=== PATIENT | male | born 1950 | race American Indian/Alaskan Native ===

== ENCOUNTER 2016-08-03 14:28 | Inpatient (IN) | payer MEDICARE ==
--- NOTE | 2016-08-03 14:58 | Emergency Department Report ---
ED Shortness of Breath HPI - General Chief Complaint: Dyspnea/Respdistress Stated Complaint: VIKA Time Seen by Provider: 08/03/16 14:44 Source: patient, EMS, old records reviewed (no previous [employer] record) Mode of arrival: Stretcher Limitations: Altered Mental Status - History of Present Illness Initial Comments: 66-year-old male with a past medical history COPD, CHF, diabetes, and hypertension presents to the hospital complaints of shortness of breath and altered mental status. Patient is lethargic and tends to tactile stimulation, answers questions then falls right back to sleep. He states she's been short of breath 3 days. Denies any pain. Monitor shows A. fib. Patient did not answer whether or not he had a previous history of atrial fibrillation. He takes 2-3 L of home oxygen. Patient states he is sleepy because he did not sleep much last night. - Related Data Home Medications Medication Instructions Recorded Confirmed Last Taken Furosemide [Lasix TAB] 40 mg PO QDAY 08/03/16 08/03/16 Unknown Metoprolol [Lopressor TAB] 50 mg PO BID 08/03/16 08/03/16 Unknown metFORMIN [Glucophage] 500 mg PO BID 08/03/16 08/03/16 Unknown Allergies Allergy/AdvReac Type Severity Reaction Status Date / Time No Known Allergies Allergy Unverified 08/03/16 14:39 ED Review of Systems ROS: Stated complaint: VIKA Other details as noted in HPI Comment: All other systems reviewed and negative (Limited due to lethargy/ altered mental status) Other: Constitutional: No fevers chills Respiratory: occasional cough, shortness of breath Cardiovascular: Denies chest pain, palpitations, syncope GI: Denies abdominal pain, nausea, vomiting, diarrhea : Denies dysuria Musculoskeletal: Denies back pain Skin: Denies rash, lesions, erythema Neurologic: Denies headache ED Past Medical Hx - Past Medical History Hx Hypertension: Yes Hx Congestive Heart Failure: Yes Hx Diabetes: Yes Hx COPD: Yes (home oxygen) - Social History Smoking Status: Current Some Day Smoker - Medications Home Medications: Home Medications Medication Instructions Recorded Confirmed Last Taken Type Furosemide [Lasix TAB] 40 mg PO QDAY 08/03/16 08/03/16 Unknown History Metoprolol [Lopressor TAB] 50 mg PO BID 08/03/16 08/03/16 Unknown History metFORMIN [Glucophage] 500 mg PO BID 08/03/16 08/03/16 Unknown History ED Physical Exam - General Limitations: Altered Mental Status - Other Other exam information: General: Lethargic Head exam: Atraumatic, normocephalic Eyes exam: Normal appearance ENT: Moist mucous membrane Neck exam: Normal inspection, full range of motion, no meningismus nontender Respiratory exam: Clear to auscultation bilateral, no wheezes, rales, crackles Cardiovascular: Irregular rhythm mild tachycardia Abdomen: Soft, nondistended, and nontender, with normal bowel sounds, no rebound, or guarding Extremity: Full range of motion, lower extremity edema mild Back: Normal Inspection, full range of motion, no tenderness Neurologic: Lethargic, arousable to tactile stimulation, 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 If the blood pressure drops while on cardiac syndrome recommends D/c drip and administering digoxin 08/03/16 17:11 ED Medical Decision Making - Lab Data Result diagrams: 08/03/16 15:06 08/03/16 15:06 Lab Results 08/03/16 08/03/16 08/03/16 Range/Units 14:55 15:06 15:06 PT 18.0 H (12.2-14.9) Sec. INR 1.49 H (0.87-1.13) APTT 28.8 (24.2-36.6) Sec. POC ABG pH 7.390 (7.35-7.45) POC ABG pCO2 41.0 (35-45) POC ABG pO2 66 L (80-105) POC ABG HCO3 24.8 POC ABG Total CO2 26 POC ABG O2 Sat 93 POC ABG Base Excess 0 FiO2 32 % Sodium 138 (137-145) mmol/L Potassium 4.1 (3.6-5.0) mmol/L Chloride 97.7 L (98-107) mmol/L Carbon Dioxide 25 (22-30) mmol/L Anion Gap 19 mmol/L BUN 19 (9-20) mg/dL Creatinine 1.2 (0.8-1.5) mg/dL Estimated GFR > 60 ml/min BUN/Creatinine Ratio 15.83 % Glucose 120 H (75-100) mg/dL Calcium 9.0 (8.4-10.2) mg/dL Ammonia (25-60) umol/L Total Creatine Kinase (55-170) units/L CK-MB (CK-2) (0.0-4.0) ng/mL CK-MB (CK-2) Rel Index (0-4) Troponin T (0.00-0.029) ng/mL NT-Pro-B Natriuret Pep 4519 H (0-900) pg/mL 08/03/16 08/03/16 Range/Units 15:06 15:06 PT (12.2-14.9) Sec. INR (0.87-1.13) APTT (24.2-36.6) Sec. POC ABG pH (7.35-7.45) POC ABG pCO2 (35-45) POC ABG pO2 (80-105) POC ABG HCO3 POC ABG Total CO2 POC ABG O2 Sat POC ABG Base Excess FiO2 % Sodium (137-145) mmol/L Potassium (3.6-5.0) mmol/L Chloride (98-107) mmol/L Carbon Dioxide (22-30) mmol/L Anion Gap mmol/L BUN (9-20) mg/dL Creatinine (0.8-1.5) mg/dL Estimated GFR ml/min BUN/Creatinine Ratio % Glucose (75-100) mg/dL Calcium (8.4-10.2) mg/dL Ammonia 61.0 H (25-60) umol/L Total Creatine Kinase 160 (55-170) units/L CK-MB (CK-2) 4.9 H (0.0-4.0) ng/mL CK-MB (CK-2) Rel Index 3.0 (0-4) Troponin T 0.027 (0.00-0.029) ng/mL NT-Pro-B Natriuret Pep (0-900) pg/mL - EKG Data -: EKG Interpreted by Me (afib 127 no stemi) - EKG Data When compared to previous EKG there are: previous EKG unavailable - Radiology Data Radiology results: report reviewed Chest x-ray: Probable CHF CT head: Suspicious area of low attenuation right cerebellum. Recommend MRI - Medical Decision Making Plan to admit patient to the hospital for treatment of acute CHF exacerbation with A. fib with RVR. Unsure if A. fib is new or old. Hospitalist informed. No signs of CO2 retention at this time. - Differential Diagnosis CO2 retention, new-onset A. fib, CVA , encephalopathy, AL Critical Care Time: No Critical care attestation.: If time is entered above; I have spent that time in minutes in the direct care of this critically ill patient, excluding procedure time. ED Disposition Clinical Impression: Atrial fibrillation with RVR, Acute CHF, SOB (shortness of breath), COPD ( chronic obstructive pulmonary disease), On home oxygen therapy, Diabetes, Anemia Disposition: OP ADMITTED IP TO THIS HOSP Is pt being admited?: Yes Condition: Stable Time of Disposition: 16:39 (Dr Lerner/hosp)
[2016-08-03 14:59] LABS: ISTAT Base Excess 0; ISTAT HCO3 24.8; ISTAT PO2 66 (80-105); ISTAT SO2 93; ISTAT TCO2 26
--- NOTE | 2016-08-03 15:10 | Admit Criteria Form ---
Admission Criteria Documentation: ATRIAL FIBRILLATION Clinical Indications for Admission to Inpatient Care (Place 'X' for any and all applicable criteria): Admission indicated for ANY ONE of the following(1)(2)(3)(4)(5) : [ ]I. Myocardial ischemia [X]II. Dyspnea or hypoxemia [ ]III. Hemodynamic instability [X]IV. Heart failure (e.g., pulmonary edema) (7) [ ]V. New-onset (less than 48 hours) atrial fibrillation with high risk for causing complications secondary to comorbidities (eg, symptomatic heart failure ) [X]. Altered mental status [ ]VII. Syncope [ ]VIII. Patient has implantable cardioverter defibrillator that has fired more than once within past 24hr or needs immediate adjustment of settings that cannot be done other than in inpatient setting. (8) [ ]IX. Suspected accessory pathway (e.g., Qpaki-Whojvccpo-Vtcfs syndrome) on ECG [ ]X. Recent systemic thromboembolism (eg, stroke) [ ]XI. Medication toxicity (e.g., digitalis) causing arrhythmia(9) [ ]XII. Underlying medical condition that necessitates inpatient care (e.g., thyrotoxicosis, pneumonia) (10) [ ]XIII. Continuous ECG monitoring is required for condition causing arrhythmia (e.g., severe hyperkalemia, hypokalemia, acid-base disturbance).(11)(12)(13) [ ]XIV. Initiation of antiarrhythmic drug therapy is needed in patient at high risk of adverse effects as indicated by ANY ONE of the following: [ ]a) Significant structural heart disease (e.g., reduced ejection fraction, congenital heart disease, valvular heart disease) [ ]b) Prolonged QT interval [ ]c) Underlying sinus node or atrioventricular conduction disturbances [ ]d) Need for treatment with antiarrhythmic drugs that have significant proarrhythmic potential (e.g., dofetilide, sotalol, procainamide) [ ]e) Patient whose sinus rhythm has never been observed on ECG [ ]XV. Intolerable symptoms despite optimal outpatient treatment [ ]XVI. Elective or urgent cardioversion that cannot be performed on outpatient basis or during observation care. [A] (Use also Atrial Fibrillation: Observation Care ) as appropriate.(14) [ ]XVII.Contraindications and/or Inappropriate clinical situations for Observational Care in patients with Atrial Fibrillation, when ANY ONE of the following is required: [ ]a) Patient with High risk of cardiac embolism (e.g, patients with previous cardiac embolism, LVEF < 40%, age >75 and patients with prosthetic valve) 18 [ ]b) Patient with Moderate risk including DM patient, CAD and patient aged 65-75 18 [ ]c) Patient with any change in cardiac biomarker especially troponin should be managed as high risk in an inpatient setting 19 [ ]d) Physician judgement irrespective of ECG and other diagnostic findings 20 [ ]XVIII.General contraindications and/or Inappropriate clinical situations for Observational Care in patients with Atrial Fibrillation, when ANY ONE of the following is required: [ ]a) Prediction of prolongation of LOS based on ANY ONE of the following may be considered as a contraindication for observational care 2, 3, 4, 5, 6, 7, 8, 9, 10, 11 [ ]i) Age > 65 yrs. [ ]ii) Patient arriving by ambulance [ ]iii) Patient with high acuity [ ]iv) Patient requiring vital sign monitoring [ ]v) Patient on IV medication [ ]b) Systolic blood pressures 180mmHg 3,12 [ ]c) Patient with altered mental status including delirium and other alteration of consciousness3 [ ]d) Patient whose discharge disposition will be to a usp home or rehabilitation home should not be managed in Emergency Department Observation Unit. CMS rule requires 3 days hospital stay before such placement.3,13 [ ]e) Patient with failure to thrive due to broad array of etiologies 3,16,17 [ ]f) Inability to ambulate 3,14 Extended stay beyond goal length of stay may be needed for (1)(25)(26): [ ]a) Unstable comorbidities [ ]b) Persistently uncontrolled atrial fibrillation or other arrhythmias [ ]c) Acute thromboembolic event (e.g., stroke, limb ischemia) [ ]d) Need for inpatient attainment of full anticoagulation The original [employer] content created by [employer] has been revised. The portions of the content which have been revised are identified through the use of italic text or in bold, and [facility] [employer] has neither reviewed nor approved the modified material. All other unmodified content is copyright [employer] [employer]. Please see references footnoted in the original [facility] [facility] [employer] edition 2016 Admission Criteria Met: Yes
--- NOTE | 2016-08-03 15:22 | XRay Report ---
Single view chest: History: Shortness of breath. Findings: Marked cardiomegaly. Trachea is midline. Pulmonary venous congestion with very faint interstitial infiltrates. Normal CP angles. Impression: Probable CHF.
[2016-08-03 15:42] LABS: INR 1.49 (0.87-1.13)
[2016-08-03 15:43] LABS: Partial Thromboplastin Time 28.8 Sec. (24.2-36.6)
[2016-08-03 16:01] LABS: Creatine Kinase MB 4.9 ng/mL (0.0-4.0)
--- NOTE | 2016-08-03 16:02 | Cat Scan Report ---
CT scan of head without contrast: History: Decreased mental status. Findings: Ventricles are normal in size and midline in location. Moderate volume loss. No evidence of acute ischemia, hemorrhage or mass. No extra axial fluid collection. There is suspicious ill-defined area of low attenuation noted at the right cerebellum adjacent to the inner table/artefct or ischemia. 2 retention cysts or polyps measuring 1 cm in diameter at the left maxillary sinus. Impression: Suspicious area of low attenuation right cerebellum. MRI scan there is a cortical further evaluation.
[2016-08-03 16:26] LABS: Anion Gap 19 mmol/L; BUN/Creatinine Ratio 15.83; Blood Urea Nitrogen 19 mg/dL (9-20); Carbon Dioxide 25 mmol/L (22-30); Chloride 97.7 mmol/L (98-107); Glucose 120 mg/dL (75-100); Potassium 4.1 mmol/L (3.6-5.0); Sodium 138 mmol/L (137-145)
[2016-08-03] MEDS ORDERED: LASIX IV ONE (16:35)
[2016-08-03] MEDS ORDERED: ASPIRIN PO ONE (16:36)
[2016-08-03 16:43] LABS: Basophils % (Auto) 0.5 % (0.0-1.8); Eosinophils % (Auto) 0.8 % (0.0-4.3); Mean Corpuscular HGB Conc 29 % (32-34); Platelet Count 200 K/mm3 (140-440); Red Blood Count 4.38 M/mm3 (3.65-5.03); White Blood Count 6.8 K/mm3 (4.5-11.0)
[2016-08-03 16:44] LABS: Hematocrit 30.6 % (35.5-45.6); Hemoglobin 8.9 gm/dl (11.8-15.2); Mean Corpuscular Hemoglobin 20 pg (28-32); Mean Corpuscular Volume 70 fl (84-94); Red Cell Distribution Width 20.9 % (13.2-15.2)
[2016-08-03] MEDS: CARDIZEM/D5W 100MG/100ML 100 MG/100 ML BAG IV SCH (17:15)
--- NOTE | 2016-08-03 21:13 | Event Note ---
Date: 08/03/16 See H/p in reports Afib with RVR CHF exacerbation Copd exacerbation
[2016-08-03] MEDS ORDERED: LEVAQUIN 750MG/150ML 150 ML IV SCH (22:00)
[2016-08-03] MEDS: DUONEB 0.5 MG-3 MG/3 ML SOLN IH SCH (22:11)
[2016-08-03] MEDS: LASIX IV SCH (22:33)
[2016-08-03] MEDS: LOPRESSOR PO SCH (22:33)
[2016-08-03] MEDS: GLUCOPHAGE PO SCH (22:34)
[2016-08-03] MEDS: LEVAQUIN 750MG/150ML 750 MG/150 ML BAG IV SCH (22:49)
[2016-08-04] MEDS ORDERED: XANAX PO ONE (00:32)
[2016-08-04] MEDS: DUONEB 0.5 MG-3 MG/3 ML SOLN IH SCH ×4 (01:36→21:02)
[2016-08-04] MEDS: CARDIZEM/D5W 100MG/100ML 100 MG/100 ML BAG IV SCH (01:49)
--- NOTE | 2016-08-04 09:09 | Consultation ---
History of Present Illness Consult date: 08/04/16 Consult reason: atrial fibrillation, congestive heart failure History of present illness: This is a 66yr old male who presented to this hospital with shortness of breath. He denies chest pain. An ECG shows atrial fibrillation with RVR. Chest x -ray reports cardiomegaly with vascular congestion and possible interstitial infiltrates. Patient reports a cardiac history of atrial fibrillation and CHF during recent admission to [facility]. Patient reports having a cardiac cath but he is unclear if he had coronary intervention. Patient is unsure what anticoagulation therapy he is taking. INR of 1.4 on presentation. Patient is a poor historian and admits to noncompliance with medication and dietary restrictions. 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 Medications and Allergies Allergies Allergy/AdvReac Type Severity Reaction Status Date / Time No Known Allergies Allergy Unverified 08/03/16 14:39 Home Medications Medication Instructions Recorded Confirmed Last Taken Type Furosemide [Lasix TAB] 40 mg PO QDAY 08/03/16 08/03/16 Unknown History Metoprolol [Lopressor TAB] 50 mg PO BID 08/03/16 08/03/16 Unknown History metFORMIN [Glucophage] 500 mg PO BID 08/03/16 08/03/16 Unknown History Active Meds: Active Medications Albuterol/Ipratropium (Duoneb 0.5 Mg-3 Mg/3 Ml Soln) 1 ampul IH Q6HRT [facility] Last Admin: 08/04/16 08:29 Dose: 1 ampul Enoxaparin Sodium (Lovenox) 40 mg SUB-Q QDAY KIMMY Furosemide (Lasix) 40 mg IV QDAY [facility] Last Admin: 08/03/16 22:33 Dose: 40 mg Diltiazem HCl (Cardizem/D5w 100mg/100ml) 100 mg in 100 mls @ 5 mls/hr IV TITR KIMMY; 5 MG/HR PRN Reason: Protocol Last Admin: 08/04/16 01:49 Dose: 10 mg/hr, 10 mls/hr Levofloxacin/Dextrose (Levaquin 750mg/150ml) 750 mg in 150 mls @ 100 mls/hr IV Q24H KIMMY PRN Reason: Protocol Last Admin: 08/03/16 22:49 Dose: 100 mls/hr Metformin HCl (Glucophage) 500 mg PO BIDDIAB [facility] Last Admin: 08/03/16 22:34 Dose: Not Given Methylprednisolone Sodium Succinate (Solu-Medrol) 60 mg IV Q8HR [facility] Last Admin: 08/04/16 05:27 Dose: 60 mg Metoprolol Tartrate (Lopressor) 50 mg PO BID [facility] Last Admin: 08/03/16 22:33 Dose: 50 mg Physical Examination Vital Signs Temp Pulse BP Pulse Ox 98.2 F 106 H 105/69 94 08/03/16 14:39 08/03/16 14:39 08/03/16 14:39 08/03/16 14:39 General appearance: no acute distress Cardiac: Positive: irregularly irregular Lungs: Positive: Decreased Breath Sounds Results 08/03/16 15:06 08/03/16 15:06 Assessment and Plan CHF exacerbation Hx of COPD
[2016-08-04] MEDS ORDERED: LOVENOX SUB-Q SCH (10:00)
[2016-08-04] MEDS: LOPRESSOR PO SCH ×2 (10:08→21:37)
[2016-08-04] MEDS: LASIX IV SCH (10:09)
[2016-08-04] MEDS: GLUCOPHAGE PO SCH ×2 (10:11→18:10)
--- NOTE | 2016-08-04 10:58 | Consultation ---
History of Present Illness Consult date: 08/04/16 Consult reason: shortness of breath History of present illness: 66 year old male poor historian admitted with worsening shortness of breath. He receives his care primarily at the [facility] and [facility]. He states that recently he had a heart cath at [facility] showing no evidence of CAD. He has a history of heart failure and atrial fibrillation but he does not take anticoagulation as outpatient for unknown reasons. His CXR is consistent with CHF. Past History Past Medical History: atrial fib, anemia, COPD, diabetes, heart failure, hypertension Past Surgical History: No surgical history Social history: smoking Family history: no significant family history Medications and Allergies Allergies Allergy/AdvReac Type Severity Reaction Status Date / Time No Known Allergies Allergy Unverified 08/03/16 14:39 Home Medications Medication Instructions Recorded Confirmed Last Taken Type Furosemide [Lasix TAB] 40 mg PO QDAY 08/03/16 08/03/16 Unknown History Metoprolol [Lopressor TAB] 50 mg PO BID 08/03/16 08/03/16 Unknown History metFORMIN [Glucophage] 500 mg PO BID 08/03/16 08/03/16 Unknown History Active Meds: Active Medications Albuterol/Ipratropium (Duoneb 0.5 Mg-3 Mg/3 Ml Soln) 1 ampul IH Q6HRT [facility] Last Admin: 08/04/16 08:29 Dose: 1 ampul Enoxaparin Sodium (Lovenox) 40 mg SUB-Q QDAY [facility] Last Admin: 08/04/16 10:09 Dose: 40 mg Furosemide (Lasix) 40 mg IV QDAY [facility] Last Admin: 08/04/16 10:09 Dose: 40 mg Diltiazem HCl (Cardizem/D5w 100mg/100ml) 100 mg in 100 mls @ 5 mls/hr IV TITR KIMMY; 5 MG/HR PRN Reason: Protocol Last Admin: 08/04/16 01:49 Dose: 10 mg/hr, 10 mls/hr Levofloxacin/Dextrose (Levaquin 750mg/150ml) 750 mg in 150 mls @ 100 mls/hr IV Q24H KIMMY PRN Reason: Protocol Last Admin: 08/03/16 22:49 Dose: 100 mls/hr Metformin HCl (Glucophage) 500 mg PO BIDDIAB [facility] Last Admin: 08/04/16 10:11 Dose: 500 mg Methylprednisolone Sodium Succinate (Solu-Medrol) 60 mg IV Q8HR [facility] Last Admin: 08/04/16 05:27 Dose: 60 mg Metoprolol Tartrate (Lopressor) 50 mg PO BID [facility] Last Admin: 08/04/16 10:08 Dose: 50 mg Review of Systems All systems: negative Physical Examination Vital Signs Temp Pulse BP Pulse Ox 98.2 F 106 H 105/69 94 08/03/16 14:39 08/03/16 14:39 08/03/16 14:39 08/03/16 14:39 General appearance: no acute distress HEENT: Positive: PERRL Neck: Positive: neck supple Cardiac: Positive: irregularly irregular Lungs: Positive: Rales Abdomen: Positive: Soft Extremities: Present: +1 Edema Results 08/03/16 15:06 08/03/16 15:06 Assessment and Plan Congestive heart failure, ? etiology History of recent cardiac work-up at [facility] where he was told that he has no CAD COPD on home oxygen therapy Obstructive sleep apnea Persistent atrial fibrillation Not on anticoagulation as outpatient for unknown reasons (possibly due to non -compliance and anemia) Type II DM Systemic Hypertension Microcytic anemia. ? etiology Poor historian Recommendations: Obtain records from [facility] and [facility] Change to po diltiazem 60 mg every 6 hours Hold on anticoagulation and further cardiac testing until records are received from [facility]
[2016-08-04] MEDS: CARDIZEM PO SCH ×3 (15:38→23:59)
--- NOTE | 2016-08-04 21:09 | Progress Note ---
Assessment and Plan - Patient Problems (1) Acute CHF Current Visit: Yes Status: Acute Qualifiers: Congestive heart failure type: systolic Qualified Code(s): I50.21 - Acute systolic (congestive) heart failure Plan to address problem: Cardiology consulted: telemetry, fluid restriction, monitor uop q shift, diuretics, daily weight, B uzair, afterload reduction, (2) Metabolic syndrome Current Visit: Yes Status: Acute Plan to address problem: Pt counseled (3) Atrial fibrillation with RVR Current Visit: Yes Status: Acute Plan to address problem: Rate control, supportive care, cardiology consulted. (4) COPD (chronic obstructive pulmonary disease) Current Visit: Yes Status: Acute Qualifiers: COPD type: C Chronic bronchitis type: C Emphysema type: E Plan to address problem: supplemental oxygenb, nebs, NIPPV as clinically indicated (5) Diabetes Current Visit: Yes Status: Acute Qualifiers: Diabetes mellitus type: D Diabetes mellitus complication status: D Diabetes mellitus complication detail: D Diabetic retinopathy severity: D Proliferative retinopathy type: P Diabetes mellitus macular edema: D Diabetes mellitus halfway insulin use: D Laterality: L Chronic kidney disease stage: C Plan to address problem: ADA diet, insulin, accu check (6) DVT prophylaxis Current Visit: Yes Status: Acute History Interval history: Pt resting in bed, Pt denies any current complaints. Pt denies fever, chills, CP , Palpitations, NVD. No reported nursing events. Hospitalist Physical - Constitutional Vitals: Temp Pulse Resp BP Pulse Ox 97.3 F L 83 18 97/61 98 08/04/16 16:35 08/04/16 21:03 08/04/16 21:03 08/04/16 19:44 08/04/16 21:02 General appearance: Present: no acute distress, obese - EENT Eyes: Present: PERRL ENT: hearing intact - Neck Neck: Present: supple - Respiratory Respiratory: bilateral: diminished - Cardiovascular Rhythm: irregularly irregular - Extremities Extremities: no ischemia Extremity abnormal: edema Peripheral Pulses: within normal limits - Abdominal General gastrointestinal: soft, non-tender, non-distended - Integumentary Integumentary: Present: clear, dry - Psychiatric Psychiatric: appropriate mood/affect, cooperative - Neurologic Neurologic: CNII-XII intact Results - Labs CBC & Chem 7: 08/03/16 15:06 08/03/16 15:06 Labs: Laboratory Last Values WBC 6.8 K/mm3 (4.5-11.0) 08/03/16 15:06 RBC 4.38 M/mm3 (3.65-5.03) 08/03/16 15:06 Hgb 8.9 gm/dl (11.8-15.2) L 08/03/16 15:06 Hct 30.6 % (35.5-45.6) L 08/03/16 15:06 MCV 70 fl (84-94) L 08/03/16 15:06 MCH 20 pg (28-32) L 08/03/16 15:06 MCHC 29 % (32-34) L 08/03/16 15:06 RDW 20.9 % (13.2-15.2) H 08/03/16 15:06 Plt Count 200 K/mm3 (140-440) 08/03/16 15:06 Lymph % (Auto) 19.5 % (13.4-35.0) 08/03/16 15:06 [place] % (Auto) 11.9 % (0.0-7.3) H 08/03/16 15:06 Eos % (Auto) 0.8 % (0.0-4.3) 08/03/16 15:06 Baso % (Auto) 0.5 % (0.0-1.8) 08/03/16 15:06 Lymph # 1.3 K/mm3 (1.2-5.4) 08/03/16 15:06 [place] # 0.8 K/mm3 (0.0-0.8) 08/03/16 15:06 Eos # 0.1 K/mm3 (0.0-0.4) 08/03/16 15:06 Baso # 0.0 K/mm3 (0.0-0.1) 08/03/16 15:06 Seg Neutrophils % 67.3 % (40.0-70.0) 08/03/16 15:06 Seg Neutrophils # 4.6 K/mm3 (1.8-7.7) 08/03/16 15:06 PT 18.0 Sec. (12.2-14.9) H 08/03/16 15:06 INR 1.49 (0.87-1.13) H 08/03/16 15:06 APTT 28.8 Sec. (24.2-36.6) 08/03/16 15:06 POC ABG pH 7.390 (7.35-7.45) 08/03/16 14:55 POC ABG pCO2 41.0 (35-45) 08/03/16 14:55 POC ABG pO2 66 (80-105) L 08/03/16 14:55 POC ABG HCO3 24.8 08/03/16 14:55 POC ABG Total CO2 26 08/03/16 14:55 POC ABG O2 Sat 93 08/03/16 14:55 POC ABG Base Excess 0 08/03/16 14:55 FiO2 32 % 08/03/16 14:55 Sodium 138 mmol/L (137-145) 08/03/16 15:06 Potassium 4.1 mmol/L (3.6-5.0) 08/03/16 15:06 Chloride 97.7 mmol/L (98-107) L 08/03/16 15:06 Carbon Dioxide 25 mmol/L (22-30) 08/03/16 15:06 Anion Gap 19 mmol/L 08/03/16 15:06 BUN 19 mg/dL (9-20) 08/03/16 15:06 Creatinine 1.2 mg/dL (0.8-1.5) 08/03/16 15:06 Estimated GFR > 60 ml/min 08/03/16 15:06 BUN/Creatinine Ratio 15.83 % 08/03/16 15:06 Glucose 120 mg/dL (75-100) H 08/03/16 15:06 Calcium 9.0 mg/dL (8.4-10.2) 08/03/16 15:06 Ammonia 61.0 umol/L (25-60) H 08/03/16 15:06 Total Creatine Kinase 160 units/L (55-170) 08/03/16 15:06 CK-MB (CK-2) 4.9 ng/mL (0.0-4.0) H 08/03/16 15:06 CK-MB (CK-2) Rel Index 3.0 (0-4) 08/03/16 15:06 Troponin T 0.027 ng/mL (0.00-0.029) 08/03/16 15:06 NT-Pro-B Natriuret Pep 4519 pg/mL (0-900) H 08/03/16 15:06
[2016-08-04] MEDS: LEVAQUIN 750MG/150ML 750 MG/150 ML BAG IV SCH (21:36)
--- NOTE | 2016-08-05 01:19 | History and Physical Report ---
CHIEF COMPLAINT: Increasing shortness of breath for 3 days. HISTORY OF PRESENT ILLNESS: A 66-year-old male with history of COPD, CHF, diabetes, hypertension comes in for increasing shortness of breath for 3 days. The patient is lethargic, answers questions and then falls back to sleep. Short of breath for 3 days. Cough productive of mucoid sputum. Also, some palpitations present. On home oxygen 2-3 liters. No fever, no chills, no diaphoresis. PAST MEDICAL HISTORY: As mentioned, significant for hypertension, CHF, COPD, diabetes. SOCIAL HISTORY: Smokes about a pack a day. PAST SURGICAL HISTORY: None. FAMILY HISTORY: Significant for hypertension. CURRENT MEDICATIONS: Lasix 40 mg daily, Lopressor 50 mg twice a day, and metformin 500 mg twice a day. REVIEW OF SYSTEMS: Significant for: CONSTITUTIONAL: No weight loss, no weight gain. HEENT: No sore throat, no postnasal drip. CARDIOVASCULAR AND RESPIRATORY: Bilateral inspiratory and expiratory rhonchi and rales present. Shortness of breath present. GASTROINTESTINAL: No nausea, no vomiting, no diarrhea. GENITOURINARY: No dysuria, no flank pain. MUSCULOSKELETAL: No joint pains, no muscle pains. CENTRAL NERVOUS SYSTEM: No syncope, no seizures. SKIN: No rashes. A 14-point review of systems done, other than increasing shortness of breath review of systems negative. PHYSICAL EXAMINATION: GENERAL: Elderly male, cooperative during examination. VITAL SIGNS: Temperature 98.2, pulse 106, respirations 21, blood pressure 105/69. HEENT: Unremarkable. Pupils are equal and reactive. NECK: Supple, no lymphadenopathy, no thyromegaly. LUNGS: Clear to auscultation and percussion. Good air entry. Bilateral scattered rales present. CARDIOVASCULAR: S1, S2 heard. No gallop, no murmur, no rub. Apical impulse in left fifth intercostal space and midclavicular line. ABDOMEN: Soft and benign. No hepatosplenomegaly. No guarding, no rigidity. Hernial orifices are normal. EXTREMITIES: Good pedal pulses. CENTRAL NERVOUS SYSTEM: Alert and oriented x 4, nonfocal exam. LABORATORY DATA: White count is 6800, H and H is 8.9 and 30.6, platelet count is 200,000. Sodium is 138, potassium is 4.1, chloride is 97.7, bicarbonate is 25, BUN and creatinine is 19 and 1.2, glucose is 120. ABG significant for pH of 7.39, pCO2 of 41, pO2 of , bicarbonate of 24.8, total CO2 of 26, O2 sats are 93% on 32% oxygen. Chest x-ray showed no infiltrate. Probable CHF. EKG shows AFib with rapid ventricular response, 127 per minute and no STEMI. ASSESSMENT AND PLAN: 1. Atrial fibrillation with rapid ventricular rate. The patient on diltiazem drip. Continue diltiazem drip and switch over to p.o. Diltiazem. 2. Congestive heart failure exacerbation. The patient continued on Lasix 40 mg IV q. 24. 3. Choric obstructive pulmonary disease exacerbation. The patient started on DuoNeb, levofloxacin, and mg q.8 hours. 4. Hypertension. Continue metoprolol and Diltiazem. 5. Noninsulin dependent diabetes. Continue metformin and coverage. 6. Deep venous thrombosis prophylaxis, Lovenox 40 mg subcutaneous daily. JOB# [id number] VSM/NTS
[2016-08-05] MEDS: DUONEB 0.5 MG-3 MG/3 ML SOLN IH SCH ×4 (01:39→20:18)
[2016-08-05] MEDS: CARDIZEM PO SCH ×4 (06:20→23:06)
[2016-08-05] MEDS ORDERED: D50W (25GM) IV ONE ×2 (06:30→08:08)
[2016-08-05] MEDS ORDERED: SODIUM BICARBONATE IV ONE ×6 (08:00→16:00)
[2016-08-05] MEDS ORDERED: NACL 0.9% 1,000 ML IR ONE (08:32)
[2016-08-05] MEDS ORDERED: INTROPIN DRIP 800 MG/D5W 250 ML 800 MG/250 ML BAG IV ONE (08:49)
[2016-08-05] MEDS ORDERED: SODIUM CHLORIDE FLUSH SYRINGE 10 ML IV PRN (09:00)
[2016-08-05 09:06] LABS: ISTAT Base Excess -18; ISTAT HCO3 10.4; ISTAT PCO2 28.5 (35-45); ISTAT PH 7.169 (7.35-7.45); ISTAT PO2 101 (80-105); ISTAT SO2 96; ISTAT TCO2 11
[2016-08-05] MEDS: GLUCOPHAGE PO SCH ×2 (09:21→17:58)
--- NOTE | 2016-08-05 10:06 | Progress Note ---
Assessment and Plan Altered mental status Hypotension and junctional bradycardia Foul smelling urine in fields Congestive heart failure, Acute on chronic diastolic LVEF 45-50% with evidence of a dilated RV/RA and severe pulmonary hypertension Findings unchanged from previous echo done at [facility] COPD on home oxygen therapy Obstructive sleep apnea Persistent atrial fibrillation Patient was supposed to be on xarelto as outpatient but he is non-compliant History of bilateral pulmonary embolism by CT at [place] Type II DM Systemic Hypertension Microcytic anemia. ? etiology but according to [place] record is chronic Poor historian Recommendations: Patient may have sustained an acute stroke event given afib and non-compliance with anticoagulation Alternatively he may also be septic likely due to urine source Patient is currently hemodynamically unstable and will be started on IV dopamine. May add vasopression if needed He will certainly benefit from a repeat CT brain or brain MRI (once hemodynamically stable) as well as broad spectrum antibiotics Will continue to follow with you Subjective Date of service: 08/05/16 Principal diagnosis: CHF Interval history: Morning events noted Objective Vital Signs Temp Pulse Pulse Pulse Pulse Resp Resp 08/05/16 08:50 45 L 24 08/05/16 08:38 79 24 08/05/16 08:34 08/05/16 08:13 45 L 24 08/05/16 06:20 42 L 08/05/16 06:18 42 L 16 08/05/16 02:00 59 L 08/05/16 00:58 98.1 F 82 20 08/05/16 00:00 98.2 F 62 18 08/04/16 22:00 18 08/04/16 21:21 78 18 08/04/16 21:03 83 18 08/04/16 21:02 08/04/16 19:44 62 18 08/04/16 18:10 102 H 08/04/16 18:00 90 08/04/16 17:33 64 18 08/04/16 16:35 97.3 F L 70 20 08/04/16 10:00 86 86 20 BP BP Pulse Ox 08/05/16 08:50 08/05/16 08:38 08/05/16 08:34 96 08/05/16 08:13 08/05/16 06:20 08/05/16 06:18 82/46 100 08/05/16 02:00 08/05/16 00:58 96/59 96 08/05/16 00:00 95/58 100 08/04/16 22:00 08/04/16 21:21 08/04/16 21:03 08/04/16 21:02 98 08/04/16 19:44 97/61 100 08/04/16 18:10 120/70 08/04/16 18:00 08/04/16 17:33 08/04/16 16:35 108/66 94 08/04/16 10:00 95 - Physical Examination General: Other (Unresponsive) HEENT: Positive: PERRL Neck: Positive: neck supple Cardiac: Positive: Reg Rate and Rhythm, Bradycardia Lungs: Positive: Decreased Breath Sounds Abdomen: Positive: Soft Extremities: Present: +1 Edema
[2016-08-05] MEDS ORDERED: NACL 0.9% 500 ML 500 ML IV ONE (10:09)
[2016-08-05] MEDS: LOPRESSOR PO SCH ×2 (10:23→22:35)
[2016-08-05] MEDS: LASIX IV SCH (11:00)
[2016-08-05] MEDS: SODIUM BICARBONATE 150 MEQ in D5W 1,000 ML IV SCH (11:00)
[2016-08-05] MEDS: PITRESSin 20 UNIT in NACL 0.9% 100 ML IV SCH ×2 (11:01→22:10)
--- NOTE | 2016-08-05 11:06 | XRay Report ---
Single view chest: Compared to 08/03/16. History: Left PICC line placement. Findings: The tip of the left PICC line is noted in the mid left subclavian vein. The PICC line appears coiled up in the axilla. Cardiomegaly with pulmonary vascular congestion. No consolidation. Impression: Findings as detailed above.
[2016-08-05 12:59] LABS: ISTAT Base Excess -14; ISTAT PCO2 54.3 (35-45); ISTAT PH 7.077 (7.35-7.45); ISTAT PO2 78 (80-105); ISTAT SO2 89; ISTAT TCO2 18
[2016-08-05] MEDS ORDERED: SUBLIMAZE IV ONE (13:07)
[2016-08-05] MEDS ORDERED: VERSED IV ONE (13:09)
--- NOTE | 2016-08-05 13:25 | XRay Report ---
Single view chest: compared to 08/05/16. History: Reposition left PICC line. Findings: Tip of the left PIC line is noted at upper superior vena cava. Should be advanced approximately 4 cm. Pulmonary venous congestion bilaterally with faint interstitial infiltrates without significant interval change. Impression: Findings as detailed above.
[2016-08-05] MEDS ORDERED: VASELINE LIP THERAPY TP PRN (13:38)
[2016-08-05] MEDS ORDERED: ARTIFICIAL TEARS OPHTH OINT OU PRN (13:38)
[2016-08-05 13:44] LABS: Creatine Kinase MB 11.6 ng/mL (0.0-4.0)
[2016-08-05] MEDS: LOVENOX SUB-Q SCH ×2 (13:52→22:32)
[2016-08-05] MEDS ORDERED: NACL 0.9% 500 ML IV SCH (14:00)
--- NOTE | 2016-08-05 15:34 | XRay Report ---
FINAL REPORT EXAM: XR CHEST 1V AP HISTORY: ETT placement TECHNIQUE: Frontal portable examination of the chest PRIORS: None FINDINGS: Oblique patient position limits the examination. Cardiomegaly and body habitus obscures the left lung base. No evidence of pneumothorax. Moderate cardiomegaly with suggestion of vascular congestion. No pneumothorax or definite visualized pleural effusion. No visualized focal pulmonary consolidation. Nonspecific metallic density projected in left upper chest may be a foreign body or external debris. IMPRESSION: Cardiomegaly with suggestion of vascular congestion. The differential includes interstitial edema and/or interstitial pneumonitis An endotracheal tube is in place in the region of the trachea with distal tip projecting approximately 3.2 cm above the region of the macario. A left venous catheter is in place with distal tip near the cavoatrial junction region.
[2016-08-05] MEDS: INTROPIN DRIP 800 MG/D5W 250 ML 800 MG/250 ML BAG IV SCH ×2 (16:06→23:00)
[2016-08-05 16:11] LABS: Creatine Kinase MB 11.9 ng/mL (0.0-4.0)
[2016-08-05] MEDS ORDERED: NACL 0.9% 1000 ML 2,000 ML IV ONE ×2 (16:38→17:47)
[2016-08-05] MEDS ORDERED: D50W (25GM) IV PRN (17:48)
[2016-08-05 17:53] LABS: ISTAT Base Excess -14; ISTAT HCO3 17.1; ISTAT PCO2 66.3 (35-45); ISTAT PO2 93 (80-105); ISTAT SO2 92; ISTAT TCO2 19
[2016-08-05] MEDS: LEVAQUIN 750MG/150ML 750 MG/150 ML BAG IV SCH (22:31)
[2016-08-05] MEDS: NOVOLOG SUB-Q SCH (22:58)
[2016-08-06] MEDS: DUONEB 0.5 MG-3 MG/3 ML SOLN IH SCH ×4 (01:40→20:09)
[2016-08-06 04:23] LABS: ISTAT Base Excess -9; ISTAT HCO3 20.5; ISTAT PCO2 63.2 (35-45); ISTAT PH 7.119 (7.35-7.45); ISTAT PO2 51 (80-105); ISTAT SO2 71; ISTAT TCO2 22
[2016-08-06 06:06] LABS: ISTAT Base Excess 2; ISTAT HCO3 28.7; ISTAT PCO2 59.9 (35-45); ISTAT PH 7.289 (7.35-7.45); ISTAT PO2 224 (80-105); ISTAT SO2 100; ISTAT TCO2 30
[2016-08-06] MEDS: CARDIZEM PO SCH (06:09)
[2016-08-06] MEDS: NOVOLOG SUB-Q SCH ×4 (07:41→22:59)
[2016-08-06] MEDS: PITRESSin 20 UNIT in NACL 0.9% 100 ML IV SCH (08:12)
--- NOTE | 2016-08-06 08:36 | Progress Note ---
Assessment and Plan - Patient Problems (1) Acute respiratory failure Current Visit: Yes Status: Acute Qualifiers: Respiratory failure complication: R Plan to address problem: Pulmonary consulted: NIPPV as clinically indicated, therapeutic lovenox, d dimer , supportive care, nebs, (2) Acute CHF Current Visit: Yes Status: Acute Qualifiers: Congestive heart failure type: systolic Qualified Code(s): I50.21 - Acute systolic (congestive) heart failure Plan to address problem: Cardiology consulted: telemetry, fluid restriction, monitor uop q shift, diuretics, daily weight, B uzair, afterload reduction, (3) Metabolic syndrome Current Visit: Yes Status: Acute Plan to address problem: Pt counseled (4) Atrial fibrillation with RVR Current Visit: Yes Status: Acute Plan to address problem: Rate control, supportive care, cardiology consulted. 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 Pt lying in bed, confused, ill appearing, and short of breath. No new reported nursing events. . Hospitalist Physical - Constitutional Vitals: Temp Pulse Resp BP Pulse Ox 99 F 104 H 24 99/64 99 08/06/16 07:59 08/06/16 07:45 08/06/16 07:45 08/06/16 07:45 08/06/16 07:45 General appearance: Present: no acute distress, obese - EENT Eyes: Present: PERRL ENT: hearing intact - Neck Neck: Present: supple - Respiratory Respiratory effort: labored Respiratory: bilateral: diminished - Cardiovascular Rhythm: regular Heart Sounds: Present: S1 & S2 - Extremities Extremities: no ischemia Extremity abnormal: edema Peripheral Pulses: within normal limits - Abdominal General gastrointestinal: soft, non-tender, non-distended, no hepatomegaly, no splenomegaly - Integumentary Integumentary: Present: clear, dry - Psychiatric Psychiatric: no intact judgment & insight, no memory intact - Neurologic Neurologic: CNII-XII intact, no gait normal Results - Labs CBC & Chem 7: 08/03/16 15:06 08/03/16 15:06 Labs: Laboratory Last Values WBC 6.8 K/mm3 (4.5-11.0) 08/03/16 15:06 RBC 4.38 M/mm3 (3.65-5.03) 08/03/16 15:06 Hgb 8.9 gm/dl (11.8-15.2) L 08/03/16 15:06 Hct 30.6 % (35.5-45.6) L 08/03/16 15:06 MCV 70 fl (84-94) L 08/03/16 15:06 MCH 20 pg (28-32) L 08/03/16 15:06 MCHC 29 % (32-34) L 08/03/16 15:06 RDW 20.9 % (13.2-15.2) H 08/03/16 15:06 Plt Count 200 K/mm3 (140-440) 08/03/16 15:06 Lymph % (Auto) 19.5 % (13.4-35.0) 08/03/16 15:06 [place] % (Auto) 11.9 % (0.0-7.3) H 08/03/16 15:06 Eos % (Auto) 0.8 % (0.0-4.3) 08/03/16 15:06 Baso % (Auto) 0.5 % (0.0-1.8) 08/03/16 15:06 Lymph # 1.3 K/mm3 (1.2-5.4) 08/03/16 15:06 [place] # 0.8 K/mm3 (0.0-0.8) 08/03/16 15:06 Eos # 0.1 K/mm3 (0.0-0.4) 08/03/16 15:06 Baso # 0.0 K/mm3 (0.0-0.1) 08/03/16 15:06 Seg Neutrophils % 67.3 % (40.0-70.0) 08/03/16 15:06 Seg Neutrophils # 4.6 K/mm3 (1.8-7.7) 08/03/16 15:06 PT 18.0 Sec. (12.2-14.9) H 08/03/16 15:06 INR 1.49 (0.87-1.13) H 08/03/16 15:06 APTT 28.8 Sec. (24.2-36.6) 08/03/16 15:06 D-Dimer 2516.52 ng/mlDDU (0-234) H 08/05/16 13:01 POC ABG pH 7.289 (7.35-7.45) L 08/06/16 05:08 POC ABG pCO2 59.9 (35-45) H 08/06/16 05:08 POC ABG pO2 224 (80-105) H 08/06/16 05:08 POC ABG HCO3 28.7 08/06/16 05:08 POC ABG Total CO2 30 08/06/16 05:08 POC ABG O2 Sat 100 08/06/16 05:08 POC ABG Base Excess 2 08/06/16 05:08 FiO2 100 % 08/06/16 05:08 Sodium 138 mmol/L (137-145) 08/03/16 15:06 Potassium 4.1 mmol/L (3.6-5.0) 08/03/16 15:06 Chloride 97.7 mmol/L (98-107) L 08/03/16 15:06 Carbon Dioxide 25 mmol/L (22-30) 08/03/16 15:06 Anion Gap 19 mmol/L 08/03/16 15:06 BUN 19 mg/dL (9-20) 08/03/16 15:06 Creatinine 1.2 mg/dL (0.8-1.5) 08/03/16 15:06 Estimated GFR > 60 ml/min 08/03/16 15:06 BUN/Creatinine Ratio 15.83 % 08/03/16 15:06 Glucose 120 mg/dL (75-100) H 08/03/16 15:06 POC Glucose 326 (70-105) H 08/06/16 06:16 Lactic Acid 5.3 mmol/L (0.7-2.0) H* 08/06/16 05:55 Calcium 9.0 mg/dL (8.4-10.2) 08/03/16 15:06 Ammonia 61.0 umol/L (25-60) H 08/03/16 15:06 Total Creatine Kinase 282 units/L (55-170) H 08/05/16 15:27 CK-MB (CK-2) 11.9 ng/mL (0.0-4.0) H 08/05/16 15:27 CK-MB (CK-2) Rel Index 4.2 (0-4) H 08/05/16 15:27 Troponin T 0.152 ng/mL (0.00-0.029) H* D 08/05/16 15:27 NT-Pro-B Natriuret Pep 8307 pg/mL (0-900) H 08/05/16 13:01 Triglycerides 31 mg/dL (2-149) 08/05/16 13:01 Cholesterol 86 mg/dL (50-199) 08/05/16 13:01 LDL Cholesterol Direct 59 mg/dL (50-130) 08/05/16 13:01 HDL Cholesterol 21 mg/dL (40-59) L 08/05/16 13:01 Cholesterol/HDL Ratio 4.09 % 08/05/16 13:01
--- NOTE | 2016-08-06 09:02 | Progress Note ---
Assessment and Plan Altered mental status Vasodilatory shock and lactic acidosis Foul smelling urine in fields Congestive heart failure, Acute on chronic diastolic LVEF 45-50% with evidence of a dilated RV/RA and severe pulmonary hypertension Findings unchanged from previous echo done at [facility] COPD on home oxygen therapy Obstructive sleep apnea Persistent atrial fibrillation Patient was supposed to be on xarelto as outpatient but he is non-compliant He is currently in sinus tachycardia History of bilateral pulmonary embolism by CT at [place] Type II DM Systemic Hypertension Microcytic anemia. ? etiology but according to [place] record is chronic Poor historian Recommendations: Continue supportive care Pressors, anticoagulation, antibiotics, nutrition... No further cardiac intervention Subjective Date of service: 08/06/16 Principal diagnosis: CHF Interval history: Patient is intubated, on 2 pressors and a bicarbonate drip Objective Vital Signs Temp Pulse Pulse Resp Resp BP Pulse Ox 08/06/16 07:59 99 F 08/06/16 07:45 104 H 24 99/64 99 08/06/16 07:30 104 H 24 97/62 99 08/06/16 07:15 104 H 24 97/63 99 08/06/16 07:00 105 H 24 98/62 98 08/06/16 06:45 105 H 24 103/68 94 08/06/16 06:30 107 H 24 105/69 99 08/06/16 06:16 107 H 24 105/69 100 08/06/16 06:00 108 H 24 97/64 100 08/06/16 05:45 109 H 24 105/69 98 08/06/16 05:30 109 H 22 113/69 96 08/06/16 05:15 109 H 24 112/67 96 08/06/16 05:00 108 H 22 113/70 100 08/06/16 04:46 108 H 22 105/71 100 08/06/16 04:43 108 H 105/71 100 08/06/16 04:30 108 H 22 105/71 100 08/06/16 04:15 107 H 22 104/68 100 08/06/16 04:00 107 H 22 102/68 100 08/06/16 03:45 107 H 22 102/64 100 08/06/16 03:30 107 H 22 99/65 100 08/06/16 03:15 108 H 22 100/65 100 08/06/16 03:00 108 H 22 98/65 100 02/19/17 02:45 107 H 22 100/65 100 08/06/16 02:41 106 H 08/06/16 02:30 109 H 22 98/65 100 08/06/16 02:15 109 H 22 100/66 100 08/06/16 02:00 110 H 22 103/68 100 08/06/16 01:45 110 H 22 102/68 100 08/06/16 01:40 105 H 22 08/06/16 01:30 109 H 21 98/66 100 08/06/16 01:15 109 H 21 99/64 100 08/06/16 01:00 109 H 21 95/62 100 08/06/16 00:45 109 H 22 97/63 99 08/06/16 00:30 109 H 22 95/64 98 08/06/16 00:16 109 H 22 100/53 99 08/06/16 00:00 98.6 F 108 H 23 99/62 99 08/05/16 23:52 105 H 100/69 97 08/05/16 23:45 108 H 22 109/70 95 08/05/16 23:30 108 H 13 99/64 98 08/05/16 23:15 108 H 0 L 100/69 96 08/05/16 23:06 108 H 100/68 08/05/16 23:00 108 H 22 100/65 96 08/05/16 22:45 108 H 25 H 101/67 96 08/05/16 22:30 108 H 22 100/65 96 08/05/16 22:15 108 H 22 100/67 93 08/05/16 22:00 107 H 22 101/69 97 08/05/16 21:45 107 H 22 109/67 96 08/05/16 21:30 106 H 22 108/68 98 08/05/16 21:15 105 H 22 106/68 99 08/05/16 21:00 97.8 F 105 H 22 103/66 94 08/05/16 20:45 105 H 22 111/73 92 08/05/16 20:41 107 H 22 08/05/16 20:30 105 H 22 109/73 91 08/05/16 20:26 105 H 22 08/05/16 20:18 105 H 22 109/74 89 08/05/16 20:10 105 H 22 110/72 91 02/18/17 20:00 104 H 22 110/72 91 0218/17 19:50 104 H 22 108/75 95 0218/17 19:40 104 H 22 112/76 93 0218/17 19:30 104 H 22 108/75 93 0218/17 19:20 103 H 22 109/71 0218/17 19:10 102 H 17 106/68 67 L 18/17 19:00 103 H 22 112/70 80 L 08/05/17 18:50 102 H 22 114/72 84 0218/17 18:40 102 H 23 110/67 83 L 18/17 18:30 101 H 22 110/67 90 0218/17 18:20 101 H 21 110/72 85 18/17 18:10 99 H 22 107/66 87 18/17 18:00 100 H 22 107/66 90 0218/17 17:58 100 H 107/65 02/17 17:50 100 H 21 107/65 87 08/05/17 17:40 100 H 22 105/65 85 18/17 17:30 100 H 22 105/65 90 0218/17 17:20 99 H 21 105/66 84 0218/17 17:10 99 H 22 110/66 82 L 08/05/17 17:06 103/68 92 0218/17 17:00 98 H 22 110/66 91 18/17 16:50 98 H 17 101/59 0218/17 16:40 97 H 19 104/63 0218/17 16:30 98 H 19 104/63 89 0218/17 16:24 103/68 90 18/17 16:20 96 H 18 101/59 76 L 0218/17 16:10 96 H 18 105/65 80 L 0218/17 16:02 96.5 F L 18/17 16:00 96 H 18 105/65 90 0218/17 15:50 94 H 18 101/62 0218/17 15:40 90 18 103/65 88 02/18/17 15:30 89 18 103/65 02/18/17 15:20 88 15 103/63 86 0218/17 15:10 87 14 103/61 88 02/18/17 15:00 90 14 103/62 89 08/05/16 14:50 90 15 103/61 89 08/05/16 14:45 89 08/05/16 14:40 89 20 103/61 90 08/05/16 14:30 89 14 105/60 88 08/05/16 14:20 89 14 103/61 87 08/05/16 14:10 88 14 101/60 90 08/05/16 14:00 88 74 14 18 104/63 94 08/05/16 13:50 88 14 101/60 89 08/05/16 13:40 88 8 L 104/64 98 08/05/16 13:38 14 103/68 99 08/05/16 13:30 87 14 98/49 68 L 08/05/16 13:20 86 21 102/75 73 L 08/05/16 13:10 88 19 112/64 08/05/16 13:00 88 19 111/58 08/05/16 12:50 88 19 109/61 91 08/05/16 12:40 87 17 90/61 08/05/16 12:30 87 23 112/61 85 08/05/16 12:20 86 18 106/56 90 08/05/16 12:18 86 71/51 08/05/16 12:10 82 18 99/59 71 L 08/05/16 12:02 94 F L 08/05/16 12:00 86 20 101/60 84 08/05/16 11:50 86 19 99/59 91 08/05/16 11:40 85 17 103/52 92 08/05/16 11:30 84 21 99/52 08/05/16 11:20 85 21 87/49 08/05/16 11:10 84 21 101/38 08/05/16 11:00 84 21 91/49 08/05/16 10:50 84 17 92/44 08/05/16 10:40 84 24 76/51 81 L 08/05/16 10:30 88 20 88/49 86 17 10:23 85 83/41 08/05/16 10:20 84 22 88/31 90 08/05/16 10:10 85 25 H 85/43 87 08/05/16 10:00 86 16 62/19 88 08/05/16 09:50 49 L 20 66/37 77 L 08/05/16 09:40 47 L 26 H 74/33 92 08/05/16 09:30 46 L 22 75/33 83 L 08/05/16 09:20 47 L 23 75/33 100 08/05/16 09:10 48 L 24 67/27 98 - Physical Examination General: Other (Unresponsive) HEENT: Positive: PERRL Neck: Positive: neck supple Cardiac: Positive: Tachycardia Lungs: Positive: Ventilated Respirations Abdomen: Positive: Soft Extremities: Present: +1 Edema - Labs and Meds Cardiac Enzymes 08/05/16 08/05/16 Range/Units 13:01 15:27 CK-MB (CK-2) 11.6 H 11.9 H (0.0-4.0) ng/mL Lipids 08/05/16 Range/Units 13:01 Triglycerides 31 (2-149) mg/dL Cholesterol 86 (50-199) mg/dL HDL Cholesterol 21 L (40-59) mg/dL Cholesterol/HDL Ratio 4.09 %
[2016-08-06] MEDS: GLUCOPHAGE PO SCH (09:09)
--- NOTE | 2016-08-06 09:22 | XRay Report ---
Single view chest: Compared to 08/05/16. History: Followup of respiratory failure. Findings: Marked cardiomegaly. T10 midline. Tip of endotracheal tube in normal position. Mild decrease in venous congestion compared to previous study. Normal CP angles Impression: Decrease in venous congestion.
[2016-08-06 09:24] LABS: Mean Corpuscular HGB Conc 29 % (32-34); Platelet Count 116 K/mm3 (140-440); White Blood Count 15.1 K/mm3 (4.5-11.0)
[2016-08-06 09:29] LABS: Hematocrit 31.1 % (35.5-45.6); Hemoglobin 9.1 gm/dl (11.8-15.2); Mean Corpuscular Hemoglobin 20 pg (28-32); Mean Corpuscular Volume 69 fl (84-94); Red Cell Distribution Width 20.6 % (13.2-15.2)
[2016-08-06 09:40] LABS: Albumin 2.7 g/dL (3.9-5); Albumin/Globulin Ratio 0.7 %; BUN/Creatinine Ratio 16.92; Bilirubin,Total 3.2 mg/dL (0.1-1.2); Chloride 87.5 mmol/L (98-107); Total Protein 6.5 g/dL (6.3-8.2)
--- NOTE | 2016-08-06 09:45 | Consultation ---
History of Present Illness Consult date: 08/06/16 Requesting physician: MELISSA SOARES Reason for consult: hypoxemia, other (acute respiratory failure, bradycardia and hypotension) History of present illness: 66 y/o male originally admitted on 08/03 with worsening dyspnea on exertion. Found to be in afib and has a diagnosis of CHF. Treated by [facility] and [facility]. Also thought to be in a COPD exacerbation and started on High dose steroids. Yesterday, became bradycardic and hypotensive and was transferred to the ICU. He subsequently became worse requiring intubation and mechanical ventilation. He was very acidotic and lactic acid was measured at 10.9. Patient had already been started on dopamine secondary to heart rate and BP. He was then inititated on a bicarb drip and given several boluses of normal saline. RT's did have difficulty with oxygenation shortly after intubation but this has resolved with increased levels of PEEP. Currently there is no family at the bedside. In review of the [facility] records there is a son Shyanne ([phone]). Currently patient is on dopamine at 5, max vasopressin and Assist control with PEEP of 12 and FiO2 down to 45%. He is also on a fentanyl drip. Past History Past Medical History: atrial fib, anemia, COPD, diabetes, heart failure (per [place] EF 40-45%), hypertension, other (BPH) Past Surgical History: No surgical history Social history: smoking Family history: no significant family history Medications and Allergies Allergies Allergy/AdvReac Type Severity Reaction Status Date / Time No Known Allergies Allergy Unverified 08/03/16 14:39 Home Medications Medication Instructions Recorded Confirmed Last Taken Type Furosemide [Lasix TAB] 40 mg PO QDAY 08/03/16 08/03/16 Unknown History Metoprolol [Lopressor TAB] 50 mg PO BID 08/03/16 08/03/16 Unknown History metFORMIN [Glucophage] 500 mg PO BID 08/03/16 08/03/16 Unknown History Active Meds: Active Medications Albuterol/Ipratropium (Duoneb 0.5 Mg-3 Mg/3 Ml Soln) 1 ampul IH Q6HRT [facility] Last Admin: 08/06/16 09:09 Dose: 1 ampul Dextrose (D50w (25gm)) 50 ml IV PRN PRN PRN Reason: Hypoglycemia Diltiazem HCl (Cardizem) 60 mg PO Q6HR [facility] Last Admin: 08/06/16 06:09 Dose: Not Given Furosemide (Lasix) 40 mg IV QDAY KIMMY Last Admin: 08/05/16 11:00 Dose: Not Given Hydrophilic Ointment (Vaseline Lip Therapy) 1 applic TP Q2HR PRN PRN Reason: Dry Lips Last Admin: 08/05/16 22:50 Dose: 1 applic Levofloxacin/Dextrose (Levaquin 750mg/150ml) 750 mg in 150 mls @ 100 mls/hr IV Q24H KIMMY PRN Reason: Protocol Last Admin: 08/05/16 22:31 Dose: 100 mls/hr Dopamine HCl/Dextrose (Intropin Drip 800 Mg/D5w 250 Ml) 800 mg in 250 mls @ 4.275 mls/hr IV TITR KIMMY; 2 MCG/KG/MIN PRN Reason: Protocol Last Titration: 08/06/16 06:45 Dose: 5 mcg/kg/min, 10.684 mls/hr Sodium Bicarbonate 150 meq/ (Dextrose) 1,150 mls @ 150 mls/hr IV DIRECT KIMMY Last Admin: 08/05/16 11:00 Dose: 150 mls/hr Vasopressin 20 unit/ Sodium (Chloride) 101 mls @ 9.09 mls/hr IV TITR KIMMY; 0.03 UNITS/MIN PRN Reason: Protocol Last Admin: 08/06/16 08:12 Dose: 0.03 units/min, 9.09 mls/hr Fentanyl Citrate (Fentanyl Drip Premix) 2,000 mcg in 100 mls @ 5.7 mls/hr IV PRN KIMMY; 1 MCG/KG/HR PRN Reason: Protocol Vancomycin HCl (Vancomycin/Ns 1 Gm/250 Ml) 250 mls @ 167 mls/hr IV ONCE ONE PRN Reason: Protocol Stop: 08/06/16 11:02 Piperacillin Sod/Tazobactam Sod (Zosyn/Ns 4.5gm/100ml) 4.5 gm in 100 mls @ 200 mls/hr IV Q8HR KIMMY PRN Reason: Protocol Insulin Aspart (Novolog) 0 units SUB-Q ACHS KIMMY PRN Reason: Protocol Last Admin: 08/06/16 07:41 Dose: 6 units Metformin HCl (Glucophage) 500 mg PO BIDDIAB KIMMY Last Admin: 08/06/16 09:09 Dose: Not Given Methylprednisolone Sodium Succinate (Solu-Medrol) 60 mg IV Q8HR [facility] Last Admin: 08/06/16 06:09 Dose: 60 mg Metoprolol Tartrate (Lopressor) 50 mg PO BID [facility] Last Admin: 08/05/16 22:35 Dose: Not Given Multi-Ingred Cream/Lotion/Oil/Oint (Artificial Tears Ophth Oint) 1 applic OU Q4HR PRN PRN Reason: Dry Eye(s) Sodium Chloride (Sodium Chloride Flush Syringe 10 Ml) 10 ml IV PRN PRN PRN Reason: LINE FLUSH Sodium Chloride (Nacl 0.9% 500 Ml) 1 ml IV DIRECT [facility] Review of Systems ROS unobtainable: due to endotracheal tube, due to mental status Physical Examination Vital signs: Vital Signs Temp Pulse BP Pulse Ox 98.2 F 106 H 105/69 94 08/03/16 14:39 08/03/16 14:39 08/03/16 14:39 08/03/16 14:39 General appearance: comatose (secondary to sedation i presume, I have asked nursing to turn off for sedation vacation) ENT: other (orally intubated, critically ill on ventilator) Neck: other (large in cirumference) Effort: normal Ascultation: Bilateral: clear, diminished breath sounds Percussion: Bilateral: not dull Cardiovascular: regular rate and rhythm (but tachy) Gastrointestinal: hypoactive bowel sounds, soft, non-tender Integumentary: other (chronic venous changes on legs) unable to assess Results - Laboratory Findings CBC and BMP: 08/06/16 09:05 08/03/16 15:06 ABG POC ABG pH 7.289 (7.35-7.45) L 08/06/16 05:08 POC ABG pCO2 59.9 (35-45) H 08/06/16 05:08 POC ABG pO2 224 (80-105) H 08/06/16 05:08 POC ABG HCO3 28.7 08/06/16 05:08 POC ABG Total CO2 30 08/06/16 05:08 POC ABG O2 Sat 100 08/06/16 05:08 PT/INR, D-dimer PT 18.0 Sec. (12.2-14.9) H 08/03/16 15:06 INR 1.49 (0.87-1.13) H 08/03/16 15:06 D-Dimer 2516.52 ng/mlDDU (0-234) H 08/05/16 13:01 Abnormal lab findings: Abnormal Labs 08/04/16 08/04/16 08/04/16 09:41 12:25 17:02 WBC Hgb Hct MCV MCH MCHC RDW Plt Count D-Dimer POC ABG pH POC ABG pCO2 POC ABG pO2 POC Glucose 158 H 236 H 217 H Lactic Acid Total Creatine Kinase CK-MB (CK-2) CK-MB (CK-2) Rel Index Troponin T NT-Pro-B Natriuret Pep HDL Cholesterol 08/05/16 08/05/16 08/05/16 06:32 08:09 08:17 WBC Hgb Hct MCV MCH MCHC RDW Plt Count D-Dimer POC ABG pH POC ABG pCO2 POC ABG pO2 POC Glucose < 40 L 53 L 185 H Lactic Acid Total Creatine Kinase CK-MB (CK-2) CK-MB (CK-2) Rel Index Troponin T NT-Pro-B Natriuret Pep HDL Cholesterol 08/05/16 08/05/16 08/05/16 08:34 12:15 12:47 WBC Hgb Hct MCV MCH MCHC RDW Plt Count D-Dimer POC ABG pH 7.169 L 7.077 L POC ABG pCO2 28.5 L 54.3 H POC ABG pO2 78 L POC Glucose 128 H Lactic Acid Total Creatine Kinase CK-MB (CK-2) CK-MB (CK-2) Rel Index Troponin T NT-Pro-B Natriuret Pep HDL Cholesterol 08/05/16 08/05/16 08/05/16 13:01 13:01 13:01 WBC Hgb Hct MCV MCH MCHC RDW Plt Count D-Dimer 2516.52 H POC ABG pH POC ABG pCO2 POC ABG pO2 POC Glucose Lactic Acid Total Creatine Kinase 304 H CK-MB (CK-2) 11.6 H CK-MB (CK-2) Rel Index Troponin T 0.121 H* D NT-Pro-B Natriuret Pep 8307 H HDL Cholesterol 21 L 08/05/16 08/05/16 08/05/16 14:44 15:27 16:05 WBC Hgb Hct MCV MCH MCHC RDW Plt Count D-Dimer POC ABG pH 7.020 L POC ABG pCO2 66.3 H POC ABG pO2 POC Glucose Lactic Acid 10.9 H* Total Creatine Kinase 282 H CK-MB (CK-2) 11.9 H CK-MB (CK-2) Rel Index 4.2 H Troponin T 0.152 H* D NT-Pro-B Natriuret Pep HDL Cholesterol 08/05/16 08/05/16 08/05/16 17:01 17:43 22:09 WBC Hgb Hct MCV MCH MCHC RDW Plt Count D-Dimer POC ABG pH 7.119 L POC ABG pCO2 63.2 H POC ABG pO2 51 L POC Glucose 203 H 241 H Lactic Acid Total Creatine Kinase CK-MB (CK-2) CK-MB (CK-2) Rel Index Troponin T NT-Pro-B Natriuret Pep HDL Cholesterol 08/05/16 08/06/16 08/06/16 23:30 05:08 05:55 WBC Hgb Hct MCV MCH MCHC RDW Plt Count D-Dimer POC ABG pH 7.289 L POC ABG pCO2 59.9 H POC ABG pO2 224 H POC Glucose Lactic Acid 6.8 H* 5.3 H* Total Creatine Kinase CK-MB (CK-2) CK-MB (CK-2) Rel Index Troponin T NT-Pro-B Natriuret Pep HDL Cholesterol 08/06/16 08/06/16 06:16 09:05 WBC 15.1 H Hgb 9.1 L Hct 31.1 L MCV 69 L MCH 20 L MCHC 29 L RDW 20.6 H Plt Count 116 L D-Dimer POC ABG pH POC ABG pCO2 POC ABG pO2 POC Glucose 326 H Lactic Acid Total Creatine Kinase CK-MB (CK-2) CK-MB (CK-2) Rel Index Troponin T NT-Pro-B Natriuret Pep HDL Cholesterol - Diagnostic Findings Chest x-ray: image reviewed (cardiomegaly, improved pulmonary edema) Assessment and Plan 66 y/o male with acute respiratory failure, secondary to bradycardia and hypotension with severe metabolic acidosis secondary to lactic acidosis possibly from sepsis from urinary source vs ischemia of gut vs inability to clear in the face or potential renal and or liver disease. 1. Continue current vent support. Increase in PEEP has helped with oxygenation thus far and BP has tolerated. KEEP PEEP at 12 today, start to wean tomorrow so that recruitment is not lost. Continue to wean FIO2 as tolerated. Sats greater [id number] are acceptable. 2. Elevated white count, hypothermia, and shock, concern for sepsis. Has an indwelling catheter that appears was placed at [facility]. Leg bag changed yesterday by nursing. No cultures done. Will send blood and urine now. CXR does not have any acute evidence of intraparenchymal disease. I have broaded the abx coverage to include vanc and zosyn. Will ask pharmacy to help with dosing and will taper based on culture results. 3. BMP just returned and Cr is 3.9 and K is 6. Will consult Nephrology and give kayexalate. may need insulin and D50. Has been hyperglycemic, most likely from infection. If K does not improve with this, then will consider insulin and D50. Cr on Admission to [facility] was 5.9. This could be from hypotension and ATN or worsening obstructive uropathy. Will order renal ultrasound as well. Continue bicarb drip as ordered on yesterday. 4. Have stopped all cardiovascular related meds including BID metoprolol, q6 dilt and lasix. Will continue to give fluid boluses in hopes to improve renal function and lactic acidosis which hopefully is from lack of clearance. Wean pressors for Maps >65. Will wean dopamine first. 5. Hold on feeds for right now given vasopressor requirements 6. Called soledad KIMBLE [phone] and left voicemail. I did not leave any patient info. The voicemail does not say that it is SHYANNE but this is the only number that I have. Hopeful that he will call back. 7. Stopping the solumedrol now and will place patient on stress dose steroids [id number] 8. Overall prognosis is guarded to POOR CCT 31 minutes.
[2016-08-06 09:47] LABS: Calcium 5.5 mg/dL (8.4-10.2)
[2016-08-06] MEDS ORDERED: ZOSYN/NS 4.5GM/100ML 4.5 GM/100 ML VIAL IV SCH (10:00)
[2016-08-06] MEDS ORDERED: NACL 0.9% 1000 ML 1,000 ML IV ONE ×2 (10:15→11:00)
[2016-08-06 10:50] LABS: Anisocytosis 1+; Basophils % (Manual) 0 % (0.0-1.8); Blastocytes % (Manual) 0 %; Eosinophils % (Manual) 0 % (0.0-4.3); Platelet Estimate Consistent w Auto
[2016-08-06 10:51] LABS: Diff Status Complete; Hypochromasia Few; Microcytosis Few
[2016-08-06] MEDS ORDERED: VANCOMYCIN/NS 1 GM/250 ML 1 GM/250 ML BAG IV ONE (11:00)
[2016-08-06] MEDS ORDERED: KIONEX PO ONE (11:00)
[2016-08-06] MEDS: SODIUM BICARBONATE 150 MEQ in D5W 1,000 ML IV SCH ×2 (12:00→22:56)
--- NOTE | 2016-08-06 12:07 | Ultrasound Report ---
Renal sonogram: History: Renal failure, post obstruction. Findings: Limited study due to patient body habitus. Right kidney jose 11.1 x 5.2 x 2.9 cm. Cortical thickness 3.3 cm. Left kidney measures 11.9 x 6.4 x 5.8 cm. Cortical thickness 2.3 cm. No definite mass or hydronephrosis. Impression: Grossly unremarkable right and left kidney.
[2016-08-06 12:25] LABS: Bacteria,Urine 2+ /HPF (Negative); Bilirubin,Urine NEG (Negative); Blood,Urine MOD (Negative); Ketones,Urine NEG (Negative); Leukocyte Esterase,Urine MOD (Negative); Mucus,Urine FEW /HPF; Nitrite,Urine NEG (Negative); Urobilinogen,Urine < 2.0 mg/dL (<2.0)
[2016-08-06] MEDS: ZOSYN/NS 2.25 GM/50ML 2.25 GM/50 ML BAG IV SCH ×3 (13:04→23:05)
[2016-08-06 13:55] LABS: Albumin 2.7 g/dL (3.9-5); Albumin/Globulin Ratio 0.7 %; Bilirubin,Direct 2.1 mg/dL (0-0.2); Bilirubin,Total 3.1 mg/dL (0.1-1.2); Total Protein 6.6 g/dL (6.3-8.2)
--- NOTE | 2016-08-06 14:50 | Consultation ---
History of Present Illness - Reason for Consult Consult date: 08/06/16 acute renal failure, hyperkalemia Past History Past Medical History: atrial fib, anemia, COPD, diabetes, heart failure (per [place] EF 40-45%), hypertension, other (BPH) Past Surgical History: No surgical history Social history: smoking Family history: no significant family history Medications and Allergies Allergies Allergy/AdvReac Type Severity Reaction Status Date / Time No Known Allergies Allergy Unverified 08/03/16 14:39 Home Medications Medication Instructions Recorded Confirmed Last Taken Type Furosemide [Lasix TAB] 40 mg PO QDAY 08/03/16 08/03/16 Unknown History Metoprolol [Lopressor TAB] 50 mg PO BID 08/03/16 08/03/16 Unknown History metFORMIN [Glucophage] 500 mg PO BID 08/03/16 08/03/16 Unknown History Active Meds: Active Medications Albuterol/Ipratropium (Duoneb 0.5 Mg-3 Mg/3 Ml Soln) 1 ampul IH Q6HRT KIMMY Last Admin: 08/06/16 13:55 Dose: 1 ampul Dextrose (D50w (25gm)) 50 ml IV PRN PRN PRN Reason: Hypoglycemia Hydrocortisone Sodium Succinate (Solu-Cortef) 100 mg IV Q8HR KIMMY Hydrophilic Ointment (Vaseline Lip Therapy) 1 applic TP Q2HR PRN PRN Reason: Dry Lips Last Admin: 08/05/16 22:50 Dose: 1 applic Dopamine HCl/Dextrose (Intropin Drip 800 Mg/D5w 250 Ml) 800 mg in 250 mls @ 4.275 mls/hr IV TITR KIMMY; 2 MCG/KG/MIN PRN Reason: Protocol Last Titration: 08/06/16 06:45 Dose: 5 mcg/kg/min, 10.684 mls/hr Sodium Bicarbonate 150 meq/ (Dextrose) 1,150 mls @ 150 mls/hr IV DIRECT KIMMY Last Admin: 08/06/16 12:00 Dose: 150 mls/hr Vasopressin 20 unit/ Sodium (Chloride) 101 mls @ 9.09 mls/hr IV TITR KIMMY; 0.03 UNITS/MIN PRN Reason: Protocol Last Admin: 08/06/16 08:12 Dose: 0.03 units/min, 9.09 mls/hr Fentanyl Citrate (Fentanyl Drip Premix) 2,000 mcg in 100 mls @ 5.7 mls/hr IV PRN KIMMY; 1 MCG/KG/HR PRN Reason: Protocol Piperacillin Sod/Tazobactam Sod (Zosyn/Ns 2.25 Gm/50ml) 2.25 gm in 50 mls @ 100 mls/hr IV Q6HR KIMMY Last Admin: 08/06/16 13:04 Dose: 100 mls/hr Levofloxacin/Dextrose (Levaquin 750mg/150ml) 750 mg in 150 mls @ 100 mls/hr IV Q48H KIMMY Insulin Aspart (Novolog) 0 units SUB-Q ACHS KIMMY PRN Reason: Protocol Last Admin: 08/06/16 12:49 Dose: 6 units Multi-Ingred Cream/Lotion/Oil/Oint (Artificial Tears Ophth Oint) 1 applic OU Q4HR PRN PRN Reason: Dry Eye(s) Sodium Chloride (Sodium Chloride Flush Syringe 10 Ml) 10 ml IV PRN PRN PRN Reason: LINE FLUSH Sodium Chloride (Nacl 0.9% 500 Ml) 1 ml IV DIRECT KIMMY Exam - Vital Signs Vital signs: Vital Signs Temp Pulse BP Pulse Ox 98.2 F 106 H 105/69 94 08/03/16 14:39 08/03/16 14:39 08/03/16 14:39 08/03/16 14:39 Results - Lab Results 08/06/16 09:05 08/06/16 09:05 Most recent lab results Calcium 5.5 mg/dL (8.4-10.2) L* D 08/06/16 09:05
[2016-08-06 15:07] LABS: BUN/Creatinine Ratio 17.63; Chloride 87.8 mmol/L (98-107); Potassium 5.8 mmol/L (3.6-5.0)
[2016-08-06 15:28] LABS: Calcium 5.1 mg/dL (8.4-10.2)
--- NOTE | 2016-08-06 16:18 | Progress Note ---
Assessment and Plan - Patient Problems (1) Sepsis Current Visit: Yes Status: Acute Qualifiers: Sepsis type: S Plan to address problem: Sepsis Protocol: IV abx, IVF, pressors, supportive care, monitor uop q shift (2) Acute respiratory failure Current Visit: Yes Status: Acute Qualifiers: Respiratory failure complication: R Plan to address problem: Pulmonary consulted: NIPPV as clinically indicated, therapeutic lovenox, d dimer , supportive care, nebs, (3) Acute CHF Current Visit: Yes Status: Acute Qualifiers: Congestive heart failure type: systolic Qualified Code(s): I50.21 - Acute systolic (congestive) heart failure Plan to address problem: Cardiology consulted: telemetry, fluid restriction, monitor uop q shift, diuretics, daily weight, B uzair, afterload reduction, (4) Metabolic syndrome Current Visit: Yes Status: Acute Plan to address problem: Pt counseled (5) Atrial fibrillation with RVR Current Visit: Yes Status: Acute Plan to address problem: Rate control, supportive care, cardiology consulted. (6) COPD (chronic obstructive pulmonary disease) Current Visit: Yes Status: Acute Qualifiers: COPD type: C Chronic bronchitis type: C Emphysema type: E Plan to address problem: supplemental oxygenb, nebs, NIPPV as clinically indicated (7) Diabetes Current Visit: Yes Status: Acute Qualifiers: Diabetes mellitus type: D Diabetes mellitus complication status: D Diabetes mellitus complication detail: D Diabetic retinopathy severity: D Proliferative retinopathy type: P Diabetes mellitus macular edema: D Diabetes mellitus group home insulin use: D Laterality: L Chronic kidney disease stage: C Plan to address problem: ADA diet, insulin, accu check (8) DVT prophylaxis Current Visit: Yes Status: Acute History Interval history: . Pt lying in bed, intubated, sedated, on vent, on pressors. No new reported nursing events. . Hospitalist Physical - Constitutional Vitals: Temp Pulse Resp BP Pulse Ox 99.2 F 103 H 24 115/73 98 08/06/16 11:30 08/06/16 15:55 08/06/16 14:09 08/06/16 15:55 08/06/16 15:55 General appearance: Present: no acute distress, obese - Neck Neck: Present: supple - Respiratory Respiratory: bilateral: diminished - Cardiovascular Rhythm: regular Heart Sounds: Present: S1 & S2 - Extremities Extremities: no ischemia Peripheral Pulses: within normal limits - Abdominal General gastrointestinal: soft, non-distended - Integumentary Integumentary: Present: clear, dry - Psychiatric Psychiatric: no intact judgment & insight, no memory intact - Neurologic Neurologic: no gait normal Results - Labs CBC & Chem 7: 08/06/16 09:05 08/06/16 13:17 Labs: Laboratory Last Values WBC 15.1 K/mm3 (4.5-11.0) H 08/06/16 09:05 RBC 4.50 M/mm3 (3.65-5.03) 08/06/16 09:05 Hgb 9.1 gm/dl (11.8-15.2) L 08/06/16 09:05 Hct 31.1 % (35.5-45.6) L 08/06/16 09:05 MCV 69 fl (84-94) L 08/06/16 09:05 MCH 20 pg (28-32) L 08/06/16 09:05 MCHC 29 % (32-34) L 08/06/16 09:05 RDW 20.6 % (13.2-15.2) H 08/06/16 09:05 Plt Count 116 K/mm3 (140-440) L 08/06/16 09:05 Lymph % (Auto) 19.5 % (13.4-35.0) 08/03/16 15:06 [place] % (Auto) 11.9 % (0.0-7.3) H 08/03/16 15:06 Eos % (Auto) 0.8 % (0.0-4.3) 08/03/16 15:06 Baso % (Auto) 0.5 % (0.0-1.8) 08/03/16 15:06 Lymph # 1.3 K/mm3 (1.2-5.4) 08/03/16 15:06 [place] # 0.8 K/mm3 (0.0-0.8) 08/03/16 15:06 Eos # 0.1 K/mm3 (0.0-0.4) 08/03/16 15:06 Baso # 0.0 K/mm3 (0.0-0.1) 08/03/16 15:06 Add Manual Diff Complete 08/06/16 09:05 Total Counted 100 08/06/16 09:05 Seg Neutrophils % Chair Inspector And Leveler 08/06/16 09:05 Seg Neuts % (Manual) 95.0 % (40.0-70.0) H 08/06/16 09:05 Band Neutrophils % 0 % 08/06/16 09:05 Lymphocytes % (Manual) 2.0 % (13.4-35.0) L 08/06/16 09:05 Reactive Lymphs % (Man) 0 % 08/06/16 09:05 Monocytes % (Manual) 3.0 % (0.0-7.3) 08/06/16 09:05 Eosinophils % (Manual) 0 % (0.0-4.3) 08/06/16 09:05 Basophils % (Manual) 0 % (0.0-1.8) 08/06/16 09:05 Metamyelocytes % 0 % 08/06/16 09:05 Myelocytes % 0 % 08/06/16 09:05 Promyelocytes % 0 % 08/06/16 09:05 Blast Cells % 0 % 08/06/16 09:05 Nucleated RBC % 5.0 % (0.0-0.9) H 08/06/16 09:05 Seg Neutrophils # 4.6 K/mm3 (1.8-7.7) 08/03/16 15:06 Seg Neutrophils # Man 14.3 K/mm3 (1.8-7.7) H 08/06/16 09:05 Band Neutrophils # 0.0 K/mm3 08/06/16 09:05 Lymphocytes # (Manual) 0.3 K/mm3 (1.2-5.4) L 08/06/16 09:05 Abs React Lymphs (Man) 0.0 K/mm3 08/06/16 09:05 Monocytes # (Manual) 0.5 K/mm3 (0.0-0.8) 08/06/16 09:05 Eosinophils # (Manual) 0.0 K/mm3 (0.0-0.4) 08/06/16 09:05 Basophils # (Manual) 0.0 K/mm3 (0.0-0.1) 08/06/16 09:05 Metamyelocytes # 0.0 K/mm3 08/06/16 09:05 Myelocytes # 0.0 K/mm3 08/06/16 09:05 Promyelocytes # 0.0 K/mm3 08/06/16 09:05 Blast Cells # 0.0 K/mm3 08/06/16 09:05 WBC Morphology Not Reportable 08/06/16 09:05 Hypersegmented Neuts Not Reportable 08/06/16 09:05 Hyposegmented Neuts Not Reportable 08/06/16 09:05 Hypogranular Neuts Not Reportable 08/06/16 09:05 Smudge Cells Not Reportable 08/06/16 09:05 Toxic Granulation Not Reportable 08/06/16 09:05 Toxic Vacuolation Not Reportable 08/06/16 09:05 Dohle Bodies Not Reportable 08/06/16 09:05 Pelger-Huet Anomaly Not Reportable 08/06/16 09:05 Scott Rods Not Reportable 08/06/16 09:05 Platelet Estimate Consistent w auto 08/06/16 09:05 Clumped Platelets Not Reportable 08/06/16 09:05 Plt Clumps, EDTA Not Reportable 08/06/16 09:05 Large Platelets Not Reportable 08/06/16 09:05 Giant Platelets Not Reportable 08/06/16 09:05 Platelet Satelliting Not Reportable 08/06/16 09:05 Plt Morphology Comment Not Reportable 08/06/16 09:05 RBC Morphology Not Reportable 08/06/16 09:05 Dimorphic RBCs Not Reportable 08/06/16 09:05 Polychromasia Not Reportable 08/06/16 09:05 Hypochromasia Few 08/06/16 09:05 Poikilocytosis Not Reportable 08/06/16 09:05 Anisocytosis 1+ 08/06/16 09:05 Microcytosis Few 08/06/16 09:05 Macrocytosis Not Reportable 08/06/16 09:05 Spherocytes Not Reportable 08/06/16 09:05 Pappenheimer Bodies Not Reportable 08/06/16 09:05 Sickle Cells Not Reportable 08/06/16 09:05 Target Cells Not Reportable 08/06/16 09:05 Tear Drop Cells Not Reportable 08/06/16 09:05 Ovalocytes Not Reportable 08/06/16 09:05 Helmet Cells Not Reportable 08/06/16 09:05 Flower-Auberry Bodies Not Reportable 08/06/16 09:05 Marion Rings Not Reportable 08/06/16 09:05 Bushnell Cells Not Reportable 08/06/16 09:05 Bite Cells Not Reportable 08/06/16 09:05 Crenated Cell Not Reportable 08/06/16 09:05 Elliptocytes Not Reportable 08/06/16 09:05 Acanthocytes (Spur) Not Reportable 08/06/16 09:05 Rouleaux Not Reportable 08/06/16 09:05 Hemoglobin C Crystals Not Reportable 08/06/16 09:05 Schistocytes Not Reportable 08/06/16 09:05 Malaria parasites Not Reportable 08/06/16 09:05 Jun Bodies Not Reportable 08/06/16 09:05 Hem Pathologist Commnt No 08/06/16 09:05 PT 18.0 Sec. (12.2-14.9) H 08/03/16 15:06 INR 1.49 (0.87-1.13) H 08/03/16 15:06 APTT 28.8 Sec. (24.2-36.6) 08/03/16 15:06 D-Dimer 2516.52 ng/mlDDU (0-234) H 08/05/16 13:01 POC ABG pH 7.289 (7.35-7.45) L 08/06/16 05:08 POC ABG pCO2 59.9 (35-45) H 08/06/16 05:08 POC ABG pO2 224 (80-105) H 08/06/16 05:08 POC ABG HCO3 28.7 08/06/16 05:08 POC ABG Total CO2 30 08/06/16 05:08 POC ABG O2 Sat 100 08/06/16 05:08 POC ABG Base Excess 2 08/06/16 05:08 FiO2 100 % 08/06/16 05:08 Sodium 131 mmol/L (137-145) L 08/06/16 13:17 Potassium 5.8 mmol/L (3.6-5.0) H 08/06/16 13:17 Chloride 87.8 mmol/L (98-107) L 08/06/16 13:17 Carbon Dioxide 15 mmol/L (22-30) L D 08/06/16 13:17 Anion Gap 34 mmol/L 08/06/16 13:17 BUN 67 mg/dL (9-20) H 08/06/16 13:17 Creatinine 3.8 mg/dL (0.8-1.5) H 08/06/16 13:17 Estimated GFR 19 ml/min 08/06/16 13:17 BUN/Creatinine Ratio 17.63 % 08/06/16 13:17 Glucose 294 mg/dL (75-100) H 08/06/16 13:17 POC Glucose 318 (70-105) H 08/06/16 11:50 Lactic Acid 4.5 mmol/L (0.7-2.0) H* 08/06/16 15:10 Calcium 5.1 mg/dL (8.4-10.2) L* 08/06/16 13:17 Phosphorus 9.0 mg/dL (2.5-4.5) H 08/06/16 13:17 Magnesium 2.0 mg/dL (1.7-2.3) 08/06/16 13:17 Total Bilirubin 3.1 mg/dL (0.1-1.2) H 08/06/16 13:17 Direct Bilirubin 2.1 mg/dL (0-0.2) H 08/06/16 13:17 Indirect Bilirubin 1.0 mg/dL 08/06/16 13:17 AST 4901 units/L (5-40) H 08/06/16 13:17 ALT 1607 units/L (7-56) H 08/06/16 13:17 Alkaline Phosphatase 111 units/L (35-129) 08/06/16 13:17 Ammonia 61.0 umol/L (25-60) H 08/03/16 15:06 Total Creatine Kinase 282 units/L (55-170) H 08/05/16 15:27 CK-MB (CK-2) 11.9 ng/mL (0.0-4.0) H 08/05/16 15:27 CK-MB (CK-2) Rel Index 4.2 (0-4) H 08/05/16 15:27 Troponin T 0.152 ng/mL (0.00-0.029) H* D 08/05/16 15:27 NT-Pro-B Natriuret Pep 8307 pg/mL (0-900) H 08/05/16 13:01 Total Protein 6.6 g/dL (6.3-8.2) 08/06/16 13:17 Albumin 2.7 g/dL (3.9-5) L 08/06/16 13:17 Albumin/Globulin Ratio 0.7 % 08/06/16 13:17 Triglycerides 31 mg/dL (2-149) 08/05/16 13:01 Cholesterol 86 mg/dL (50-199) 08/05/16 13:01 LDL Cholesterol Direct 59 mg/dL (50-130) 08/05/16 13:01 HDL Cholesterol 21 mg/dL (40-59) L 08/05/16 13:01 Cholesterol/HDL Ratio 4.09 % 08/05/16 13:01 Urine Color Marlin (Yellow) 08/06/16 11:20 Urine Turbidity Cloudy (Clear) 08/06/16 11:20 Urine pH 5.0 (5.0-7.0) 08/06/16 11:20 Ur Specific [place] 1.014 (1.003-1.030) 08/06/16 11:20 Urine Protein 30 mg/dl mg/dL (Negative) 08/06/16 11:20 Urine Glucose (UA) 50 mg/dL (Negative) 08/06/16 11:20 Urine Ketones Neg mg/dL (Negative) 08/06/16 11:20 Urine Blood Mod (Negative) 08/06/16 11:20 Urine Nitrite Neg (Negative) 08/06/16 11:20 Urine Bilirubin Neg (Negative) 08/06/16 11:20 Urine Urobilinogen < 2.0 mg/dL (<2.0) 08/06/16 11:20 Ur Leukocyte Esterase Mod (Negative) 08/06/16 11:20 Urine WBC (Auto) 28.0 /HPF (0.0-6.0) H 08/06/16 11:20 Urine RBC (Auto) 15.0 /HPF (0.0-6.0) 08/06/16 11:20 U Epithel Cells (Auto) 1.0 /HPF (0-13.0) 08/06/16 11:20 Urine Bacteria (Auto) 2+ /HPF (Negative) 08/06/16 11:20 Amorphous Crystals Few 08/06/16 11:20 Urine Mucus Few /HPF 08/06/16 11:20 Hepatitis A IgM Ab Non-reactive (NonReactive) 08/06/16 15:10 Hep Bs Antigen Non-reactive (Negative) 08/06/16 15:10 Hep B Core IgM Ab Non-reactive (NonReactive) 08/06/16 15:10 Hepatitis C Antibody Non-reactive (NonReactive) 08/06/16 15:10
[2016-08-06] MEDS: INTROPIN DRIP 800 MG/D5W 250 ML 800 MG/250 ML BAG IV SCH (20:00)
[2016-08-06] MEDS ORDERED: LOVENOX SUB-Q SCH (22:00)
[2016-08-07] MEDS: DUONEB 0.5 MG-3 MG/3 ML SOLN IH SCH ×4 (01:30→20:07)
[2016-08-07 04:45] LABS: ISTAT Base Excess 13; ISTAT HCO3 36.4; ISTAT PCO2 49.1 (35-45); ISTAT PH 7.479 (7.35-7.45); ISTAT PO2 127 (80-105); ISTAT SO2 99; ISTAT TCO2 38
[2016-08-07] MEDS: ZOSYN/NS 2.25 GM/50ML 2.25 GM/50 ML BAG IV SCH ×3 (06:14→23:33)
[2016-08-07] MEDS: SODIUM BICARBONATE 150 MEQ in D5W 1,000 ML IV SCH ×2 (06:15→16:58)
[2016-08-07] MEDS: NOVOLOG SUB-Q SCH ×3 (07:55→23:58)
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
--- NOTE | 2016-08-07 09:48 | Progress Note ---
Assessment and Plan acute respiratory failure, bradycardia hypotension with severe metabolic acidosis , lactic acidosis sepsis from urinary source Rec Decrease PEEP to 10 Monitor oximetry, if tolerated decrease to PEEP 8 Extubation precautions 31 minutes spent in [id number] evaluation and coordination of care Subjective Date of service: 08/07/16 Principal diagnosis: CHF Interval history: Discomfort with ETT.Confused? Objective Vital Signs - 12hr 08/06/16 08/06/16 08/06/16 21:46 22:00 22:15 Temperature Pulse Rate 109 H 113 H 120 H Pulse Rate [ Anterior Bilateral Throughout] Pulse Rate [ From Monitor] Respiratory 24 24 24 Rate Respiratory Rate [Anterior Bilateral Throughout] Blood Pressure 94/67 104/66 101/62 O2 Sat by Pulse 100 100 100 Oximetry 08/06/16 08/06/16 08/06/16 22:30 22:45 23:00 Temperature Pulse Rate 107 H 108 H 113 H Pulse Rate [ Anterior Bilateral Throughout] Pulse Rate [ 107 H From Monitor] Respiratory 24 24 24 Rate Respiratory Rate [Anterior Bilateral Throughout] Blood Pressure 98/66 95/60 101/65 O2 Sat by Pulse 100 100 100 Oximetry 08/06/16 08/06/16 08/06/16 23:15 23:30 23:34 Temperature 98.8 F Pulse Rate 113 H 108 H Pulse Rate [ Anterior Bilateral Throughout] Pulse Rate [ From Monitor] Respiratory 24 24 Rate Respiratory Rate [Anterior Bilateral Throughout] Blood Pressure 109/62 101/65 O2 Sat by Pulse 100 100 Oximetry 08/06/16 08/06/16 08/07/16 23:39 23:45 00:00 Temperature Pulse Rate 116 H 118 H 115 H Pulse Rate [ Anterior Bilateral Throughout] Pulse Rate [ From Monitor] Respiratory 24 24 Rate Respiratory Rate [Anterior Bilateral Throughout] Blood Pressure 101/65 109/66 109/66 O2 Sat by Pulse 100 100 100 Oximetry 08/07/16 08/07/16 08/07/16 00:15 00:30 00:45 Temperature Pulse Rate 113 H 118 H 110 H Pulse Rate [ Anterior Bilateral Throughout] Pulse Rate [ From Monitor] Respiratory 24 24 25 H Rate Respiratory Rate [Anterior Bilateral Throughout] Blood Pressure 102/68 109/73 106/64 O2 Sat by Pulse 100 100 100 Oximetry 08/07/16 08/07/16 08/07/16 01:00 01:15 01:30 Temperature Pulse Rate 105 H 106 H 109 H Pulse Rate [ 98 H Anterior Bilateral Throughout] Pulse Rate [ From Monitor] Respiratory 24 24 24 Rate Respiratory 24 Rate [Anterior Bilateral Throughout] Blood Pressure 107/62 108/62 103/64 O2 Sat by Pulse 100 100 100 Oximetry 08/07/16 08/07/16 08/07/16 01:45 02:00 02:15 Temperature Pulse Rate 111 H 112 H 115 H Pulse Rate [ 100 H Anterior Bilateral Throughout] Pulse Rate [ 111 H From Monitor] Respiratory 24 23 24 Rate Respiratory 24 Rate [Anterior Bilateral Throughout] Blood Pressure 110/65 99/59 104/65 O2 Sat by Pulse 100 100 100 Oximetry 08/07/16 08/07/16 08/07/16 02:30 02:46 03:00 Temperature Pulse Rate 115 H 109 H 107 H Pulse Rate [ Anterior Bilateral Throughout] Pulse Rate [ From Monitor] Respiratory 24 16 24 Rate Respiratory Rate [Anterior Bilateral Throughout] Blood Pressure 98/58 94/69 96/66 O2 Sat by Pulse 100 100 100 Oximetry 08/07/16 08/07/16 08/07/16 03:15 03:25 03:30 Temperature Pulse Rate 107 H 110 H 105 H Pulse Rate [ Anterior Bilateral Throughout] Pulse Rate [ From Monitor] Respiratory 24 24 Rate Respiratory Rate [Anterior Bilateral Throughout] Blood Pressure 99/61 102/66 O2 Sat by Pulse 100 100 Oximetry 08/07/16 08/07/16 08/07/16 03:46 04:00 04:15 Temperature 98.4 F Pulse Rate 105 H 111 H 110 H Pulse Rate [ Anterior Bilateral Throughout] Pulse Rate [ From Monitor] Respiratory 24 24 24 Rate Respiratory Rate [Anterior Bilateral Throughout] Blood Pressure 110/62 107/62 100/64 O2 Sat by Pulse 100 100 100 Oximetry 08/07/16 08/07/16 08/07/16 04:30 04:45 05:00 Temperature Pulse Rate 120 H 104 H 112 H Pulse Rate [ Anterior Bilateral Throughout] Pulse Rate [ From Monitor] Respiratory 23 24 24 Rate Respiratory Rate [Anterior Bilateral Throughout] Blood Pressure 107/66 115/64 115/64 O2 Sat by Pulse 100 100 100 Oximetry 08/07/16 08/07/16 08/07/16 05:15 05:30 05:45 Temperature Pulse Rate 107 H 106 H 115 H Pulse Rate [ Anterior Bilateral Throughout] Pulse Rate [ From Monitor] Respiratory 23 24 25 H Rate Respiratory Rate [Anterior Bilateral Throughout] Blood Pressure 104/71 113/72 110/67 O2 Sat by Pulse 100 100 100 Oximetry 08/07/16 08/07/16 08/07/16 06:00 06:15 06:30 Temperature Pulse Rate 107 H 115 H 111 H Pulse Rate [ Anterior Bilateral Throughout] Pulse Rate [ 107 H From Monitor] Respiratory 24 18 24 Rate Respiratory Rate [Anterior Bilateral Throughout] Blood Pressure 104/73 110/67 95/65 O2 Sat by Pulse 100 100 100 Oximetry 08/07/16 08/07/16 08/07/16 06:45 07:00 07:15 Temperature Pulse Rate 115 H 115 H 110 H Pulse Rate [ Anterior Bilateral Throughout] Pulse Rate [ From Monitor] Respiratory 24 24 21 Rate Respiratory Rate [Anterior Bilateral Throughout] Blood Pressure 105/68 96/66 96/70 O2 Sat by Pulse 100 100 100 Oximetry 08/07/16 08/07/16 08/07/16 07:30 08:00 08:19 Temperature Pulse Rate 119 H 111 H Pulse Rate [ 24 L 117 H Anterior Bilateral Throughout] Pulse Rate [ From Monitor] Respiratory 24 Rate Respiratory 24 Rate [Anterior Bilateral Throughout] Blood Pressure 110/62 115/64 O2 Sat by Pulse 100 100 Oximetry Constitutional: alert ENT: other (orally intubated, critically ill on ventilator) Neck: other (large in cirumference) Effort: normal Ascultation: Bilateral: clear, diminished breath sounds Percussion: Bilateral: not dull Cardiovascular: regular rate and rhythm Gastrointestinal: hypoactive bowel sounds, soft, non-tender Integumentary: other (chronic venous changes on legs) Neurologic: other (alert confused?,Acknowledges some questions) CBC and BMP: 08/08/16 07:50 08/08/16 07:50 ABG, PT/INR, D-dimer: ABG POC ABG pH 7.479 (7.35-7.45) H 08/07/16 04:13 POC ABG pCO2 49.1 (35-45) H 08/07/16 04:13 POC ABG pO2 127 (80-105) H 08/07/16 04:13 POC ABG HCO3 36.4 08/07/16 04:13 POC ABG Total CO2 38 08/07/16 04:13 POC ABG O2 Sat 99 08/07/16 04:13 PT/INR, D-dimer PT 18.0 Sec. (12.2-14.9) H 08/03/16 15:06 INR 1.49 (0.87-1.13) H 08/03/16 15:06 D-Dimer 2516.52 ng/mlDDU (0-234) H 08/05/16 13:01 Abnormal lab findings: Abnormal Labs 08/04/16 08/04/16 08/04/16 09:41 12:25 17:02 WBC Hgb Hct MCV MCH MCHC RDW Plt Count Seg Neuts % (Manual) Lymphocytes % (Manual) Nucleated RBC % Seg Neutrophils # Man Lymphocytes # (Manual) D-Dimer POC ABG pH POC ABG pCO2 POC ABG pO2 Sodium Potassium Chloride Carbon Dioxide BUN Creatinine Glucose POC Glucose 158 H 236 H 217 H Lactic Acid Calcium Phosphorus Total Bilirubin Direct Bilirubin AST ALT Total Creatine Kinase CK-MB (CK-2) CK-MB (CK-2) Rel Index Troponin T NT-Pro-B Natriuret Pep Albumin HDL Cholesterol Urine WBC (Auto) Urine Creatinine 08/05/16 08/05/16 08/05/16 06:32 08:09 08:17 WBC Hgb Hct MCV MCH MCHC RDW Plt Count Seg Neuts % (Manual) Lymphocytes % (Manual) Nucleated RBC % Seg Neutrophils # Man Lymphocytes # (Manual) D-Dimer POC ABG pH POC ABG pCO2 POC ABG pO2 Sodium Potassium Chloride Carbon Dioxide BUN Creatinine Glucose POC Glucose < 40 L 53 L 185 H Lactic Acid Calcium Phosphorus Total Bilirubin Direct Bilirubin AST ALT Total Creatine Kinase CK-MB (CK-2) CK-MB (CK-2) Rel Index Troponin T NT-Pro-B Natriuret Pep Albumin HDL Cholesterol Urine WBC (Auto) Urine Creatinine 08/05/16 08/05/16 08/05/16 08:34 12:15 12:47 WBC Hgb Hct MCV MCH MCHC RDW Plt Count Seg Neuts % (Manual) Lymphocytes % (Manual) Nucleated RBC % Seg Neutrophils # Man Lymphocytes # (Manual) D-Dimer POC ABG pH 7.169 L 7.077 L POC ABG pCO2 28.5 L 54.3 H POC ABG pO2 78 L Sodium Potassium Chloride Carbon Dioxide BUN Creatinine Glucose POC Glucose 128 H Lactic Acid Calcium Phosphorus Total Bilirubin Direct Bilirubin AST ALT Total Creatine Kinase CK-MB (CK-2) CK-MB (CK-2) Rel Index Troponin T NT-Pro-B Natriuret Pep Albumin HDL Cholesterol Urine WBC (Auto) Urine Creatinine 08/05/16 08/05/16 08/05/16 13:01 13:01 13:01 WBC Hgb Hct MCV MCH MCHC RDW Plt Count Seg Neuts % (Manual) Lymphocytes % (Manual) Nucleated RBC % Seg Neutrophils # Man Lymphocytes # (Manual) D-Dimer 2516.52 H POC ABG pH POC ABG pCO2 POC ABG pO2 Sodium Potassium Chloride Carbon Dioxide BUN Creatinine Glucose POC Glucose Lactic Acid Calcium Phosphorus Total Bilirubin Direct Bilirubin AST ALT Total Creatine Kinase 304 H CK-MB (CK-2) 11.6 H CK-MB (CK-2) Rel Index Troponin T 0.121 H* D NT-Pro-B Natriuret Pep 8307 H Albumin HDL Cholesterol 21 L Urine WBC (Auto) Urine Creatinine 08/05/16 08/05/16 08/05/16 14:44 15:27 16:05 WBC Hgb Hct MCV MCH MCHC RDW Plt Count Seg Neuts % (Manual) Lymphocytes % (Manual) Nucleated RBC % Seg Neutrophils # Man Lymphocytes # (Manual) D-Dimer POC ABG pH 7.020 L POC ABG pCO2 66.3 H POC ABG pO2 Sodium Potassium Chloride Carbon Dioxide BUN Creatinine Glucose POC Glucose Lactic Acid 10.9 H* Calcium Phosphorus Total Bilirubin Direct Bilirubin AST ALT Total Creatine Kinase 282 H CK-MB (CK-2) 11.9 H CK-MB (CK-2) Rel Index 4.2 H Troponin T 0.152 H* D NT-Pro-B Natriuret Pep Albumin HDL Cholesterol Urine WBC (Auto) Urine Creatinine 08/05/16 08/05/16 08/05/16 17:01 17:43 22:09 WBC Hgb Hct MCV MCH MCHC RDW Plt Count Seg Neuts % (Manual) Lymphocytes % (Manual) Nucleated RBC % Seg Neutrophils # Man Lymphocytes # (Manual) D-Dimer POC ABG pH 7.119 L POC ABG pCO2 63.2 H POC ABG pO2 51 L Sodium Potassium Chloride Carbon Dioxide BUN Creatinine Glucose POC Glucose 203 H 241 H Lactic Acid Calcium Phosphorus Total Bilirubin Direct Bilirubin AST ALT Total Creatine Kinase CK-MB (CK-2) CK-MB (CK-2) Rel Index Troponin T NT-Pro-B Natriuret Pep Albumin HDL Cholesterol Urine WBC (Auto) Urine Creatinine 08/05/16 08/06/16 08/06/16 23:30 05:08 05:55 WBC Hgb Hct MCV MCH MCHC RDW Plt Count Seg Neuts % (Manual) Lymphocytes % (Manual) Nucleated RBC % Seg Neutrophils # Man Lymphocytes # (Manual) D-Dimer POC ABG pH 7.289 L POC ABG pCO2 59.9 H POC ABG pO2 224 H Sodium Potassium Chloride Carbon Dioxide BUN Creatinine Glucose POC Glucose Lactic Acid 6.8 H* 5.3 H* Calcium Phosphorus Total Bilirubin Direct Bilirubin AST ALT Total Creatine Kinase CK-MB (CK-2) CK-MB (CK-2) Rel Index Troponin T NT-Pro-B Natriuret Pep Albumin HDL Cholesterol Urine WBC (Auto) Urine Creatinine 08/06/16 08/06/16 08/06/16 06:16 09:05 09:05 WBC 15.1 H Hgb 9.1 L Hct 31.1 L MCV 69 L MCH 20 L MCHC 29 L RDW 20.6 H Plt Count 116 L Seg Neuts % (Manual) 95.0 H Lymphocytes % (Manual) 2.0 L Nucleated RBC % 5.0 H Seg Neutrophils # Man 14.3 H Lymphocytes # (Manual) 0.3 L D-Dimer POC ABG pH POC ABG pCO2 POC ABG pO2 Sodium 136 L Potassium 6.0 H D Chloride 87.5 L Carbon Dioxide BUN 66 H Creatinine 3.9 H D Glucose 319 H POC Glucose 326 H Lactic Acid Calcium 5.5 L* D Phosphorus Total Bilirubin 3.2 H Direct Bilirubin AST 4838 H ALT 1620 H Total Creatine Kinase CK-MB (CK-2) CK-MB (CK-2) Rel Index Troponin T NT-Pro-B Natriuret Pep Albumin 2.7 L HDL Cholesterol Urine WBC (Auto) Urine Creatinine 08/06/16 08/06/16 08/06/16 11:20 11:50 13:17 WBC Hgb Hct MCV MCH MCHC RDW Plt Count Seg Neuts % (Manual) Lymphocytes % (Manual) Nucleated RBC % Seg Neutrophils # Man Lymphocytes # (Manual) D-Dimer POC ABG pH POC ABG pCO2 POC ABG pO2 Sodium Potassium Chloride Carbon Dioxide BUN Creatinine Glucose POC Glucose 318 H Lactic Acid 5.3 H* Calcium Phosphorus Total Bilirubin Direct Bilirubin AST ALT Total Creatine Kinase CK-MB (CK-2) CK-MB (CK-2) Rel Index Troponin T NT-Pro-B Natriuret Pep Albumin HDL Cholesterol Urine WBC (Auto) 28.0 H Urine Creatinine 08/06/16 08/06/16 08/06/16 13:17 13:17 15:10 WBC Hgb Hct MCV MCH MCHC RDW Plt Count Seg Neuts % (Manual) Lymphocytes % (Manual) Nucleated RBC % Seg Neutrophils # Man Lymphocytes # (Manual) D-Dimer POC ABG pH POC ABG pCO2 POC ABG pO2 Sodium 131 L Potassium 5.8 H Chloride 87.8 L Carbon Dioxide 15 L D BUN 67 H Creatinine 3.8 H Glucose 294 H POC Glucose Lactic Acid 4.5 H* Calcium 5.1 L* Phosphorus 9.0 H Total Bilirubin 3.1 H Direct Bilirubin 2.1 H AST 4901 H ALT 1607 H Total Creatine Kinase CK-MB (CK-2) CK-MB (CK-2) Rel Index Troponin T NT-Pro-B Natriuret Pep Albumin 2.7 L HDL Cholesterol Urine WBC (Auto) Urine Creatinine 08/06/16 08/06/16 08/06/16 15:44 16:47 22:06 WBC Hgb Hct MCV MCH MCHC RDW Plt Count Seg Neuts % (Manual) Lymphocytes % (Manual) Nucleated RBC % Seg Neutrophils # Man Lymphocytes # (Manual) D-Dimer POC ABG pH POC ABG pCO2 POC ABG pO2 Sodium Potassium Chloride Carbon Dioxide BUN Creatinine Glucose POC Glucose 282 H 348 H Lactic Acid Calcium Phosphorus Total Bilirubin Direct Bilirubin AST ALT Total Creatine Kinase CK-MB (CK-2) CK-MB (CK-2) Rel Index Troponin T NT-Pro-B Natriuret Pep Albumin HDL Cholesterol Urine WBC (Auto) Urine Creatinine 60.1 H 08/06/16 08/07/16 08/07/16 23:00 03:30 04:13 WBC Hgb Hct MCV MCH MCHC RDW Plt Count Seg Neuts % (Manual) Lymphocytes % (Manual) Nucleated RBC % Seg Neutrophils # Man Lymphocytes # (Manual) D-Dimer POC ABG pH 7.479 H POC ABG pCO2 49.1 H POC ABG pO2 127 H Sodium Potassium Chloride Carbon Dioxide BUN Creatinine Glucose POC Glucose Lactic Acid 3.4 H* 2.7 H* Calcium Phosphorus Total Bilirubin Direct Bilirubin AST ALT Total Creatine Kinase CK-MB (CK-2) CK-MB (CK-2) Rel Index Troponin T NT-Pro-B Natriuret Pep Albumin HDL Cholesterol Urine WBC (Auto) Urine Creatinine 08/07/16 07:46 WBC Hgb Hct MCV MCH MCHC RDW Plt Count Seg Neuts % (Manual) Lymphocytes % (Manual) Nucleated RBC % Seg Neutrophils # Man Lymphocytes # (Manual) D-Dimer POC ABG pH POC ABG pCO2 POC ABG pO2 Sodium Potassium Chloride Carbon Dioxide BUN Creatinine Glucose POC Glucose 316 H Lactic Acid Calcium Phosphorus Total Bilirubin Direct Bilirubin AST ALT Total Creatine Kinase CK-MB (CK-2) CK-MB (CK-2) Rel Index Troponin T NT-Pro-B Natriuret Pep Albumin HDL Cholesterol Urine WBC (Auto) Urine Creatinine
[2016-08-07] MEDS: fentaNYL DRIP Premix 2,000 MCG/100 ML BAG IV SCH ×3 (11:08→23:35)
--- NOTE | 2016-08-07 11:19 | Progress Note ---
Assessment and Plan Altered mental status Vasodilatory shock and lactic acidosis Respiratory failure intubated on the vent Congestive heart failure, Acute on chronic diastolic LVEF 45-50% with evidence of a dilated RV/RA and severe pulmonary hypertension COPD on home oxygen therapy Obstructive sleep apnea Atrial fibrillation Patient was supposed to be on xarelto as outpatient but he is non-compliant History of bilateral pulmonary embolism by CT at [place] Type II DM Systemic Hypertension Microcytic anemia, chronic per records Poor historian Recommendations: Supportive cardiac management. Subjective Date of service: 08/07/16 Principal diagnosis: CHF Interval history: Intubated on the vent. Objective Vital Signs Temp Pulse Pulse Pulse Pulse Pulse Resp 08/07/16 10:38 120 H 08/07/16 08:19 117 H 08/07/16 08:00 111 H 24 L 08/07/16 07:30 119 H 24 08/07/16 07:15 110 H 21 08/07/16 07:00 115 H 24 08/07/16 06:45 115 H 24 08/07/16 06:30 111 H 24 08/07/16 06:15 115 H 18 08/07/16 06:00 107 H 107 H 24 08/07/16 05:45 115 H 25 H 08/07/16 05:30 106 H 24 08/07/16 05:15 107 H 23 08/07/16 05:00 112 H 24 08/07/16 04:45 104 H 24 08/07/16 04:30 120 H 23 08/07/16 04:15 110 H 24 08/07/16 04:00 98.4 F 111 H 24 08/07/16 03:46 105 H 24 08/07/16 03:30 105 H 24 08/07/16 03:25 110 H 08/07/16 03:15 107 H 24 08/07/16 03:00 107 H 24 08/07/16 02:46 109 H 16 08/07/16 02:30 115 H 24 08/07/16 02:15 115 H 24 08/07/16 02:00 112 H 23 08/07/16 01:45 111 H 100 H 111 H 24 08/07/16 01:30 109 H 98 H 24 08/07/16 01:15 106 H 24 08/07/16 01:00 105 H 24 08/07/16 00:45 110 H 25 H 08/07/16 00:30 118 H 24 08/07/16 00:15 113 H 24 08/07/16 00:00 115 H 24 08/06/16 23:45 118 H 24 08/06/16 23:39 116 H 08/06/16 23:34 98.8 F 08/06/16 23:30 108 H 24 08/06/16 23:15 113 H 24 08/06/16 23:00 113 H 24 08/06/16 22:45 108 H 24 08/06/16 22:30 107 H 107 H 24 08/06/16 22:15 120 H 24 08/06/16 22:00 113 H 24 08/06/16 21:46 109 H 24 08/06/16 21:30 110 H 18 08/06/16 21:15 109 H 24 08/06/16 21:00 114 H 25 H 08/06/16 20:45 113 H 24 08/06/16 20:30 121 H 24 08/06/16 20:25 97 H 08/06/16 20:24 99 H 25 H 08/06/16 20:15 98 H 7 L 08/06/16 20:09 95 H 95 H 08/06/16 20:00 93 H 24 08/06/16 19:45 87 24 08/06/16 19:30 88 24 08/06/16 19:15 92 H 20 08/06/16 19:00 95 H 24 08/06/16 18:45 95 H 24 08/06/16 18:30 95 H 24 08/06/16 18:15 97 H 26 H 08/06/16 18:00 96 H 24 08/06/16 17:45 96 H 24 08/06/16 17:30 96 H 24 08/06/16 17:15 97 H 24 08/06/16 17:00 98 H 24 08/06/16 16:45 101 H 24 08/06/16 16:30 103 H 24 08/06/16 16:15 103 H 24 08/06/16 16:00 99.2 F 103 H 24 08/06/16 15:55 103 H 08/06/16 15:45 104 H 24 08/06/16 15:30 103 H 18 08/06/16 15:15 101 H 24 08/06/16 15:00 104 H 24 08/06/16 14:45 104 H 24 08/06/16 14:30 104 H 24 08/06/16 14:15 103 H 24 08/06/16 14:09 104 H 08/06/16 14:00 104 H 25 H 08/06/16 13:53 104 H 08/06/16 13:45 104 H 24 08/06/16 13:30 103 H 24 08/06/16 13:15 103 H 24 08/06/16 13:00 103 H 23 08/06/16 12:45 104 H 25 H 08/06/16 12:30 104 H 24 08/06/16 12:15 104 H 24 08/06/16 12:10 104 H 08/06/16 12:00 104 H 23 08/06/16 11:45 105 H 24 08/06/16 11:30 99.2 F 103 H 24 Resp Resp Resp BP Pulse Ox 08/07/16 10:38 127/76 08/07/16 08:19 24 08/07/16 08:00 115/64 100 08/07/16 07:30 110/62 100 08/07/16 07:15 96/70 100 08/07/16 07:00 96/66 100 08/07/16 06:45 105/68 100 08/07/16 06:30 95/65 100 08/07/16 06:15 110/67 100 08/07/16 06:00 104/73 100 08/07/16 05:45 110/67 100 08/07/16 05:30 113/72 100 08/07/16 05:15 104/71 100 08/07/16 05:00 115/64 100 08/07/16 04:45 115/64 100 08/07/16 04:30 107/66 100 08/07/16 04:15 100/64 100 08/07/16 04:00 107/62 100 08/07/16 03:46 110/62 100 08/07/16 03:30 102/66 100 08/07/16 03:25 08/07/16 03:15 99/61 100 08/07/16 03:00 96/66 100 08/07/16 02:46 94/69 100 08/07/16 02:30 98/58 100 08/07/16 02:15 104/65 100 02/20/17 02:00 99/59 100 0220/17 01:45 24 110/65 100 17 01:30 24 103/64 100 022017 01:15 108/62 100 0217 01:00 107/62 100 022017 00:45 106/64 100 2017 00:30 109/73 100 17 00:15 102/68 100 17 00:00 109/66 100 17 23:45 109/66 100 17 23:39 101/65 100 17 23:34 0217 23:30 101/65 100 17 23:15 109/62 100 17 23:00 101/65 100 17 22:45 95/60 100 17 22:30 98/66 100 17 22:15 101/62 100 08/06/16 22:00 104/66 100 17 21:46 94/67 100 17 21:30 95/68 97 17 21:15 103/59 100 17 21:00 119/64 100 17 20:45 121/74 100 17 20:30 115/73 100 0217 20:25 24 17 20:24 106/73 100 0217 20:15 98/68 100 17 20:09 24 103/61 100 0217 20:00 103/61 100 17 19:45 89/48 100 0219/17 19:30 91/51 100 0219/17 19:15 98/55 99 0219/17 19:00 100/57 100 0219/17 18:45 101/57 100 0219/17 18:30 104/60 100 0219/17 18:15 106/66 97 0219/17 18:00 108/64 100 0219/17 17:45 105/63 100 0219/17 17:30 104/60 100 021917 17:15 102/62 100 1917 17:00 100/62 100 021917 16:45 109/67 99 08/06/16 16:30 111/72 99 08/06/16 16:15 115/69 99 08/06/16 16:00 112/72 98 08/06/16 15:55 115/73 98 08/06/16 15:45 115/73 97 08/06/16 15:30 102/70 95 08/06/16 15:15 97/61 98 08/06/16 15:00 105/70 98 08/06/16 14:45 105/70 98 08/06/16 14:30 106/71 98 08/06/16 14:15 104/68 98 08/06/16 14:09 24 08/06/16 14:00 112/77 100 08/06/16 13:53 24 08/06/16 13:45 110/73 96 08/06/16 13:30 109/74 96 08/06/16 13:15 107/69 96 08/06/16 13:00 109/72 97 08/06/16 12:45 106/71 97 08/06/16 12:30 107/70 97 08/06/16 12:15 107/70 96 08/06/16 12:10 112/70 94 08/06/16 12:00 112/70 96 08/06/16 11:45 109/75 97 08/06/16 11:30 107/68 98 - Physical Examination General: Other (intubated on the vent) Cardiac: Positive: Reg Rate and Rhythm Abdomen: Positive: Soft Extremities: Present: +1 Edema - Labs and Meds Cardiac Enzymes 08/06/16 Range/Units 13:17 AST 4901 H (5-40) units/L Comprehensive Metabolic Panel 08/06/16 08/06/16 Range/Units 13:17 13:17 Sodium 131 L (137-145) mmol/L Potassium 5.8 H (3.6-5.0) mmol/L Chloride 87.8 L (98-107) mmol/L Carbon Dioxide 15 L D (22-30) mmol/L BUN 67 H (9-20) mg/dL Creatinine 3.8 H (0.8-1.5) mg/dL Glucose 294 H (75-100) mg/dL Calcium 5.1 L* (8.4-10.2) mg/dL Direct Bilirubin 2.1 H (0-0.2) mg/dL Indirect Bilirubin 1.0 mg/dL AST 4901 H (5-40) units/L ALT 1607 H (7-56) units/L Alkaline Phosphatase 111 (35-129) units/L Total Protein 6.6 (6.3-8.2) g/dL Albumin 2.7 L (3.9-5) g/dL
--- NOTE | 2016-08-07 18:04 | Progress Note ---
Assessment and Plan - Patient Problems (1) Sepsis Current Visit: Yes Status: Acute Qualifiers: Sepsis type: S Plan to address problem: Sepsis Protocol: IV abx, IVF, pressors, supportive care, monitor uop q shift (2) Acute respiratory failure Current Visit: Yes Status: Acute Qualifiers: Respiratory failure complication: R Plan to address problem: Pulmonary consulted: NIPPV as clinically indicated, therapeutic lovenox, d dimer , supportive care, nebs, (3) Acute CHF Current Visit: Yes Status: Acute Qualifiers: Congestive heart failure type: systolic Qualified Code(s): I50.21 - Acute systolic (congestive) heart failure Plan to address problem: Cardiology consulted: telemetry, fluid restriction, monitor uop q shift, diuretics, daily weight, B uzair, afterload reduction, (4) Metabolic syndrome Current Visit: Yes Status: Acute Plan to address problem: Pt counseled (5) Atrial fibrillation with RVR Current Visit: Yes Status: Acute Plan to address problem: Rate control, supportive care, cardiology consulted. (6) COPD (chronic obstructive pulmonary disease) Current Visit: Yes Status: Acute Qualifiers: COPD type: C Chronic bronchitis type: C Emphysema type: E Plan to address problem: supplemental oxygenb, nebs, NIPPV as clinically indicated (7) Diabetes Current Visit: Yes Status: Acute Qualifiers: Diabetes mellitus type: D Diabetes mellitus complication status: D Diabetes mellitus complication detail: D Diabetic retinopathy severity: D Proliferative retinopathy type: P Diabetes mellitus macular edema: D Diabetes mellitus halfway insulin use: D Laterality: L Chronic kidney disease stage: C Plan to address problem: ADA diet, insulin, accu check (8) DVT prophylaxis Current Visit: Yes Status: Acute History Interval history: . Pt lying in bed, intubated, sedated, on vent. No new reported nursing events. PT medically stable overnight. Hospitalist Physical - Constitutional Vitals: Temp Pulse Resp BP Pulse Ox 100.9 F H 96 H 23 106/69 98 08/07/16 16:00 08/07/16 17:46 08/07/16 17:30 08/07/16 17:46 08/07/16 17:46 General appearance: Present: no acute distress, obese - Neck Neck: Present: supple - Respiratory Respiratory: bilateral: diminished - Cardiovascular Rhythm: regular Heart Sounds: Present: S1 & S2 - Extremities Extremities: no ischemia Extremity abnormal: edema Peripheral Pulses: within normal limits - Abdominal General gastrointestinal: soft, non-tender, non-distended - Integumentary Integumentary: Present: clear, dry - Psychiatric Psychiatric: no intact judgment & insight, no memory intact - Neurologic Neurologic: no gait normal Results - Labs CBC & Chem 7: 08/06/16 09:05 08/06/16 13:17 Labs: Laboratory Last Values WBC 15.1 K/mm3 (4.5-11.0) H 08/06/16 09:05 RBC 4.50 M/mm3 (3.65-5.03) 08/06/16 09:05 Hgb 9.1 gm/dl (11.8-15.2) L 08/06/16 09:05 Hct 31.1 % (35.5-45.6) L 08/06/16 09:05 MCV 69 fl (84-94) L 08/06/16 09:05 MCH 20 pg (28-32) L 08/06/16 09:05 MCHC 29 % (32-34) L 08/06/16 09:05 RDW 20.6 % (13.2-15.2) H 08/06/16 09:05 Plt Count 116 K/mm3 (140-440) L 08/06/16 09:05 Lymph % (Auto) 19.5 % (13.4-35.0) 08/03/16 15:06 Perkins % (Auto) 11.9 % (0.0-7.3) H 08/03/16 15:06 Eos % (Auto) 0.8 % (0.0-4.3) 08/03/16 15:06 Baso % (Auto) 0.5 % (0.0-1.8) 08/03/16 15:06 Lymph # 1.3 K/mm3 (1.2-5.4) 08/03/16 15:06 Perkins # 0.8 K/mm3 (0.0-0.8) 08/03/16 15:06 Eos # 0.1 K/mm3 (0.0-0.4) 08/03/16 15:06 Baso # 0.0 K/mm3 (0.0-0.1) 08/03/16 15:06 Add Manual Diff Complete 08/06/16 09:05 Total Counted 100 08/06/16 09:05 Seg Neutrophils % Chinchilla Machine Operator 08/06/16 09:05 Seg Neuts % (Manual) 95.0 % (40.0-70.0) H 08/06/16 09:05 Band Neutrophils % 0 % 08/06/16 09:05 Lymphocytes % (Manual) 2.0 % (13.4-35.0) L 08/06/16 09:05 Reactive Lymphs % (Man) 0 % 08/06/16 09:05 Monocytes % (Manual) 3.0 % (0.0-7.3) 08/06/16 09:05 Eosinophils % (Manual) 0 % (0.0-4.3) 08/06/16 09:05 Basophils % (Manual) 0 % (0.0-1.8) 08/06/16 09:05 Metamyelocytes % 0 % 08/06/16 09:05 Myelocytes % 0 % 08/06/16 09:05 Promyelocytes % 0 % 08/06/16 09:05 Blast Cells % 0 % 08/06/16 09:05 Nucleated RBC % 5.0 % (0.0-0.9) H 08/06/16 09:05 Seg Neutrophils # 4.6 K/mm3 (1.8-7.7) 08/03/16 15:06 Seg Neutrophils # Man 14.3 K/mm3 (1.8-7.7) H 08/06/16 09:05 Band Neutrophils # 0.0 K/mm3 08/06/16 09:05 Lymphocytes # (Manual) 0.3 K/mm3 (1.2-5.4) L 08/06/16 09:05 Abs React Lymphs (Man) 0.0 K/mm3 08/06/16 09:05 Monocytes # (Manual) 0.5 K/mm3 (0.0-0.8) 08/06/16 09:05 Eosinophils # (Manual) 0.0 K/mm3 (0.0-0.4) 08/06/16 09:05 Basophils # (Manual) 0.0 K/mm3 (0.0-0.1) 08/06/16 09:05 Metamyelocytes # 0.0 K/mm3 08/06/16 09:05 Myelocytes # 0.0 K/mm3 08/06/16 09:05 Promyelocytes # 0.0 K/mm3 08/06/16 09:05 Blast Cells # 0.0 K/mm3 08/06/16 09:05 WBC Morphology Not Reportable 08/06/16 09:05 Hypersegmented Neuts Not Reportable 08/06/16 09:05 Hyposegmented Neuts Not Reportable 08/06/16 09:05 Hypogranular Neuts Not Reportable 08/06/16 09:05 Smudge Cells Not Reportable 08/06/16 09:05 Toxic Granulation Not Reportable 08/06/16 09:05 Toxic Vacuolation Not Reportable 08/06/16 09:05 Dohle Bodies Not Reportable 08/06/16 09:05 Pelger-Huet Anomaly Not Reportable 08/06/16 09:05 Scott Rods Not Reportable 08/06/16 09:05 Platelet Estimate Consistent w auto 08/06/16 09:05 Clumped Platelets Not Reportable 08/06/16 09:05 Plt Clumps, EDTA Not Reportable 08/06/16 09:05 Large Platelets Not Reportable 08/06/16 09:05 Giant Platelets Not Reportable 08/06/16 09:05 Platelet Satelliting Not Reportable 08/06/16 09:05 Plt Morphology Comment Not Reportable 08/06/16 09:05 RBC Morphology Not Reportable 08/06/16 09:05 Dimorphic RBCs Not Reportable 08/06/16 09:05 Polychromasia Not Reportable 08/06/16 09:05 Hypochromasia Few 08/06/16 09:05 Poikilocytosis Not Reportable 08/06/16 09:05 Anisocytosis 1+ 08/06/16 09:05 Microcytosis Few 08/06/16 09:05 Macrocytosis Not Reportable 08/06/16 09:05 Spherocytes Not Reportable 08/06/16 09:05 Pappenheimer Bodies Not Reportable 08/06/16 09:05 Sickle Cells Not Reportable 08/06/16 09:05 Target Cells Not Reportable 08/06/16 09:05 Tear Drop Cells Not Reportable 08/06/16 09:05 Ovalocytes Not Reportable 08/06/16 09:05 Helmet Cells Not Reportable 08/06/16 09:05 [place] Bodies Not Reportable 08/06/16 09:05 [place] Rings Not Reportable 08/06/16 09:05 Keyser Cells Not Reportable 08/06/16 09:05 Bite Cells Not Reportable 08/06/16 09:05 Crenated Cell Not Reportable 08/06/16 09:05 Elliptocytes Not Reportable 08/06/16 09:05 Acanthocytes (Spur) Not Reportable 08/06/16 09:05 Rouleaux Not Reportable 08/06/16 09:05 Hemoglobin C Crystals Not Reportable 08/06/16 09:05 Schistocytes Not Reportable 08/06/16 09:05 Malaria parasites Not Reportable 08/06/16 09:05 Jun Bodies Not Reportable 08/06/16 09:05 Hem Pathologist Commnt No 08/06/16 09:05 PT 18.0 Sec. (12.2-14.9) H 08/03/16 15:06 INR 1.49 (0.87-1.13) H 08/03/16 15:06 APTT 28.8 Sec. (24.2-36.6) 08/03/16 15:06 D-Dimer 2516.52 ng/mlDDU (0-234) H 08/05/16 13:01 POC ABG pH 7.479 (7.35-7.45) H 08/07/16 04:13 POC ABG pCO2 49.1 (35-45) H 08/07/16 04:13 POC ABG pO2 127 (80-105) H 08/07/16 04:13 POC ABG HCO3 36.4 08/07/16 04:13 POC ABG Total CO2 38 08/07/16 04:13 POC ABG O2 Sat 99 08/07/16 04:13 POC ABG Base Excess 13 08/07/16 04:13 FiO2 45 % 08/07/16 04:13 Sodium 131 mmol/L (137-145) L 08/06/16 13:17 Potassium 5.8 mmol/L (3.6-5.0) H 08/06/16 13:17 Chloride 87.8 mmol/L (98-107) L 08/06/16 13:17 Carbon Dioxide 15 mmol/L (22-30) L D 08/06/16 13:17 Anion Gap 34 mmol/L 08/06/16 13:17 BUN 67 mg/dL (9-20) H 08/06/16 13:17 Creatinine 3.8 mg/dL (0.8-1.5) H 08/06/16 13:17 Estimated GFR 19 ml/min 08/06/16 13:17 BUN/Creatinine Ratio 17.63 % 08/06/16 13:17 Glucose 294 mg/dL (75-100) H 08/06/16 13:17 POC Glucose 287 (70-105) H 08/07/16 16:21 Lactic Acid 2.7 mmol/L (0.7-2.0) H* 08/07/16 03:30 Calcium 5.1 mg/dL (8.4-10.2) L* 08/06/16 13:17 Phosphorus 9.0 mg/dL (2.5-4.5) H 08/06/16 13:17 Magnesium 2.0 mg/dL (1.7-2.3) 08/06/16 13:17 Total Bilirubin 3.1 mg/dL (0.1-1.2) H 08/06/16 13:17 Direct Bilirubin 2.1 mg/dL (0-0.2) H 08/06/16 13:17 Indirect Bilirubin 1.0 mg/dL 08/06/16 13:17 AST 4901 units/L (5-40) H 08/06/16 13:17 ALT 1607 units/L (7-56) H 08/06/16 13:17 Alkaline Phosphatase 111 units/L (35-129) 08/06/16 13:17 Ammonia 61.0 umol/L (25-60) H 08/03/16 15:06 Total Creatine Kinase 282 units/L (55-170) H 08/05/16 15:27 CK-MB (CK-2) 11.9 ng/mL (0.0-4.0) H 08/05/16 15:27 CK-MB (CK-2) Rel Index 4.2 (0-4) H 08/05/16 15:27 Troponin T 0.152 ng/mL (0.00-0.029) H* D 08/05/16 15:27 NT-Pro-B Natriuret Pep 8307 pg/mL (0-900) H 08/05/16 13:01 Total Protein 6.6 g/dL (6.3-8.2) 08/06/16 13:17 Albumin 2.7 g/dL (3.9-5) L 08/06/16 13:17 Albumin/Globulin Ratio 0.7 % 08/06/16 13:17 Triglycerides 31 mg/dL (2-149) 08/05/16 13:01 Cholesterol 86 mg/dL (50-199) 08/05/16 13:01 LDL Cholesterol Direct 59 mg/dL (50-130) 08/05/16 13:01 HDL Cholesterol 21 mg/dL (40-59) L 08/05/16 13:01 Cholesterol/HDL Ratio 4.09 % 08/05/16 13:01 Urine Color Marlin (Yellow) 08/06/16 11:20 Urine Turbidity Cloudy (Clear) 08/06/16 11:20 Urine pH 5.0 (5.0-7.0) 08/06/16 11:20 Ur Specific Anna 1.014 (1.003-1.030) 08/06/16 11:20 Urine Protein 30 mg/dl mg/dL (Negative) 08/06/16 11:20 Urine Glucose (UA) 50 mg/dL (Negative) 08/06/16 11:20 Urine Ketones Neg mg/dL (Negative) 08/06/16 11:20 Urine Blood Mod (Negative) 08/06/16 11:20 Urine Nitrite Neg (Negative) 08/06/16 11:20 Urine Bilirubin Neg (Negative) 08/06/16 11:20 Urine Urobilinogen < 2.0 mg/dL (<2.0) 08/06/16 11:20 Ur Leukocyte Esterase Mod (Negative) 08/06/16 11:20 Urine WBC (Auto) 28.0 /HPF (0.0-6.0) H 08/06/16 11:20 Urine RBC (Auto) 15.0 /HPF (0.0-6.0) 08/06/16 11:20 U Epithel Cells (Auto) 1.0 /HPF (0-13.0) 08/06/16 11:20 Urine Bacteria (Auto) 2+ /HPF (Negative) 08/06/16 11:20 Amorphous Crystals Few 08/06/16 11:20 Urine Mucus Few /HPF 08/06/16 11:20 Urine Creatinine 60.1 mg/dL (0.1-20.0) H 08/06/16 15:44 Urine Sodium 45 mEq/L 08/06/16 15:44 Hepatitis A IgM Ab Non-reactive (NonReactive) 08/06/16 15:10 Hep Bs Antigen Non-reactive (Negative) 08/06/16 15:10 Hep B Core IgM Ab Non-reactive (NonReactive) 08/06/16 15:10 Hepatitis C Antibody Non-reactive (NonReactive) 08/06/16 15:10
[2016-08-07] MEDS ORDERED: LEVAQUIN 750MG/150ML 750 MG/150 ML BAG IV SCH (22:00)
[2016-08-08] MEDS: SODIUM BICARBONATE 150 MEQ in D5W 1,000 ML IV SCH ×3 (02:52→21:30)
[2016-08-08] MEDS: ZOSYN/NS 2.25 GM/50ML 2.25 GM/50 ML BAG IV SCH ×4 (02:53→17:04)
[2016-08-08] MEDS: DUONEB 0.5 MG-3 MG/3 ML SOLN IH SCH ×4 (05:32→20:04)
[2016-08-08 06:28] LABS: ISTAT Base Excess 18; ISTAT HCO3 40.4; ISTAT PCO2 45.6 (35-45); ISTAT PH 7.555 (7.35-7.45); ISTAT PO2 85 (80-105); ISTAT SO2 97; ISTAT TCO2 42
[2016-08-08 08:14] LABS: Hematocrit 28.8 % (35.5-45.6); Hemoglobin 8.7 gm/dl (11.8-15.2); Mean Corpuscular HGB Conc 30 % (32-34); Red Blood Count 4.34 M/mm3 (3.65-5.03); White Blood Count 11.3 K/mm3 (4.5-11.0)
[2016-08-08 08:15] LABS: Mean Corpuscular Hemoglobin 20 pg (28-32); Mean Corpuscular Volume 66 fl (84-94); Platelet Count 89 K/mm3 (140-440); Red Cell Distribution Width 20.8 % (13.2-15.2)
[2016-08-08 08:33] LABS: Calcium 6.5 mg/dL (8.4-10.2); Chloride 93.1 mmol/L (98-107); Potassium 3.3 mmol/L (3.6-5.0)
--- NOTE | 2016-08-08 08:36 | XRay Report ---
AP CHEST: HISTORY: Follow-up respiratory failure. FINDINGS: The endotracheal tube, nasogastric tube and left arm PICC are unchanged since yesterday's exam. Cardiomegaly and pulmonary venous congestion are stable. Increasing left pleural effusion is suspected since yesterday's exam. Otherwise, the lungs are generally clear. IMPRESSION: Mild increase in the left pleural effusion since yesterday's exam. Stable cardiomegaly and pulmonary venous congestion.
[2016-08-08] MEDS: NOVOLOG SUB-Q SCH ×5 (08:46→23:29)
--- NOTE | 2016-08-08 08:47 | Progress Note ---
Assessment and Plan Altered mental status Vasodilatory shock and lactic acidosis Respiratory failure intubated on the vent Congestive heart failure, Acute on chronic diastolic LVEF 45-50% with evidence of a dilated RV/RA and severe pulmonary hypertension COPD on home oxygen therapy Obstructive sleep apnea Atrial fibrillation Patient was supposed to be on xarelto as outpatient but he is non-compliant History of bilateral pulmonary embolism by CT at [place] Type II DM Systemic Hypertension Microcytic anemia, chronic per records Poor historian Recommendations: Supportive cardiac management. Subjective Date of service: 08/08/16 Principal diagnosis: CHF Interval history: Intubated on the vent. Objective Vital Signs Temp Pulse Pulse Pulse Pulse Resp Resp 08/08/16 08:35 112 H 08/08/16 08:16 106 H 08/08/16 08:15 103 H 24 08/08/16 08:01 114 H 24 08/08/16 08:00 98 F 08/08/16 07:45 101 H 24 08/08/16 07:30 98 H 24 08/08/16 07:15 105 H 24 08/08/16 07:01 106 H 24 08/08/16 06:45 104 H 24 08/08/16 06:30 99 H 23 08/08/16 06:15 104 H 24 08/08/16 06:00 99 H 24 08/08/16 05:45 103 H 24 08/08/16 05:30 115 H 24 08/08/16 05:15 106 H 24 08/08/16 05:00 104 H 24 08/08/16 04:45 108 H 24 08/08/16 04:30 101 H 24 08/08/16 04:15 102 H 24 08/08/16 04:00 98.6 F 103 H 104 H 24 08/08/16 03:45 104 H 24 08/08/16 03:30 110 H 24 08/08/16 03:15 113 H 24 08/08/16 03:00 107 H 24 08/08/16 02:45 97 H 25 H 08/08/16 02:30 114 H 24 08/08/16 02:15 107 H 24 08/08/16 02:01 105 H 24 08/08/16 01:45 117 H 24 08/08/16 01:30 101 H 23 08/08/16 01:15 116 H 24 08/08/16 01:00 98 H 24 08/08/16 00:45 114 H 24 08/08/16 00:43 103 H 08/08/16 00:30 107 H 24 08/08/16 00:15 106 H 24 08/08/16 00:00 97.8 F 107 H 108 H 24 08/07/16 23:45 107 H 24 08/07/16 23:30 98 H 24 08/07/16 23:15 99 H 24 08/07/16 23:01 96 H 24 08/07/16 22:45 98 H 24 08/07/16 22:30 101 H 24 08/07/16 22:15 101 H 25 H 08/07/16 22:00 102 H 24 08/07/16 21:45 101 H 25 H 08/07/16 21:30 100 H 24 08/07/16 21:15 101 H 24 08/07/16 21:00 102 H 24 08/07/16 20:45 99 H 24 08/07/16 20:30 97 H 24 08/07/16 20:15 103 H 24 08/07/16 20:07 109 H 24 08/07/16 20:02 120 H 08/07/16 20:00 98.2 F 106 H 102 H 24 08/07/16 19:45 112 H 24 08/07/16 19:30 110 H 24 08/07/16 19:15 101 H 23 08/07/16 19:05 103 H 20 08/07/16 19:00 100 H 24 08/07/16 18:45 100 H 24 08/07/16 18:41 99 H 24 08/07/16 18:30 109 H 24 08/07/16 18:28 114 H 24 08/07/16 18:15 106 H 24 08/07/16 18:00 105 H 24 08/07/16 17:46 96 H 08/07/16 17:45 104 H 24 08/07/16 17:30 105 H 23 08/07/16 17:15 111 H 24 08/07/16 17:00 105 H 23 08/07/16 16:45 105 H 15 08/07/16 16:30 95 H 24 08/07/16 16:15 110 H 23 08/07/16 16:00 100.9 F H 105 H 23 08/07/16 15:45 99 H 21 08/07/16 15:30 104 H 25 H 08/07/16 15:15 105 H 25 H 08/07/16 15:00 100 H 24 08/07/16 14:45 108 H 25 H 08/07/16 14:30 108 H 16 08/07/16 14:15 108 H 4 L 08/07/16 14:00 104 H 4 L 08/07/16 13:47 107 H 24 08/07/16 13:45 106 H 21 08/07/16 13:30 109 H 18 08/07/16 13:27 108 H 24 08/07/16 13:16 110 H 24 08/07/16 13:02 106 H 08/07/16 13:00 99 H 24 08/07/16 12:45 100 H 24 08/07/16 12:30 112 H 24 08/07/16 12:15 113 H 22 08/07/16 12:00 98.6 F 110 H 23 08/07/16 11:45 109 H 24 08/07/16 11:30 118 H 17 08/07/16 11:15 113 H 24 08/07/16 11:00 122 H 24 08/07/16 10:45 115 H 14 08/07/16 10:38 120 H 08/07/16 10:30 115 H 10 L 08/07/16 10:15 08/07/16 10:00 08/07/16 09:46 113 H 08/07/16 09:30 08/07/16 09:15 123 H 08/07/16 09:00 114 H Resp BP Pulse Ox 08/08/16 08:35 19 08/08/16 08:16 122/68 96 08/08/16 08:15 122/75 97 08/08/16 08:01 114/72 97 08/08/16 08:00 08/08/16 07:45 109/81 97 08/08/16 07:30 120/78 97 08/08/16 07:15 119/80 96 08/08/16 07:01 122/68 96 08/08/16 06:45 106/76 96 08/08/16 06:30 115/80 97 08/08/16 06:15 121/75 97 08/08/16 06:00 114/80 97 08/08/16 05:45 113/74 97 08/08/16 05:30 106/76 97 08/08/16 05:15 106/76 98 08/08/16 05:00 106/76 96 08/08/16 04:45 122/68 98 08/08/16 04:30 114/75 98 08/08/16 04:15 112/74 97 08/08/16 04:00 126/73 97 08/08/16 03:45 121/75 97 08/08/16 03:30 110/71 97 08/08/16 03:15 119/72 97 08/08/16 03:00 112/71 97 08/08/16 02:45 112/71 96 08/08/16 02:30 120/76 95 08/08/16 02:15 116/71 97 08/08/16 02:01 120/70 96 08/08/16 01:45 118/69 96 08/08/16 01:30 115/73 96 08/08/16 01:15 122/69 96 08/08/16 01:00 115/68 95 08/08/16 00:45 121/66 95 08/08/16 00:43 113/72 94 08/08/16 00:30 113/72 96 08/08/16 00:15 112/73 97 08/08/16 00:00 120/68 95 08/07/16 23:45 120/71 97 08/07/16 23:30 115/65 97 08/07/16 23:15 101/68 98 08/07/16 23:01 115/64 98 02 22:45 119/64 98 08/07/16 22:30 117/67 98 02 22:15 114/65 97 08/07/16 22:00 104/74 97 08/07/16 21:45 116/73 97 08/07/16 21:30 131/69 97 02 21:15 119/66 95 08/07/16 21:00 110/71 98 02 20:45 105/68 98 08/07/16 20:30 105/75 99 02 20:15 94/70 98 08/07/16 20:07 08/07/16 20:02 101/68 97 08/07/16 20:00 92/65 95 08/07/16 19:45 101/68 96 08/07/16 19:30 104/58 96 08/07/16 19:15 104/68 98 08/07/16 19:05 111/62 98 08/07/16 19:00 111/62 98 08/07/16 18:45 112/67 98 08/07/16 18:41 113/67 98 08/07/16 18:30 113/67 98 08/07/16 18:28 110/67 98 08/07/16 18:15 110/67 98 08/07/16 18:00 112/65 98 08/07/16 17:46 106/69 98 08/07/16 17:45 106/64 98 08/07/16 17:30 100/64 98 08/07/16 17:15 102/71 98 08/07/16 17:00 109/70 98 08/07/16 16:45 100/64 98 08/07/16 16:30 110/65 98 08/07/16 16:15 105/62 98 08/07/16 16:00 110/66 99 08/07/16 15:45 108/66 98 08/07/16 15:30 109/65 98 08/07/16 15:15 105/67 98 08/07/16 15:00 100/68 98 08/07/16 14:45 108/64 97 08/07/16 14:30 112/66 98 08/07/16 14:15 107/67 97 08/07/16 14:00 105/64 97 08/07/16 13:47 08/07/16 13:45 113/64 98 08/07/16 13:30 114/69 100 08/07/16 13:27 08/07/16 13:16 107/65 100 08/07/16 13:02 106/67 99 08/07/16 13:00 104/71 08/07/16 12:45 106/67 08/07/16 12:30 109/65 08/07/16 12:15 107/67 08/07/16 12:00 109/66 08/07/16 11:45 119/69 08/07/16 11:30 114/70 08/07/16 11:15 119/71 08/07/16 11:00 125/85 08/07/16 10:45 113/74 08/07/16 10:38 127/76 08/07/16 10:30 127/76 08/07/16 10:15 124/74 08/07/16 10:00 116/79 08/07/16 09:46 107/72 08/07/16 09:30 100/75 08/07/16 09:15 106/70 08/07/16 09:00 105/67 - Physical Examination General: Other (intubated on the vent) Cardiac: Positive: irregularly irregular - Labs and Meds CBC 08/08/16 Range/Units 07:50 WBC 11.3 H (4.5-11.0) K/mm3 RBC 4.34 (3.65-5.03) M/mm3 Hgb 8.7 L (11.8-15.2) gm/dl Hct 28.8 L (35.5-45.6) % Plt Count 89 L (140-440) K/mm3 Comprehensive Metabolic Panel 08/08/16 Range/Units 07:50 Sodium 142 D (137-145) mmol/L Potassium 3.3 L D (3.6-5.0) mmol/L Chloride 93.1 L (98-107) mmol/L Carbon Dioxide 38 H D (22-30) mmol/L BUN 52 H (9-20) mg/dL Creatinine 2.6 H (0.8-1.5) mg/dL Glucose 268 H (75-100) mg/dL Calcium 6.5 L D (8.4-10.2) mg/dL
[2016-08-08 08:50] LABS: Basophils % (Manual) 0 % (0.0-1.8); Blastocytes % (Manual) 0 %; Eosinophils % (Manual) 0 % (0.0-4.3)
[2016-08-08 08:51] LABS: Anisocytosis 1+; Diff Status Complete; Elliptocytes 1+; Hypochromasia 1+; Microcytosis 1+; Platelet Estimate Appears Decreased; Polychromasia Few
--- NOTE | 2016-08-08 10:22 | Progress Note ---
Assessment and Plan acute respiratory failure, failed weaning yesterday. bradycardia. Inactive hypotension. Resolved off pressors CHF. Last BNP very high. She also echo report Pulmonary hypertension. severe metabolic acidosis , lactic acidosis sepsis from urinary source Rec Decrease PEEP to 8 Decreased respiratory rate to 20 Monitor ABGs Extubation precautions 31 minutes spent in [id number] evaluation and coordination of care Subjective Date of service: 08/08/16 Principal diagnosis: possibly on chronic respiratory failure, COPD/questions, CHF Interval history: Currently sedated. Fail weaning yesterday. Objective Vital Signs - 12hr 08/07/16 08/07/16 08/07/16 22:30 22:45 23:01 Temperature Pulse Rate 101 H 98 H 96 H Pulse Rate [ Anterior Right Throughout] Pulse Rate [ From Monitor] Respiratory 24 24 24 Rate Respiratory Rate [Anterior Right Throughout] Blood Pressure 117/67 119/64 115/64 O2 Sat by Pulse 98 98 98 Oximetry 08/07/16 08/07/16 08/07/16 23:15 23:30 23:45 Temperature Pulse Rate 99 H 98 H 107 H Pulse Rate [ Anterior Right Throughout] Pulse Rate [ From Monitor] Respiratory 24 24 24 Rate Respiratory Rate [Anterior Right Throughout] Blood Pressure 101/68 115/65 120/71 O2 Sat by Pulse 98 97 97 Oximetry 08/08/16 08/08/16 08/08/16 00:00 00:15 00:30 Temperature 97.8 F Pulse Rate 107 H 106 H 107 H Pulse Rate [ Anterior Right Throughout] Pulse Rate [ 108 H From Monitor] Respiratory 24 24 24 Rate Respiratory Rate [Anterior Right Throughout] Blood Pressure 120/68 112/73 113/72 O2 Sat by Pulse 95 97 96 Oximetry 08/08/16 08/08/16 08/08/16 00:43 00:45 01:00 Temperature Pulse Rate 103 H 114 H 98 H Pulse Rate [ Anterior Right Throughout] Pulse Rate [ From Monitor] Respiratory 24 24 Rate Respiratory Rate [Anterior Right Throughout] Blood Pressure 113/72 121/66 115/68 O2 Sat by Pulse 94 95 95 Oximetry 08/08/16 08/08/16 08/08/16 01:15 01:30 01:45 Temperature Pulse Rate 116 H 101 H 117 H Pulse Rate [ Anterior Right Throughout] Pulse Rate [ From Monitor] Respiratory 24 23 24 Rate Respiratory Rate [Anterior Right Throughout] Blood Pressure 122/69 115/73 118/69 O2 Sat by Pulse 96 96 96 Oximetry 08/08/16 08/08/16 08/08/16 02:01 02:15 02:30 Temperature Pulse Rate 105 H 107 H 114 H Pulse Rate [ Anterior Right Throughout] Pulse Rate [ From Monitor] Respiratory 24 24 24 Rate Respiratory Rate [Anterior Right Throughout] Blood Pressure 120/70 116/71 120/76 O2 Sat by Pulse 96 97 95 Oximetry 08/08/16 08/08/16 08/08/16 02:45 03:00 03:15 Temperature Pulse Rate 97 H 107 H 113 H Pulse Rate [ Anterior Right Throughout] Pulse Rate [ From Monitor] Respiratory 25 H 24 24 Rate Respiratory Rate [Anterior Right Throughout] Blood Pressure 112/71 112/71 119/72 O2 Sat by Pulse 96 97 97 Oximetry 08/08/16 08/08/16 08/08/16 03:30 03:45 04:00 Temperature 98.6 F Pulse Rate 110 H 104 H 103 H Pulse Rate [ Anterior Right Throughout] Pulse Rate [ 104 H From Monitor] Respiratory 24 24 24 Rate Respiratory Rate [Anterior Right Throughout] Blood Pressure 110/71 121/75 126/73 O2 Sat by Pulse 97 97 97 Oximetry 08/08/16 08/08/16 08/08/16 04:15 04:30 04:45 Temperature Pulse Rate 102 H 101 H 108 H Pulse Rate [ Anterior Right Throughout] Pulse Rate [ From Monitor] Respiratory 24 24 24 Rate Respiratory Rate [Anterior Right Throughout] Blood Pressure 112/74 114/75 122/68 O2 Sat by Pulse 97 98 98 Oximetry 08/08/16 08/08/16 08/08/16 05:00 05:15 05:30 Temperature Pulse Rate 104 H 106 H 115 H Pulse Rate [ Anterior Right Throughout] Pulse Rate [ From Monitor] Respiratory 24 24 24 Rate Respiratory Rate [Anterior Right Throughout] Blood Pressure 106/76 106/76 106/76 O2 Sat by Pulse 96 98 97 Oximetry 08/08/16 08/08/16 08/08/16 05:45 06:00 06:15 Temperature Pulse Rate 103 H 99 H 104 H Pulse Rate [ Anterior Right Throughout] Pulse Rate [ From Monitor] Respiratory 24 24 24 Rate Respiratory Rate [Anterior Right Throughout] Blood Pressure 113/74 114/80 121/75 O2 Sat by Pulse 97 97 97 Oximetry 08/08/16 08/08/16 08/08/16 06:30 06:45 07:01 Temperature Pulse Rate 99 H 104 H 106 H Pulse Rate [ Anterior Right Throughout] Pulse Rate [ From Monitor] Respiratory 23 24 24 Rate Respiratory Rate [Anterior Right Throughout] Blood Pressure 115/80 106/76 122/68 O2 Sat by Pulse 97 96 96 Oximetry 08/08/16 08/08/16 08/08/16 07:15 07:30 07:45 Temperature Pulse Rate 105 H 98 H 101 H Pulse Rate [ Anterior Right Throughout] Pulse Rate [ From Monitor] Respiratory 24 24 24 Rate Respiratory Rate [Anterior Right Throughout] Blood Pressure 119/80 120/78 109/81 O2 Sat by Pulse 96 97 97 Oximetry 08/08/16 08/08/16 08/08/16 08:00 08:01 08:15 Temperature 98 F Pulse Rate 114 H 103 H Pulse Rate [ Anterior Right Throughout] Pulse Rate [ From Monitor] Respiratory 24 24 Rate Respiratory Rate [Anterior Right Throughout] Blood Pressure 114/72 122/75 O2 Sat by Pulse 97 97 Oximetry 08/08/16 08/08/16 08:35 09:37 Temperature Pulse Rate 106 H Pulse Rate [ 112 H Anterior Right Throughout] Pulse Rate [ From Monitor] Respiratory Rate Respiratory 19 Rate [Anterior Right Throughout] Blood Pressure 122/68 O2 Sat by Pulse 96 Oximetry Constitutional: asleep, other (family obese) ENT: other (orally intubated, critically ill on ventilator) Neck: other (large in cirumference) Effort: normal Ascultation: Bilateral: clear, diminished breath sounds Percussion: Bilateral: not dull Cardiovascular: regular rate and rhythm Gastrointestinal: hypoactive bowel sounds, soft, non-tender Integumentary: other (chronic venous changes on legs) Neurologic: other (RA SS -3) CBC and BMP: 08/08/16 07:50 08/08/16 07:50 ABG, PT/INR, D-dimer: ABG POC ABG pH 7.555 (7.35-7.45) H 08/08/16 05:26 POC ABG pCO2 45.6 (35-45) H 08/08/16 05:26 POC ABG pO2 85 (80-105) 08/08/16 05:26 POC ABG HCO3 40.4 08/08/16 05:26 POC ABG Total CO2 42 08/08/16 05:26 POC ABG O2 Sat 97 08/08/16 05:26 PT/INR, D-dimer PT 18.0 Sec. (12.2-14.9) H 08/03/16 15:06 INR 1.49 (0.87-1.13) H 08/03/16 15:06 D-Dimer 2516.52 ng/mlDDU (0-234) H 08/05/16 13:01 Abnormal lab findings: Abnormal Labs 08/04/16 08/04/16 08/04/16 09:41 12:25 17:02 WBC Hgb Hct MCV MCH MCHC RDW Plt Count Seg Neuts % (Manual) Lymphocytes % (Manual) Nucleated RBC % Seg Neutrophils # Man Lymphocytes # (Manual) D-Dimer POC ABG pH POC ABG pCO2 POC ABG pO2 Sodium Potassium Chloride Carbon Dioxide BUN Creatinine Glucose POC Glucose 158 H 236 H 217 H Lactic Acid Calcium Phosphorus Total Bilirubin Direct Bilirubin AST ALT Total Creatine Kinase CK-MB (CK-2) CK-MB (CK-2) Rel Index Troponin T NT-Pro-B Natriuret Pep Albumin HDL Cholesterol Urine WBC (Auto) Urine Creatinine 08/05/16 08/05/16 08/05/16 06:32 08:09 08:17 WBC Hgb Hct MCV MCH MCHC RDW Plt Count Seg Neuts % (Manual) Lymphocytes % (Manual) Nucleated RBC % Seg Neutrophils # Man Lymphocytes # (Manual) D-Dimer POC ABG pH POC ABG pCO2 POC ABG pO2 Sodium Potassium Chloride Carbon Dioxide BUN Creatinine Glucose POC Glucose < 40 L 53 L 185 H Lactic Acid Calcium Phosphorus Total Bilirubin Direct Bilirubin AST ALT Total Creatine Kinase CK-MB (CK-2) CK-MB (CK-2) Rel Index Troponin T NT-Pro-B Natriuret Pep Albumin HDL Cholesterol Urine WBC (Auto) Urine Creatinine 08/05/16 08/05/16 08/05/16 08:34 12:15 12:47 WBC Hgb Hct MCV MCH MCHC RDW Plt Count Seg Neuts % (Manual) Lymphocytes % (Manual) Nucleated RBC % Seg Neutrophils # Man Lymphocytes # (Manual) D-Dimer POC ABG pH 7.169 L 7.077 L POC ABG pCO2 28.5 L 54.3 H POC ABG pO2 78 L Sodium Potassium Chloride Carbon Dioxide BUN Creatinine Glucose POC Glucose 128 H Lactic Acid Calcium Phosphorus Total Bilirubin Direct Bilirubin AST ALT Total Creatine Kinase CK-MB (CK-2) CK-MB (CK-2) Rel Index Troponin T NT-Pro-B Natriuret Pep Albumin HDL Cholesterol Urine WBC (Auto) Urine Creatinine 08/05/16 08/05/16 08/05/16 13:01 13:01 13:01 WBC Hgb Hct MCV MCH MCHC RDW Plt Count Seg Neuts % (Manual) Lymphocytes % (Manual) Nucleated RBC % Seg Neutrophils # Man Lymphocytes # (Manual) D-Dimer 2516.52 H POC ABG pH POC ABG pCO2 POC ABG pO2 Sodium Potassium Chloride Carbon Dioxide BUN Creatinine Glucose POC Glucose Lactic Acid Calcium Phosphorus Total Bilirubin Direct Bilirubin AST ALT Total Creatine Kinase 304 H CK-MB (CK-2) 11.6 H CK-MB (CK-2) Rel Index Troponin T 0.121 H* D NT-Pro-B Natriuret Pep 8307 H Albumin HDL Cholesterol 21 L Urine WBC (Auto) Urine Creatinine 08/05/16 08/05/16 08/05/16 14:44 15:27 16:05 WBC Hgb Hct MCV MCH MCHC RDW Plt Count Seg Neuts % (Manual) Lymphocytes % (Manual) Nucleated RBC % Seg Neutrophils # Man Lymphocytes # (Manual) D-Dimer POC ABG pH 7.020 L POC ABG pCO2 66.3 H POC ABG pO2 Sodium Potassium Chloride Carbon Dioxide BUN Creatinine Glucose POC Glucose Lactic Acid 10.9 H* Calcium Phosphorus Total Bilirubin Direct Bilirubin AST ALT Total Creatine Kinase 282 H CK-MB (CK-2) 11.9 H CK-MB (CK-2) Rel Index 4.2 H Troponin T 0.152 H* D NT-Pro-B Natriuret Pep Albumin HDL Cholesterol Urine WBC (Auto) Urine Creatinine 08/05/16 08/05/16 08/05/16 17:01 17:43 22:09 WBC Hgb Hct MCV MCH MCHC RDW Plt Count Seg Neuts % (Manual) Lymphocytes % (Manual) Nucleated RBC % Seg Neutrophils # Man Lymphocytes # (Manual) D-Dimer POC ABG pH 7.119 L POC ABG pCO2 63.2 H POC ABG pO2 51 L Sodium Potassium Chloride Carbon Dioxide BUN Creatinine Glucose POC Glucose 203 H 241 H Lactic Acid Calcium Phosphorus Total Bilirubin Direct Bilirubin AST ALT Total Creatine Kinase CK-MB (CK-2) CK-MB (CK-2) Rel Index Troponin T NT-Pro-B Natriuret Pep Albumin HDL Cholesterol Urine WBC (Auto) Urine Creatinine 08/05/16 08/06/16 08/06/16 23:30 05:08 05:55 WBC Hgb Hct MCV MCH MCHC RDW Plt Count Seg Neuts % (Manual) Lymphocytes % (Manual) Nucleated RBC % Seg Neutrophils # Man Lymphocytes # (Manual) D-Dimer POC ABG pH 7.289 L POC ABG pCO2 59.9 H POC ABG pO2 224 H Sodium Potassium Chloride Carbon Dioxide BUN Creatinine Glucose POC Glucose Lactic Acid 6.8 H* 5.3 H* Calcium Phosphorus Total Bilirubin Direct Bilirubin AST ALT Total Creatine Kinase CK-MB (CK-2) CK-MB (CK-2) Rel Index Troponin T NT-Pro-B Natriuret Pep Albumin HDL Cholesterol Urine WBC (Auto) Urine Creatinine 08/06/16 08/06/16 08/06/16 06:16 09:05 09:05 WBC 15.1 H Hgb 9.1 L Hct 31.1 L MCV 69 L MCH 20 L MCHC 29 L RDW 20.6 H Plt Count 116 L Seg Neuts % (Manual) 95.0 H Lymphocytes % (Manual) 2.0 L Nucleated RBC % 5.0 H Seg Neutrophils # Man 14.3 H Lymphocytes # (Manual) 0.3 L D-Dimer POC ABG pH POC ABG pCO2 POC ABG pO2 Sodium 136 L Potassium 6.0 H D Chloride 87.5 L Carbon Dioxide BUN 66 H Creatinine 3.9 H D Glucose 319 H POC Glucose 326 H Lactic Acid Calcium 5.5 L* D Phosphorus Total Bilirubin 3.2 H Direct Bilirubin AST 4838 H ALT 1620 H Total Creatine Kinase CK-MB (CK-2) CK-MB (CK-2) Rel Index Troponin T NT-Pro-B Natriuret Pep Albumin 2.7 L HDL Cholesterol Urine WBC (Auto) Urine Creatinine 08/06/16 08/06/16 08/06/16 11:20 11:50 13:17 WBC Hgb Hct MCV MCH MCHC RDW Plt Count Seg Neuts % (Manual) Lymphocytes % (Manual) Nucleated RBC % Seg Neutrophils # Man Lymphocytes # (Manual) D-Dimer POC ABG pH POC ABG pCO2 POC ABG pO2 Sodium Potassium Chloride Carbon Dioxide BUN Creatinine Glucose POC Glucose 318 H Lactic Acid 5.3 H* Calcium Phosphorus Total Bilirubin Direct Bilirubin AST ALT Total Creatine Kinase CK-MB (CK-2) CK-MB (CK-2) Rel Index Troponin T NT-Pro-B Natriuret Pep Albumin HDL Cholesterol Urine WBC (Auto) 28.0 H Urine Creatinine 08/06/16 08/06/16 08/06/16 13:17 13:17 15:10 WBC Hgb Hct MCV MCH MCHC RDW Plt Count Seg Neuts % (Manual) Lymphocytes % (Manual) Nucleated RBC % Seg Neutrophils # Man Lymphocytes # (Manual) D-Dimer POC ABG pH POC ABG pCO2 POC ABG pO2 Sodium 131 L Potassium 5.8 H Chloride 87.8 L Carbon Dioxide 15 L D BUN 67 H Creatinine 3.8 H Glucose 294 H POC Glucose Lactic Acid 4.5 H* Calcium 5.1 L* Phosphorus 9.0 H Total Bilirubin 3.1 H Direct Bilirubin 2.1 H AST 4901 H ALT 1607 H Total Creatine Kinase CK-MB (CK-2) CK-MB (CK-2) Rel Index Troponin T NT-Pro-B Natriuret Pep Albumin 2.7 L HDL Cholesterol Urine WBC (Auto) Urine Creatinine 08/06/16 08/06/16 08/06/16 15:44 16:47 22:06 WBC Hgb Hct MCV MCH MCHC RDW Plt Count Seg Neuts % (Manual) Lymphocytes % (Manual) Nucleated RBC % Seg Neutrophils # Man Lymphocytes # (Manual) D-Dimer POC ABG pH POC ABG pCO2 POC ABG pO2 Sodium Potassium Chloride Carbon Dioxide BUN Creatinine Glucose POC Glucose 282 H 348 H Lactic Acid Calcium Phosphorus Total Bilirubin Direct Bilirubin AST ALT Total Creatine Kinase CK-MB (CK-2) CK-MB (CK-2) Rel Index Troponin T NT-Pro-B Natriuret Pep Albumin HDL Cholesterol Urine WBC (Auto) Urine Creatinine 60.1 H 08/06/16 08/07/16 08/07/16 23:00 03:30 04:13 WBC Hgb Hct MCV MCH MCHC RDW Plt Count Seg Neuts % (Manual) Lymphocytes % (Manual) Nucleated RBC % Seg Neutrophils # Man Lymphocytes # (Manual) D-Dimer POC ABG pH 7.479 H POC ABG pCO2 49.1 H POC ABG pO2 127 H Sodium Potassium Chloride Carbon Dioxide BUN Creatinine Glucose POC Glucose Lactic Acid 3.4 H* 2.7 H* Calcium Phosphorus Total Bilirubin Direct Bilirubin AST ALT Total Creatine Kinase CK-MB (CK-2) CK-MB (CK-2) Rel Index Troponin T NT-Pro-B Natriuret Pep Albumin HDL Cholesterol Urine WBC (Auto) Urine Creatinine 08/07/16 08/07/16 08/07/16 07:46 11:23 16:21 WBC Hgb Hct MCV MCH MCHC RDW Plt Count Seg Neuts % (Manual) Lymphocytes % (Manual) Nucleated RBC % Seg Neutrophils # Man Lymphocytes # (Manual) D-Dimer POC ABG pH POC ABG pCO2 POC ABG pO2 Sodium Potassium Chloride Carbon Dioxide BUN Creatinine Glucose POC Glucose 316 H 321 H 287 H Lactic Acid Calcium Phosphorus Total Bilirubin Direct Bilirubin AST ALT Total Creatine Kinase CK-MB (CK-2) CK-MB (CK-2) Rel Index Troponin T NT-Pro-B Natriuret Pep Albumin HDL Cholesterol Urine WBC (Auto) Urine Creatinine 08/07/16 08/08/16 08/08/16 23:31 05:26 06:42 WBC Hgb Hct MCV MCH MCHC RDW Plt Count Seg Neuts % (Manual) Lymphocytes % (Manual) Nucleated RBC % Seg Neutrophils # Man Lymphocytes # (Manual) D-Dimer POC ABG pH 7.555 H POC ABG pCO2 45.6 H POC ABG pO2 Sodium Potassium Chloride Carbon Dioxide BUN Creatinine Glucose POC Glucose 285 H 268 H Lactic Acid Calcium Phosphorus Total Bilirubin Direct Bilirubin AST ALT Total Creatine Kinase CK-MB (CK-2) CK-MB (CK-2) Rel Index Troponin T NT-Pro-B Natriuret Pep Albumin HDL Cholesterol Urine WBC (Auto) Urine Creatinine 08/08/16 08/08/16 07:50 07:50 WBC 11.3 H Hgb 8.7 L Hct 28.8 L MCV 66 L D MCH 20 L MCHC 30 L RDW 20.8 H Plt Count 89 L Seg Neuts % (Manual) 90.0 H Lymphocytes % (Manual) 1.0 L Nucleated RBC % 2.0 H Seg Neutrophils # Man 10.2 H Lymphocytes # (Manual) 0.1 L D-Dimer POC ABG pH POC ABG pCO2 POC ABG pO2 Sodium Potassium 3.3 L D Chloride 93.1 L Carbon Dioxide 38 H D BUN 52 H Creatinine 2.6 H Glucose 268 H POC Glucose Lactic Acid Calcium 6.5 L D Phosphorus Total Bilirubin Direct Bilirubin AST ALT Total Creatine Kinase CK-MB (CK-2) CK-MB (CK-2) Rel Index Troponin T NT-Pro-B Natriuret Pep Albumin HDL Cholesterol Urine WBC (Auto) Urine Creatinine
[2016-08-08 11:15] LABS: ISTAT Base Excess 18; ISTAT HCO3 41.7; ISTAT PCO2 58.5 (35-45); ISTAT PH 7.461 (7.35-7.45); ISTAT PO2 72 (80-105); ISTAT SO2 95; ISTAT TCO2 43
--- NOTE | 2016-08-08 18:24 | Progress Note ---
Assessment and Plan - Patient Problems (1) Acute CHF Current Visit: Yes Status: Acute Qualifiers: Congestive heart failure type: systolic Qualified Code(s): I50.21 - Acute systolic (congestive) heart failure Plan to address problem: Patient Lasix and beta blockers because of his low BP (2) Acute respiratory failure Current Visit: Yes Status: Acute Qualifiers: Respiratory failure complication: R Plan to address problem: Intubated and mechanically ventilated Pulmonary is on board Failed Weaning trial Patient is on antibiotics (3) Anemia Current Visit: Yes Status: Acute Qualifiers: Anemia type: A Iron deficiency anemia type: I Vitamin B12 deficiency anemia type: V Folate deficiency anemia type: F Bone marrow failure anemia type: B Hemolytic anemia type: H Other causes of anemia: O Plan to address problem: We'll follow closely, she doesn't need transfusion now (4) Atrial fibrillation with RVR Current Visit: Yes Status: Acute (5) COPD (chronic obstructive pulmonary disease) Current Visit: Yes Status: Acute Qualifiers: COPD type: C Chronic bronchitis type: C Emphysema type: E Plan to address problem: As stated above (6) Diabetes Current Visit: Yes Status: Acute Qualifiers: Diabetes mellitus type: D Diabetes mellitus complication status: D Diabetes mellitus complication detail: D Diabetic retinopathy severity: D Proliferative retinopathy type: P Diabetes mellitus macular edema: D 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 The patient appeared well nourished and normally developed. Vital signs as documented. Head exam is unremarkable. No scleral icterus . Neck is without jugular venous distension, thyromegaly, or carotid bruits. Lungs are clear to auscultation. Cardiac exam reveals regular rate and Rhythm. First and second heart sounds normal. No murmurs, rubs or gallops. Abdominal exam reveals normal bowel sounds, no masses, no organomegaly and no aortic enlargement. Extremities are edematous. 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 - Constitutional Vitals: Temp Pulse Resp BP Pulse Ox 98.7 F 122 H 21 126/70 90 08/08/16 16:00 08/08/16 18:01 08/08/16 18:01 08/08/16 18:01 08/08/16 18:01 General appearance: Present: no acute distress, obese Results - Labs CBC & Chem 7: 08/08/16 07:50 08/08/16 07:50 Labs: Laboratory Last Values WBC 11.3 K/mm3 (4.5-11.0) H 08/08/16 07:50 RBC 4.34 M/mm3 (3.65-5.03) 08/08/16 07:50 Hgb 8.7 gm/dl (11.8-15.2) L 08/08/16 07:50 Hct 28.8 % (35.5-45.6) L 08/08/16 07:50 MCV 66 fl (84-94) L D 08/08/16 07:50 MCH 20 pg (28-32) L 08/08/16 07:50 MCHC 30 % (32-34) L 08/08/16 07:50 RDW 20.8 % (13.2-15.2) H 08/08/16 07:50 Plt Count 89 K/mm3 (140-440) L 08/08/16 07:50 Lymph % (Auto) 19.5 % (13.4-35.0) 08/03/16 15:06 [place] % (Auto) 11.9 % (0.0-7.3) H 08/03/16 15:06 Eos % (Auto) 0.8 % (0.0-4.3) 08/03/16 15:06 Baso % (Auto) 0.5 % (0.0-1.8) 08/03/16 15:06 Lymph # 1.3 K/mm3 (1.2-5.4) 08/03/16 15:06 [place] # 0.8 K/mm3 (0.0-0.8) 08/03/16 15:06 Eos # 0.1 K/mm3 (0.0-0.4) 08/03/16 15:06 Baso # 0.0 K/mm3 (0.0-0.1) 08/03/16 15:06 Add Manual Diff Complete 08/08/16 07:50 Total Counted 100 08/08/16 07:50 Seg Neutrophils % Hostel Manager 08/08/16 07:50 Seg Neuts % (Manual) 90.0 % (40.0-70.0) H 08/08/16 07:50 Band Neutrophils % 6.0 % 08/08/16 07:50 Lymphocytes % (Manual) 1.0 % (13.4-35.0) L 08/08/16 07:50 Reactive Lymphs % (Man) 0 % 08/08/16 07:50 Monocytes % (Manual) 3.0 % (0.0-7.3) 08/08/16 07:50 Eosinophils % (Manual) 0 % (0.0-4.3) 08/08/16 07:50 Basophils % (Manual) 0 % (0.0-1.8) 08/08/16 07:50 Metamyelocytes % 0 % 08/08/16 07:50 Myelocytes % 0 % 08/08/16 07:50 Promyelocytes % 0 % 08/08/16 07:50 Blast Cells % 0 % 08/08/16 07:50 Nucleated RBC % 2.0 % (0.0-0.9) H 08/08/16 07:50 Seg Neutrophils # 4.6 K/mm3 (1.8-7.7) 08/03/16 15:06 Seg Neutrophils # Man 10.2 K/mm3 (1.8-7.7) H 08/08/16 07:50 Band Neutrophils # 0.7 K/mm3 08/08/16 07:50 Lymphocytes # (Manual) 0.1 K/mm3 (1.2-5.4) L 08/08/16 07:50 Abs React Lymphs (Man) 0.0 K/mm3 08/08/16 07:50 Monocytes # (Manual) 0.3 K/mm3 (0.0-0.8) 08/08/16 07:50 Eosinophils # (Manual) 0.0 K/mm3 (0.0-0.4) 08/08/16 07:50 Basophils # (Manual) 0.0 K/mm3 (0.0-0.1) 08/08/16 07:50 Metamyelocytes # 0.0 K/mm3 08/08/16 07:50 Myelocytes # 0.0 K/mm3 08/08/16 07:50 Promyelocytes # 0.0 K/mm3 08/08/16 07:50 Blast Cells # 0.0 K/mm3 08/08/16 07:50 WBC Morphology Not Reportable 08/08/16 07:50 Hypersegmented Neuts Not Reportable 08/08/16 07:50 Hyposegmented Neuts Not Reportable 08/08/16 07:50 Hypogranular Neuts Not Reportable 08/08/16 07:50 Smudge Cells Not Reportable 08/08/16 07:50 Toxic Granulation Not Reportable 08/08/16 07:50 Toxic Vacuolation Not Reportable 08/08/16 07:50 Dohle Bodies Not Reportable 08/08/16 07:50 Pelger-Huet Anomaly Not Reportable 08/08/16 07:50 Scott Rods Not Reportable 08/08/16 07:50 Platelet Estimate Appears decreased 08/08/16 07:50 Clumped Platelets Not Reportable 08/08/16 07:50 Plt Clumps, EDTA Not Reportable 08/08/16 07:50 Large Platelets Not Reportable 08/08/16 07:50 Giant Platelets Not Reportable 08/08/16 07:50 Platelet Satelliting Not Reportable 08/08/16 07:50 Plt Morphology Comment Not Reportable 08/08/16 07:50 RBC Morphology Not Reportable 08/08/16 07:50 Dimorphic RBCs Not Reportable 08/08/16 07:50 Polychromasia Few 08/08/16 07:50 Hypochromasia 1+ 08/08/16 07:50 Poikilocytosis Not Reportable 08/08/16 07:50 Anisocytosis 1+ 08/08/16 07:50 Microcytosis 1+ 08/08/16 07:50 Macrocytosis Not Reportable 08/08/16 07:50 Spherocytes Not Reportable 08/08/16 07:50 Pappenheimer Bodies Not Reportable 08/08/16 07:50 Sickle Cells Not Reportable 08/08/16 07:50 Target Cells Not Reportable 08/08/16 07:50 Tear Drop Cells Not Reportable 08/08/16 07:50 Ovalocytes Not Reportable 08/08/16 07:50 Helmet Cells Not Reportable 08/08/16 07:50 [place] Bodies Not Reportable 08/08/16 07:50 Richards Rings Not Reportable 08/08/16 07:50 [place] Cells Not Reportable 08/08/16 07:50 Bite Cells Not Reportable 08/08/16 07:50 Crenated Cell Not Reportable 08/08/16 07:50 Elliptocytes 1+ 08/08/16 07:50 Acanthocytes (Spur) Not Reportable 08/08/16 07:50 Rouleaux Not Reportable 08/08/16 07:50 Hemoglobin C Crystals Not Reportable 08/08/16 07:50 Schistocytes Not Reportable 08/08/16 07:50 Malaria parasites Not Reportable 08/08/16 07:50 Jun Bodies Not Reportable 08/08/16 07:50 Hem Pathologist Commnt No 08/08/16 07:50 PT 18.0 Sec. (12.2-14.9) H 08/03/16 15:06 INR 1.49 (0.87-1.13) H 08/03/16 15:06 APTT 28.8 Sec. (24.2-36.6) 08/03/16 15:06 D-Dimer 2516.52 ng/mlDDU (0-234) H 08/05/16 13:01 POC ABG pH 7.461 (7.35-7.45) H 08/08/16 11:04 POC ABG pCO2 58.5 (35-45) H 08/08/16 11:04 POC ABG pO2 72 (80-105) L 08/08/16 11:04 POC ABG HCO3 41.7 08/08/16 11:04 POC ABG Total CO2 43 08/08/16 11:04 POC ABG O2 Sat 95 08/08/16 11:04 POC ABG Base Excess 18 08/08/16 11:04 FiO2 35 % 08/08/16 11:04 Sodium 142 mmol/L (137-145) D 08/08/16 07:50 Potassium 3.3 mmol/L (3.6-5.0) L D 08/08/16 07:50 Chloride 93.1 mmol/L (98-107) L 08/08/16 07:50 Carbon Dioxide 38 mmol/L (22-30) H D 08/08/16 07:50 Anion Gap 14 mmol/L 08/08/16 07:50 BUN 52 mg/dL (9-20) H 08/08/16 07:50 Creatinine 2.6 mg/dL (0.8-1.5) H 08/08/16 07:50 Estimated GFR 30 ml/min 08/08/16 07:50 BUN/Creatinine Ratio 20.00 % 08/08/16 07:50 Glucose 268 mg/dL (75-100) H 08/08/16 07:50 POC Glucose 209 (70-105) H 08/08/16 16:19 Lactic Acid 2.7 mmol/L (0.7-2.0) H* 08/07/16 03:30 Calcium 6.5 mg/dL (8.4-10.2) L D 08/08/16 07:50 Phosphorus 9.0 mg/dL (2.5-4.5) H 08/06/16 13:17 Magnesium 2.0 mg/dL (1.7-2.3) 08/06/16 13:17 Total Bilirubin 3.1 mg/dL (0.1-1.2) H 08/06/16 13:17 Direct Bilirubin 2.1 mg/dL (0-0.2) H 08/06/16 13:17 Indirect Bilirubin 1.0 mg/dL 08/06/16 13:17 AST 4901 units/L (5-40) H 08/06/16 13:17 ALT 1607 units/L (7-56) H 08/06/16 13:17 Alkaline Phosphatase 111 units/L (35-129) 08/06/16 13:17 Ammonia 61.0 umol/L (25-60) H 08/03/16 15:06 Total Creatine Kinase 282 units/L (55-170) H 08/05/16 15:27 CK-MB (CK-2) 11.9 ng/mL (0.0-4.0) H 08/05/16 15:27 CK-MB (CK-2) Rel Index 4.2 (0-4) H 08/05/16 15:27 Troponin T 0.152 ng/mL (0.00-0.029) H* D 08/05/16 15:27 NT-Pro-B Natriuret Pep 8307 pg/mL (0-900) H 08/05/16 13:01 Total Protein 6.6 g/dL (6.3-8.2) 08/06/16 13:17 Albumin 2.7 g/dL (3.9-5) L 08/06/16 13:17 Albumin/Globulin Ratio 0.7 % 08/06/16 13:17 Triglycerides 31 mg/dL (2-149) 08/05/16 13:01 Cholesterol 86 mg/dL (50-199) 08/05/16 13:01 LDL Cholesterol Direct 59 mg/dL (50-130) 08/05/16 13:01 HDL Cholesterol 21 mg/dL (40-59) L 08/05/16 13:01 Cholesterol/HDL Ratio 4.09 % 08/05/16 13:01 Urine Color [place] (Yellow) 08/06/16 11:20 Urine Turbidity Cloudy (Clear) 08/06/16 11:20 Urine pH 5.0 (5.0-7.0) 08/06/16 11:20 Ur Specific [place] 1.014 (1.003-1.030) 08/06/16 11:20 Urine Protein 30 mg/dl mg/dL (Negative) 08/06/16 11:20 Urine Glucose (UA) 50 mg/dL (Negative) 08/06/16 11:20 Urine Ketones Neg mg/dL (Negative) 08/06/16 11:20 Urine Blood Mod (Negative) 08/06/16 11:20 Urine Nitrite Neg (Negative) 08/06/16 11:20 Urine Bilirubin Neg (Negative) 08/06/16 11:20 Urine Urobilinogen < 2.0 mg/dL (<2.0) 08/06/16 11:20 Ur Leukocyte Esterase Mod (Negative) 08/06/16 11:20 Urine WBC (Auto) 28.0 /HPF (0.0-6.0) H 08/06/16 11:20 Urine RBC (Auto) 15.0 /HPF (0.0-6.0) 08/06/16 11:20 U Epithel Cells (Auto) 1.0 /HPF (0-13.0) 08/06/16 11:20 Urine Bacteria (Auto) 2+ /HPF (Negative) 08/06/16 11:20 Amorphous Crystals Few 08/06/16 11:20 Urine Mucus Few /HPF 08/06/16 11:20 Urine Creatinine 60.1 mg/dL (0.1-20.0) H 08/06/16 15:44 Urine Sodium 45 mEq/L 08/06/16 15:44 Hepatitis A IgM Ab Non-reactive (NonReactive) 08/06/16 15:10 Hep Bs Antigen Non-reactive (Negative) 08/06/16 15:10 Hep B Core IgM Ab Non-reactive (NonReactive) 08/06/16 15:10 Hepatitis C Antibody Non-reactive (NonReactive) 08/06/16 15:10
[2016-08-08] MEDS: LOVENOX SUB-Q SCH (23:06)
[2016-08-09] MEDS: fentaNYL DRIP Premix 2,000 MCG/100 ML BAG IV SCH ×2 (00:35→15:30)
[2016-08-09] MEDS: ZOSYN/NS 2.25 GM/50ML 2.25 GM/50 ML BAG IV SCH ×3 (00:38→11:56)
[2016-08-09] MEDS: DUONEB 0.5 MG-3 MG/3 ML SOLN IH SCH ×4 (01:55→19:43)
[2016-08-09] MEDS: SODIUM BICARBONATE 150 MEQ in D5W 1,000 ML IV SCH (05:29)
[2016-08-09 05:59] LABS: ISTAT Base Excess 27; ISTAT HCO3 50.3; ISTAT PCO2 67.7 (35-45); ISTAT PH 7.479 (7.35-7.45); ISTAT PO2 82 (80-105); ISTAT SO2 96; ISTAT TCO2 > 50
[2016-08-09 06:35] LABS: Basophils % (Auto) 0.4 % (0.0-1.8); Mean Corpuscular HGB Conc 30 % (32-34); Red Blood Count 4.17 M/mm3 (3.65-5.03)
[2016-08-09 06:38] LABS: Hematocrit 28.3 % (35.5-45.6); Hemoglobin 8.4 gm/dl (11.8-15.2); Mean Corpuscular Hemoglobin 20 pg (28-32); Mean Corpuscular Volume 68 fl (84-94); Platelet Count 79 K/mm3 (140-440); Red Cell Distribution Width 21.2 % (13.2-15.2)
[2016-08-09 06:59] LABS: BUN/Creatinine Ratio 27.14; Blood Urea Nitrogen 38 mg/dL (9-20); Calcium 6.3 mg/dL (8.4-10.2); Chloride 86.3 mmol/L (98-107); Sodium 144 mmol/L (137-145)
[2016-08-09 07:15] LABS: Glucose 695 mg/dL (75-100)
[2016-08-09 07:20] LABS: Potassium 2.5 mmol/L (3.6-5.0)
[2016-08-09 07:32] LABS: Anion Gap 9 mmol/L; Carbon Dioxide 51 mmol/L (22-30)
--- NOTE | 2016-08-09 07:54 | XRay Report ---
AP chest History: Followup respiratory failure. Findings: Lines and support devices remain in good position. No significant change is appreciated in cardiomegaly, vascular congestion and left pleural effusion since yesterday's exam. Impression: No change.
[2016-08-09] MEDS ORDERED: LEVEMIR SUB-Q ONE (08:59)
[2016-08-09 09:11] LABS: BUN/Creatinine Ratio 24.7; Calcium 7.7 mg/dL (8.4-10.2); Chloride 92.9 mmol/L (98-107); Potassium 3.9 mmol/L (3.6-5.0)
[2016-08-09 09:56] LABS: ISTAT Base Excess 25; ISTAT HCO3 48.7; ISTAT PCO2 68.7 (35-45); ISTAT PH 7.458 (7.35-7.45); ISTAT PO2 65 (80-105); ISTAT SO2 92; ISTAT TCO2 > 50
[2016-08-09] MEDS: LOVENOX SUB-Q SCH ×2 (10:00→23:41)
[2016-08-09] MEDS ORDERED: LASIX IV ONE (10:00)
--- NOTE | 2016-08-09 10:31 | Progress Note ---
Assessment and Plan Acute on chronic respiratory failure. Clinically stabilized with some mild chest congestion Hypokalemia/hyperglycemia. Appears to be a diluted dropped from the IV line with D5W. bradycardia. Inactive hypotension. Resolved off pressors CHF. Last BNP very high. She also echo report Pulmonary hypertension. severe metabolic acidosis , lactic acidosis sepsis from urinary source Rec Decrease PEEP to 5, FiO2 to 50%. Monitor ABGs Repeat BMP Extubation precautions Continue nebulizer therapy. Complete 7-10 days of antibiotics 31 minutes spent in [id number] evaluation and coordination of care Subjective Date of service: 08/09/16 Principal diagnosis: acute on chronic respiratory failure, congestive heart failure Interval history: Restless on mild sedation Objective Vital Signs - 12hr 08/08/16 08/08/16 08/08/16 22:30 23:01 23:31 Temperature Pulse Rate 137 H 129 H 129 H Pulse Rate [ Anterior Bilateral Throughout] Pulse Rate [ Anterior Right Throughout] Pulse Rate [ From Monitor] Respiratory 24 22 20 Rate Respiratory Rate [Anterior Bilateral Throughout] Respiratory Rate [Anterior Right Throughout] Blood Pressure 115/79 126/88 124/67 O2 Sat by Pulse 95 97 95 Oximetry 08/09/16 08/09/16 08/09/16 00:00 00:01 00:09 Temperature 98.2 F Pulse Rate 124 H 127 H Pulse Rate [ Anterior Bilateral Throughout] Pulse Rate [ Anterior Right Throughout] Pulse Rate [ 114 H From Monitor] Respiratory 20 21 Rate Respiratory Rate [Anterior Bilateral Throughout] Respiratory Rate [Anterior Right Throughout] Blood Pressure 114/78 110/89 O2 Sat by Pulse 96 90 94 Oximetry 08/09/16 08/09/16 08/09/16 00:10 00:31 01:00 Temperature 98.2 F Pulse Rate 130 H 126 H Pulse Rate [ Anterior Bilateral Throughout] Pulse Rate [ Anterior Right Throughout] Pulse Rate [ From Monitor] Respiratory 21 21 Rate Respiratory Rate [Anterior Bilateral Throughout] Respiratory Rate [Anterior Right Throughout] Blood Pressure 110/89 112/71 O2 Sat by Pulse 93 94 Oximetry 08/09/16 08/09/16 08/09/16 01:31 01:50 02:00 Temperature Pulse Rate 124 H 109 H Pulse Rate [ 112 H 118 H Anterior Bilateral Throughout] Pulse Rate [ Anterior Right Throughout] Pulse Rate [ From Monitor] Respiratory 20 20 Rate Respiratory 20 20 Rate [Anterior Bilateral Throughout] Respiratory Rate [Anterior Right Throughout] Blood Pressure 106/72 103/65 O2 Sat by Pulse 95 98 Oximetry 08/09/16 08/09/16 08/09/16 02:31 03:01 03:31 Temperature Pulse Rate 117 H 121 H Pulse Rate [ Anterior Bilateral Throughout] Pulse Rate [ Anterior Right Throughout] Pulse Rate [ From Monitor] Respiratory 21 21 20 Rate Respiratory Rate [Anterior Bilateral Throughout] Respiratory Rate [Anterior Right Throughout] Blood Pressure 123/85 125/74 126/76 O2 Sat by Pulse 94 92 92 Oximetry 08/09/16 08/09/16 08/09/16 04:00 04:01 04:31 Temperature 97.6 F Pulse Rate 136 H 119 H Pulse Rate [ Anterior Bilateral Throughout] Pulse Rate [ Anterior Right Throughout] Pulse Rate [ 111 H From Monitor] Respiratory 20 20 20 Rate Respiratory Rate [Anterior Bilateral Throughout] Respiratory Rate [Anterior Right Throughout] Blood Pressure 126/80 124/69 O2 Sat by Pulse 95 95 93 Oximetry 08/09/16 08/09/16 08/09/16 05:00 05:01 05:31 Temperature Pulse Rate 127 H 127 H 129 H Pulse Rate [ Anterior Bilateral Throughout] Pulse Rate [ Anterior Right Throughout] Pulse Rate [ From Monitor] Respiratory 20 20 Rate Respiratory Rate [Anterior Bilateral Throughout] Respiratory Rate [Anterior Right Throughout] Blood Pressure 110/78 118/85 100/85 O2 Sat by Pulse 99 95 95 Oximetry 08/09/16 08/09/16 08/09/16 06:01 06:25 06:31 Temperature 97.6 F Pulse Rate 128 H 128 H Pulse Rate [ Anterior Bilateral Throughout] Pulse Rate [ Anterior Right Throughout] Pulse Rate [ From Monitor] Respiratory 20 20 Rate Respiratory Rate [Anterior Bilateral Throughout] Respiratory Rate [Anterior Right Throughout] Blood Pressure 110/78 135/83 O2 Sat by Pulse 94 96 Oximetry 08/09/16 08/09/16 08/09/16 07:00 07:31 07:47 Temperature Pulse Rate 116 H 115 H Pulse Rate [ Anterior Bilateral Throughout] Pulse Rate [ 120 H Anterior Right Throughout] Pulse Rate [ From Monitor] Respiratory 20 20 Rate Respiratory Rate [Anterior Bilateral Throughout] Respiratory 20 Rate [Anterior Right Throughout] Blood Pressure 125/74 117/75 O2 Sat by Pulse 95 95 Oximetry 08/09/16 08/09/16 08/09/16 07:54 08:01 08:02 Temperature 98.3 F Pulse Rate 116 H Pulse Rate [ Anterior Bilateral Throughout] Pulse Rate [ 118 H Anterior Right Throughout] Pulse Rate [ From Monitor] Respiratory 20 Rate Respiratory Rate [Anterior Bilateral Throughout] Respiratory 20 Rate [Anterior Right Throughout] Blood Pressure 122/89 O2 Sat by Pulse 98 Oximetry 08/09/16 08/09/16 08/09/16 08:30 08:35 09:00 Temperature Pulse Rate 112 H 113 H 133 H Pulse Rate [ Anterior Bilateral Throughout] Pulse Rate [ Anterior Right Throughout] Pulse Rate [ From Monitor] Respiratory 20 18 Rate Respiratory Rate [Anterior Bilateral Throughout] Respiratory Rate [Anterior Right Throughout] Blood Pressure 106/79 117/75 124/89 O2 Sat by Pulse 96 95 100 Oximetry Constitutional: other (morbidly obese) ENT: other (orally intubated, critically ill on ventilator) Neck: other (large in cirumference) Effort: normal Ascultation: Bilateral: clear, diminished breath sounds Percussion: Bilateral: not dull Cardiovascular: regular rate and rhythm Gastrointestinal: hypoactive bowel sounds, soft, non-tender Integumentary: other (chronic venous changes on legs) Neurologic: other (RA SS -1) CBC and BMP: 08/09/16 06:00 08/09/16 08:45 ABG, PT/INR, D-dimer: ABG POC ABG pH 7.458 (7.35-7.45) H 08/09/16 09:51 POC ABG pCO2 68.7 (35-45) H 08/09/16 09:51 POC ABG pO2 65 (80-105) L 08/09/16 09:51 POC ABG HCO3 48.7 08/09/16 09:51 POC ABG Total CO2 > 50 08/09/16 09:51 POC ABG O2 Sat 92 08/09/16 09:51 PT/INR, D-dimer PT 18.0 Sec. (12.2-14.9) H 08/03/16 15:06 INR 1.49 (0.87-1.13) H 08/03/16 15:06 D-Dimer 2516.52 ng/mlDDU (0-234) H 08/05/16 13:01 Abnormal lab findings: Abnormal Labs 08/04/16 08/04/16 08/04/16 09:41 12:25 17:02 WBC Hgb Hct MCV MCH MCHC RDW Plt Count Lymph % (Auto) Lymph # Seg Neutrophils % Seg Neuts % (Manual) Lymphocytes % (Manual) Nucleated RBC % Seg Neutrophils # Seg Neutrophils # Man Lymphocytes # (Manual) D-Dimer POC ABG pH POC ABG pCO2 POC ABG pO2 Sodium Potassium Chloride Carbon Dioxide BUN Creatinine Glucose POC Glucose 158 H 236 H 217 H Lactic Acid Calcium Ionized Calcium Phosphorus Total Bilirubin Direct Bilirubin AST ALT Total Creatine Kinase CK-MB (CK-2) CK-MB (CK-2) Rel Index Troponin T NT-Pro-B Natriuret Pep Albumin HDL Cholesterol Urine WBC (Auto) Urine Creatinine Complement C3 Complement C4 08/05/16 08/05/16 08/05/16 06:32 08:09 08:17 WBC Hgb Hct MCV MCH MCHC RDW Plt Count Lymph % (Auto) Lymph # Seg Neutrophils % Seg Neuts % (Manual) Lymphocytes % (Manual) Nucleated RBC % Seg Neutrophils # Seg Neutrophils # Man Lymphocytes # (Manual) D-Dimer POC ABG pH POC ABG pCO2 POC ABG pO2 Sodium Potassium Chloride Carbon Dioxide BUN Creatinine Glucose POC Glucose < 40 L 53 L 185 H Lactic Acid Calcium Ionized Calcium Phosphorus Total Bilirubin Direct Bilirubin AST ALT Total Creatine Kinase CK-MB (CK-2) CK-MB (CK-2) Rel Index Troponin T NT-Pro-B Natriuret Pep Albumin HDL Cholesterol Urine WBC (Auto) Urine Creatinine Complement C3 Complement C4 08/05/16 08/05/16 08/05/16 08:34 12:15 12:47 WBC Hgb Hct MCV MCH MCHC RDW Plt Count Lymph % (Auto) Lymph # Seg Neutrophils % Seg Neuts % (Manual) Lymphocytes % (Manual) Nucleated RBC % Seg Neutrophils # Seg Neutrophils # Man Lymphocytes # (Manual) D-Dimer POC ABG pH 7.169 L 7.077 L POC ABG pCO2 28.5 L 54.3 H POC ABG pO2 78 L Sodium Potassium Chloride Carbon Dioxide BUN Creatinine Glucose POC Glucose 128 H Lactic Acid Calcium Ionized Calcium Phosphorus Total Bilirubin Direct Bilirubin AST ALT Total Creatine Kinase CK-MB (CK-2) CK-MB (CK-2) Rel Index Troponin T NT-Pro-B Natriuret Pep Albumin HDL Cholesterol Urine WBC (Auto) Urine Creatinine Complement C3 Complement C4 08/05/16 08/05/16 08/05/16 13:01 13:01 13:01 WBC Hgb Hct MCV MCH MCHC RDW Plt Count Lymph % (Auto) Lymph # Seg Neutrophils % Seg Neuts % (Manual) Lymphocytes % (Manual) Nucleated RBC % Seg Neutrophils # Seg Neutrophils # Man Lymphocytes # (Manual) D-Dimer 2516.52 H POC ABG pH POC ABG pCO2 POC ABG pO2 Sodium Potassium Chloride Carbon Dioxide BUN Creatinine Glucose POC Glucose Lactic Acid Calcium Ionized Calcium Phosphorus Total Bilirubin Direct Bilirubin AST ALT Total Creatine Kinase 304 H CK-MB (CK-2) 11.6 H CK-MB (CK-2) Rel Index Troponin T 0.121 H* D NT-Pro-B Natriuret Pep 8307 H Albumin HDL Cholesterol 21 L Urine WBC (Auto) Urine Creatinine Complement C3 Complement C4 08/05/16 08/05/16 08/05/16 14:44 15:27 16:05 WBC Hgb Hct MCV MCH MCHC RDW Plt Count Lymph % (Auto) Lymph # Seg Neutrophils % Seg Neuts % (Manual) Lymphocytes % (Manual) Nucleated RBC % Seg Neutrophils # Seg Neutrophils # Man Lymphocytes # (Manual) D-Dimer POC ABG pH 7.020 L POC ABG pCO2 66.3 H POC ABG pO2 Sodium Potassium Chloride Carbon Dioxide BUN Creatinine Glucose POC Glucose Lactic Acid 10.9 H* Calcium Ionized Calcium Phosphorus Total Bilirubin Direct Bilirubin AST ALT Total Creatine Kinase 282 H CK-MB (CK-2) 11.9 H CK-MB (CK-2) Rel Index 4.2 H Troponin T 0.152 H* D NT-Pro-B Natriuret Pep Albumin HDL Cholesterol Urine WBC (Auto) Urine Creatinine Complement C3 Complement C4 08/05/16 08/05/16 08/05/16 17:01 17:43 22:09 WBC Hgb Hct MCV MCH MCHC RDW Plt Count Lymph % (Auto) Lymph # Seg Neutrophils % Seg Neuts % (Manual) Lymphocytes % (Manual) Nucleated RBC % Seg Neutrophils # Seg Neutrophils # Man Lymphocytes # (Manual) D-Dimer POC ABG pH 7.119 L POC ABG pCO2 63.2 H POC ABG pO2 51 L Sodium Potassium Chloride Carbon Dioxide BUN Creatinine Glucose POC Glucose 203 H 241 H Lactic Acid Calcium Ionized Calcium Phosphorus Total Bilirubin Direct Bilirubin AST ALT Total Creatine Kinase CK-MB (CK-2) CK-MB (CK-2) Rel Index Troponin T NT-Pro-B Natriuret Pep Albumin HDL Cholesterol Urine WBC (Auto) Urine Creatinine Complement C3 Complement C4 08/05/16 08/06/16 08/06/16 23:30 05:08 05:55 WBC Hgb Hct MCV MCH MCHC RDW Plt Count Lymph % (Auto) Lymph # Seg Neutrophils % Seg Neuts % (Manual) Lymphocytes % (Manual) Nucleated RBC % Seg Neutrophils # Seg Neutrophils # Man Lymphocytes # (Manual) D-Dimer POC ABG pH 7.289 L POC ABG pCO2 59.9 H POC ABG pO2 224 H Sodium Potassium Chloride Carbon Dioxide BUN Creatinine Glucose POC Glucose Lactic Acid 6.8 H* 5.3 H* Calcium Ionized Calcium Phosphorus Total Bilirubin Direct Bilirubin AST ALT Total Creatine Kinase CK-MB (CK-2) CK-MB (CK-2) Rel Index Troponin T NT-Pro-B Natriuret Pep Albumin HDL Cholesterol Urine WBC (Auto) Urine Creatinine Complement C3 Complement C4 08/06/16 08/06/16 08/06/16 06:16 09:05 09:05 WBC 15.1 H Hgb 9.1 L Hct 31.1 L MCV 69 L MCH 20 L MCHC 29 L RDW 20.6 H Plt Count 116 L Lymph % (Auto) Lymph # Seg Neutrophils % Seg Neuts % (Manual) 95.0 H Lymphocytes % (Manual) 2.0 L Nucleated RBC % 5.0 H Seg Neutrophils # Seg Neutrophils # Man 14.3 H Lymphocytes # (Manual) 0.3 L D-Dimer POC ABG pH POC ABG pCO2 POC ABG pO2 Sodium 136 L Potassium 6.0 H D Chloride 87.5 L Carbon Dioxide BUN 66 H Creatinine 3.9 H D Glucose 319 H POC Glucose 326 H Lactic Acid Calcium 5.5 L* D Ionized Calcium Phosphorus Total Bilirubin 3.2 H Direct Bilirubin AST 4838 H ALT 1620 H Total Creatine Kinase CK-MB (CK-2) CK-MB (CK-2) Rel Index Troponin T NT-Pro-B Natriuret Pep Albumin 2.7 L HDL Cholesterol Urine WBC (Auto) Urine Creatinine Complement C3 Complement C4 08/06/16 08/06/16 08/06/16 11:20 11:50 11:56 WBC Hgb Hct MCV MCH MCHC RDW Plt Count Lymph % (Auto) Lymph # Seg Neutrophils % Seg Neuts % (Manual) Lymphocytes % (Manual) Nucleated RBC % Seg Neutrophils # Seg Neutrophils # Man Lymphocytes # (Manual) D-Dimer POC ABG pH POC ABG pCO2 POC ABG pO2 Sodium Potassium Chloride Carbon Dioxide BUN Creatinine Glucose POC Glucose 318 H Lactic Acid Calcium Ionized Calcium 2.7 L* Phosphorus Total Bilirubin Direct Bilirubin AST ALT Total Creatine Kinase CK-MB (CK-2) CK-MB (CK-2) Rel Index Troponin T NT-Pro-B Natriuret Pep Albumin HDL Cholesterol Urine WBC (Auto) 28.0 H Urine Creatinine Complement C3 Complement C4 08/06/16 08/06/16 08/06/16 13:17 13:17 13:17 WBC Hgb Hct MCV MCH MCHC RDW Plt Count Lymph % (Auto) Lymph # Seg Neutrophils % Seg Neuts % (Manual) Lymphocytes % (Manual) Nucleated RBC % Seg Neutrophils # Seg Neutrophils # Man Lymphocytes # (Manual) D-Dimer POC ABG pH POC ABG pCO2 POC ABG pO2 Sodium 131 L Potassium 5.8 H Chloride 87.8 L Carbon Dioxide 15 L D BUN 67 H Creatinine 3.8 H Glucose 294 H POC Glucose Lactic Acid 5.3 H* Calcium 5.1 L* Ionized Calcium Phosphorus 9.0 H Total Bilirubin 3.1 H Direct Bilirubin 2.1 H AST 4901 H ALT 1607 H Total Creatine Kinase CK-MB (CK-2) CK-MB (CK-2) Rel Index Troponin T NT-Pro-B Natriuret Pep Albumin 2.7 L HDL Cholesterol Urine WBC (Auto) Urine Creatinine Complement C3 Complement C4 08/06/16 08/06/16 08/06/16 15:10 15:10 15:10 WBC Hgb Hct MCV MCH MCHC RDW Plt Count Lymph % (Auto) Lymph # Seg Neutrophils % Seg Neuts % (Manual) Lymphocytes % (Manual) Nucleated RBC % Seg Neutrophils # Seg Neutrophils # Man Lymphocytes # (Manual) D-Dimer POC ABG pH POC ABG pCO2 POC ABG pO2 Sodium Potassium Chloride Carbon Dioxide BUN Creatinine Glucose POC Glucose Lactic Acid Calcium Ionized Calcium 2.8 L* Phosphorus Total Bilirubin Direct Bilirubin AST ALT Total Creatine Kinase CK-MB (CK-2) CK-MB (CK-2) Rel Index Troponin T NT-Pro-B Natriuret Pep Albumin HDL Cholesterol Urine WBC (Auto) Urine Creatinine Complement C3 35 L Complement C4 8 L 08/06/16 08/06/16 08/06/16 15:10 15:44 16:47 WBC Hgb Hct MCV MCH MCHC RDW Plt Count Lymph % (Auto) Lymph # Seg Neutrophils % Seg Neuts % (Manual) Lymphocytes % (Manual) Nucleated RBC % Seg Neutrophils # Seg Neutrophils # Man Lymphocytes # (Manual) D-Dimer POC ABG pH POC ABG pCO2 POC ABG pO2 Sodium Potassium Chloride Carbon Dioxide BUN Creatinine Glucose POC Glucose 282 H Lactic Acid 4.5 H* Calcium Ionized Calcium Phosphorus Total Bilirubin Direct Bilirubin AST ALT Total Creatine Kinase CK-MB (CK-2) CK-MB (CK-2) Rel Index Troponin T NT-Pro-B Natriuret Pep Albumin HDL Cholesterol Urine WBC (Auto) Urine Creatinine 60.1 H Complement C3 Complement C4 08/06/16 08/06/16 08/07/16 22:06 23:00 03:30 WBC Hgb Hct MCV MCH MCHC RDW Plt Count Lymph % (Auto) Lymph # Seg Neutrophils % Seg Neuts % (Manual) Lymphocytes % (Manual) Nucleated RBC % Seg Neutrophils # Seg Neutrophils # Man Lymphocytes # (Manual) D-Dimer POC ABG pH POC ABG pCO2 POC ABG pO2 Sodium Potassium Chloride Carbon Dioxide BUN Creatinine Glucose POC Glucose 348 H Lactic Acid 3.4 H* 2.7 H* Calcium Ionized Calcium Phosphorus Total Bilirubin Direct Bilirubin AST ALT Total Creatine Kinase CK-MB (CK-2) CK-MB (CK-2) Rel Index Troponin T NT-Pro-B Natriuret Pep Albumin HDL Cholesterol Urine WBC (Auto) Urine Creatinine Complement C3 Complement C4 08/07/16 08/07/16 08/07/16 04:13 07:46 11:23 WBC Hgb Hct MCV MCH MCHC RDW Plt Count Lymph % (Auto) Lymph # Seg Neutrophils % Seg Neuts % (Manual) Lymphocytes % (Manual) Nucleated RBC % Seg Neutrophils # Seg Neutrophils # Man Lymphocytes # (Manual) D-Dimer POC ABG pH 7.479 H POC ABG pCO2 49.1 H POC ABG pO2 127 H Sodium Potassium Chloride Carbon Dioxide BUN Creatinine Glucose POC Glucose 316 H 321 H Lactic Acid Calcium Ionized Calcium Phosphorus Total Bilirubin Direct Bilirubin AST ALT Total Creatine Kinase CK-MB (CK-2) CK-MB (CK-2) Rel Index Troponin T NT-Pro-B Natriuret Pep Albumin HDL Cholesterol Urine WBC (Auto) Urine Creatinine Complement C3 Complement C4 08/07/16 08/07/16 08/08/16 16:21 23:31 05:26 WBC Hgb Hct MCV MCH MCHC RDW Plt Count Lymph % (Auto) Lymph # Seg Neutrophils % Seg Neuts % (Manual) Lymphocytes % (Manual) Nucleated RBC % Seg Neutrophils # Seg Neutrophils # Man Lymphocytes # (Manual) D-Dimer POC ABG pH 7.555 H POC ABG pCO2 45.6 H POC ABG pO2 Sodium Potassium Chloride Carbon Dioxide BUN Creatinine Glucose POC Glucose 287 H 285 H Lactic Acid Calcium Ionized Calcium Phosphorus Total Bilirubin Direct Bilirubin AST ALT Total Creatine Kinase CK-MB (CK-2) CK-MB (CK-2) Rel Index Troponin T NT-Pro-B Natriuret Pep Albumin HDL Cholesterol Urine WBC (Auto) Urine Creatinine Complement C3 Complement C4 08/08/16 08/08/16 08/08/16 06:42 07:50 07:50 WBC 11.3 H Hgb 8.7 L Hct 28.8 L MCV 66 L D MCH 20 L MCHC 30 L RDW 20.8 H Plt Count 89 L Lymph % (Auto) Lymph # Seg Neutrophils % Seg Neuts % (Manual) 90.0 H Lymphocytes % (Manual) 1.0 L Nucleated RBC % 2.0 H Seg Neutrophils # Seg Neutrophils # Man 10.2 H Lymphocytes # (Manual) 0.1 L D-Dimer POC ABG pH POC ABG pCO2 POC ABG pO2 Sodium Potassium 3.3 L D Chloride 93.1 L Carbon Dioxide 38 H D BUN 52 H Creatinine 2.6 H Glucose 268 H POC Glucose 268 H Lactic Acid Calcium 6.5 L D Ionized Calcium Phosphorus Total Bilirubin Direct Bilirubin AST ALT Total Creatine Kinase CK-MB (CK-2) CK-MB (CK-2) Rel Index Troponin T NT-Pro-B Natriuret Pep Albumin HDL Cholesterol Urine WBC (Auto) Urine Creatinine Complement C3 Complement C4 08/08/16 08/08/16 08/08/16 07:50 11:04 11:55 WBC Hgb Hct MCV MCH MCHC RDW Plt Count Lymph % (Auto) Lymph # Seg Neutrophils % Seg Neuts % (Manual) Lymphocytes % (Manual) Nucleated RBC % Seg Neutrophils # Seg Neutrophils # Man Lymphocytes # (Manual) D-Dimer POC ABG pH 7.461 H POC ABG pCO2 58.5 H POC ABG pO2 72 L Sodium Potassium Chloride Carbon Dioxide BUN Creatinine Glucose POC Glucose 265 H 237 H Lactic Acid Calcium Ionized Calcium Phosphorus Total Bilirubin Direct Bilirubin AST ALT Total Creatine Kinase CK-MB (CK-2) CK-MB (CK-2) Rel Index Troponin T NT-Pro-B Natriuret Pep Albumin HDL Cholesterol Urine WBC (Auto) Urine Creatinine Complement C3 Complement C4 08/08/16 08/08/16 08/09/16 16:19 23:23 05:51 WBC Hgb Hct MCV MCH MCHC RDW Plt Count Lymph % (Auto) Lymph # Seg Neutrophils % Seg Neuts % (Manual) Lymphocytes % (Manual) Nucleated RBC % Seg Neutrophils # Seg Neutrophils # Man Lymphocytes # (Manual) D-Dimer POC ABG pH 7.479 H POC ABG pCO2 67.7 H POC ABG pO2 Sodium Potassium Chloride Carbon Dioxide BUN Creatinine Glucose POC Glucose 209 H 246 H Lactic Acid Calcium Ionized Calcium Phosphorus Total Bilirubin Direct Bilirubin AST ALT Total Creatine Kinase CK-MB (CK-2) CK-MB (CK-2) Rel Index Troponin T NT-Pro-B Natriuret Pep Albumin HDL Cholesterol Urine WBC (Auto) Urine Creatinine Complement C3 Complement C4 08/09/16 08/09/16 08/09/16 06:00 06:00 07:47 WBC 12.0 H Hgb 8.4 L Hct 28.3 L MCV 68 L MCH 20 L MCHC 30 L RDW 21.2 H Plt Count 79 L Lymph % (Auto) 3.5 L Lymph # 0.4 L Seg Neutrophils % 89.9 H Seg Neuts % (Manual) Lymphocytes % (Manual) Nucleated RBC % Seg Neutrophils # 10.8 H Seg Neutrophils # Man Lymphocytes # (Manual) D-Dimer POC ABG pH POC ABG pCO2 POC ABG pO2 Sodium Potassium 2.5 L* D Chloride 86.3 L Carbon Dioxide 51 H* D BUN 38 H Creatinine Glucose 695 H* POC Glucose 189 H Lactic Acid Calcium 6.3 L Ionized Calcium Phosphorus Total Bilirubin Direct Bilirubin AST ALT Total Creatine Kinase CK-MB (CK-2) CK-MB (CK-2) Rel Index Troponin T NT-Pro-B Natriuret Pep Albumin HDL Cholesterol Urine WBC (Auto) Urine Creatinine Complement C3 Complement C4 08/09/16 08/09/16 08:45 09:51 WBC Hgb Hct MCV MCH MCHC RDW Plt Count Lymph % (Auto) Lymph # Seg Neutrophils % Seg Neuts % (Manual) Lymphocytes % (Manual) Nucleated RBC % Seg Neutrophils # Seg Neutrophils # Man Lymphocytes # (Manual) D-Dimer POC ABG pH 7.458 H POC ABG pCO2 68.7 H POC ABG pO2 65 L Sodium Potassium Chloride 92.9 L Carbon Dioxide 40 H D BUN 42 H Creatinine 1.7 H Glucose 205 H POC Glucose Lactic Acid Calcium 7.7 L D Ionized Calcium Phosphorus Total Bilirubin Direct Bilirubin AST ALT Total Creatine Kinase CK-MB (CK-2) CK-MB (CK-2) Rel Index Troponin T NT-Pro-B Natriuret Pep Albumin HDL Cholesterol Urine WBC (Auto) Urine Creatinine Complement C3 Complement C4
--- NOTE | 2016-08-09 11:09 | Progress Note ---
Assessment and Plan Altered mental status Vasodilatory shock and lactic acidosis Acute Respiratory failure intubated on the vent Congestive heart failure, Acute on chronic diastolic LVEF 45-50% with evidence of a dilated RV/RA and severe pulmonary hypertension COPD on home oxygen therapy Obstructive sleep apnea Atrial fibrillation Patient was supposed to be on xarelto as outpatient but he is non-compliant History of bilateral pulmonary embolism by CT at [place] Type II DM Systemic Hypertension Microcytic anemia, chronic per records Poor historian Recommendations: Supportive cardiac management. Subjective Date of service: 08/09/16 Principal diagnosis: acute on chronic respiratory failure, congestive heart failure Interval history: Remains intubated on the vent. Objective Vital Signs Temp Pulse Pulse Pulse Pulse Resp Resp 08/09/16 10:31 122 H 20 08/09/16 10:01 126 H 18 08/09/16 09:31 133 H 15 08/09/16 09:00 133 H 18 08/09/16 08:35 113 H 08/09/16 08:30 112 H 20 08/09/16 08:02 118 H 08/09/16 08:01 116 H 20 08/09/16 07:54 98.3 F 08/09/16 07:47 120 H 08/09/16 07:31 115 H 20 08/09/16 07:00 116 H 20 08/09/16 06:31 128 H 20 08/09/16 06:25 97.6 F 08/09/16 06:01 128 H 20 08/09/16 05:31 129 H 20 08/09/16 05:01 127 H 20 08/09/16 05:00 127 H 08/09/16 04:31 119 H 20 08/09/16 04:01 136 H 20 08/09/16 04:00 97.6 F 111 H 20 08/09/16 03:31 20 08/09/16 03:01 121 H 21 08/09/16 02:31 117 H 21 08/09/16 02:00 109 H 118 H 20 20 08/09/16 01:50 112 H 20 08/09/16 01:31 124 H 20 08/09/16 01:00 126 H 21 08/09/16 00:31 130 H 21 08/09/16 00:10 98.2 F 08/09/16 00:09 127 H 08/09/16 00:01 124 H 21 08/09/16 00:00 98.2 F 114 H 20 08/08/16 23:31 129 H 20 08/08/16 23:01 129 H 22 08/08/16 22:30 137 H 24 08/08/16 22:00 118 H 21 08/08/16 21:31 133 H 26 H 08/08/16 21:00 129 H 22 08/08/16 20:30 124 H 22 08/08/16 20:17 108 H 08/08/16 20:15 117 H 20 08/08/16 20:04 114 H 20 08/08/16 20:01 123 H 23 08/08/16 20:00 98.8 F 117 H 20 08/08/16 19:30 124 H 08/08/16 19:01 123 H 20 08/08/16 18:01 122 H 08/08/16 17:45 117 H 08/08/16 17:30 117 H 08/08/16 17:15 123 H 08/08/16 17:00 130 H 08/08/16 16:48 128 H 1 L 08/08/16 16:45 114 H 21 08/08/16 16:31 119 H 20 08/08/16 16:15 122 H 08/08/16 16:00 98.7 F 120 H 08/08/16 15:45 124 H 18 08/08/16 15:30 116 H 08/08/16 15:15 123 H 19 08/08/16 15:01 118 H 08/08/16 14:45 114 H 08/08/16 14:31 123 H 08/08/16 14:15 131 H 16 08/08/16 14:01 108 H 21 08/08/16 13:50 115 H 08/08/16 13:45 123 H 17 08/08/16 13:38 114 H 08/08/16 13:30 112 H 20 08/08/16 13:15 108 H 20 08/08/16 13:01 114 H 08/08/16 12:45 118 H 20 08/08/16 12:31 116 H 19 08/08/16 12:15 116 H 08/08/16 12:01 111 H 21 08/08/16 12:00 98.7 F 08/08/16 11:45 104 H 20 08/08/16 11:37 114 H 08/08/16 11:30 107 H 20 08/08/16 11:15 122 H 17 Resp BP Pulse Ox 08/09/16 10:31 122/75 93 08/09/16 10:01 119/73 92 08/09/16 09:31 135/87 97 08/09/16 09:00 124/89 100 08/09/16 08:35 117/75 95 08/09/16 08:30 106/79 96 08/09/16 08:02 20 08/09/16 08:01 122/89 98 08/09/16 07:54 08/09/16 07:47 20 08/09/16 07:31 117/75 95 08/09/16 07:00 125/74 95 08/09/16 06:31 135/83 96 08/09/16 06:25 08/09/16 06:01 110/78 94 08/09/16 05:31 100/85 95 08/09/16 05:01 118/85 95 08/09/16 05:00 110/78 99 08/09/16 04:31 124/69 93 08/09/16 04:01 126/80 95 08/09/16 04:00 95 08/09/16 03:31 126/76 92 08/09/16 03:01 125/74 92 08/09/16 02:31 123/85 94 08/09/16 02:00 103/65 98 08/09/16 01:50 08/09/16 01:31 106/72 95 08/09/16 01:00 112/71 94 08/09/16 00:31 110/89 93 08/09/16 00:10 08/09/16 00:09 110/89 94 08/09/16 00:01 114/78 90 08/09/16 00:00 96 08/08/16 23:31 124/67 95 08/08/16 23:01 126/88 97 08/08/16 22:30 115/79 95 08/08/16 22:00 123/75 94 08/08/16 21:31 114/91 92 08/08/16 21:00 130/76 94 08/08/16 20:30 118/78 93 08/08/16 20:17 133/82 99 08/08/16 20:15 08/08/16 20:04 08/08/16 20:01 133/82 94 08/08/16 20:00 94 08/08/16 19:30 107/69 94 08/08/16 19:01 130/73 95 08/08/16 18:01 126/70 90 08/08/16 17:45 126/79 93 08/08/16 17:30 122/76 91 08/08/16 17:15 129/75 91 08/08/16 17:00 118/82 91 08/08/16 16:48 121/77 9 L 08/08/16 16:45 121/77 93 08/08/16 16:31 125/84 97 08/08/16 16:15 122/91 94 08/08/16 16:00 120/75 92 08/08/16 15:45 120/78 92 08/08/16 15:30 101/77 95 08/08/16 15:15 101/74 92 08/08/16 15:01 99/78 93 08/08/16 14:45 105/77 96 08/08/16 14:31 113/71 95 08/08/16 14:15 105/81 95 08/08/16 14:01 105/81 98 08/08/16 13:50 20 08/08/16 13:45 106/79 97 08/08/16 13:38 22 08/08/16 13:30 117/75 95 08/08/16 13:15 108/75 94 08/08/16 13:01 95/77 93 08/08/16 12:45 98/74 92 08/08/16 12:31 113/80 95 08/08/16 12:15 114/78 94 08/08/16 12:01 116/78 95 08/08/16 12:00 95 08/08/16 11:45 117/79 94 08/08/16 11:37 117/79 94 08/08/16 11:30 117/79 95 08/08/16 11:15 127/81 94 - Physical Examination General: Other (intubated on the vent) Cardiac: Positive: irregularly irregular Extremities: Present: +1 Edema - Labs and Meds CBC 08/09/16 Range/Units 06:00 WBC 12.0 H (4.5-11.0) K/mm3 RBC 4.17 (3.65-5.03) M/mm3 Hgb 8.4 L (11.8-15.2) gm/dl Hct 28.3 L (35.5-45.6) % Plt Count 79 L (140-440) K/mm3 Lymph # 0.4 L (1.2-5.4) K/mm3 [place] # 0.7 (0.0-0.8) K/mm3 Eos # 0.0 (0.0-0.4) K/mm3 Baso # 0.1 (0.0-0.1) K/mm3 Comprehensive Metabolic Panel 08/09/16 08/09/16 Range/Units 06:00 08:45 Sodium 144 144 (137-145) mmol/L Potassium 2.5 L* D 3.9 D (3.6-5.0) mmol/L Chloride 86.3 L 92.9 L (98-107) mmol/L Carbon Dioxide 51 H* D 40 H D (22-30) mmol/L BUN 38 H 42 H (9-20) mg/dL Creatinine 1.4 1.7 H (0.8-1.5) mg/dL Glucose 695 H* 205 H (75-100) mg/dL Calcium 6.3 L 7.7 L D (8.4-10.2) mg/dL
[2016-08-09] MEDS: NOVOLOG SUB-Q SCH ×4 (12:42→23:50)
[2016-08-09] MEDS: KCL 20MEQ/100ML 20 MEQ/100 ML BAG IV SCH ×4 (14:00→17:09)
[2016-08-09 14:13] LABS: BUN/Creatinine Ratio 26.87; Calcium 7.9 mg/dL (8.4-10.2); Chloride 96.4 mmol/L (98-107)
[2016-08-09 14:26] LABS: Potassium 2.9 mmol/L (3.6-5.0)
--- NOTE | 2016-08-09 17:38 | Progress Note ---
Assessment and Plan - Patient Problems (1) Acute CHF Current Visit: Yes Status: Acute Qualifiers: Congestive heart failure type: systolic Qualified Code(s): I50.21 - Acute systolic (congestive) heart failure Plan to address problem: Patient Lasix and beta blockers because of his low BP (2) Acute respiratory failure Current Visit: Yes Status: Acute Qualifiers: Respiratory failure complication: R Plan to address problem: Intubated and mechanically ventilated Pulmonary is on board Failed Weaning trial Patient is on antibiotics (3) Anemia Current Visit: Yes Status: Acute Qualifiers: Anemia type: A Iron deficiency anemia type: I Vitamin B12 deficiency anemia type: V Folate deficiency anemia type: F Bone marrow failure anemia type: B Hemolytic anemia type: H Other causes of anemia: O Plan to address problem: We'll follow closely, she doesn't need transfusion now (4) Atrial fibrillation with RVR Current Visit: Yes Status: Acute (5) COPD (chronic obstructive pulmonary disease) Current Visit: Yes Status: Acute Qualifiers: COPD type: C Chronic bronchitis type: C Emphysema type: E Plan to address problem: As stated above (6) Diabetes Current Visit: Yes Status: Acute Qualifiers: Diabetes mellitus type: D Diabetes mellitus complication status: D Diabetes mellitus complication detail: D Diabetic retinopathy severity: D Proliferative retinopathy type: P Diabetes mellitus macular edema: D Diabetes mellitus intermediate teacher insulin use: D Laterality: L Chronic kidney disease stage: C Plan to address problem: sliding scale insulin History Interval history: Patient is on mechanical ventilation, failed weaning yesterday Hospitalist Physical - Physical exam Narrative exam: in cardiopulmonary distress. The patient appeared well nourished and normally developed. Vital signs as documented. Head exam is unremarkable. No scleral icterus . Neck is without jugular venous distension, thyromegaly, or carotid bruits. Lungs are clear to auscultation. Cardiac exam reveals regular rate and Rhythm. First and second heart sounds normal. No murmurs, rubs or gallops. Abdominal exam reveals normal bowel sounds, no masses, no organomegaly and no aortic enlargement. Extremities are edematous. 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 - Constitutional Vitals: Temp Pulse Resp BP Pulse Ox 98.1 F 112 H 20 116/74 94 08/09/16 16:00 08/09/16 17:17 08/09/16 16:31 08/09/16 17:17 08/09/16 17:17 General appearance: Present: no acute distress, obese Results - Labs CBC & Chem 7: 08/09/16 06:00 08/09/16 13:35 Labs: Laboratory Last Values WBC 12.0 K/mm3 (4.5-11.0) H 08/09/16 06:00 RBC 4.17 M/mm3 (3.65-5.03) 08/09/16 06:00 Hgb 8.4 gm/dl (11.8-15.2) L 08/09/16 06:00 Hct 28.3 % (35.5-45.6) L 08/09/16 06:00 MCV 68 fl (84-94) L 08/09/16 06:00 MCH 20 pg (28-32) L 08/09/16 06:00 MCHC 30 % (32-34) L 08/09/16 06:00 RDW 21.2 % (13.2-15.2) H 08/09/16 06:00 Plt Count 79 K/mm3 (140-440) L 08/09/16 06:00 Lymph % (Auto) 3.5 % (13.4-35.0) L 08/09/16 06:00 Bent % (Auto) 6.2 % (0.0-7.3) 08/09/16 06:00 Eos % (Auto) 0.0 % (0.0-4.3) 08/09/16 06:00 Baso % (Auto) 0.4 % (0.0-1.8) 08/09/16 06:00 Lymph # 0.4 K/mm3 (1.2-5.4) L 08/09/16 06:00 [place] # 0.7 K/mm3 (0.0-0.8) 08/09/16 06:00 Eos # 0.0 K/mm3 (0.0-0.4) 08/09/16 06:00 Baso # 0.1 K/mm3 (0.0-0.1) 08/09/16 06:00 Add Manual Diff Complete 08/08/16 07:50 Total Counted 100 08/08/16 07:50 Seg Neutrophils % 89.9 % (40.0-70.0) H 08/09/16 06:00 Seg Neuts % (Manual) 90.0 % (40.0-70.0) H 08/08/16 07:50 Band Neutrophils % 6.0 % 08/08/16 07:50 Lymphocytes % (Manual) 1.0 % (13.4-35.0) L 08/08/16 07:50 Reactive Lymphs % (Man) 0 % 08/08/16 07:50 Monocytes % (Manual) 3.0 % (0.0-7.3) 08/08/16 07:50 Eosinophils % (Manual) 0 % (0.0-4.3) 08/08/16 07:50 Basophils % (Manual) 0 % (0.0-1.8) 08/08/16 07:50 Metamyelocytes % 0 % 08/08/16 07:50 Myelocytes % 0 % 08/08/16 07:50 Promyelocytes % 0 % 08/08/16 07:50 Blast Cells % 0 % 08/08/16 07:50 Nucleated RBC % 2.0 % (0.0-0.9) H 08/08/16 07:50 Seg Neutrophils # 10.8 K/mm3 (1.8-7.7) H 08/09/16 06:00 Seg Neutrophils # Man 10.2 K/mm3 (1.8-7.7) H 08/08/16 07:50 Band Neutrophils # 0.7 K/mm3 08/08/16 07:50 Lymphocytes # (Manual) 0.1 K/mm3 (1.2-5.4) L 08/08/16 07:50 Abs React Lymphs (Man) 0.0 K/mm3 08/08/16 07:50 Monocytes # (Manual) 0.3 K/mm3 (0.0-0.8) 08/08/16 07:50 Eosinophils # (Manual) 0.0 K/mm3 (0.0-0.4) 08/08/16 07:50 Basophils # (Manual) 0.0 K/mm3 (0.0-0.1) 08/08/16 07:50 Metamyelocytes # 0.0 K/mm3 08/08/16 07:50 Myelocytes # 0.0 K/mm3 08/08/16 07:50 Promyelocytes # 0.0 K/mm3 08/08/16 07:50 Blast Cells # 0.0 K/mm3 08/08/16 07:50 WBC Morphology Not Reportable 08/08/16 07:50 Hypersegmented Neuts Not Reportable 08/08/16 07:50 Hyposegmented Neuts Not Reportable 08/08/16 07:50 Hypogranular Neuts Not Reportable 08/08/16 07:50 Smudge Cells Not Reportable 08/08/16 07:50 Toxic Granulation Not Reportable 08/08/16 07:50 Toxic Vacuolation Not Reportable 08/08/16 07:50 Dohle Bodies Not Reportable 08/08/16 07:50 Pelger-Huet Anomaly Not Reportable 08/08/16 07:50 Scott Rods Not Reportable 08/08/16 07:50 Platelet Estimate Appears decreased 08/08/16 07:50 Clumped Platelets Not Reportable 08/08/16 07:50 Plt Clumps, EDTA Not Reportable 08/08/16 07:50 Large Platelets Not Reportable 08/08/16 07:50 Giant Platelets Not Reportable 08/08/16 07:50 Platelet Satelliting Not Reportable 08/08/16 07:50 Plt Morphology Comment Not Reportable 08/08/16 07:50 RBC Morphology Not Reportable 08/08/16 07:50 Dimorphic RBCs Not Reportable 08/08/16 07:50 Polychromasia Few 08/08/16 07:50 Hypochromasia 1+ 08/08/16 07:50 Poikilocytosis Not Reportable 08/08/16 07:50 Anisocytosis 1+ 08/08/16 07:50 Microcytosis 1+ 08/08/16 07:50 Macrocytosis Not Reportable 08/08/16 07:50 Spherocytes Not Reportable 08/08/16 07:50 Pappenheimer Bodies Not Reportable 08/08/16 07:50 Sickle Cells Not Reportable 08/08/16 07:50 Target Cells Not Reportable 08/08/16 07:50 Tear Drop Cells Not Reportable 08/08/16 07:50 Ovalocytes Not Reportable 08/08/16 07:50 Helmet Cells Not Reportable 08/08/16 07:50 [place] Bodies Not Reportable 08/08/16 07:50 [place] Rings Not Reportable 08/08/16 07:50 Juan F Cells Not Reportable 08/08/16 07:50 Bite Cells Not Reportable 08/08/16 07:50 Crenated Cell Not Reportable 08/08/16 07:50 Elliptocytes 1+ 08/08/16 07:50 Acanthocytes (Spur) Not Reportable 08/08/16 07:50 Rouleaux Not Reportable 08/08/16 07:50 Hemoglobin C Crystals Not Reportable 08/08/16 07:50 Schistocytes Not Reportable 08/08/16 07:50 Malaria parasites Not Reportable 08/08/16 07:50 Jun Bodies Not Reportable 08/08/16 07:50 Hem Pathologist Commnt No 08/08/16 07:50 PT 18.0 Sec. (12.2-14.9) H 08/03/16 15:06 INR 1.49 (0.87-1.13) H 08/03/16 15:06 APTT 28.8 Sec. (24.2-36.6) 08/03/16 15:06 D-Dimer 2516.52 ng/mlDDU (0-234) H 08/05/16 13:01 POC ABG pH 7.458 (7.35-7.45) H 08/09/16 09:51 POC ABG pCO2 68.7 (35-45) H 08/09/16 09:51 POC ABG pO2 65 (80-105) L 08/09/16 09:51 POC ABG HCO3 48.7 08/09/16 09:51 POC ABG Total CO2 > 50 08/09/16 09:51 POC ABG O2 Sat 92 08/09/16 09:51 POC ABG Base Excess 25 08/09/16 09:51 FiO2 50 % 08/09/16 09:51 Sodium 148 mmol/L (137-145) H 08/09/16 13:35 Potassium 2.9 mmol/L (3.6-5.0) L* D 08/09/16 13:35 Chloride 96.4 mmol/L (98-107) L 08/09/16 13:35 Carbon Dioxide 43 mmol/L (22-30) H* 08/09/16 13:35 Anion Gap 12 mmol/L 08/09/16 13:35 BUN 43 mg/dL (9-20) H 08/09/16 13:35 Creatinine 1.6 mg/dL (0.8-1.5) H 08/09/16 13:35 Estimated GFR 52 ml/min 08/09/16 13:35 BUN/Creatinine Ratio 26.87 % 08/09/16 13:35 Glucose 205 mg/dL (75-100) H 08/09/16 13:35 POC Glucose 204 (70-105) H 08/09/16 16:05 Lactic Acid 2.7 mmol/L (0.7-2.0) H* 08/07/16 03:30 Calcium 7.9 mg/dL (8.4-10.2) L 08/09/16 13:35 Ionized Calcium 2.8 mg/dL (4.8-5.6) L* 08/06/16 15:10 Phosphorus 9.0 mg/dL (2.5-4.5) H 08/06/16 13:17 Magnesium 2.0 mg/dL (1.7-2.3) 08/06/16 13:17 Total Bilirubin 3.1 mg/dL (0.1-1.2) H 08/06/16 13:17 Direct Bilirubin 2.1 mg/dL (0-0.2) H 08/06/16 13:17 Indirect Bilirubin 1.0 mg/dL 08/06/16 13:17 AST 4901 units/L (5-40) H 08/06/16 13:17 ALT 1607 units/L (7-56) H 08/06/16 13:17 Alkaline Phosphatase 111 units/L (35-129) 08/06/16 13:17 Ammonia 61.0 umol/L (25-60) H 08/03/16 15:06 Total Creatine Kinase 282 units/L (55-170) H 08/05/16 15:27 CK-MB (CK-2) 11.9 ng/mL (0.0-4.0) H 08/05/16 15:27 CK-MB (CK-2) Rel Index 4.2 (0-4) H 08/05/16 15:27 Troponin T 0.152 ng/mL (0.00-0.029) H* D 08/05/16 15:27 NT-Pro-B Natriuret Pep 8307 pg/mL (0-900) H 08/05/16 13:01 Total Protein 6.6 g/dL (6.3-8.2) 08/06/16 13:17 Albumin 2.7 g/dL (3.9-5) L 08/06/16 13:17 Albumin/Globulin Ratio 0.7 % 08/06/16 13:17 Triglycerides 31 mg/dL (2-149) 08/05/16 13:01 Cholesterol 86 mg/dL (50-199) 08/05/16 13:01 LDL Cholesterol Direct 59 mg/dL (50-130) 08/05/16 13:01 HDL Cholesterol 21 mg/dL (40-59) L 08/05/16 13:01 Cholesterol/HDL Ratio 4.09 % 08/05/16 13:01 Urine Color [place] (Yellow) 08/06/16 11:20 Urine Turbidity Cloudy (Clear) 08/06/16 11:20 Urine pH 5.0 (5.0-7.0) 08/06/16 11:20 Ur Specific [place] 1.014 (1.003-1.030) 08/06/16 11:20 Urine Protein 30 mg/dl mg/dL (Negative) 08/06/16 11:20 Urine Glucose (UA) 50 mg/dL (Negative) 08/06/16 11:20 Urine Ketones Neg mg/dL (Negative) 08/06/16 11:20 Urine Blood Mod (Negative) 08/06/16 11:20 Urine Nitrite Neg (Negative) 08/06/16 11:20 Urine Bilirubin Neg (Negative) 08/06/16 11:20 Urine Urobilinogen < 2.0 mg/dL (<2.0) 08/06/16 11:20 Ur Leukocyte Esterase Mod (Negative) 08/06/16 11:20 Urine WBC (Auto) 28.0 /HPF (0.0-6.0) H 08/06/16 11:20 Urine RBC (Auto) 15.0 /HPF (0.0-6.0) 08/06/16 11:20 U Epithel Cells (Auto) 1.0 /HPF (0-13.0) 08/06/16 11:20 Urine Bacteria (Auto) 2+ /HPF (Negative) 08/06/16 11:20 Amorphous Crystals Few 08/06/16 11:20 Urine Mucus Few /HPF 08/06/16 11:20 Urine Creatinine 60.1 mg/dL (0.1-20.0) H 08/06/16 15:44 Urine Sodium 45 mEq/L 08/06/16 15:44 Complement C3 35 mg/dL (90-180) L 08/06/16 15:10 Complement C4 8 mg/dL (16-47) L 08/06/16 15:10 Hepatitis A IgM Ab Non-reactive (NonReactive) 08/06/16 15:10 Hep Bs Antigen Non-reactive (Negative) 08/06/16 15:10 Hep B Core IgM Ab Non-reactive (NonReactive) 08/06/16 15:10 Hepatitis C Antibody Non-reactive (NonReactive) 08/06/16 15:10
[2016-08-09 19:30] LABS: Albumin 2.6 g/dL (3.8-4.8); Gamma Globulin 2.1 g/dL (0.8-1.7); Myeloperoxidase Antibody <1.0 AI (<1.0)
[2016-08-09] MEDS: ZOSYN/NS 4.5GM/100ML 4.5 GM/100 ML VIAL IV SCH (23:41)
[2016-08-09] MEDS: LEVEMIR SUB-Q SCH (23:41)
[2016-08-09] MEDS: LEVAQUIN 750MG/150ML 750 MG/150 ML BAG IV SCH (23:42)
[2016-08-10] MEDS: DUONEB 0.5 MG-3 MG/3 ML SOLN IH SCH ×4 (01:48→19:53)
[2016-08-10] MEDS: ZOSYN/NS 4.5GM/100ML 4.5 GM/100 ML VIAL IV SCH ×3 (05:29→22:41)
[2016-08-10 05:30] LABS: ISTAT Base Excess 28; ISTAT HCO3 51.7; ISTAT PH 7.483 (7.35-7.45); ISTAT PO2 82 (80-105); ISTAT SO2 96; ISTAT TCO2 > 50
[2016-08-10 07:01] LABS: Hematocrit 32.5 % (35.5-45.6); Hemoglobin 9.4 gm/dl (11.8-15.2); Mean Corpuscular HGB Conc 29 % (32-34); Mean Corpuscular Hemoglobin 20 pg (28-32); Mean Corpuscular Volume 68 fl (84-94); Platelet Count 72 K/mm3 (140-440); Red Blood Count 4.77 M/mm3 (3.65-5.03); Red Cell Distribution Width 21.1 % (13.2-15.2); White Blood Count 13.2 K/mm3 (4.5-11.0)
--- NOTE | 2016-08-10 07:18 | XRay Report ---
AP chest History: Followup respiratory failure. Findings: Cardiomegaly, pulmonary venous congestion and left pleural effusion are unchanged since yesterday's exam. Lines and tubes remain in the same position. No new acute process is appreciated. Impression: No change.
[2016-08-10] MEDS: NOVOLOG SUB-Q SCH ×5 (07:55→23:07)
[2016-08-10] MEDS: LOVENOX SUB-Q SCH ×2 (09:07→22:42)
[2016-08-10 09:38] LABS: BUN/Creatinine Ratio 27.14; Blood Urea Nitrogen 38 mg/dL (9-20); Calcium 8.3 mg/dL (8.4-10.2); Chloride 96.8 mmol/L (98-107); Glucose 144 mg/dL (75-100); Potassium 3.4 mmol/L (3.6-5.0); Sodium 147 mmol/L (137-145)
[2016-08-10 09:43] LABS: Anion Gap 12 mmol/L
[2016-08-10 09:47] LABS: Carbon Dioxide 42 mmol/L (22-30)
--- NOTE | 2016-08-10 09:59 | Progress Note ---
Assessment and Plan Impression * Acute kidney injury secondary to prerenal azotemia vs ATN - resolved * Acute hypoxic respiratory failure * Sepsis * Metabolic alkalosis * Hypokalemia secondary to #3 * Edema Plan: * Bicarb gtt discontined yesterday * Received IV lasix yesterday * Will give IV diamox 250mg IV x 2 doses * Vent management per CCM * Replete lytes prn * Abx per primary team * Dose medications for renal function * Avoid nephrotoxins Subjective Date of service: 08/10/16 Principal diagnosis: acute on chronic respiratory failure, congestive heart failure Objective - Vital Signs Vital signs: Vital Signs - 12hr 08/09/16 08/09/16 08/09/16 22:00 22:13 22:30 Temperature Pulse Rate 155 H 119 H 126 H Pulse Rate [ Anterior Bilateral Throughout] Pulse Rate [ From Monitor] Respiratory 22 20 20 Rate Respiratory Rate [Anterior Bilateral Throughout] Blood Pressure 108/83 108/83 106/79 O2 Sat by Pulse 96 96 94 Oximetry 08/09/16 08/09/16 08/09/16 23:01 23:30 23:48 Temperature Pulse Rate 127 H 134 H Pulse Rate [ Anterior Bilateral Throughout] Pulse Rate [ From Monitor] Respiratory 20 20 Rate Respiratory Rate [Anterior Bilateral Throughout] Blood Pressure 108/72 119/83 119/83 O2 Sat by Pulse 91 98 96 Oximetry 08/10/16 08/10/16 08/10/16 00:00 00:31 01:00 Temperature 99.0 F Pulse Rate 127 H 126 H 115 H Pulse Rate [ Anterior Bilateral Throughout] Pulse Rate [ 118 H From Monitor] Respiratory 20 20 20 Rate Respiratory Rate [Anterior Bilateral Throughout] Blood Pressure 111/75 121/73 121/71 O2 Sat by Pulse 95 97 95 Oximetry 08/10/16 08/10/16 08/10/16 01:30 01:49 02:00 Temperature Pulse Rate 125 H 114 H Pulse Rate [ 121 H 114 H Anterior Bilateral Throughout] Pulse Rate [ From Monitor] Respiratory 20 15 Rate Respiratory 20 20 Rate [Anterior Bilateral Throughout] Blood Pressure 110/81 119/73 O2 Sat by Pulse 96 99 Oximetry 08/10/16 08/10/16 08/10/16 02:30 03:00 03:30 Temperature Pulse Rate 128 H 129 H Pulse Rate [ Anterior Bilateral Throughout] Pulse Rate [ From Monitor] Respiratory 13 20 20 Rate Respiratory Rate [Anterior Bilateral Throughout] Blood Pressure 115/80 128/71 117/65 O2 Sat by Pulse 96 93 94 Oximetry 08/10/16 08/10/16 08/10/16 04:00 04:30 05:00 Temperature 98.9 F Pulse Rate 128 H 117 H Pulse Rate [ Anterior Bilateral Throughout] Pulse Rate [ 106 H From Monitor] Respiratory 20 20 20 Rate Respiratory Rate [Anterior Bilateral Throughout] Blood Pressure 121/76 127/67 114/65 O2 Sat by Pulse 96 95 96 Oximetry 08/10/16 08/10/16 08/10/16 05:30 06:00 06:30 Temperature Pulse Rate 111 H 108 H 101 H Pulse Rate [ Anterior Bilateral Throughout] Pulse Rate [ From Monitor] Respiratory 20 20 17 Rate Respiratory Rate [Anterior Bilateral Throughout] Blood Pressure 103/67 112/74 108/73 O2 Sat by Pulse 97 97 97 Oximetry 08/10/16 08/10/16 08/10/16 07:00 07:30 07:33 Temperature Pulse Rate 106 H 120 H Pulse Rate [ 112 H Anterior Bilateral Throughout] Pulse Rate [ From Monitor] Respiratory 20 20 Rate Respiratory 20 Rate [Anterior Bilateral Throughout] Blood Pressure 110/74 116/82 O2 Sat by Pulse 97 98 Oximetry 08/10/16 08/10/16 08/10/16 07:34 08:00 08:30 Temperature 99.7 F H Pulse Rate 118 H 115 H 109 H Pulse Rate [ 110 H Anterior Bilateral Throughout] Pulse Rate [ From Monitor] Respiratory 20 20 Rate Respiratory 20 Rate [Anterior Bilateral Throughout] Blood Pressure 116/82 119/77 122/77 O2 Sat by Pulse 99 98 96 Oximetry 08/10/16 08/10/16 09:00 09:33 Temperature Pulse Rate 115 H 124 H Pulse Rate [ Anterior Bilateral Throughout] Pulse Rate [ From Monitor] Respiratory 19 Rate Respiratory Rate [Anterior Bilateral Throughout] Blood Pressure 133/77 112/70 O2 Sat by Pulse 95 96 Oximetry - General Appearance General appearance: intubated EENT: ATNC Respiratory: Present: Clear to Ascultation Cardiology: regular, S1S2 Gastrointestinal: normal, no distended Integumentary: no rash Musculoskeletal: other (+ edema) - Lab 08/10/16 05:25 08/10/16 09:04 Most recent lab results Calcium 8.3 mg/dL (8.4-10.2) L 08/10/16 09:04 Phosphorus 9.0 mg/dL (2.5-4.5) H 08/06/16 13:17 Magnesium 2.0 mg/dL (1.7-2.3) 08/06/16 13:17 Urine Creatinine 60.1 mg/dL (0.1-20.0) H 08/06/16 15:44 Urine Sodium 45 mEq/L 08/06/16 15:44
[2016-08-10] MEDS: DIAMOX IV SCH ×2 (10:56→22:42)
[2016-08-10] MEDS: fentaNYL DRIP Premix 2,000 MCG/100 ML BAG IV SCH (11:02)
--- NOTE | 2016-08-10 11:28 | Progress Note ---
Assessment and Plan Acute on chronic respiratory failure. Patient was found to arouse on pressure support/CPAP but he was still under fentanyl drip, unable to tolerate so I canceled this. Suspected chronic hypercapnic respiratory failure secondary to obesity hypoventilation syndrome versus COPD Hypokalemia/hyperglycemia. Patient did deal electrolytes Bradycardia. Inactive Hypotension. Resolved off pressors CHF. Perfusion still noted Pulmonary hypertension. Sepsis from urinary source Rec Hold sedation Follow with pressure support 10/CPAP 5 once a patient's awake Progress down and has tolerated in consider extubation if ABG are adequate on 01/20 He is not tolerated again restart sedation He may need tracheotomy if the problem continues No family available for chest discussion 31 minutes spent in [id number] evaluation and coordination of care Subjective Date of service: 08/10/16 Principal diagnosis: acute on chronic respiratory failure, congestive heart failure Interval history: Sedated and intubated Objective Vital Signs - 12hr 08/09/16 08/09/16 08/10/16 23:30 23:48 00:00 Temperature 99.0 F Pulse Rate 127 H 134 H 127 H Pulse Rate [ Anterior Bilateral Throughout] Pulse Rate [ 118 H From Monitor] Respiratory 20 20 Rate Respiratory Rate [Anterior Bilateral Throughout] Blood Pressure 119/83 119/83 111/75 O2 Sat by Pulse 98 96 95 Oximetry 08/10/16 08/10/16 08/10/16 00:31 01:00 01:30 Temperature Pulse Rate 126 H 115 H 125 H Pulse Rate [ Anterior Bilateral Throughout] Pulse Rate [ From Monitor] Respiratory 20 20 20 Rate Respiratory Rate [Anterior Bilateral Throughout] Blood Pressure 121/73 121/71 110/81 O2 Sat by Pulse 97 95 96 Oximetry 08/10/16 08/10/16 08/10/16 01:49 02:00 02:30 Temperature Pulse Rate 114 H Pulse Rate [ 121 H 114 H Anterior Bilateral Throughout] Pulse Rate [ From Monitor] Respiratory 15 13 Rate Respiratory 20 20 Rate [Anterior Bilateral Throughout] Blood Pressure 119/73 115/80 O2 Sat by Pulse 99 96 Oximetry 08/10/16 08/10/16 08/10/16 03:00 03:30 04:00 Temperature 98.9 F Pulse Rate 128 H 129 H Pulse Rate [ Anterior Bilateral Throughout] Pulse Rate [ 106 H From Monitor] Respiratory 20 20 20 Rate Respiratory Rate [Anterior Bilateral Throughout] Blood Pressure 128/71 117/65 121/76 O2 Sat by Pulse 93 94 96 Oximetry 08/10/16 08/10/16 08/10/16 04:30 05:00 05:30 Temperature Pulse Rate 128 H 117 H 111 H Pulse Rate [ Anterior Bilateral Throughout] Pulse Rate [ From Monitor] Respiratory 20 20 20 Rate Respiratory Rate [Anterior Bilateral Throughout] Blood Pressure 127/67 114/65 103/67 O2 Sat by Pulse 95 96 97 Oximetry 08/10/16 08/10/16 08/10/16 06:00 06:30 07:00 Temperature Pulse Rate 108 H 101 H 106 H Pulse Rate [ Anterior Bilateral Throughout] Pulse Rate [ From Monitor] Respiratory 20 17 20 Rate Respiratory Rate [Anterior Bilateral Throughout] Blood Pressure 112/74 108/73 110/74 O2 Sat by Pulse 97 97 97 Oximetry 08/10/16 08/10/16 08/10/16 07:30 07:33 07:34 Temperature Pulse Rate 120 H 118 H Pulse Rate [ 112 H Anterior Bilateral Throughout] Pulse Rate [ From Monitor] Respiratory 20 Rate Respiratory 20 Rate [Anterior Bilateral Throughout] Blood Pressure 116/82 116/82 O2 Sat by Pulse 98 99 Oximetry 08/10/16 08/10/16 08/10/16 08:00 08:30 09:00 Temperature 99.7 F H Pulse Rate 115 H 109 H 115 H Pulse Rate [ 110 H Anterior Bilateral Throughout] Pulse Rate [ From Monitor] Respiratory 20 20 19 Rate Respiratory 20 Rate [Anterior Bilateral Throughout] Blood Pressure 119/77 122/77 133/77 O2 Sat by Pulse 98 96 95 Oximetry 08/10/16 08/10/16 08/10/16 09:30 09:33 10:00 Temperature Pulse Rate 120 H 124 H 111 H Pulse Rate [ Anterior Bilateral Throughout] Pulse Rate [ From Monitor] Respiratory 18 20 Rate Respiratory Rate [Anterior Bilateral Throughout] Blood Pressure 112/70 112/70 116/76 O2 Sat by Pulse 95 96 96 Oximetry Constitutional: other (morbidly obese) ENT: other (orally intubated, critically ill on ventilator) Neck: other (large in cirumference) Effort: normal Ascultation: Bilateral: clear, diminished breath sounds Percussion: Bilateral: not dull Cardiovascular: regular rate and rhythm Gastrointestinal: hypoactive bowel sounds, soft, non-tender Integumentary: other (chronic venous changes on legs) Neurologic: other (RA SS -3) CBC and BMP: 08/10/16 05:25 08/10/16 09:04 ABG, PT/INR, D-dimer: ABG POC ABG pH 7.483 (7.35-7.45) H 08/10/16 05:24 POC ABG pCO2 69.0 (35-45) H 08/10/16 05:24 POC ABG pO2 82 (80-105) 08/10/16 05:24 POC ABG HCO3 51.7 08/10/16 05:24 POC ABG Total CO2 > 50 08/10/16 05:24 POC ABG O2 Sat 96 08/10/16 05:24 PT/INR, D-dimer PT 18.0 Sec. (12.2-14.9) H 08/03/16 15:06 INR 1.49 (0.87-1.13) H 08/03/16 15:06 D-Dimer 2516.52 ng/mlDDU (0-234) H 08/05/16 13:01 Abnormal lab findings: Abnormal Labs 08/04/16 08/04/16 08/04/16 09:41 12:25 17:02 WBC Hgb Hct MCV MCH MCHC RDW Plt Count Lymph % (Auto) Lymph # [place] # Seg Neutrophils % Seg Neuts % (Manual) Lymphocytes % (Manual) Nucleated RBC % Seg Neutrophils # Seg Neutrophils # Man Lymphocytes # (Manual) D-Dimer POC ABG pH POC ABG pCO2 POC ABG pO2 Sodium Potassium Chloride Carbon Dioxide BUN Creatinine Glucose POC Glucose 158 H 236 H 217 H Lactic Acid Calcium Ionized Calcium Phosphorus Total Bilirubin Direct Bilirubin AST ALT Total Creatine Kinase CK-MB (CK-2) CK-MB (CK-2) Rel Index Troponin T NT-Pro-B Natriuret Pep Albumin Gamma Globulins PEP Interpretation HDL Cholesterol Urine WBC (Auto) Urine Creatinine Complement C3 Complement C4 08/05/16 08/05/16 08/05/16 06:32 08:09 08:17 WBC Hgb Hct MCV MCH MCHC RDW Plt Count Lymph % (Auto) Lymph # [place] # Seg Neutrophils % Seg Neuts % (Manual) Lymphocytes % (Manual) Nucleated RBC % Seg Neutrophils # Seg Neutrophils # Man Lymphocytes # (Manual) D-Dimer POC ABG pH POC ABG pCO2 POC ABG pO2 Sodium Potassium Chloride Carbon Dioxide BUN Creatinine Glucose POC Glucose < 40 L 53 L 185 H Lactic Acid Calcium Ionized Calcium Phosphorus Total Bilirubin Direct Bilirubin AST ALT Total Creatine Kinase CK-MB (CK-2) CK-MB (CK-2) Rel Index Troponin T NT-Pro-B Natriuret Pep Albumin Gamma Globulins PEP Interpretation HDL Cholesterol Urine WBC (Auto) Urine Creatinine Complement C3 Complement C4 08/05/16 08/05/16 08/05/16 08:34 12:15 12:47 WBC Hgb Hct MCV MCH MCHC RDW Plt Count Lymph % (Auto) Lymph # [place] # Seg Neutrophils % Seg Neuts % (Manual) Lymphocytes % (Manual) Nucleated RBC % Seg Neutrophils # Seg Neutrophils # Man Lymphocytes # (Manual) D-Dimer POC ABG pH 7.169 L 7.077 L POC ABG pCO2 28.5 L 54.3 H POC ABG pO2 78 L Sodium Potassium Chloride Carbon Dioxide BUN Creatinine Glucose POC Glucose 128 H Lactic Acid Calcium Ionized Calcium Phosphorus Total Bilirubin Direct Bilirubin AST ALT Total Creatine Kinase CK-MB (CK-2) CK-MB (CK-2) Rel Index Troponin T NT-Pro-B Natriuret Pep Albumin Gamma Globulins PEP Interpretation HDL Cholesterol Urine WBC (Auto) Urine Creatinine Complement C3 Complement C4 08/05/16 08/05/16 08/05/16 13:01 13:01 13:01 WBC Hgb Hct MCV MCH MCHC RDW Plt Count Lymph % (Auto) Lymph # [place] # Seg Neutrophils % Seg Neuts % (Manual) Lymphocytes % (Manual) Nucleated RBC % Seg Neutrophils # Seg Neutrophils # Man Lymphocytes # (Manual) D-Dimer 2516.52 H POC ABG pH POC ABG pCO2 POC ABG pO2 Sodium Potassium Chloride Carbon Dioxide BUN Creatinine Glucose POC Glucose Lactic Acid Calcium Ionized Calcium Phosphorus Total Bilirubin Direct Bilirubin AST ALT Total Creatine Kinase 304 H CK-MB (CK-2) 11.6 H CK-MB (CK-2) Rel Index Troponin T 0.121 H* D NT-Pro-B Natriuret Pep 8307 H Albumin Gamma Globulins PEP Interpretation HDL Cholesterol 21 L Urine WBC (Auto) Urine Creatinine Complement C3 Complement C4 08/05/16 08/05/16 08/05/16 14:44 15:27 16:05 WBC Hgb Hct MCV MCH MCHC RDW Plt Count Lymph % (Auto) Lymph # [place] # Seg Neutrophils % Seg Neuts % (Manual) Lymphocytes % (Manual) Nucleated RBC % Seg Neutrophils # Seg Neutrophils # Man Lymphocytes # (Manual) D-Dimer POC ABG pH 7.020 L POC ABG pCO2 66.3 H POC ABG pO2 Sodium Potassium Chloride Carbon Dioxide BUN Creatinine Glucose POC Glucose Lactic Acid 10.9 H* Calcium Ionized Calcium Phosphorus Total Bilirubin Direct Bilirubin AST ALT Total Creatine Kinase 282 H CK-MB (CK-2) 11.9 H CK-MB (CK-2) Rel Index 4.2 H Troponin T 0.152 H* D NT-Pro-B Natriuret Pep Albumin Gamma Globulins PEP Interpretation HDL Cholesterol Urine WBC (Auto) Urine Creatinine Complement C3 Complement C4 08/05/16 08/05/16 08/05/16 17:01 17:43 22:09 WBC Hgb Hct MCV MCH MCHC RDW Plt Count Lymph % (Auto) Lymph # [place] # Seg Neutrophils % Seg Neuts % (Manual) Lymphocytes % (Manual) Nucleated RBC % Seg Neutrophils # Seg Neutrophils # Man Lymphocytes # (Manual) D-Dimer POC ABG pH 7.119 L POC ABG pCO2 63.2 H POC ABG pO2 51 L Sodium Potassium Chloride Carbon Dioxide BUN Creatinine Glucose POC Glucose 203 H 241 H Lactic Acid Calcium Ionized Calcium Phosphorus Total Bilirubin Direct Bilirubin AST ALT Total Creatine Kinase CK-MB (CK-2) CK-MB (CK-2) Rel Index Troponin T NT-Pro-B Natriuret Pep Albumin Gamma Globulins PEP Interpretation HDL Cholesterol Urine WBC (Auto) Urine Creatinine Complement C3 Complement C4 08/05/16 08/06/16 08/06/16 23:30 05:08 05:55 WBC Hgb Hct MCV MCH MCHC RDW Plt Count Lymph % (Auto) Lymph # [place] # Seg Neutrophils % Seg Neuts % (Manual) Lymphocytes % (Manual) Nucleated RBC % Seg Neutrophils # Seg Neutrophils # Man Lymphocytes # (Manual) D-Dimer POC ABG pH 7.289 L POC ABG pCO2 59.9 H POC ABG pO2 224 H Sodium Potassium Chloride Carbon Dioxide BUN Creatinine Glucose POC Glucose Lactic Acid 6.8 H* 5.3 H* Calcium Ionized Calcium Phosphorus Total Bilirubin Direct Bilirubin AST ALT Total Creatine Kinase CK-MB (CK-2) CK-MB (CK-2) Rel Index Troponin T NT-Pro-B Natriuret Pep Albumin Gamma Globulins PEP Interpretation HDL Cholesterol Urine WBC (Auto) Urine Creatinine Complement C3 Complement C4 08/06/16 08/06/16 08/06/16 06:16 09:05 09:05 WBC 15.1 H Hgb 9.1 L Hct 31.1 L MCV 69 L MCH 20 L MCHC 29 L RDW 20.6 H Plt Count 116 L Lymph % (Auto) Lymph # [place] # Seg Neutrophils % Seg Neuts % (Manual) 95.0 H Lymphocytes % (Manual) 2.0 L Nucleated RBC % 5.0 H Seg Neutrophils # Seg Neutrophils # Man 14.3 H Lymphocytes # (Manual) 0.3 L D-Dimer POC ABG pH POC ABG pCO2 POC ABG pO2 Sodium 136 L Potassium 6.0 H D Chloride 87.5 L Carbon Dioxide BUN 66 H Creatinine 3.9 H D Glucose 319 H POC Glucose 326 H Lactic Acid Calcium 5.5 L* D Ionized Calcium Phosphorus Total Bilirubin 3.2 H Direct Bilirubin AST 4838 H ALT 1620 H Total Creatine Kinase CK-MB (CK-2) CK-MB (CK-2) Rel Index Troponin T NT-Pro-B Natriuret Pep Albumin 2.7 L Gamma Globulins PEP Interpretation HDL Cholesterol Urine WBC (Auto) Urine Creatinine Complement C3 Complement C4 08/06/16 08/06/16 08/06/16 11:20 11:50 11:56 WBC Hgb Hct MCV MCH MCHC RDW Plt Count Lymph % (Auto) Lymph # [place] # Seg Neutrophils % Seg Neuts % (Manual) Lymphocytes % (Manual) Nucleated RBC % Seg Neutrophils # Seg Neutrophils # Man Lymphocytes # (Manual) D-Dimer POC ABG pH POC ABG pCO2 POC ABG pO2 Sodium Potassium Chloride Carbon Dioxide BUN Creatinine Glucose POC Glucose 318 H Lactic Acid Calcium Ionized Calcium 2.7 L* Phosphorus Total Bilirubin Direct Bilirubin AST ALT Total Creatine Kinase CK-MB (CK-2) CK-MB (CK-2) Rel Index Troponin T NT-Pro-B Natriuret Pep Albumin Gamma Globulins PEP Interpretation HDL Cholesterol Urine WBC (Auto) 28.0 H Urine Creatinine Complement C3 Complement C4 08/06/16 08/06/16 08/06/16 13:17 13:17 13:17 WBC Hgb Hct MCV MCH MCHC RDW Plt Count Lymph % (Auto) Lymph # [place] # Seg Neutrophils % Seg Neuts % (Manual) Lymphocytes % (Manual) Nucleated RBC % Seg Neutrophils # Seg Neutrophils # Man Lymphocytes # (Manual) D-Dimer POC ABG pH POC ABG pCO2 POC ABG pO2 Sodium 131 L Potassium 5.8 H Chloride 87.8 L Carbon Dioxide 15 L D BUN 67 H Creatinine 3.8 H Glucose 294 H POC Glucose Lactic Acid 5.3 H* Calcium 5.1 L* Ionized Calcium Phosphorus 9.0 H Total Bilirubin 3.1 H Direct Bilirubin 2.1 H AST 4901 H ALT 1607 H Total Creatine Kinase CK-MB (CK-2) CK-MB (CK-2) Rel Index Troponin T NT-Pro-B Natriuret Pep Albumin 2.7 L Gamma Globulins PEP Interpretation HDL Cholesterol Urine WBC (Auto) Urine Creatinine Complement C3 Complement C4 08/06/16 08/06/16 08/06/16 15:10 15:10 15:10 WBC Hgb Hct MCV MCH MCHC RDW Plt Count Lymph % (Auto) Lymph # [place] # Seg Neutrophils % Seg Neuts % (Manual) Lymphocytes % (Manual) Nucleated RBC % Seg Neutrophils # Seg Neutrophils # Man Lymphocytes # (Manual) D-Dimer POC ABG pH POC ABG pCO2 POC ABG pO2 Sodium Potassium Chloride Carbon Dioxide BUN Creatinine Glucose POC Glucose Lactic Acid Calcium Ionized Calcium 2.8 L* Phosphorus Total Bilirubin Direct Bilirubin AST ALT Total Creatine Kinase CK-MB (CK-2) CK-MB (CK-2) Rel Index Troponin T NT-Pro-B Natriuret Pep Albumin Gamma Globulins PEP Interpretation HDL Cholesterol Urine WBC (Auto) Urine Creatinine Complement C3 35 L Complement C4 8 L 08/06/16 08/06/16 08/06/16 15:10 15:10 15:44 WBC Hgb Hct MCV MCH MCHC RDW Plt Count Lymph % (Auto) Lymph # [place] # Seg Neutrophils % Seg Neuts % (Manual) Lymphocytes % (Manual) Nucleated RBC % Seg Neutrophils # Seg Neutrophils # Man Lymphocytes # (Manual) D-Dimer POC ABG pH POC ABG pCO2 POC ABG pO2 Sodium Potassium Chloride Carbon Dioxide BUN Creatinine Glucose POC Glucose Lactic Acid 4.5 H* Calcium Ionized Calcium Phosphorus Total Bilirubin Direct Bilirubin AST ALT Total Creatine Kinase CK-MB (CK-2) CK-MB (CK-2) Rel Index Troponin T NT-Pro-B Natriuret Pep Albumin 2.6 L Gamma Globulins 2.1 H PEP Interpretation see below H HDL Cholesterol Urine WBC (Auto) Urine Creatinine 60.1 H Complement C3 Complement C4 08/06/16 08/06/16 08/06/16 16:47 22:06 23:00 WBC Hgb Hct MCV MCH MCHC RDW Plt Count Lymph % (Auto) Lymph # [place] # Seg Neutrophils % Seg Neuts % (Manual) Lymphocytes % (Manual) Nucleated RBC % Seg Neutrophils # Seg Neutrophils # Man Lymphocytes # (Manual) D-Dimer POC ABG pH POC ABG pCO2 POC ABG pO2 Sodium Potassium Chloride Carbon Dioxide BUN Creatinine Glucose POC Glucose 282 H 348 H Lactic Acid 3.4 H* Calcium Ionized Calcium Phosphorus Total Bilirubin Direct Bilirubin AST ALT Total Creatine Kinase CK-MB (CK-2) CK-MB (CK-2) Rel Index Troponin T NT-Pro-B Natriuret Pep Albumin Gamma Globulins PEP Interpretation HDL Cholesterol Urine WBC (Auto) Urine Creatinine Complement C3 Complement C4 08/07/16 08/07/16 08/07/16 03:30 04:13 07:46 WBC Hgb Hct MCV MCH MCHC RDW Plt Count Lymph % (Auto) Lymph # [place] # Seg Neutrophils % Seg Neuts % (Manual) Lymphocytes % (Manual) Nucleated RBC % Seg Neutrophils # Seg Neutrophils # Man Lymphocytes # (Manual) D-Dimer POC ABG pH 7.479 H POC ABG pCO2 49.1 H POC ABG pO2 127 H Sodium Potassium Chloride Carbon Dioxide BUN Creatinine Glucose POC Glucose 316 H Lactic Acid 2.7 H* Calcium Ionized Calcium Phosphorus Total Bilirubin Direct Bilirubin AST ALT Total Creatine Kinase CK-MB (CK-2) CK-MB (CK-2) Rel Index Troponin T NT-Pro-B Natriuret Pep Albumin Gamma Globulins PEP Interpretation HDL Cholesterol Urine WBC (Auto) Urine Creatinine Complement C3 Complement C4 08/07/16 08/07/16 08/07/16 11:23 16:21 23:31 WBC Hgb Hct MCV MCH MCHC RDW Plt Count Lymph % (Auto) Lymph # [place] # Seg Neutrophils % Seg Neuts % (Manual) Lymphocytes % (Manual) Nucleated RBC % Seg Neutrophils # Seg Neutrophils # Man Lymphocytes # (Manual) D-Dimer POC ABG pH POC ABG pCO2 POC ABG pO2 Sodium Potassium Chloride Carbon Dioxide BUN Creatinine Glucose POC Glucose 321 H 287 H 285 H Lactic Acid Calcium Ionized Calcium Phosphorus Total Bilirubin Direct Bilirubin AST ALT Total Creatine Kinase CK-MB (CK-2) CK-MB (CK-2) Rel Index Troponin T NT-Pro-B Natriuret Pep Albumin Gamma Globulins PEP Interpretation HDL Cholesterol Urine WBC (Auto) Urine Creatinine Complement C3 Complement C4 08/08/16 08/08/16 08/08/16 05:26 06:42 07:50 WBC 11.3 H Hgb 8.7 L Hct 28.8 L MCV 66 L D MCH 20 L MCHC 30 L RDW 20.8 H Plt Count 89 L Lymph % (Auto) Lymph # [place] # Seg Neutrophils % Seg Neuts % (Manual) 90.0 H Lymphocytes % (Manual) 1.0 L Nucleated RBC % 2.0 H Seg Neutrophils # Seg Neutrophils # Man 10.2 H Lymphocytes # (Manual) 0.1 L D-Dimer POC ABG pH 7.555 H POC ABG pCO2 45.6 H POC ABG pO2 Sodium Potassium Chloride Carbon Dioxide BUN Creatinine Glucose POC Glucose 268 H Lactic Acid Calcium Ionized Calcium Phosphorus Total Bilirubin Direct Bilirubin AST ALT Total Creatine Kinase CK-MB (CK-2) CK-MB (CK-2) Rel Index Troponin T NT-Pro-B Natriuret Pep Albumin Gamma Globulins PEP Interpretation HDL Cholesterol Urine WBC (Auto) Urine Creatinine Complement C3 Complement C4 08/08/16 08/08/16 08/08/16 07:50 07:50 11:04 WBC Hgb Hct MCV MCH MCHC RDW Plt Count Lymph % (Auto) Lymph # [place] # Seg Neutrophils % Seg Neuts % (Manual) Lymphocytes % (Manual) Nucleated RBC % Seg Neutrophils # Seg Neutrophils # Man Lymphocytes # (Manual) D-Dimer POC ABG pH 7.461 H POC ABG pCO2 58.5 H POC ABG pO2 72 L Sodium Potassium 3.3 L D Chloride 93.1 L Carbon Dioxide 38 H D BUN 52 H Creatinine 2.6 H Glucose 268 H POC Glucose 265 H Lactic Acid Calcium 6.5 L D Ionized Calcium Phosphorus Total Bilirubin Direct Bilirubin AST ALT Total Creatine Kinase CK-MB (CK-2) CK-MB (CK-2) Rel Index Troponin T NT-Pro-B Natriuret Pep Albumin Gamma Globulins PEP Interpretation HDL Cholesterol Urine WBC (Auto) Urine Creatinine Complement C3 Complement C4 08/08/16 08/08/16 08/08/16 11:55 16:19 23:23 WBC Hgb Hct MCV MCH MCHC RDW Plt Count Lymph % (Auto) Lymph # [place] # Seg Neutrophils % Seg Neuts % (Manual) Lymphocytes % (Manual) Nucleated RBC % Seg Neutrophils # Seg Neutrophils # Man Lymphocytes # (Manual) D-Dimer POC ABG pH POC ABG pCO2 POC ABG pO2 Sodium Potassium Chloride Carbon Dioxide BUN Creatinine Glucose POC Glucose 237 H 209 H 246 H Lactic Acid Calcium Ionized Calcium Phosphorus Total Bilirubin Direct Bilirubin AST ALT Total Creatine Kinase CK-MB (CK-2) CK-MB (CK-2) Rel Index Troponin T NT-Pro-B Natriuret Pep Albumin Gamma Globulins PEP Interpretation HDL Cholesterol Urine WBC (Auto) Urine Creatinine Complement C3 Complement C4 08/09/16 08/09/16 08/09/16 05:51 06:00 06:00 WBC 12.0 H Hgb 8.4 L Hct 28.3 L MCV 68 L MCH 20 L MCHC 30 L RDW 21.2 H Plt Count 79 L Lymph % (Auto) 3.5 L Lymph # 0.4 L [place] # Seg Neutrophils % 89.9 H Seg Neuts % (Manual) Lymphocytes % (Manual) Nucleated RBC % Seg Neutrophils # 10.8 H Seg Neutrophils # Man Lymphocytes # (Manual) D-Dimer POC ABG pH 7.479 H POC ABG pCO2 67.7 H POC ABG pO2 Sodium Potassium 2.5 L* D Chloride 86.3 L Carbon Dioxide 51 H* D BUN 38 H Creatinine Glucose 695 H* POC Glucose Lactic Acid Calcium 6.3 L Ionized Calcium Phosphorus Total Bilirubin Direct Bilirubin AST ALT Total Creatine Kinase CK-MB (CK-2) CK-MB (CK-2) Rel Index Troponin T NT-Pro-B Natriuret Pep Albumin Gamma Globulins PEP Interpretation HDL Cholesterol Urine WBC (Auto) Urine Creatinine Complement C3 Complement C4 08/09/16 08/09/16 08/09/16 07:47 08:45 09:51 WBC Hgb Hct MCV MCH MCHC RDW Plt Count Lymph % (Auto) Lymph # [place] # Seg Neutrophils % Seg Neuts % (Manual) Lymphocytes % (Manual) Nucleated RBC % Seg Neutrophils # Seg Neutrophils # Man Lymphocytes # (Manual) D-Dimer POC ABG pH 7.458 H POC ABG pCO2 68.7 H POC ABG pO2 65 L Sodium Potassium Chloride 92.9 L Carbon Dioxide 40 H D BUN 42 H Creatinine 1.7 H Glucose 205 H POC Glucose 189 H Lactic Acid Calcium 7.7 L D Ionized Calcium Phosphorus Total Bilirubin Direct Bilirubin AST ALT Total Creatine Kinase CK-MB (CK-2) CK-MB (CK-2) Rel Index Troponin T NT-Pro-B Natriuret Pep Albumin Gamma Globulins PEP Interpretation HDL Cholesterol Urine WBC (Auto) Urine Creatinine Complement C3 Complement C4 08/09/16 08/09/16 08/09/16 11:55 13:35 16:05 WBC Hgb Hct MCV MCH MCHC RDW Plt Count Lymph % (Auto) Lymph # [place] # Seg Neutrophils % Seg Neuts % (Manual) Lymphocytes % (Manual) Nucleated RBC % Seg Neutrophils # Seg Neutrophils # Man Lymphocytes # (Manual) D-Dimer POC ABG pH POC ABG pCO2 POC ABG pO2 Sodium 148 H Potassium 2.9 L* D Chloride 96.4 L Carbon Dioxide 43 H* BUN 43 H Creatinine 1.6 H Glucose 205 H POC Glucose 222 H 204 H Lactic Acid Calcium 7.9 L Ionized Calcium Phosphorus Total Bilirubin Direct Bilirubin AST ALT Total Creatine Kinase CK-MB (CK-2) CK-MB (CK-2) Rel Index Troponin T NT-Pro-B Natriuret Pep Albumin Gamma Globulins PEP Interpretation HDL Cholesterol Urine WBC (Auto) Urine Creatinine Complement C3 Complement C4 08/09/16 08/10/16 08/10/16 22:43 05:24 05:25 WBC 13.2 H Hgb 9.4 L Hct 32.5 L MCV 68 L MCH 20 L MCHC 29 L RDW 21.1 H Plt Count 72 L Lymph % (Auto) 4.3 L Lymph # 0.6 L [place] # 1.0 H Seg Neutrophils % 88.5 H Seg Neuts % (Manual) Lymphocytes % (Manual) Nucleated RBC % Seg Neutrophils # 11.7 H Seg Neutrophils # Man Lymphocytes # (Manual) D-Dimer POC ABG pH 7.483 H POC ABG pCO2 69.0 H POC ABG pO2 Sodium Potassium Chloride Carbon Dioxide BUN Creatinine Glucose POC Glucose 207 H Lactic Acid Calcium Ionized Calcium Phosphorus Total Bilirubin Direct Bilirubin AST ALT Total Creatine Kinase CK-MB (CK-2) CK-MB (CK-2) Rel Index Troponin T NT-Pro-B Natriuret Pep Albumin Gamma Globulins PEP Interpretation HDL Cholesterol Urine WBC (Auto) Urine Creatinine Complement C3 Complement C4 08/10/16 09:04 WBC Hgb Hct MCV MCH MCHC RDW Plt Count Lymph % (Auto) Lymph # [place] # Seg Neutrophils % Seg Neuts % (Manual) Lymphocytes % (Manual) Nucleated RBC % Seg Neutrophils # Seg Neutrophils # Man Lymphocytes # (Manual) D-Dimer POC ABG pH POC ABG pCO2 POC ABG pO2 Sodium 147 H Potassium 3.4 L Chloride 96.8 L Carbon Dioxide 42 H* BUN 38 H Creatinine Glucose 144 H POC Glucose Lactic Acid Calcium 8.3 L Ionized Calcium Phosphorus Total Bilirubin Direct Bilirubin AST ALT Total Creatine Kinase CK-MB (CK-2) CK-MB (CK-2) Rel Index Troponin T NT-Pro-B Natriuret Pep Albumin Gamma Globulins PEP Interpretation HDL Cholesterol Urine WBC (Auto) Urine Creatinine Complement C3 Complement C4
--- NOTE | 2016-08-10 14:28 | Progress Note ---
Assessment and Plan Altered mental status Vasodilatory shock and lactic acidosis Acute Respiratory failure intubated on the vent Hypokalemia Congestive heart failure, Acute on chronic diastolic LVEF 45-50% with evidence of a dilated RV/RA and severe pulmonary hypertension COPD on home oxygen therapy Obstructive sleep apnea Atrial fibrillation Patient was supposed to be on xarelto as outpatient but he is non-compliant History of bilateral pulmonary embolism by CT at [place] Type II DM Systemic Hypertension Microcytic anemia, chronic per records Poor historian Recommendations: Supportive cardiac management. Subjective Date of service: 08/10/16 Principal diagnosis: acute on chronic respiratory failure, congestive heart failure Interval history: Remains intubated on the vent. Objective Vital Signs Temp Pulse Pulse Pulse Resp Resp BP 08/10/16 14:17 118 H 128/85 08/10/16 14:00 139 H 20 121/74 08/10/16 13:30 115 H 20 124/80 08/10/16 13:00 115 H 20 120/78 08/10/16 12:30 126 H 20 120/83 08/10/16 12:05 117 H 119/71 08/10/16 12:00 99.3 F 118 H 18 119/71 08/10/16 11:30 134 H 24 123/81 08/10/16 11:00 112 H 20 128/73 08/10/16 10:30 157 H 20 103/72 08/10/16 10:00 111 H 20 116/76 08/10/16 09:33 124 H 112/70 08/10/16 09:30 120 H 18 112/70 08/10/16 09:00 115 H 19 133/77 08/10/16 08:30 109 H 20 122/77 08/10/16 08:00 99.7 F H 115 H 110 H 20 20 119/77 08/10/16 07:34 118 H 116/82 08/10/16 07:33 112 H 20 08/10/16 07:30 120 H 20 116/82 08/10/16 07:00 106 H 20 110/74 08/10/16 06:30 101 H 17 108/73 08/10/16 06:00 108 H 20 112/74 08/10/16 05:30 111 H 20 103/67 08/10/16 05:00 117 H 20 114/65 08/10/16 04:30 128 H 20 127/67 08/10/16 04:00 98.9 F 106 H 20 121/76 08/10/16 03:30 129 H 20 117/65 08/10/16 03:00 128 H 20 128/71 08/10/16 02:30 13 115/80 08/10/16 02:00 114 H 114 H 15 20 119/73 08/10/16 01:49 121 H 20 08/10/16 01:30 125 H 20 110/81 08/10/16 01:00 115 H 20 121/71 08/10/16 00:31 126 H 20 121/73 08/10/16 00:00 99.0 F 127 H 118 H 20 111/75 08/09/16 23:48 134 H 119/83 08/09/16 23:30 127 H 20 119/83 08/09/16 23:01 20 108/72 08/09/16 22:30 126 H 20 106/79 08/09/16 22:13 119 H 20 108/83 08/09/16 22:00 155 H 22 108/83 08/09/16 21:54 107 H 20 110/75 08/09/16 21:30 115 H 21 119/81 08/09/16 21:01 117 H 20 123/71 08/09/16 20:30 111 H 20 114/69 08/09/16 20:01 117 H 20 105/78 08/09/16 20:00 98.8 F 120 H 20 08/09/16 19:55 120 H 20 08/09/16 19:43 119 H 129 H 20 103/74 08/09/16 19:30 120 H 20 121/72 08/09/16 19:00 123 H 20 115/83 08/09/16 18:31 138 H 21 104/86 08/09/16 18:01 120 H 20 116/73 08/09/16 17:31 119 H 20 100/73 08/09/16 17:17 112 H 116/74 08/09/16 17:01 114 H 20 116/74 08/09/16 16:31 113 H 20 104/77 08/09/16 16:00 98.1 F 121 H 21 109/68 08/09/16 15:30 113 H 20 118/84 08/09/16 15:00 101 H 20 120/75 08/09/16 14:30 99 H 20 113/70 Pulse Ox 08/10/16 14:17 94 08/10/16 14:00 95 08/10/16 13:30 94 08/10/16 13:00 96 08/10/16 12:30 96 08/10/16 12:05 94 08/10/16 12:00 92 08/10/16 11:30 95 08/10/16 11:00 91 08/10/16 10:30 96 08/10/16 10:00 96 08/10/16 09:33 96 08/10/16 09:30 95 08/10/16 09:00 95 08/10/16 08:30 96 08/10/16 08:00 98 08/10/16 07:34 99 08/10/16 07:33 08/10/16 07:30 98 08/10/16 07:00 97 08/10/16 06:30 97 08/10/16 06:00 97 08/10/16 05:30 97 08/10/16 05:00 96 08/10/16 04:30 95 08/10/16 04:00 96 08/10/16 03:30 94 08/10/16 03:00 93 08/10/16 02:30 96 08/10/16 02:00 99 08/10/16 01:49 08/10/16 01:30 96 08/10/16 01:00 95 08/10/16 00:31 97 08/10/16 00:00 95 08/09/16 23:48 96 08/09/16 23:30 98 08/09/16 23:01 91 08/09/16 22:30 94 08/09/16 22:13 96 08/09/16 22:00 96 08/09/16 21:54 97 08/09/16 21:30 95 08/09/16 21:01 95 08/09/16 20:30 95 08/09/16 20:01 100 08/09/16 20:00 95 08/09/16 19:55 08/09/16 19:43 96 08/09/16 19:30 95 08/09/16 19:00 94 08/09/16 18:31 94 08/09/16 18:01 95 08/09/16 17:31 95 08/09/16 17:17 94 08/09/16 17:01 94 08/09/16 16:31 95 08/09/16 16:00 93 08/09/16 15:30 91 08/09/16 15:00 96 08/09/16 14:30 99 - Physical Examination General: Other (intubated on the vent) Cardiac: Positive: irregularly irregular Extremities: Present: +1 Edema - Labs and Meds CBC 08/10/16 Range/Units 05:25 WBC 13.2 H (4.5-11.0) K/mm3 RBC 4.77 (3.65-5.03) M/mm3 Hgb 9.4 L (11.8-15.2) gm/dl Hct 32.5 L (35.5-45.6) % Plt Count 72 L (140-440) K/mm3 Lymph # 0.6 L (1.2-5.4) K/mm3 Chambers # 1.0 H (0.0-0.8) K/mm3 Eos # 0.0 (0.0-0.4) K/mm3 Baso # 0.0 (0.0-0.1) K/mm3 Comprehensive Metabolic Panel 08/06/16 08/10/16 Range/Units 15:10 09:04 Sodium 147 H (137-145) mmol/L Potassium 3.4 L (3.6-5.0) mmol/L Chloride 96.8 L (98-107) mmol/L Carbon Dioxide 42 H* (22-30) mmol/L BUN 38 H (9-20) mg/dL Creatinine 1.4 (0.8-1.5) mg/dL Glucose 144 H (75-100) mg/dL Calcium 8.3 L (8.4-10.2) mg/dL Albumin 2.6 L (3.8-4.8) g/dL
--- NOTE | 2016-08-10 15:26 | Progress Note ---
Assessment and Plan - Patient Problems (1) Acute CHF Current Visit: Yes Status: Acute Qualifiers: Congestive heart failure type: systolic Qualified Code(s): I50.21 - Acute systolic (congestive) heart failure Plan to address problem: Patient is not on Lasix and beta blockers because of his low BP (2) Acute respiratory failure Current Visit: Yes Status: Acute Qualifiers: Respiratory failure complication: R Plan to address problem: Intubated and mechanically ventilated Pulmonary is on board Failed Weaning trial Consider trach Patient is on antibiotics (3) Anemia Current Visit: Yes Status: Acute Qualifiers: Anemia type: A Iron deficiency anemia type: I Vitamin B12 deficiency anemia type: V Folate deficiency anemia type: F Bone marrow failure anemia type: B Hemolytic anemia type: H Other causes of anemia: O Plan to address problem: We'll follow closely, she doesn't need transfusion now (4) Atrial fibrillation with RVR Current Visit: Yes Status: Acute (5) COPD (chronic obstructive pulmonary disease) Current Visit: Yes Status: Acute Qualifiers: COPD type: C Chronic bronchitis type: C Emphysema type: E Plan to address problem: As stated above (6) Diabetes Current Visit: Yes Status: Acute Qualifiers: Diabetes mellitus type: D Diabetes mellitus complication status: D Diabetes mellitus complication detail: D Diabetic retinopathy severity: D Proliferative retinopathy type: P Diabetes mellitus macular edema: D Diabetes mellitus bilingual research interviewer insulin use: D Laterality: L Chronic kidney disease stage: C History Interval history: Patient is on mechanical ventilation, patient is off the ventilation and opens his eyes when I call his name. Hospitalist Physical - Physical exam Narrative exam: in cardiopulmonary distress. The patient appeared well nourished and normally developed. Vital signs as documented. Head exam is unremarkable. No scleral icterus . Neck is without jugular venous distension, thyromegaly, or carotid bruits. Lungs are clear to auscultation. Cardiac exam reveals regular rate and Rhythm. First and second heart sounds normal. No murmurs, rubs or gallops. Abdominal exam reveals normal bowel sounds, no masses, no organomegaly and no aortic enlargement. Extremities are edematous. 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 - Constitutional Vitals: Temp Pulse Resp BP Pulse Ox 99.3 F 118 H 20 128/85 94 08/10/16 12:00 08/10/16 14:17 08/10/16 14:00 08/10/16 14:17 08/10/16 14:17 General appearance: Present: no acute distress, obese Results - Labs CBC & Chem 7: 08/10/16 05:25 08/10/16 09:04 Labs: Laboratory Last Values WBC 13.2 K/mm3 (4.5-11.0) H 08/10/16 05:25 RBC 4.77 M/mm3 (3.65-5.03) 08/10/16 05:25 Hgb 9.4 gm/dl (11.8-15.2) L 08/10/16 05:25 Hct 32.5 % (35.5-45.6) L 08/10/16 05:25 MCV 68 fl (84-94) L 08/10/16 05:25 MCH 20 pg (28-32) L 08/10/16 05:25 MCHC 29 % (32-34) L 08/10/16 05:25 RDW 21.1 % (13.2-15.2) H 08/10/16 05:25 Plt Count 72 K/mm3 (140-440) L 08/10/16 05:25 Lymph % (Auto) 4.3 % (13.4-35.0) L 08/10/16 05:25 [place] % (Auto) 7.2 % (0.0-7.3) 08/10/16 05:25 Eos % (Auto) 0.0 % (0.0-4.3) 08/10/16 05:25 Baso % (Auto) 0.0 % (0.0-1.8) 08/10/16 05:25 Lymph # 0.6 K/mm3 (1.2-5.4) L 08/10/16 05:25 [place] # 1.0 K/mm3 (0.0-0.8) H 08/10/16 05:25 Eos # 0.0 K/mm3 (0.0-0.4) 08/10/16 05:25 Baso # 0.0 K/mm3 (0.0-0.1) 08/10/16 05:25 Add Manual Diff Complete 08/08/16 07:50 Total Counted 100 08/08/16 07:50 Seg Neutrophils % 88.5 % (40.0-70.0) H 08/10/16 05:25 Seg Neuts % (Manual) 90.0 % (40.0-70.0) H 08/08/16 07:50 Band Neutrophils % 6.0 % 08/08/16 07:50 Lymphocytes % (Manual) 1.0 % (13.4-35.0) L 08/08/16 07:50 Reactive Lymphs % (Man) 0 % 08/08/16 07:50 Monocytes % (Manual) 3.0 % (0.0-7.3) 08/08/16 07:50 Eosinophils % (Manual) 0 % (0.0-4.3) 08/08/16 07:50 Basophils % (Manual) 0 % (0.0-1.8) 08/08/16 07:50 Metamyelocytes % 0 % 08/08/16 07:50 Myelocytes % 0 % 08/08/16 07:50 Promyelocytes % 0 % 08/08/16 07:50 Blast Cells % 0 % 08/08/16 07:50 Nucleated RBC % 2.0 % (0.0-0.9) H 08/08/16 07:50 Seg Neutrophils # 11.7 K/mm3 (1.8-7.7) H 08/10/16 05:25 Seg Neutrophils # Man 10.2 K/mm3 (1.8-7.7) H 08/08/16 07:50 Band Neutrophils # 0.7 K/mm3 08/08/16 07:50 Lymphocytes # (Manual) 0.1 K/mm3 (1.2-5.4) L 08/08/16 07:50 Abs React Lymphs (Man) 0.0 K/mm3 08/08/16 07:50 Monocytes # (Manual) 0.3 K/mm3 (0.0-0.8) 08/08/16 07:50 Eosinophils # (Manual) 0.0 K/mm3 (0.0-0.4) 08/08/16 07:50 Basophils # (Manual) 0.0 K/mm3 (0.0-0.1) 08/08/16 07:50 Metamyelocytes # 0.0 K/mm3 08/08/16 07:50 Myelocytes # 0.0 K/mm3 08/08/16 07:50 Promyelocytes # 0.0 K/mm3 08/08/16 07:50 Blast Cells # 0.0 K/mm3 08/08/16 07:50 WBC Morphology Not Reportable 08/08/16 07:50 Hypersegmented Neuts Not Reportable 08/08/16 07:50 Hyposegmented Neuts Not Reportable 08/08/16 07:50 Hypogranular Neuts Not Reportable 08/08/16 07:50 Smudge Cells Not Reportable 08/08/16 07:50 Toxic Granulation Not Reportable 08/08/16 07:50 Toxic Vacuolation Not Reportable 08/08/16 07:50 Dohle Bodies Not Reportable 08/08/16 07:50 Pelger-Huet Anomaly Not Reportable 08/08/16 07:50 Scott Rods Not Reportable 08/08/16 07:50 Platelet Estimate Appears decreased 08/08/16 07:50 Clumped Platelets Not Reportable 08/08/16 07:50 Plt Clumps, EDTA Not Reportable 08/08/16 07:50 Large Platelets Not Reportable 08/08/16 07:50 Giant Platelets Not Reportable 08/08/16 07:50 Platelet Satelliting Not Reportable 08/08/16 07:50 Plt Morphology Comment Not Reportable 08/08/16 07:50 RBC Morphology Not Reportable 08/08/16 07:50 Dimorphic RBCs Not Reportable 08/08/16 07:50 Polychromasia Few 08/08/16 07:50 Hypochromasia 1+ 08/08/16 07:50 Poikilocytosis Not Reportable 08/08/16 07:50 Anisocytosis 1+ 08/08/16 07:50 Microcytosis 1+ 08/08/16 07:50 Macrocytosis Not Reportable 08/08/16 07:50 Spherocytes Not Reportable 08/08/16 07:50 Pappenheimer Bodies Not Reportable 08/08/16 07:50 Sickle Cells Not Reportable 08/08/16 07:50 Target Cells Not Reportable 08/08/16 07:50 Tear Drop Cells Not Reportable 08/08/16 07:50 Ovalocytes Not Reportable 08/08/16 07:50 Helmet Cells Not Reportable 08/08/16 07:50 [place] Bodies Not Reportable 08/08/16 07:50 [place] Rings Not Reportable 08/08/16 07:50 [place] Cells Not Reportable 08/08/16 07:50 Bite Cells Not Reportable 08/08/16 07:50 Crenated Cell Not Reportable 08/08/16 07:50 Elliptocytes 1+ 08/08/16 07:50 Acanthocytes (Spur) Not Reportable 08/08/16 07:50 Rouleaux Not Reportable 08/08/16 07:50 Hemoglobin C Crystals Not Reportable 08/08/16 07:50 Schistocytes Not Reportable 08/08/16 07:50 Malaria parasites Not Reportable 08/08/16 07:50 Jun Bodies Not Reportable 08/08/16 07:50 Hem Pathologist Commnt No 08/08/16 07:50 PT 18.0 Sec. (12.2-14.9) H 08/03/16 15:06 INR 1.49 (0.87-1.13) H 08/03/16 15:06 APTT 28.8 Sec. (24.2-36.6) 08/03/16 15:06 D-Dimer 2516.52 ng/mlDDU (0-234) H 08/05/16 13:01 POC ABG pH 7.483 (7.35-7.45) H 08/10/16 05:24 POC ABG pCO2 69.0 (35-45) H 08/10/16 05:24 POC ABG pO2 82 (80-105) 08/10/16 05:24 POC ABG HCO3 51.7 08/10/16 05:24 POC ABG Total CO2 > 50 08/10/16 05:24 POC ABG O2 Sat 96 08/10/16 05:24 POC ABG Base Excess 28 08/10/16 05:24 FiO2 50 % 08/10/16 05:24 Sodium 147 mmol/L (137-145) H 08/10/16 09:04 Potassium 3.4 mmol/L (3.6-5.0) L 08/10/16 09:04 Chloride 96.8 mmol/L (98-107) L 08/10/16 09:04 Carbon Dioxide 42 mmol/L (22-30) H* 08/10/16 09:04 Anion Gap 12 mmol/L 08/10/16 09:04 BUN 38 mg/dL (9-20) H 08/10/16 09:04 Creatinine 1.4 mg/dL (0.8-1.5) 08/10/16 09:04 Estimated GFR > 60 ml/min 08/10/16 09:04 BUN/Creatinine Ratio 27.14 % 08/10/16 09:04 Glucose 144 mg/dL (75-100) H 08/10/16 09:04 POC Glucose 207 (70-105) H 08/09/16 22:43 Lactic Acid 2.7 mmol/L (0.7-2.0) H* 08/07/16 03:30 Calcium 8.3 mg/dL (8.4-10.2) L 08/10/16 09:04 Ionized Calcium 2.8 mg/dL (4.8-5.6) L* 08/06/16 15:10 Phosphorus 9.0 mg/dL (2.5-4.5) H 08/06/16 13:17 Magnesium 2.0 mg/dL (1.7-2.3) 08/06/16 13:17 Total Bilirubin 3.1 mg/dL (0.1-1.2) H 08/06/16 13:17 Direct Bilirubin 2.1 mg/dL (0-0.2) H 08/06/16 13:17 Indirect Bilirubin 1.0 mg/dL 08/06/16 13:17 AST 4901 units/L (5-40) H 08/06/16 13:17 ALT 1607 units/L (7-56) H 08/06/16 13:17 Alkaline Phosphatase 111 units/L (35-129) 08/06/16 13:17 Ammonia 61.0 umol/L (25-60) H 08/03/16 15:06 Total Creatine Kinase 282 units/L (55-170) H 08/05/16 15:27 CK-MB (CK-2) 11.9 ng/mL (0.0-4.0) H 08/05/16 15:27 CK-MB (CK-2) Rel Index 4.2 (0-4) H 08/05/16 15:27 Troponin T 0.152 ng/mL (0.00-0.029) H* D 08/05/16 15:27 NT-Pro-B Natriuret Pep 8307 pg/mL (0-900) H 08/05/16 13:01 Serum Total Protein 6.3 g/dL (6.1-8.1) 08/06/16 15:10 Total Protein 6.6 g/dL (6.3-8.2) 08/06/16 13:17 Albumin 2.6 g/dL (3.8-4.8) L 08/06/16 15:10 Albumin/Globulin Ratio 0.7 % 08/06/16 13:17 Fpnsh-2-Jzyxwngqi 0.3 g/dL (0.2-0.3) 08/06/16 15:10 Qvkxp-0-Agrglyowg 0.6 g/dL (0.5-0.9) 08/06/16 15:10 Beta Globulins 0.4 g/dL (0.2-0.5) 08/06/16 15:10 Gamma Globulins 2.1 g/dL (0.8-1.7) H 08/06/16 15:10 Abnorm Protein Band 1 see below 08/06/16 15:10 PEP Interpretation see below H 08/06/16 15:10 Triglycerides 31 mg/dL (2-149) 08/05/16 13:01 Cholesterol 86 mg/dL (50-199) 08/05/16 13:01 LDL Cholesterol Direct 59 mg/dL (50-130) 08/05/16 13:01 HDL Cholesterol 21 mg/dL (40-59) L 08/05/16 13:01 Cholesterol/HDL Ratio 4.09 % 08/05/16 13:01 Urine Color [place] (Yellow) 08/06/16 11:20 Urine Turbidity Cloudy (Clear) 08/06/16 11:20 Urine pH 5.0 (5.0-7.0) 08/06/16 11:20 Ur Specific [place] 1.014 (1.003-1.030) 08/06/16 11:20 Urine Protein 30 mg/dl mg/dL (Negative) 08/06/16 11:20 Urine Glucose (UA) 50 mg/dL (Negative) 08/06/16 11:20 Urine Ketones Neg mg/dL (Negative) 08/06/16 11:20 Urine Blood Mod (Negative) 08/06/16 11:20 Urine Nitrite Neg (Negative) 08/06/16 11:20 Urine Bilirubin Neg (Negative) 08/06/16 11:20 Urine Urobilinogen < 2.0 mg/dL (<2.0) 08/06/16 11:20 Ur Leukocyte Esterase Mod (Negative) 08/06/16 11:20 Urine WBC (Auto) 28.0 /HPF (0.0-6.0) H 08/06/16 11:20 Urine RBC (Auto) 15.0 /HPF (0.0-6.0) 08/06/16 11:20 U Epithel Cells (Auto) 1.0 /HPF (0-13.0) 08/06/16 11:20 Urine Bacteria (Auto) 2+ /HPF (Negative) 08/06/16 11:20 Amorphous Crystals Few 08/06/16 11:20 Urine Mucus Few /HPF 08/06/16 11:20 Urine Creatinine 60.1 mg/dL (0.1-20.0) H 08/06/16 15:44 Urine Sodium 45 mEq/L 08/06/16 15:44 Proteinase 3 (PR3) Ab <1.0 AI (<1.0) 08/06/16 15:10 Myeloperoxidase Ab <1.0 AI (<1.0) 08/06/16 15:10 Complement C3 35 mg/dL (90-180) L 08/06/16 15:10 Complement C4 8 mg/dL (16-47) L 08/06/16 15:10 Hepatitis A IgM Ab Non-reactive (NonReactive) 08/06/16 15:10 Hep Bs Antigen Non-reactive (Negative) 08/06/16 15:10 Hep B Core IgM Ab Non-reactive (NonReactive) 08/06/16 15:10 Hepatitis C Antibody Non-reactive (NonReactive) 08/06/16 15:10
[2016-08-10] MEDS: LEVAQUIN 750MG/150ML 750 MG/150 ML BAG IV SCH (22:43)
[2016-08-10] MEDS ORDERED: WATER FOR INJ (PF) 10 ML ONE (22:50)
[2016-08-10] MEDS: LEVEMIR SUB-Q SCH (23:05)
[2016-08-11] MEDS: DUONEB 0.5 MG-3 MG/3 ML SOLN IH SCH ×4 (01:23→20:31)
[2016-08-11 05:12] LABS: ISTAT Base Excess 21; ISTAT HCO3 43.9; ISTAT PCO2 56.4 (35-45); ISTAT PH 7.499 (7.35-7.45); ISTAT PO2 104 (80-105); ISTAT SO2 98; ISTAT TCO2 46
[2016-08-11] MEDS: ZOSYN/NS 4.5GM/100ML 4.5 GM/100 ML VIAL IV SCH ×3 (06:03→22:08)
[2016-08-11] MEDS: NOVOLOG SUB-Q SCH ×4 (07:30→22:11)
--- NOTE | 2016-08-11 08:20 | Progress Note ---
Assessment and Plan Impression * Acute kidney injury secondary to prerenal azotemia vs ATN - resolved * Acute hypoxic respiratory failure * Sepsis * Metabolic alkalosis * Hypokalemia secondary to #3 * Edema Plan: * Await AM labs * Patient is s/p Diamox x 2 doses yesterday for metabolic alkalosis; will reassess * Vent management per CCM * Replete lytes prn * Abx per primary team * Dose medications for renal function * Avoid nephrotoxins Subjective Date of service: 08/11/16 Principal diagnosis: acute on chronic respiratory failure, congestive heart failure Objective - Vital Signs Vital signs: Vital Signs - 12hr 08/10/16 08/10/16 08/10/16 20:30 20:52 21:00 Temperature Pulse Rate 117 H 127 H Pulse Rate [ 131 H Anterior Right Throughout] Pulse Rate [ From Monitor] Respiratory 20 20 Rate Respiratory 20 Rate [Anterior Right Throughout] Blood Pressure 105/70 121/69 O2 Sat by Pulse 95 93 Oximetry 08/10/16 08/10/16 08/10/16 21:30 22:00 22:30 Temperature Pulse Rate 163 H 118 H 120 H Pulse Rate [ Anterior Right Throughout] Pulse Rate [ From Monitor] Respiratory 15 20 21 Rate Respiratory Rate [Anterior Right Throughout] Blood Pressure 121/69 116/74 122/75 O2 Sat by Pulse 97 96 96 Oximetry 08/10/16 08/10/16 08/11/16 23:00 23:30 00:00 Temperature 98.5 F Pulse Rate 118 H 116 H 123 H Pulse Rate [ Anterior Right Throughout] Pulse Rate [ 102 H From Monitor] Respiratory 20 20 20 Rate Respiratory Rate [Anterior Right Throughout] Blood Pressure 108/72 115/75 121/92 O2 Sat by Pulse 96 97 97 Oximetry 08/11/16 08/11/16 08/11/16 00:26 00:30 01:00 Temperature Pulse Rate 130 H 137 H 115 H Pulse Rate [ Anterior Right Throughout] Pulse Rate [ From Monitor] Respiratory 16 20 Rate Respiratory Rate [Anterior Right Throughout] Blood Pressure 115/92 120/83 118/76 O2 Sat by Pulse 98 98 96 Oximetry 08/11/16 08/11/16 08/11/16 01:23 01:30 01:42 Temperature Pulse Rate 108 H Pulse Rate [ 100 H 103 H Anterior Right Throughout] Pulse Rate [ From Monitor] Respiratory 20 Rate Respiratory 20 20 Rate [Anterior Right Throughout] Blood Pressure 121/82 O2 Sat by Pulse 99 Oximetry 08/11/16 08/11/16 08/11/16 02:00 02:30 03:00 Temperature Pulse Rate 106 H 106 H 101 H Pulse Rate [ Anterior Right Throughout] Pulse Rate [ From Monitor] Respiratory 20 20 20 Rate Respiratory Rate [Anterior Right Throughout] Blood Pressure 133/89 135/87 122/84 O2 Sat by Pulse 95 99 97 Oximetry 08/11/16 08/11/16 08/11/16 03:30 04:00 04:30 Temperature 98.3 F Pulse Rate 106 H 105 H 95 H Pulse Rate [ Anterior Right Throughout] Pulse Rate [ 106 H From Monitor] Respiratory 16 20 20 Rate Respiratory Rate [Anterior Right Throughout] Blood Pressure 133/84 136/81 116/80 O2 Sat by Pulse 98 97 96 Oximetry 08/11/16 08/11/16 08/11/16 05:00 05:04 05:30 Temperature Pulse Rate 104 H 102 H 102 H Pulse Rate [ Anterior Right Throughout] Pulse Rate [ From Monitor] Respiratory 20 19 Rate Respiratory Rate [Anterior Right Throughout] Blood Pressure 133/88 133/88 136/90 O2 Sat by Pulse 96 96 93 Oximetry 08/11/16 06:00 Temperature Pulse Rate 97 H Pulse Rate [ Anterior Right Throughout] Pulse Rate [ From Monitor] Respiratory 20 Rate Respiratory Rate [Anterior Right Throughout] Blood Pressure 142/80 O2 Sat by Pulse 94 Oximetry - General Appearance General appearance: well-developed, well-nourished, intubated EENT: ATNC Respiratory: Present: Decreased Breath Sounds Cardiology: regular, S1S2 Gastrointestinal: normal, no tenderness, no distended Integumentary: no rash Neurologic: other (intubated,sedated) Musculoskeletal: other (+edema) - Lab 08/10/16 05:25 08/10/16 09:04 Most recent lab results Calcium 8.3 mg/dL (8.4-10.2) L 08/10/16 09:04 Phosphorus 9.0 mg/dL (2.5-4.5) H 08/06/16 13:17 Magnesium 2.0 mg/dL (1.7-2.3) 08/06/16 13:17 Urine Creatinine 60.1 mg/dL (0.1-20.0) H 08/06/16 15:44 Urine Sodium 45 mEq/L 08/06/16 15:44
[2016-08-11] MEDS: LOVENOX SUB-Q SCH ×2 (10:00→22:06)
--- NOTE | 2016-08-11 10:57 | Progress Note ---
Assessment and Plan Altered mental status Vasodilatory shock and lactic acidosis Acute Respiratory failure intubated on the vent Hypokalemia Congestive heart failure, Acute on chronic diastolic LVEF 45-50% with evidence of a dilated RV/RA and severe pulmonary hypertension COPD on home oxygen therapy Obstructive sleep apnea Atrial fibrillation Patient was supposed to be on xarelto as outpatient but he is non-compliant History of bilateral pulmonary embolism by CT at [place] Type II DM Systemic Hypertension Microcytic anemia, chronic per records Poor historian Recommendations: Supportive cardiac management. Subjective Date of service: 08/11/16 Principal diagnosis: acute on chronic respiratory failure, congestive heart failure Interval history: Remains intubated on the vent. Atrial fibrillation rate controlled on telemetry. Objective Vital Signs Temp Pulse Pulse Pulse Pulse Resp Resp 08/11/16 08:00 98.6 F 08/11/16 06:00 97 H 20 08/11/16 05:30 102 H 08/11/16 05:04 102 H 08/11/16 05:00 104 H 20 08/11/16 04:30 95 H 20 08/11/16 04:00 98.3 F 105 H 106 H 20 08/11/16 03:30 106 H 16 08/11/16 03:00 101 H 20 08/11/16 02:30 106 H 20 08/11/16 02:00 106 H 08/11/16 01:42 103 H 08/11/16 01:30 108 H 08/11/16 01:23 100 H 08/11/16 01:00 115 H 20 08/11/16 00:30 137 H 16 08/11/16 00:26 130 H 08/11/16 00:00 98.5 F 123 H 102 H 20 08/10/16 23:30 116 H 20 08/10/16 23:00 118 H 20 08/10/16 22:30 120 H 21 08/10/16 22:00 118 H 20 08/10/16 21:30 163 H 15 08/10/16 21:00 127 H 20 08/10/16 20:52 131 H 08/10/16 20:30 117 H 20 08/10/16 20:00 98.2 F 123 H 111 H 20 08/10/16 19:54 121 H 131 H 08/10/16 19:30 112 H 20 08/10/16 19:00 111 H 20 08/10/16 18:30 111 H 20 08/10/16 18:08 113 H 20 08/10/16 18:00 118 H 21 08/10/16 17:30 118 H 20 08/10/16 17:00 117 H 20 08/10/16 16:30 122 H 20 08/10/16 16:00 98.6 F 124 H 19 08/10/16 15:30 130 H 20 08/10/16 15:00 130 H 20 08/10/16 14:30 123 H 20 08/10/16 14:17 118 H 08/10/16 14:00 139 H 100 H 20 18 08/10/16 13:30 115 H 20 08/10/16 13:00 115 H 20 08/10/16 12:30 126 H 20 08/10/16 12:05 117 H 08/10/16 12:00 99.3 F 118 H 18 08/10/16 11:30 134 H 24 08/10/16 11:00 112 H 20 Resp BP Pulse Ox 08/11/16 08:00 08/11/16 06:00 142/80 94 08/11/16 05:30 136/90 93 08/11/16 05:04 133/88 96 08/11/16 05:00 133/88 96 08/11/16 04:30 116/80 96 08/11/16 04:00 136/81 97 08/11/16 03:30 133/84 98 08/11/16 03:00 122/84 97 08/11/16 02:30 135/87 99 08/11/16 02:00 133/89 95 08/11/16 01:42 20 08/11/16 01:30 121/82 99 08/11/16 01:23 20 08/11/16 01:00 118/76 96 08/11/16 00:30 120/83 98 08/11/16 00:26 115/92 98 08/11/16 00:00 121/92 97 08/10/16 23:30 115/75 97 08/10/16 23:00 108/72 96 08/10/16 22:30 122/75 96 08/10/16 22:00 116/74 96 08/10/16 21:30 121/69 97 08/10/16 21:00 121/69 93 08/10/16 20:52 20 08/10/16 20:30 105/70 95 08/10/16 20:00 111/75 94 08/10/16 19:54 23 108/81 99 08/10/16 19:30 116/72 94 08/10/16 19:00 117/76 96 08/10/16 18:30 114/75 97 08/10/16 18:08 108/69 97 08/10/16 18:00 108/69 97 08/10/16 17:30 123/83 97 08/10/16 17:00 108/70 94 08/10/16 16:30 129/81 94 08/10/16 16:00 136/84 94 08/10/16 15:30 125/74 91 08/10/16 15:00 124/86 96 08/10/16 14:30 120/75 94 08/10/16 14:17 128/85 94 08/10/16 14:00 121/74 95 08/10/16 13:30 124/80 94 08/10/16 13:00 120/78 96 08/10/16 12:30 120/83 96 08/10/16 12:05 119/71 94 08/10/16 12:00 119/71 92 08/10/16 11:30 123/81 95 08/10/16 11:00 128/73 91 - Physical Examination General: Other (intubated on the vent) Cardiac: Positive: irregularly irregular Extremities: Present: +1 Edema
--- NOTE | 2016-08-11 11:09 | XRay Report ---
SINGLE VIEW CHEST: Compared to 08/10/16. HISTORY: Followup of respiratory failure. FINDINGS: Mild cardiomegaly. Stable endotracheal tube with tip in midline. Mild pulmonary venous congestion. No significant interval change. IMPRESSION: No significant interval change.
--- NOTE | 2016-08-11 11:58 | Progress Note ---
Assessment and Plan Acute on chronic respiratory failure. Suspected chronic hypercapnic respiratory failure secondary to obesity hypoventilation syndrome versus COPD Hypokalemia/hyperglycemia. Resolved Bradycardia. Inactive Hypotension. Resolved off pressors CHF. Cardiology following Pulmonary hypertension. Sepsis from urinary source A. defibrillation Pulmonary embolism for history at [place] [facility] Spontaneous breathing trial. Proceed with extubation as tolerated If not tolerated, will recommend start tracheotomy discussion with patient's family Gentle diuretics 31 minutes spent in [id number] evaluation and coordination of care Subjective Date of service: 08/11/16 Principal diagnosis: acute on chronic respiratory failure, congestive heart failure Interval history: Being weaned off sedation. Intubated. Appears confused. Objective Vital Signs - 12hr 08/11/16 08/11/16 08/11/16 00:00 00:26 00:30 Temperature 98.5 F Pulse Rate 123 H 130 H 137 H Pulse Rate [ Anterior Right Throughout] Pulse Rate [ 102 H From Monitor] Respiratory 20 16 Rate Respiratory Rate [Anterior Right Throughout] Blood Pressure 121/92 115/92 120/83 O2 Sat by Pulse 97 98 98 Oximetry 08/11/16 08/11/16 08/11/16 01:00 01:23 01:30 Temperature Pulse Rate 115 H 108 H Pulse Rate [ 100 H Anterior Right Throughout] Pulse Rate [ From Monitor] Respiratory 20 20 Rate Respiratory 20 Rate [Anterior Right Throughout] Blood Pressure 118/76 121/82 O2 Sat by Pulse 96 99 Oximetry 08/11/16 08/11/16 08/11/16 01:42 02:00 02:30 Temperature Pulse Rate 106 H 106 H Pulse Rate [ 103 H Anterior Right Throughout] Pulse Rate [ From Monitor] Respiratory 20 20 Rate Respiratory 20 Rate [Anterior Right Throughout] Blood Pressure 133/89 135/87 O2 Sat by Pulse 95 99 Oximetry 08/11/16 08/11/16 08/11/16 03:00 03:30 04:00 Temperature 98.3 F Pulse Rate 101 H 106 H 105 H Pulse Rate [ Anterior Right Throughout] Pulse Rate [ 106 H From Monitor] Respiratory 20 16 20 Rate Respiratory Rate [Anterior Right Throughout] Blood Pressure 122/84 133/84 136/81 O2 Sat by Pulse 97 98 97 Oximetry 08/11/16 08/11/16 08/11/16 04:30 05:00 05:04 Temperature Pulse Rate 95 H 104 H 102 H Pulse Rate [ Anterior Right Throughout] Pulse Rate [ From Monitor] Respiratory 20 20 Rate Respiratory Rate [Anterior Right Throughout] Blood Pressure 116/80 133/88 133/88 O2 Sat by Pulse 96 96 96 Oximetry 08/11/16 08/11/16 08/11/16 05:30 06:00 08:00 Temperature 98.6 F Pulse Rate 102 H 97 H Pulse Rate [ Anterior Right Throughout] Pulse Rate [ From Monitor] Respiratory 19 20 Rate Respiratory Rate [Anterior Right Throughout] Blood Pressure 136/90 142/80 O2 Sat by Pulse 93 94 Oximetry 08/11/16 08/11/16 09:20 11:15 Temperature Pulse Rate 97 H 93 H Pulse Rate [ Anterior Right Throughout] Pulse Rate [ From Monitor] Respiratory Rate Respiratory Rate [Anterior Right Throughout] Blood Pressure 142/80 134/93 O2 Sat by Pulse 97 Oximetry Constitutional: alert, other (morbidly obese) ENT: other (orally intubated, critically ill on ventilator) Neck: other (large in cirumference) Effort: normal Ascultation: Bilateral: clear, diminished breath sounds, rhonchi Percussion: Bilateral: not dull Cardiovascular: regular rate and rhythm Gastrointestinal: hypoactive bowel sounds, soft, non-tender Neurologic: non-focal exam, pupils equal and round, other (RA SS 0) CBC and BMP: 08/10/16 05:25 08/10/16 09:04 ABG, PT/INR, D-dimer: ABG POC ABG pH 7.499 (7.35-7.45) H 08/11/16 05:05 POC ABG pCO2 56.4 (35-45) H 08/11/16 05:05 POC ABG pO2 104 (80-105) 08/11/16 05:05 POC ABG HCO3 43.9 08/11/16 05:05 POC ABG Total CO2 46 08/11/16 05:05 POC ABG O2 Sat 98 08/11/16 05:05 PT/INR, D-dimer PT 18.0 Sec. (12.2-14.9) H 08/03/16 15:06 INR 1.49 (0.87-1.13) H 08/03/16 15:06 D-Dimer 2516.52 ng/mlDDU (0-234) H 08/05/16 13:01 Abnormal lab findings: Abnormal Labs 02/08/04/16 08/04/16 09:41 12:25 17:02 WBC Hgb Hct MCV MCH MCHC RDW Plt Count Lymph % (Auto) Lymph # [place] # Seg Neutrophils % Seg Neuts % (Manual) Lymphocytes % (Manual) Nucleated RBC % Seg Neutrophils # Seg Neutrophils # Man Lymphocytes # (Manual) D-Dimer POC ABG pH POC ABG pCO2 POC ABG pO2 Sodium Potassium Chloride Carbon Dioxide BUN Creatinine Glucose POC Glucose 158 H 236 H 217 H Lactic Acid Calcium Ionized Calcium Phosphorus Total Bilirubin Direct Bilirubin AST ALT Total Creatine Kinase CK-MB (CK-2) CK-MB (CK-2) Rel Index Troponin T NT-Pro-B Natriuret Pep Albumin Gamma Globulins PEP Interpretation HDL Cholesterol Urine WBC (Auto) Urine Creatinine Complement C3 Complement C4 08/05/16 08/05/16 08/05/16 06:32 08:09 08:17 WBC Hgb Hct MCV MCH MCHC RDW Plt Count Lymph % (Auto) Lymph # [place] # Seg Neutrophils % Seg Neuts % (Manual) Lymphocytes % (Manual) Nucleated RBC % Seg Neutrophils # Seg Neutrophils # Man Lymphocytes # (Manual) D-Dimer POC ABG pH POC ABG pCO2 POC ABG pO2 Sodium Potassium Chloride Carbon Dioxide BUN Creatinine Glucose POC Glucose < 40 L 53 L 185 H Lactic Acid Calcium Ionized Calcium Phosphorus Total Bilirubin Direct Bilirubin AST ALT Total Creatine Kinase CK-MB (CK-2) CK-MB (CK-2) Rel Index Troponin T NT-Pro-B Natriuret Pep Albumin Gamma Globulins PEP Interpretation HDL Cholesterol Urine WBC (Auto) Urine Creatinine Complement C3 Complement C4 08/05/16 08/05/16 08/05/16 08:34 12:15 12:47 WBC Hgb Hct MCV MCH MCHC RDW Plt Count Lymph % (Auto) Lymph # [place] # Seg Neutrophils % Seg Neuts % (Manual) Lymphocytes % (Manual) Nucleated RBC % Seg Neutrophils # Seg Neutrophils # Man Lymphocytes # (Manual) D-Dimer POC ABG pH 7.169 L 7.077 L POC ABG pCO2 28.5 L 54.3 H POC ABG pO2 78 L Sodium Potassium Chloride Carbon Dioxide BUN Creatinine Glucose POC Glucose 128 H Lactic Acid Calcium Ionized Calcium Phosphorus Total Bilirubin Direct Bilirubin AST ALT Total Creatine Kinase CK-MB (CK-2) CK-MB (CK-2) Rel Index Troponin T NT-Pro-B Natriuret Pep Albumin Gamma Globulins PEP Interpretation HDL Cholesterol Urine WBC (Auto) Urine Creatinine Complement C3 Complement C4 08/05/16 08/05/16 08/05/16 13:01 13:01 13:01 WBC Hgb Hct MCV MCH MCHC RDW Plt Count Lymph % (Auto) Lymph # [place] # Seg Neutrophils % Seg Neuts % (Manual) Lymphocytes % (Manual) Nucleated RBC % Seg Neutrophils # Seg Neutrophils # Man Lymphocytes # (Manual) D-Dimer 2516.52 H POC ABG pH POC ABG pCO2 POC ABG pO2 Sodium Potassium Chloride Carbon Dioxide BUN Creatinine Glucose POC Glucose Lactic Acid Calcium Ionized Calcium Phosphorus Total Bilirubin Direct Bilirubin AST ALT Total Creatine Kinase 304 H CK-MB (CK-2) 11.6 H CK-MB (CK-2) Rel Index Troponin T 0.121 H* D NT-Pro-B Natriuret Pep 8307 H Albumin Gamma Globulins PEP Interpretation HDL Cholesterol 21 L Urine WBC (Auto) Urine Creatinine Complement C3 Complement C4 08/05/16 08/05/16 08/05/16 14:44 15:27 16:05 WBC Hgb Hct MCV MCH MCHC RDW Plt Count Lymph % (Auto) Lymph # [place] # Seg Neutrophils % Seg Neuts % (Manual) Lymphocytes % (Manual) Nucleated RBC % Seg Neutrophils # Seg Neutrophils # Man Lymphocytes # (Manual) D-Dimer POC ABG pH 7.020 L POC ABG pCO2 66.3 H POC ABG pO2 Sodium Potassium Chloride Carbon Dioxide BUN Creatinine Glucose POC Glucose Lactic Acid 10.9 H* Calcium Ionized Calcium Phosphorus Total Bilirubin Direct Bilirubin AST ALT Total Creatine Kinase 282 H CK-MB (CK-2) 11.9 H CK-MB (CK-2) Rel Index 4.2 H Troponin T 0.152 H* D NT-Pro-B Natriuret Pep Albumin Gamma Globulins PEP Interpretation HDL Cholesterol Urine WBC (Auto) Urine Creatinine Complement C3 Complement C4 08/05/16 08/05/16 08/05/16 17:01 17:43 22:09 WBC Hgb Hct MCV MCH MCHC RDW Plt Count Lymph % (Auto) Lymph # [place] # Seg Neutrophils % Seg Neuts % (Manual) Lymphocytes % (Manual) Nucleated RBC % Seg Neutrophils # Seg Neutrophils # Man Lymphocytes # (Manual) D-Dimer POC ABG pH 7.119 L POC ABG pCO2 63.2 H POC ABG pO2 51 L Sodium Potassium Chloride Carbon Dioxide BUN Creatinine Glucose POC Glucose 203 H 241 H Lactic Acid Calcium Ionized Calcium Phosphorus Total Bilirubin Direct Bilirubin AST ALT Total Creatine Kinase CK-MB (CK-2) CK-MB (CK-2) Rel Index Troponin T NT-Pro-B Natriuret Pep Albumin Gamma Globulins PEP Interpretation HDL Cholesterol Urine WBC (Auto) Urine Creatinine Complement C3 Complement C4 08/05/16 08/06/16 08/06/16 23:30 05:08 05:55 WBC Hgb Hct MCV MCH MCHC RDW Plt Count Lymph % (Auto) Lymph # [place] # Seg Neutrophils % Seg Neuts % (Manual) Lymphocytes % (Manual) Nucleated RBC % Seg Neutrophils # Seg Neutrophils # Man Lymphocytes # (Manual) D-Dimer POC ABG pH 7.289 L POC ABG pCO2 59.9 H POC ABG pO2 224 H Sodium Potassium Chloride Carbon Dioxide BUN Creatinine Glucose POC Glucose Lactic Acid 6.8 H* 5.3 H* Calcium Ionized Calcium Phosphorus Total Bilirubin Direct Bilirubin AST ALT Total Creatine Kinase CK-MB (CK-2) CK-MB (CK-2) Rel Index Troponin T NT-Pro-B Natriuret Pep Albumin Gamma Globulins PEP Interpretation HDL Cholesterol Urine WBC (Auto) Urine Creatinine Complement C3 Complement C4 08/06/16 08/06/16 08/06/16 06:16 09:05 09:05 WBC 15.1 H Hgb 9.1 L Hct 31.1 L MCV 69 L MCH 20 L MCHC 29 L RDW 20.6 H Plt Count 116 L Lymph % (Auto) Lymph # [place] # Seg Neutrophils % Seg Neuts % (Manual) 95.0 H Lymphocytes % (Manual) 2.0 L Nucleated RBC % 5.0 H Seg Neutrophils # Seg Neutrophils # Man 14.3 H Lymphocytes # (Manual) 0.3 L D-Dimer POC ABG pH POC ABG pCO2 POC ABG pO2 Sodium 136 L Potassium 6.0 H D Chloride 87.5 L Carbon Dioxide BUN 66 H Creatinine 3.9 H D Glucose 319 H POC Glucose 326 H Lactic Acid Calcium 5.5 L* D Ionized Calcium Phosphorus Total Bilirubin 3.2 H Direct Bilirubin AST 4838 H ALT 1620 H Total Creatine Kinase CK-MB (CK-2) CK-MB (CK-2) Rel Index Troponin T NT-Pro-B Natriuret Pep Albumin 2.7 L Gamma Globulins PEP Interpretation HDL Cholesterol Urine WBC (Auto) Urine Creatinine Complement C3 Complement C4 08/06/16 08/06/16 08/06/16 11:20 11:50 11:56 WBC Hgb Hct MCV MCH MCHC RDW Plt Count Lymph % (Auto) Lymph # [place] # Seg Neutrophils % Seg Neuts % (Manual) Lymphocytes % (Manual) Nucleated RBC % Seg Neutrophils # Seg Neutrophils # Man Lymphocytes # (Manual) D-Dimer POC ABG pH POC ABG pCO2 POC ABG pO2 Sodium Potassium Chloride Carbon Dioxide BUN Creatinine Glucose POC Glucose 318 H Lactic Acid Calcium Ionized Calcium 2.7 L* Phosphorus Total Bilirubin Direct Bilirubin AST ALT Total Creatine Kinase CK-MB (CK-2) CK-MB (CK-2) Rel Index Troponin T NT-Pro-B Natriuret Pep Albumin Gamma Globulins PEP Interpretation HDL Cholesterol Urine WBC (Auto) 28.0 H Urine Creatinine Complement C3 Complement C4 08/06/16 08/06/16 08/06/16 13:17 13:17 13:17 WBC Hgb Hct MCV MCH MCHC RDW Plt Count Lymph % (Auto) Lymph # [place] # Seg Neutrophils % Seg Neuts % (Manual) Lymphocytes % (Manual) Nucleated RBC % Seg Neutrophils # Seg Neutrophils # Man Lymphocytes # (Manual) D-Dimer POC ABG pH POC ABG pCO2 POC ABG pO2 Sodium 131 L Potassium 5.8 H Chloride 87.8 L Carbon Dioxide 15 L D BUN 67 H Creatinine 3.8 H Glucose 294 H POC Glucose Lactic Acid 5.3 H* Calcium 5.1 L* Ionized Calcium Phosphorus 9.0 H Total Bilirubin 3.1 H Direct Bilirubin 2.1 H AST 4901 H ALT 1607 H Total Creatine Kinase CK-MB (CK-2) CK-MB (CK-2) Rel Index Troponin T NT-Pro-B Natriuret Pep Albumin 2.7 L Gamma Globulins PEP Interpretation HDL Cholesterol Urine WBC (Auto) Urine Creatinine Complement C3 Complement C4 08/06/16 08/06/16 08/06/16 15:10 15:10 15:10 WBC Hgb Hct MCV MCH MCHC RDW Plt Count Lymph % (Auto) Lymph # [place] # Seg Neutrophils % Seg Neuts % (Manual) Lymphocytes % (Manual) Nucleated RBC % Seg Neutrophils # Seg Neutrophils # Man Lymphocytes # (Manual) D-Dimer POC ABG pH POC ABG pCO2 POC ABG pO2 Sodium Potassium Chloride Carbon Dioxide BUN Creatinine Glucose POC Glucose Lactic Acid Calcium Ionized Calcium 2.8 L* Phosphorus Total Bilirubin Direct Bilirubin AST ALT Total Creatine Kinase CK-MB (CK-2) CK-MB (CK-2) Rel Index Troponin T NT-Pro-B Natriuret Pep Albumin Gamma Globulins PEP Interpretation HDL Cholesterol Urine WBC (Auto) Urine Creatinine Complement C3 35 L Complement C4 8 L 08/06/16 08/06/16 08/06/16 15:10 15:10 15:44 WBC Hgb Hct MCV MCH MCHC RDW Plt Count Lymph % (Auto) Lymph # [place] # Seg Neutrophils % Seg Neuts % (Manual) Lymphocytes % (Manual) Nucleated RBC % Seg Neutrophils # Seg Neutrophils # Man Lymphocytes # (Manual) D-Dimer POC ABG pH POC ABG pCO2 POC ABG pO2 Sodium Potassium Chloride Carbon Dioxide BUN Creatinine Glucose POC Glucose Lactic Acid 4.5 H* Calcium Ionized Calcium Phosphorus Total Bilirubin Direct Bilirubin AST ALT Total Creatine Kinase CK-MB (CK-2) CK-MB (CK-2) Rel Index Troponin T NT-Pro-B Natriuret Pep Albumin 2.6 L Gamma Globulins 2.1 H PEP Interpretation see below H HDL Cholesterol Urine WBC (Auto) Urine Creatinine 60.1 H Complement C3 Complement C4 08/06/16 08/06/16 08/06/16 16:47 22:06 23:00 WBC Hgb Hct MCV MCH MCHC RDW Plt Count Lymph % (Auto) Lymph # [place] # Seg Neutrophils % Seg Neuts % (Manual) Lymphocytes % (Manual) Nucleated RBC % Seg Neutrophils # Seg Neutrophils # Man Lymphocytes # (Manual) D-Dimer POC ABG pH POC ABG pCO2 POC ABG pO2 Sodium Potassium Chloride Carbon Dioxide BUN Creatinine Glucose POC Glucose 282 H 348 H Lactic Acid 3.4 H* Calcium Ionized Calcium Phosphorus Total Bilirubin Direct Bilirubin AST ALT Total Creatine Kinase CK-MB (CK-2) CK-MB (CK-2) Rel Index Troponin T NT-Pro-B Natriuret Pep Albumin Gamma Globulins PEP Interpretation HDL Cholesterol Urine WBC (Auto) Urine Creatinine Complement C3 Complement C4 08/07/16 08/07/16 08/07/16 03:30 04:13 07:46 WBC Hgb Hct MCV MCH MCHC RDW Plt Count Lymph % (Auto) Lymph # [place] # Seg Neutrophils % Seg Neuts % (Manual) Lymphocytes % (Manual) Nucleated RBC % Seg Neutrophils # Seg Neutrophils # Man Lymphocytes # (Manual) D-Dimer POC ABG pH 7.479 H POC ABG pCO2 49.1 H POC ABG pO2 127 H Sodium Potassium Chloride Carbon Dioxide BUN Creatinine Glucose POC Glucose 316 H Lactic Acid 2.7 H* Calcium Ionized Calcium Phosphorus Total Bilirubin Direct Bilirubin AST ALT Total Creatine Kinase CK-MB (CK-2) CK-MB (CK-2) Rel Index Troponin T NT-Pro-B Natriuret Pep Albumin Gamma Globulins PEP Interpretation HDL Cholesterol Urine WBC (Auto) Urine Creatinine Complement C3 Complement C4 08/07/16 08/07/16 08/07/16 11:23 16:21 23:31 WBC Hgb Hct MCV MCH MCHC RDW Plt Count Lymph % (Auto) Lymph # [place] # Seg Neutrophils % Seg Neuts % (Manual) Lymphocytes % (Manual) Nucleated RBC % Seg Neutrophils # Seg Neutrophils # Man Lymphocytes # (Manual) D-Dimer POC ABG pH POC ABG pCO2 POC ABG pO2 Sodium Potassium Chloride Carbon Dioxide BUN Creatinine Glucose POC Glucose 321 H 287 H 285 H Lactic Acid Calcium Ionized Calcium Phosphorus Total Bilirubin Direct Bilirubin AST ALT Total Creatine Kinase CK-MB (CK-2) CK-MB (CK-2) Rel Index Troponin T NT-Pro-B Natriuret Pep Albumin Gamma Globulins PEP Interpretation HDL Cholesterol Urine WBC (Auto) Urine Creatinine Complement C3 Complement C4 08/08/16 08/08/16 08/08/16 05:26 06:42 07:50 WBC 11.3 H Hgb 8.7 L Hct 28.8 L MCV 66 L D MCH 20 L MCHC 30 L RDW 20.8 H Plt Count 89 L Lymph % (Auto) Lymph # [place] # Seg Neutrophils % Seg Neuts % (Manual) 90.0 H Lymphocytes % (Manual) 1.0 L Nucleated RBC % 2.0 H Seg Neutrophils # Seg Neutrophils # Man 10.2 H Lymphocytes # (Manual) 0.1 L D-Dimer POC ABG pH 7.555 H POC ABG pCO2 45.6 H POC ABG pO2 Sodium Potassium Chloride Carbon Dioxide BUN Creatinine Glucose POC Glucose 268 H Lactic Acid Calcium Ionized Calcium Phosphorus Total Bilirubin Direct Bilirubin AST ALT Total Creatine Kinase CK-MB (CK-2) CK-MB (CK-2) Rel Index Troponin T NT-Pro-B Natriuret Pep Albumin Gamma Globulins PEP Interpretation HDL Cholesterol Urine WBC (Auto) Urine Creatinine Complement C3 Complement C4 08/08/16 08/08/16 08/08/16 07:50 07:50 11:04 WBC Hgb Hct MCV MCH MCHC RDW Plt Count Lymph % (Auto) Lymph # [place] # Seg Neutrophils % Seg Neuts % (Manual) Lymphocytes % (Manual) Nucleated RBC % Seg Neutrophils # Seg Neutrophils # Man Lymphocytes # (Manual) D-Dimer POC ABG pH 7.461 H POC ABG pCO2 58.5 H POC ABG pO2 72 L Sodium Potassium 3.3 L D Chloride 93.1 L Carbon Dioxide 38 H D BUN 52 H Creatinine 2.6 H Glucose 268 H POC Glucose 265 H Lactic Acid Calcium 6.5 L D Ionized Calcium Phosphorus Total Bilirubin Direct Bilirubin AST ALT Total Creatine Kinase CK-MB (CK-2) CK-MB (CK-2) Rel Index Troponin T NT-Pro-B Natriuret Pep Albumin Gamma Globulins PEP Interpretation HDL Cholesterol Urine WBC (Auto) Urine Creatinine Complement C3 Complement C4 08/08/16 08/08/16 08/08/16 11:55 16:19 23:23 WBC Hgb Hct MCV MCH MCHC RDW Plt Count Lymph % (Auto) Lymph # [place] # Seg Neutrophils % Seg Neuts % (Manual) Lymphocytes % (Manual) Nucleated RBC % Seg Neutrophils # Seg Neutrophils # Man Lymphocytes # (Manual) D-Dimer POC ABG pH POC ABG pCO2 POC ABG pO2 Sodium Potassium Chloride Carbon Dioxide BUN Creatinine Glucose POC Glucose 237 H 209 H 246 H Lactic Acid Calcium Ionized Calcium Phosphorus Total Bilirubin Direct Bilirubin AST ALT Total Creatine Kinase CK-MB (CK-2) CK-MB (CK-2) Rel Index Troponin T NT-Pro-B Natriuret Pep Albumin Gamma Globulins PEP Interpretation HDL Cholesterol Urine WBC (Auto) Urine Creatinine Complement C3 Complement C4 08/09/16 08/09/16 08/09/16 05:51 06:00 06:00 WBC 12.0 H Hgb 8.4 L Hct 28.3 L MCV 68 L MCH 20 L MCHC 30 L RDW 21.2 H Plt Count 79 L Lymph % (Auto) 3.5 L Lymph # 0.4 L [place] # Seg Neutrophils % 89.9 H Seg Neuts % (Manual) Lymphocytes % (Manual) Nucleated RBC % Seg Neutrophils # 10.8 H Seg Neutrophils # Man Lymphocytes # (Manual) D-Dimer POC ABG pH 7.479 H POC ABG pCO2 67.7 H POC ABG pO2 Sodium Potassium 2.5 L* D Chloride 86.3 L Carbon Dioxide 51 H* D BUN 38 H Creatinine Glucose 695 H* POC Glucose Lactic Acid Calcium 6.3 L Ionized Calcium Phosphorus Total Bilirubin Direct Bilirubin AST ALT Total Creatine Kinase CK-MB (CK-2) CK-MB (CK-2) Rel Index Troponin T NT-Pro-B Natriuret Pep Albumin Gamma Globulins PEP Interpretation HDL Cholesterol Urine WBC (Auto) Urine Creatinine Complement C3 Complement C4 08/09/16 08/09/16 08/09/16 07:47 08:45 09:51 WBC Hgb Hct MCV MCH MCHC RDW Plt Count Lymph % (Auto) Lymph # [place] # Seg Neutrophils % Seg Neuts % (Manual) Lymphocytes % (Manual) Nucleated RBC % Seg Neutrophils # Seg Neutrophils # Man Lymphocytes # (Manual) D-Dimer POC ABG pH 7.458 H POC ABG pCO2 68.7 H POC ABG pO2 65 L Sodium Potassium Chloride 92.9 L Carbon Dioxide 40 H D BUN 42 H Creatinine 1.7 H Glucose 205 H POC Glucose 189 H Lactic Acid Calcium 7.7 L D Ionized Calcium Phosphorus Total Bilirubin Direct Bilirubin AST ALT Total Creatine Kinase CK-MB (CK-2) CK-MB (CK-2) Rel Index Troponin T NT-Pro-B Natriuret Pep Albumin Gamma Globulins PEP Interpretation HDL Cholesterol Urine WBC (Auto) Urine Creatinine Complement C3 Complement C4 08/09/16 08/09/16 08/09/16 11:55 13:35 16:05 WBC Hgb Hct MCV MCH MCHC RDW Plt Count Lymph % (Auto) Lymph # [place] # Seg Neutrophils % Seg Neuts % (Manual) Lymphocytes % (Manual) Nucleated RBC % Seg Neutrophils # Seg Neutrophils # Man Lymphocytes # (Manual) D-Dimer POC ABG pH POC ABG pCO2 POC ABG pO2 Sodium 148 H Potassium 2.9 L* D Chloride 96.4 L Carbon Dioxide 43 H* BUN 43 H Creatinine 1.6 H Glucose 205 H POC Glucose 222 H 204 H Lactic Acid Calcium 7.9 L Ionized Calcium Phosphorus Total Bilirubin Direct Bilirubin AST ALT Total Creatine Kinase CK-MB (CK-2) CK-MB (CK-2) Rel Index Troponin T NT-Pro-B Natriuret Pep Albumin Gamma Globulins PEP Interpretation HDL Cholesterol Urine WBC (Auto) Urine Creatinine Complement C3 Complement C4 08/09/16 08/10/16 08/10/16 22:43 05:24 05:25 WBC 13.2 H Hgb 9.4 L Hct 32.5 L MCV 68 L MCH 20 L MCHC 29 L RDW 21.1 H Plt Count 72 L Lymph % (Auto) 4.3 L Lymph # 0.6 L [place] # 1.0 H Seg Neutrophils % 88.5 H Seg Neuts % (Manual) Lymphocytes % (Manual) Nucleated RBC % Seg Neutrophils # 11.7 H Seg Neutrophils # Man Lymphocytes # (Manual) D-Dimer POC ABG pH 7.483 H POC ABG pCO2 69.0 H POC ABG pO2 Sodium Potassium Chloride Carbon Dioxide BUN Creatinine Glucose POC Glucose 207 H Lactic Acid Calcium Ionized Calcium Phosphorus Total Bilirubin Direct Bilirubin AST ALT Total Creatine Kinase CK-MB (CK-2) CK-MB (CK-2) Rel Index Troponin T NT-Pro-B Natriuret Pep Albumin Gamma Globulins PEP Interpretation HDL Cholesterol Urine WBC (Auto) Urine Creatinine Complement C3 Complement C4 08/10/16 08/10/16 08/10/16 07:31 09:04 11:22 WBC Hgb Hct MCV MCH MCHC RDW Plt Count Lymph % (Auto) Lymph # [place] # Seg Neutrophils % Seg Neuts % (Manual) Lymphocytes % (Manual) Nucleated RBC % Seg Neutrophils # Seg Neutrophils # Man Lymphocytes # (Manual) D-Dimer POC ABG pH POC ABG pCO2 POC ABG pO2 Sodium 147 H Potassium 3.4 L Chloride 96.8 L Carbon Dioxide 42 H* BUN 38 H Creatinine Glucose 144 H POC Glucose 165 H 137 H Lactic Acid Calcium 8.3 L Ionized Calcium Phosphorus Total Bilirubin Direct Bilirubin AST ALT Total Creatine Kinase CK-MB (CK-2) CK-MB (CK-2) Rel Index Troponin T NT-Pro-B Natriuret Pep Albumin Gamma Globulins PEP Interpretation HDL Cholesterol Urine WBC (Auto) Urine Creatinine Complement C3 Complement C4 08/10/16 08/10/16 08/11/16 15:55 23:00 05:05 WBC Hgb Hct MCV MCH MCHC RDW Plt Count Lymph % (Auto) Lymph # [place] # Seg Neutrophils % Seg Neuts % (Manual) Lymphocytes % (Manual) Nucleated RBC % Seg Neutrophils # Seg Neutrophils # Man Lymphocytes # (Manual) D-Dimer POC ABG pH 7.499 H POC ABG pCO2 56.4 H POC ABG pO2 Sodium Potassium Chloride Carbon Dioxide BUN Creatinine Glucose POC Glucose 110 H 201 H Lactic Acid Calcium Ionized Calcium Phosphorus Total Bilirubin Direct Bilirubin AST ALT Total Creatine Kinase CK-MB (CK-2) CK-MB (CK-2) Rel Index Troponin T NT-Pro-B Natriuret Pep Albumin Gamma Globulins PEP Interpretation HDL Cholesterol Urine WBC (Auto) Urine Creatinine Complement C3 Complement C4
[2016-08-11 16:20] LABS: Mean Corpuscular HGB Conc 28 % (32-34); Red Blood Count 5.02 M/mm3 (3.65-5.03); White Blood Count 13.4 K/mm3 (4.5-11.0)
[2016-08-11 16:30] LABS: Anion Gap 11 mmol/L; BUN/Creatinine Ratio 36.36; Blood Urea Nitrogen 40 mg/dL (9-20); Calcium 8.3 mg/dL (8.4-10.2); Carbon Dioxide 40 mmol/L (22-30); Chloride 104.8 mmol/L (98-107); Glucose 100 mg/dL (75-100); Sodium 153 mmol/L (137-145)
[2016-08-11 16:35] LABS: Potassium 2.6 mmol/L (3.6-5.0)
[2016-08-11 16:36] LABS: Hematocrit 34.7 % (35.5-45.6); Hemoglobin 9.8 gm/dl (11.8-15.2); Mean Corpuscular Hemoglobin 20 pg (28-32); Mean Corpuscular Volume 69 fl (84-94); Red Cell Distribution Width 21.5 % (13.2-15.2)
[2016-08-11] MEDS: fentaNYL DRIP Premix 2,000 MCG/100 ML BAG IV SCH ×2 (16:51→22:23)
[2016-08-11 17:14] LABS: Platelet Count 59 K/mm3 (140-440)
--- NOTE | 2016-08-11 17:26 | Progress Note ---
Assessment and Plan - Patient Problems (1) Acute CHF Current Visit: Yes Status: Acute Qualifiers: Congestive heart failure type: systolic Qualified Code(s): I50.21 - Acute systolic (congestive) heart failure Plan to address problem: Patient is not on Lasix and beta blockers because of his low BP (2) Acute respiratory failure Current Visit: Yes Status: Acute Qualifiers: Respiratory failure complication: R Plan to address problem: Intubated and mechanically ventilated Pulmonary is on board Failed Weaning trial Consider trach Patient is on antibiotics (3) Anemia Current Visit: Yes Status: Acute Qualifiers: Anemia type: A Iron deficiency anemia type: I Vitamin B12 deficiency anemia type: V Folate deficiency anemia type: F Bone marrow failure anemia type: B Hemolytic anemia type: H Other causes of anemia: O Plan to address problem: We'll follow closely, she doesn't need transfusion now (4) Atrial fibrillation with RVR Current Visit: Yes Status: Acute (5) COPD (chronic obstructive pulmonary disease) Current Visit: Yes Status: Acute Qualifiers: COPD type: C Chronic bronchitis type: C Emphysema type: E Plan to address problem: As stated above (6) Diabetes Current Visit: Yes Status: Acute Qualifiers: Diabetes mellitus type: D Diabetes mellitus complication status: D Diabetes mellitus complication detail: D Diabetic retinopathy severity: D Proliferative retinopathy type: P Diabetes mellitus macular edema: D Diabetes mellitus intermediate teacher insulin use: D Laterality: L Chronic kidney disease stage: C Plan to address problem: sliding scale insulin History Interval history: Patient is on mechanical ventilation, patient is off the ventilation and opens his eyes when I call his name. Hospitalist Physical - Physical exam Narrative exam: in cardiopulmonary distress. The patient appeared well nourished and normally developed. Vital signs as documented. Head exam is unremarkable. No scleral icterus . Neck is without jugular venous distension, thyromegaly, or carotid bruits. Lungs are clear to auscultation. Cardiac exam reveals regular rate and Rhythm. First and second heart sounds normal. No murmurs, rubs or gallops. Abdominal exam reveals normal bowel sounds, no masses, no organomegaly and no aortic enlargement. Extremities are edematous. 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 - Constitutional Vitals: Temp Pulse Resp BP Pulse Ox 98.7 F 101 H 20 118/82 93 08/11/16 12:00 08/11/16 15:06 08/11/16 06:00 08/11/16 15:06 08/11/16 15:06 General appearance: Present: no acute distress, obese Results - Labs CBC & Chem 7: 08/11/16 16:02 08/11/16 16:02 Labs: Laboratory Last Values WBC 13.4 K/mm3 (4.5-11.0) H 08/11/16 16:02 RBC 5.02 M/mm3 (3.65-5.03) 08/11/16 16:02 Hgb 9.8 gm/dl (11.8-15.2) L 08/11/16 16:02 Hct 34.7 % (35.5-45.6) L 08/11/16 16:02 MCV 69 fl (84-94) L 08/11/16 16:02 MCH 20 pg (28-32) L 08/11/16 16:02 MCHC 28 % (32-34) L 08/11/16 16:02 RDW 21.5 % (13.2-15.2) H 08/11/16 16:02 Plt Count 59 K/mm3 (140-440) L 08/11/16 16:02 Lymph % (Auto) 11.8 % (13.4-35.0) L 08/11/16 16:02 [place] % (Auto) 6.4 % (0.0-7.3) 08/11/16 16:02 Eos % (Auto) 0.0 % (0.0-4.3) 08/11/16 16:02 Baso % (Auto) 0.0 % (0.0-1.8) 08/11/16 16:02 Lymph # 1.6 K/mm3 (1.2-5.4) 08/11/16 16:02 [place] # 0.9 K/mm3 (0.0-0.8) H 08/11/16 16:02 Eos # 0.0 K/mm3 (0.0-0.4) 08/11/16 16:02 Baso # 0.0 K/mm3 (0.0-0.1) 08/11/16 16:02 Add Manual Diff Complete 08/08/16 07:50 Total Counted 100 08/08/16 07:50 Seg Neutrophils % 81.8 % (40.0-70.0) H 08/11/16 16:02 Seg Neuts % (Manual) 90.0 % (40.0-70.0) H 08/08/16 07:50 Band Neutrophils % 6.0 % 08/08/16 07:50 Lymphocytes % (Manual) 1.0 % (13.4-35.0) L 08/08/16 07:50 Reactive Lymphs % (Man) 0 % 08/08/16 07:50 Monocytes % (Manual) 3.0 % (0.0-7.3) 08/08/16 07:50 Eosinophils % (Manual) 0 % (0.0-4.3) 08/08/16 07:50 Basophils % (Manual) 0 % (0.0-1.8) 08/08/16 07:50 Metamyelocytes % 0 % 08/08/16 07:50 Myelocytes % 0 % 08/08/16 07:50 Promyelocytes % 0 % 08/08/16 07:50 Blast Cells % 0 % 08/08/16 07:50 Nucleated RBC % 2.0 % (0.0-0.9) H 08/08/16 07:50 Seg Neutrophils # 11.0 K/mm3 (1.8-7.7) H 08/11/16 16:02 Seg Neutrophils # Man 10.2 K/mm3 (1.8-7.7) H 08/08/16 07:50 Band Neutrophils # 0.7 K/mm3 08/08/16 07:50 Lymphocytes # (Manual) 0.1 K/mm3 (1.2-5.4) L 08/08/16 07:50 Abs React Lymphs (Man) 0.0 K/mm3 08/08/16 07:50 Monocytes # (Manual) 0.3 K/mm3 (0.0-0.8) 08/08/16 07:50 Eosinophils # (Manual) 0.0 K/mm3 (0.0-0.4) 08/08/16 07:50 Basophils # (Manual) 0.0 K/mm3 (0.0-0.1) 08/08/16 07:50 Metamyelocytes # 0.0 K/mm3 08/08/16 07:50 Myelocytes # 0.0 K/mm3 08/08/16 07:50 Promyelocytes # 0.0 K/mm3 08/08/16 07:50 Blast Cells # 0.0 K/mm3 08/08/16 07:50 WBC Morphology Not Reportable 08/08/16 07:50 Hypersegmented Neuts Not Reportable 08/08/16 07:50 Hyposegmented Neuts Not Reportable 08/08/16 07:50 Hypogranular Neuts Not Reportable 08/08/16 07:50 Smudge Cells Not Reportable 08/08/16 07:50 Toxic Granulation Not Reportable 08/08/16 07:50 Toxic Vacuolation Not Reportable 08/08/16 07:50 Dohle Bodies Not Reportable 08/08/16 07:50 Pelger-Huet Anomaly Not Reportable 08/08/16 07:50 Scott Rods Not Reportable 08/08/16 07:50 Platelet Estimate Appears decreased 08/08/16 07:50 Clumped Platelets Not Reportable 08/08/16 07:50 Plt Clumps, EDTA Not Reportable 08/08/16 07:50 Large Platelets Not Reportable 08/08/16 07:50 Giant Platelets Not Reportable 08/08/16 07:50 Platelet Satelliting Not Reportable 08/08/16 07:50 Plt Morphology Comment Not Reportable 08/08/16 07:50 RBC Morphology Not Reportable 08/08/16 07:50 Dimorphic RBCs Not Reportable 08/08/16 07:50 Polychromasia Few 08/08/16 07:50 Hypochromasia 1+ 08/08/16 07:50 Poikilocytosis Not Reportable 08/08/16 07:50 Anisocytosis 1+ 08/08/16 07:50 Microcytosis 1+ 08/08/16 07:50 Macrocytosis Not Reportable 08/08/16 07:50 Spherocytes Not Reportable 08/08/16 07:50 Pappenheimer Bodies Not Reportable 08/08/16 07:50 Sickle Cells Not Reportable 08/08/16 07:50 Target Cells Not Reportable 08/08/16 07:50 Tear Drop Cells Not Reportable 08/08/16 07:50 Ovalocytes Not Reportable 08/08/16 07:50 Helmet Cells Not Reportable 08/08/16 07:50 [place] Bodies Not Reportable 08/08/16 07:50 [place] Rings Not Reportable 08/08/16 07:50 [place] Cells Not Reportable 08/08/16 07:50 Bite Cells Not Reportable 08/08/16 07:50 Crenated Cell Not Reportable 08/08/16 07:50 Elliptocytes 1+ 08/08/16 07:50 Acanthocytes (Spur) Not Reportable 08/08/16 07:50 Rouleaux Not Reportable 08/08/16 07:50 Hemoglobin C Crystals Not Reportable 08/08/16 07:50 Schistocytes Not Reportable 08/08/16 07:50 Malaria parasites Not Reportable 08/08/16 07:50 Jun Bodies Not Reportable 08/08/16 07:50 Hem Pathologist Commnt No 08/08/16 07:50 PT 18.0 Sec. (12.2-14.9) H 08/03/16 15:06 INR 1.49 (0.87-1.13) H 08/03/16 15:06 APTT 28.8 Sec. (24.2-36.6) 08/03/16 15:06 D-Dimer 2516.52 ng/mlDDU (0-234) H 08/05/16 13:01 POC ABG pH 7.499 (7.35-7.45) H 08/11/16 05:05 POC ABG pCO2 56.4 (35-45) H 08/11/16 05:05 POC ABG pO2 104 (80-105) 08/11/16 05:05 POC ABG HCO3 43.9 08/11/16 05:05 POC ABG Total CO2 46 08/11/16 05:05 POC ABG O2 Sat 98 08/11/16 05:05 POC ABG Base Excess 21 08/11/16 05:05 FiO2 50 % 08/11/16 05:05 Sodium 153 mmol/L (137-145) H 08/11/16 16:02 Potassium 2.6 mmol/L (3.6-5.0) L* D 08/11/16 16:02 Chloride 104.8 mmol/L (98-107) 08/11/16 16:02 Carbon Dioxide 40 mmol/L (22-30) H 08/11/16 16:02 Anion Gap 11 mmol/L 08/11/16 16:02 BUN 40 mg/dL (9-20) H 08/11/16 16:02 Creatinine 1.1 mg/dL (0.8-1.5) 08/11/16 16:02 Estimated GFR > 60 ml/min 08/11/16 16:02 BUN/Creatinine Ratio 36.36 % 08/11/16 16:02 Glucose 100 mg/dL (75-100) 08/11/16 16:02 POC Glucose 201 (70-105) H 08/10/16 23:00 Lactic Acid 2.7 mmol/L (0.7-2.0) H* 08/07/16 03:30 Calcium 8.3 mg/dL (8.4-10.2) L 08/11/16 16:02 Ionized Calcium 2.8 mg/dL (4.8-5.6) L* 08/06/16 15:10 Phosphorus 9.0 mg/dL (2.5-4.5) H 08/06/16 13:17 Magnesium 2.0 mg/dL (1.7-2.3) 08/06/16 13:17 Total Bilirubin 3.1 mg/dL (0.1-1.2) H 08/06/16 13:17 Direct Bilirubin 2.1 mg/dL (0-0.2) H 08/06/16 13:17 Indirect Bilirubin 1.0 mg/dL 08/06/16 13:17 AST 4901 units/L (5-40) H 08/06/16 13:17 ALT 1607 units/L (7-56) H 08/06/16 13:17 Alkaline Phosphatase 111 units/L (35-129) 08/06/16 13:17 Ammonia 61.0 umol/L (25-60) H 08/03/16 15:06 Total Creatine Kinase 282 units/L (55-170) H 08/05/16 15:27 CK-MB (CK-2) 11.9 ng/mL (0.0-4.0) H 08/05/16 15:27 CK-MB (CK-2) Rel Index 4.2 (0-4) H 08/05/16 15:27 Troponin T 0.152 ng/mL (0.00-0.029) H* D 08/05/16 15:27 NT-Pro-B Natriuret Pep 8307 pg/mL (0-900) H 08/05/16 13:01 Serum Total Protein 6.3 g/dL (6.1-8.1) 08/06/16 15:10 Total Protein 6.6 g/dL (6.3-8.2) 08/06/16 13:17 Albumin 2.6 g/dL (3.8-4.8) L 08/06/16 15:10 Albumin/Globulin Ratio 0.7 % 08/06/16 13:17 Uzhlv-2-Ckyjqzdii 0.3 g/dL (0.2-0.3) 08/06/16 15:10 Dxtij-8-Wnssxbbtw 0.6 g/dL (0.5-0.9) 08/06/16 15:10 Beta Globulins 0.4 g/dL (0.2-0.5) 08/06/16 15:10 Gamma Globulins 2.1 g/dL (0.8-1.7) H 08/06/16 15:10 Abnorm Protein Band 1 see below 08/06/16 15:10 PEP Interpretation see below H 08/06/16 15:10 Triglycerides 31 mg/dL (2-149) 08/05/16 13:01 Cholesterol 86 mg/dL (50-199) 08/05/16 13:01 LDL Cholesterol Direct 59 mg/dL (50-130) 08/05/16 13:01 HDL Cholesterol 21 mg/dL (40-59) L 08/05/16 13:01 Cholesterol/HDL Ratio 4.09 % 08/05/16 13:01 Urine Color [place] (Yellow) 08/06/16 11:20 Urine Turbidity Cloudy (Clear) 08/06/16 11:20 Urine pH 5.0 (5.0-7.0) 08/06/16 11:20 Ur Specific [place] 1.014 (1.003-1.030) 08/06/16 11:20 Urine Protein 30 mg/dl mg/dL (Negative) 08/06/16 11:20 Urine Glucose (UA) 50 mg/dL (Negative) 08/06/16 11:20 Urine Ketones Neg mg/dL (Negative) 08/06/16 11:20 Urine Blood Mod (Negative) 08/06/16 11:20 Urine Nitrite Neg (Negative) 08/06/16 11:20 Urine Bilirubin Neg (Negative) 08/06/16 11:20 Urine Urobilinogen < 2.0 mg/dL (<2.0) 08/06/16 11:20 Ur Leukocyte Esterase Mod (Negative) 08/06/16 11:20 Urine WBC (Auto) 28.0 /HPF (0.0-6.0) H 08/06/16 11:20 Urine RBC (Auto) 15.0 /HPF (0.0-6.0) 08/06/16 11:20 U Epithel Cells (Auto) 1.0 /HPF (0-13.0) 08/06/16 11:20 Urine Bacteria (Auto) 2+ /HPF (Negative) 08/06/16 11:20 Amorphous Crystals Few 08/06/16 11:20 Urine Mucus Few /HPF 08/06/16 11:20 Urine Creatinine 60.1 mg/dL (0.1-20.0) H 08/06/16 15:44 Urine Sodium 45 mEq/L 08/06/16 15:44 Proteinase 3 (PR3) Ab <1.0 AI (<1.0) 08/06/16 15:10 Myeloperoxidase Ab <1.0 AI (<1.0) 08/06/16 15:10 Complement C3 35 mg/dL (90-180) L 08/06/16 15:10 Complement C4 8 mg/dL (16-47) L 08/06/16 15:10 Hepatitis A IgM Ab Non-reactive (NonReactive) 08/06/16 15:10 Hep Bs Antigen Non-reactive (Negative) 08/06/16 15:10 Hep B Core IgM Ab Non-reactive (NonReactive) 08/06/16 15:10 Hepatitis C Antibody Non-reactive (NonReactive) 08/06/16 15:10
[2016-08-11] MEDS ORDERED: KCL 20MEQ/100ML 20 MEQ/100 ML BAG IV ONE (18:00)
[2016-08-11] MEDS: KCL 20MEQ/100ML 20 MEQ/100 ML BAG IV SCH ×4 (18:30→22:23)
[2016-08-11] MEDS: LEVAQUIN 750MG/150ML 750 MG/150 ML BAG IV SCH (22:09)
[2016-08-11] MEDS: LEVEMIR SUB-Q SCH (22:11)
[2016-08-12] MEDS: DUONEB 0.5 MG-3 MG/3 ML SOLN IH SCH ×4 (01:38→20:04)
[2016-08-12 04:36] LABS: Anion Gap 13 mmol/L; Blood Urea Nitrogen 42 mg/dL (9-20); Calcium 8.3 mg/dL (8.4-10.2); Carbon Dioxide 38 mmol/L (22-30); Chloride 108.8 mmol/L (98-107); Glucose 157 mg/dL (75-100); Sodium 157 mmol/L (137-145)
[2016-08-12] MEDS: ZOSYN/NS 4.5GM/100ML 4.5 GM/100 ML VIAL IV SCH ×3 (05:53→22:27)
[2016-08-12 06:21] LABS: ISTAT Base Excess 18; ISTAT HCO3 41.1; ISTAT PH 7.497 (7.35-7.45); ISTAT PO2 95 (80-105); ISTAT SO2 98; ISTAT TCO2 43
[2016-08-12] MEDS: NOVOLOG SUB-Q SCH ×4 (08:36→22:25)
[2016-08-12] MEDS: fentaNYL DRIP Premix 2,000 MCG/100 ML BAG IV SCH ×3 (08:37→22:23)
--- NOTE | 2016-08-12 10:11 | XRay Report ---
AP chest History: Followup respiratory failure. Findings: Endotracheal tube and left arm PICC remain in good position. Mild increase in pulmonary venous congestion is suspected since yesterday's exam. Cardiomegaly is stable. The lungs remain generally clear although large areas of the left lung are obscured by cardiomegaly. Impression: Mild increase in venous congestion.
--- NOTE | 2016-08-12 12:11 | XRay Report ---
SUPINE KUB: The abdominal gas pattern is unremarkable. No masses or organomegaly is identified and there is no gross evidence of free air or fluid. No significant soft tissue calcifications are noted. The feeding tube terminates in the fundus of the stomach. IMPRESSION: Normal study.
--- NOTE | 2016-08-12 12:11 | Progress Note ---
Assessment and Plan Altered mental status Vasodilatory shock and lactic acidosis Acute Respiratory failure intubated on the vent Hypokalemia Congestive heart failure, Acute on chronic diastolic LVEF 45-50% with evidence of a dilated RV/RA and severe pulmonary hypertension COPD on home oxygen therapy Obstructive sleep apnea Atrial fibrillation Patient was supposed to be on xarelto as outpatient but he is non-compliant History of bilateral pulmonary embolism by CT at [place] Type II DM Systemic Hypertension Microcytic anemia, chronic per records Recommendations: Continue current therapy and attempts at weaning Supportive cardiac management. Subjective Date of service: 08/12/16 Principal diagnosis: acute on chronic respiratory failure, congestive heart failure Interval history: No acute events. Remains on mechanical ventilation. Objective Vital Signs Temp Pulse Pulse Pulse Resp Resp Resp 08/12/16 11:55 99.1 F 08/12/16 11:38 101 H 08/12/16 08:25 107 H 20 08/12/16 08:07 105 H 20 08/12/16 08:00 98.6 F 106 H 08/12/16 07:30 102 H 20 08/12/16 07:00 110 H 20 08/12/16 06:30 98 H 19 08/12/16 06:00 105 H 20 08/12/16 05:31 129 H 20 08/12/16 05:00 105 H 20 08/12/16 04:37 101.0 F H 08/12/16 04:30 109 H 17 08/12/16 04:00 101 F H 110 H 21 08/12/16 03:41 114 H 08/12/16 03:30 115 H 19 08/12/16 03:00 111 H 20 08/12/16 02:31 119 H 20 08/12/16 02:00 117 H 113 H 20 08/12/16 01:40 117 H 20 08/12/16 01:30 106 H 20 08/12/16 01:00 106 H 20 08/12/16 00:30 120 H 20 08/12/16 00:23 108 H 21 08/12/16 00:00 100 F H 121 H 20 08/11/16 23:52 115 H 08/11/16 23:30 121 H 17 08/11/16 23:00 109 H 20 08/11/16 22:30 104 H 20 08/11/16 22:00 112 H 20 08/11/16 21:30 112 H 20 08/11/16 21:18 123 H 16 08/11/16 21:00 111 H 20 08/11/16 20:32 109 H 20 08/11/16 20:31 107 H 20 08/11/16 20:17 104 H 08/11/16 20:00 98.5 F 112 H 20 08/11/16 19:30 103 H 20 08/11/16 19:00 100 H 20 08/11/16 18:30 103 H 21 08/11/16 18:00 112 H 20 08/11/16 17:30 100 H 20 08/11/16 17:00 104 H 19 08/11/16 16:30 105 H 20 08/11/16 16:00 98.6 F 121 H 17 08/11/16 15:30 119 H 104 H 21 08/11/16 15:10 102 H 20 08/11/16 15:06 101 H 08/11/16 15:00 94 H 20 08/11/16 14:30 101 H 21 08/11/16 14:00 94 H 17 08/11/16 13:30 102 H 21 08/11/16 13:00 102 H 20 08/11/16 12:30 103 H 19 BP Pulse Ox 08/12/16 11:55 08/12/16 11:38 114/81 96 08/12/16 08:25 08/12/16 08:07 08/12/16 08:00 130/83 95 08/12/16 07:30 130/83 97 08/12/16 07:00 127/82 97 08/12/16 06:30 123/76 96 08/12/16 06:00 120/69 97 08/12/16 05:31 136/80 95 08/12/16 05:00 138/82 96 08/12/16 04:37 08/12/16 04:30 125/78 98 08/12/16 04:00 127/76 99 08/12/16 03:41 123/75 98 08/12/16 03:30 123/75 98 08/12/16 03:00 108/84 98 08/12/16 02:31 110/80 97 08/12/16 02:00 123/75 95 08/12/16 01:40 08/12/16 01:30 123/77 96 08/12/16 01:00 121/80 97 08/12/16 00:30 127/71 96 08/12/16 00:23 120/67 97 08/12/16 00:00 120/67 97 08/11/16 23:52 129/81 96 08/11/16 23:30 129/81 95 08/11/16 23:00 123/80 95 08/11/16 22:30 128/77 96 08/11/16 22:00 135/84 96 08/11/16 21:30 133/77 96 08/11/16 21:18 08/11/16 21:00 134/87 99 08/11/16 20:32 08/11/16 20:31 137/99 99 08/11/16 20:17 131/80 96 08/11/16 20:00 136/80 97 08/11/16 19:30 130/80 96 08/11/16 19:00 124/82 97 08/11/16 18:30 123/79 97 08/11/16 18:00 135/87 95 08/11/16 17:30 133/81 97 08/11/16 17:00 124/85 97 08/11/16 16:30 112/76 96 08/11/16 16:00 121/70 92 08/11/16 15:30 112/76 97 08/11/16 15:10 08/11/16 15:06 118/82 93 08/11/16 15:00 118/82 96 08/11/16 14:30 136/90 96 08/11/16 14:00 127/80 96 08/11/16 13:30 134/83 98 08/11/16 13:00 128/81 95 08/11/16 12:30 118/84 94 - Physical Examination General: Other (intubated on the vent) HEENT: Positive: PERRL Neck: Positive: neck supple Cardiac: Positive: Reg Rate and Rhythm Lungs: Positive: clear to auscultation Abdomen: Positive: Soft Extremities: Present: +1 Edema - Labs and Meds CBC 08/11/16 Range/Units 16:02 WBC 13.4 H (4.5-11.0) K/mm3 RBC 5.02 (3.65-5.03) M/mm3 Hgb 9.8 L (11.8-15.2) gm/dl Hct 34.7 L (35.5-45.6) % Plt Count 59 L (140-440) K/mm3 Lymph # 1.6 (1.2-5.4) K/mm3 [place] # 0.9 H (0.0-0.8) K/mm3 Eos # 0.0 (0.0-0.4) K/mm3 Baso # 0.0 (0.0-0.1) K/mm3 Comprehensive Metabolic Panel 08/11/16 08/12/16 Range/Units 16:02 03:54 Sodium 153 H 157 H (137-145) mmol/L Potassium 2.6 L* D 3.0 L (3.6-5.0) mmol/L Chloride 104.8 108.8 H (98-107) mmol/L Carbon Dioxide 40 H 38 H (22-30) mmol/L BUN 40 H 42 H (9-20) mg/dL Creatinine 1.1 1.2 (0.8-1.5) mg/dL Glucose 100 157 H (75-100) mg/dL Calcium 8.3 L 8.3 L (8.4-10.2) mg/dL
[2016-08-12] MEDS: LOVENOX SUB-Q SCH ×2 (12:33→22:27)
--- NOTE | 2016-08-12 13:19 | Progress Note ---
Assessment and Plan Impression * Acute kidney injury secondary to prerenal azotemia vs ATN - resolved * Acute hypoxic respiratory failure * Sepsis * Metabolic alkalosis * Hypokalemia secondary to #3 * Edema Plan: * His serum creatinine noted to be slightly higher and serum sodium is also going up. Suspect a prerenal component. He needs more free water * Patient is s/p Diamox x 2 doses . His metabolic alkalosis is most likely secondary to diuretics. PH is now 7.49 * Vent management per [facility] * Replete lytes prn * Abx per primary team * Dose medications for renal function * Avoid nephrotoxins Subjective Date of service: 08/12/16 Principal diagnosis: acute on chronic respiratory failure, congestive heart failure Interval history: Patient remains on the ventilator. Currently on 45% FiO2. Sedated Objective - Vital Signs Vital signs: Vital Signs - 12hr 08/12/16 08/12/16 08/12/16 01:30 01:40 02:00 Temperature Pulse Rate 106 H 117 H Pulse Rate [ 117 H 113 H Anterior Bilateral Throughout] Respiratory 20 20 Rate Respiratory 20 22 Rate [Anterior Bilateral Throughout] Blood Pressure 123/77 123/75 O2 Sat by Pulse 96 95 Oximetry 08/12/16 08/12/16 08/12/16 02:31 03:00 03:30 Temperature Pulse Rate 119 H 111 H 115 H Pulse Rate [ Anterior Bilateral Throughout] Respiratory 20 20 19 Rate Respiratory Rate [Anterior Bilateral Throughout] Blood Pressure 110/80 108/84 123/75 O2 Sat by Pulse 97 98 98 Oximetry 08/12/16 08/12/16 08/12/16 03:41 04:00 04:30 Temperature 101 F H Pulse Rate 114 H 110 H 109 H Pulse Rate [ Anterior Bilateral Throughout] Respiratory 21 17 Rate Respiratory Rate [Anterior Bilateral Throughout] Blood Pressure 123/75 127/76 125/78 O2 Sat by Pulse 98 99 98 Oximetry 08/12/16 08/12/16 08/12/16 04:37 05:00 05:31 Temperature 101.0 F H Pulse Rate 105 H 129 H Pulse Rate [ Anterior Bilateral Throughout] Respiratory 20 20 Rate Respiratory Rate [Anterior Bilateral Throughout] Blood Pressure 138/82 136/80 O2 Sat by Pulse 96 95 Oximetry 08/12/16 08/12/16 08/12/16 06:00 06:30 07:00 Temperature Pulse Rate 105 H 98 H 110 H Pulse Rate [ Anterior Bilateral Throughout] Respiratory 20 19 20 Rate Respiratory Rate [Anterior Bilateral Throughout] Blood Pressure 120/69 123/76 127/82 O2 Sat by Pulse 97 96 97 Oximetry 08/12/16 08/12/16 08/12/16 07:30 08:00 08:07 Temperature 98.6 F Pulse Rate 102 H 106 H Pulse Rate [ 105 H Anterior Bilateral Throughout] Respiratory 20 Rate Respiratory 20 Rate [Anterior Bilateral Throughout] Blood Pressure 130/83 130/83 O2 Sat by Pulse 97 95 Oximetry 08/12/16 08/12/16 08/12/16 08:25 11:38 11:55 Temperature 99.1 F Pulse Rate 101 H Pulse Rate [ 107 H Anterior Bilateral Throughout] Respiratory Rate Respiratory 20 Rate [Anterior Bilateral Throughout] Blood Pressure 114/81 O2 Sat by Pulse 96 Oximetry 08/12/16 13:07 Temperature Pulse Rate Pulse Rate [ 102 H Anterior Bilateral Throughout] Respiratory Rate Respiratory 20 Rate [Anterior Bilateral Throughout] Blood Pressure O2 Sat by Pulse Oximetry - General Appearance General appearance: well-developed, well-nourished, appears stated age, intubated EENT: ATNC Neck: no JVD, no thyromegaly, no carotid bruit, supple Respiratory: Present: Clear to Ascultation Cardiology: regular, normal heart rate, S1S2, no murmurs Gastrointestinal: normal, normoactive bowel sounds - Lab 08/11/16 16:02 08/12/16 03:54 Most recent lab results Calcium 8.3 mg/dL (8.4-10.2) L 08/12/16 03:54 Phosphorus 9.0 mg/dL (2.5-4.5) H 08/06/16 13:17 Magnesium 2.0 mg/dL (1.7-2.3) 08/06/16 13:17 Urine Creatinine 60.1 mg/dL (0.1-20.0) H 08/06/16 15:44 Urine Sodium 45 mEq/L 08/06/16 15:44
--- NOTE | 2016-08-12 13:46 | Progress Note ---
Assessment and Plan - Patient Problems (1) Acute CHF Current Visit: Yes Status: Acute Qualifiers: Congestive heart failure type: systolic Qualified Code(s): I50.21 - Acute systolic (congestive) heart failure Plan to address problem: Patient is not on Lasix and beta blockers because of his low BP (2) Acute respiratory failure Current Visit: Yes Status: Acute Qualifiers: Respiratory failure complication: R Plan to address problem: Intubated and mechanically ventilated Pulmonary is on board Failed Weaning trial Consider trach Patient is on antibiotics (3) Anemia Current Visit: Yes Status: Acute Qualifiers: Anemia type: A Iron deficiency anemia type: I Vitamin B12 deficiency anemia type: V Folate deficiency anemia type: F Bone marrow failure anemia type: B Hemolytic anemia type: H Other causes of anemia: O Plan to address problem: We'll follow closely, she doesn't need transfusion now (4) Atrial fibrillation with RVR Current Visit: Yes Status: Acute (5) COPD (chronic obstructive pulmonary disease) Current Visit: Yes Status: Acute Qualifiers: COPD type: C Chronic bronchitis type: C Emphysema type: E Plan to address problem: As stated above (6) Diabetes Current Visit: Yes Status: Acute Qualifiers: Diabetes mellitus type: D Diabetes mellitus complication status: D Diabetes mellitus complication detail: D Diabetic retinopathy severity: D Proliferative retinopathy type: P Diabetes mellitus macular edema: D Diabetes mellitus terminologist insulin use: D Laterality: L Chronic kidney disease stage: C (7) History of pulmonary embolus (PE) Current Visit: Yes Status: Acute Plan to address problem: Patient does history of bilateral PE at [place] Patient was on Lovenox and we discontinued today because of his platelet count dropped down to 60 History Interval history: Patient is on mechanical ventilation, no significant change. Hospitalist Physical - Physical exam Narrative exam: in cardiopulmonary distress. The patient appeared well nourished and normally developed. Vital signs as documented. Head exam is unremarkable. No scleral icterus . Neck is without jugular venous distension, thyromegaly, or carotid bruits. Lungs are clear to auscultation. Cardiac exam reveals regular rate and Rhythm. First and second heart sounds normal. No murmurs, rubs or gallops. Abdominal exam reveals normal bowel sounds, no masses, no organomegaly and no aortic enlargement. Extremities are edematous. 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 - Constitutional Vitals: Temp Pulse Resp BP Pulse Ox 99.1 F 63 21 114/81 96 08/12/16 11:55 08/12/16 13:16 08/12/16 13:16 08/12/16 11:38 08/12/16 11:38 General appearance: Present: no acute distress, obese Results - Labs CBC & Chem 7: 08/11/16 16:02 08/12/16 03:54 Labs: Laboratory Last Values WBC 13.4 K/mm3 (4.5-11.0) H 08/11/16 16:02 RBC 5.02 M/mm3 (3.65-5.03) 08/11/16 16:02 Hgb 9.8 gm/dl (11.8-15.2) L 08/11/16 16:02 Hct 34.7 % (35.5-45.6) L 08/11/16 16:02 MCV 69 fl (84-94) L 08/11/16 16:02 MCH 20 pg (28-32) L 08/11/16 16:02 MCHC 28 % (32-34) L 08/11/16 16:02 RDW 21.5 % (13.2-15.2) H 08/11/16 16:02 Plt Count 59 K/mm3 (140-440) L 08/11/16 16:02 Lymph % (Auto) 11.8 % (13.4-35.0) L 08/11/16 16:02 Travis % (Auto) 6.4 % (0.0-7.3) 08/11/16 16:02 Eos % (Auto) 0.0 % (0.0-4.3) 08/11/16 16:02 Baso % (Auto) 0.0 % (0.0-1.8) 08/11/16 16:02 Lymph # 1.6 K/mm3 (1.2-5.4) 08/11/16 16:02 Travis # 0.9 K/mm3 (0.0-0.8) H 08/11/16 16:02 Eos # 0.0 K/mm3 (0.0-0.4) 08/11/16 16:02 Baso # 0.0 K/mm3 (0.0-0.1) 08/11/16 16:02 Add Manual Diff Complete 08/08/16 07:50 Total Counted 100 08/08/16 07:50 Seg Neutrophils % 81.8 % (40.0-70.0) H 08/11/16 16:02 Seg Neuts % (Manual) 90.0 % (40.0-70.0) H 08/08/16 07:50 Band Neutrophils % 6.0 % 08/08/16 07:50 Lymphocytes % (Manual) 1.0 % (13.4-35.0) L 08/08/16 07:50 Reactive Lymphs % (Man) 0 % 08/08/16 07:50 Monocytes % (Manual) 3.0 % (0.0-7.3) 08/08/16 07:50 Eosinophils % (Manual) 0 % (0.0-4.3) 08/08/16 07:50 Basophils % (Manual) 0 % (0.0-1.8) 08/08/16 07:50 Metamyelocytes % 0 % 08/08/16 07:50 Myelocytes % 0 % 08/08/16 07:50 Promyelocytes % 0 % 08/08/16 07:50 Blast Cells % 0 % 08/08/16 07:50 Nucleated RBC % 2.0 % (0.0-0.9) H 08/08/16 07:50 Seg Neutrophils # 11.0 K/mm3 (1.8-7.7) H 08/11/16 16:02 Seg Neutrophils # Man 10.2 K/mm3 (1.8-7.7) H 08/08/16 07:50 Band Neutrophils # 0.7 K/mm3 08/08/16 07:50 Lymphocytes # (Manual) 0.1 K/mm3 (1.2-5.4) L 08/08/16 07:50 Abs React Lymphs (Man) 0.0 K/mm3 08/08/16 07:50 Monocytes # (Manual) 0.3 K/mm3 (0.0-0.8) 08/08/16 07:50 Eosinophils # (Manual) 0.0 K/mm3 (0.0-0.4) 08/08/16 07:50 Basophils # (Manual) 0.0 K/mm3 (0.0-0.1) 08/08/16 07:50 Metamyelocytes # 0.0 K/mm3 08/08/16 07:50 Myelocytes # 0.0 K/mm3 08/08/16 07:50 Promyelocytes # 0.0 K/mm3 08/08/16 07:50 Blast Cells # 0.0 K/mm3 08/08/16 07:50 WBC Morphology Not Reportable 08/08/16 07:50 Hypersegmented Neuts Not Reportable 08/08/16 07:50 Hyposegmented Neuts Not Reportable 08/08/16 07:50 Hypogranular Neuts Not Reportable 08/08/16 07:50 Smudge Cells Not Reportable 08/08/16 07:50 Toxic Granulation Not Reportable 08/08/16 07:50 Toxic Vacuolation Not Reportable 08/08/16 07:50 Dohle Bodies Not Reportable 08/08/16 07:50 Pelger-Huet Anomaly Not Reportable 08/08/16 07:50 Scott Rods Not Reportable 08/08/16 07:50 Platelet Estimate Appears decreased 08/08/16 07:50 Clumped Platelets Not Reportable 08/08/16 07:50 Plt Clumps, EDTA Not Reportable 08/08/16 07:50 Large Platelets Not Reportable 08/08/16 07:50 Giant Platelets Not Reportable 08/08/16 07:50 Platelet Satelliting Not Reportable 08/08/16 07:50 Plt Morphology Comment Not Reportable 08/08/16 07:50 RBC Morphology Not Reportable 08/08/16 07:50 Dimorphic RBCs Not Reportable 08/08/16 07:50 Polychromasia Few 08/08/16 07:50 Hypochromasia 1+ 08/08/16 07:50 Poikilocytosis Not Reportable 08/08/16 07:50 Anisocytosis 1+ 08/08/16 07:50 Microcytosis 1+ 08/08/16 07:50 Macrocytosis Not Reportable 08/08/16 07:50 Spherocytes Not Reportable 08/08/16 07:50 Pappenheimer Bodies Not Reportable 08/08/16 07:50 Sickle Cells Not Reportable 08/08/16 07:50 Target Cells Not Reportable 08/08/16 07:50 Tear Drop Cells Not Reportable 08/08/16 07:50 Ovalocytes Not Reportable 08/08/16 07:50 Helmet Cells Not Reportable 08/08/16 07:50 [place] Bodies Not Reportable 08/08/16 07:50 [place] Rings Not Reportable 08/08/16 07:50 Juan F Cells Not Reportable 08/08/16 07:50 Bite Cells Not Reportable 08/08/16 07:50 Crenated Cell Not Reportable 08/08/16 07:50 Elliptocytes 1+ 08/08/16 07:50 Acanthocytes (Spur) Not Reportable 08/08/16 07:50 Rouleaux Not Reportable 08/08/16 07:50 Hemoglobin C Crystals Not Reportable 08/08/16 07:50 Schistocytes Not Reportable 08/08/16 07:50 Malaria parasites Not Reportable 08/08/16 07:50 Jun Bodies Not Reportable 08/08/16 07:50 Hem Pathologist Commnt No 08/08/16 07:50 PT 18.0 Sec. (12.2-14.9) H 08/03/16 15:06 INR 1.49 (0.87-1.13) H 08/03/16 15:06 APTT 28.8 Sec. (24.2-36.6) 08/03/16 15:06 D-Dimer 2516.52 ng/mlDDU (0-234) H 08/05/16 13:01 POC ABG pH 7.497 (7.35-7.45) H 08/12/16 06:13 POC ABG pCO2 53.0 (35-45) H 08/12/16 06:13 POC ABG pO2 95 (80-105) 08/12/16 06:13 POC ABG HCO3 41.1 08/12/16 06:13 POC ABG Total CO2 43 08/12/16 06:13 POC ABG O2 Sat 98 08/12/16 06:13 POC ABG Base Excess 18 08/12/16 06:13 FiO2 45 % 08/12/16 06:13 Sodium 157 mmol/L (137-145) H 08/12/16 03:54 Potassium 3.0 mmol/L (3.6-5.0) L 08/12/16 03:54 Chloride 108.8 mmol/L (98-107) H 08/12/16 03:54 Carbon Dioxide 38 mmol/L (22-30) H 08/12/16 03:54 Anion Gap 13 mmol/L 08/12/16 03:54 BUN 42 mg/dL (9-20) H 08/12/16 03:54 Creatinine 1.2 mg/dL (0.8-1.5) 08/12/16 03:54 Estimated GFR > 60 ml/min 08/12/16 03:54 BUN/Creatinine Ratio 35.00 % 08/12/16 03:54 Glucose 157 mg/dL (75-100) H 08/12/16 03:54 POC Glucose 148 (70-105) H 08/12/16 11:29 Lactic Acid 2.7 mmol/L (0.7-2.0) H* 08/07/16 03:30 Calcium 8.3 mg/dL (8.4-10.2) L 08/12/16 03:54 Ionized Calcium 2.8 mg/dL (4.8-5.6) L* 08/06/16 15:10 Phosphorus 9.0 mg/dL (2.5-4.5) H 08/06/16 13:17 Magnesium 2.0 mg/dL (1.7-2.3) 08/06/16 13:17 Total Bilirubin 3.1 mg/dL (0.1-1.2) H 08/06/16 13:17 Direct Bilirubin 2.1 mg/dL (0-0.2) H 08/06/16 13:17 Indirect Bilirubin 1.0 mg/dL 08/06/16 13:17 AST 4901 units/L (5-40) H 08/06/16 13:17 ALT 1607 units/L (7-56) H 08/06/16 13:17 Alkaline Phosphatase 111 units/L (35-129) 08/06/16 13:17 Ammonia 61.0 umol/L (25-60) H 08/03/16 15:06 Total Creatine Kinase 282 units/L (55-170) H 08/05/16 15:27 CK-MB (CK-2) 11.9 ng/mL (0.0-4.0) H 08/05/16 15:27 CK-MB (CK-2) Rel Index 4.2 (0-4) H 08/05/16 15:27 Troponin T 0.152 ng/mL (0.00-0.029) H* D 08/05/16 15:27 NT-Pro-B Natriuret Pep 8307 pg/mL (0-900) H 08/05/16 13:01 Serum Total Protein 6.3 g/dL (6.1-8.1) 08/06/16 15:10 Total Protein 6.6 g/dL (6.3-8.2) 08/06/16 13:17 Albumin 2.6 g/dL (3.8-4.8) L 08/06/16 15:10 Albumin/Globulin Ratio 0.7 % 08/06/16 13:17 Jlxtc-6-[id number] 0.3 g/dL (0.2-0.3) 08/06/16 15:10 Swope-8-Gpunfphyf 0.6 g/dL (0.5-0.9) 08/06/16 15:10 Beta Globulins 0.4 g/dL (0.2-0.5) 08/06/16 15:10 Gamma Globulins 2.1 g/dL (0.8-1.7) H 08/06/16 15:10 Abnorm Protein Band 1 see below 08/06/16 15:10 PEP Interpretation see below H 08/06/16 15:10 Triglycerides 31 mg/dL (2-149) 08/05/16 13:01 Cholesterol 86 mg/dL (50-199) 08/05/16 13:01 LDL Cholesterol Direct 59 mg/dL (50-130) 08/05/16 13:01 HDL Cholesterol 21 mg/dL (40-59) L 08/05/16 13:01 Cholesterol/HDL Ratio 4.09 % 08/05/16 13:01 Urine Color [place] (Yellow) 08/06/16 11:20 Urine Turbidity Cloudy (Clear) 08/06/16 11:20 Urine pH 5.0 (5.0-7.0) 08/06/16 11:20 Ur Specific [place] 1.014 (1.003-1.030) 08/06/16 11:20 Urine Protein 30 mg/dl mg/dL (Negative) 08/06/16 11:20 Urine Glucose (UA) 50 mg/dL (Negative) 08/06/16 11:20 Urine Ketones Neg mg/dL (Negative) 08/06/16 11:20 Urine Blood Mod (Negative) 08/06/16 11:20 Urine Nitrite Neg (Negative) 08/06/16 11:20 Urine Bilirubin Neg (Negative) 08/06/16 11:20 Urine Urobilinogen < 2.0 mg/dL (<2.0) 08/06/16 11:20 Ur Leukocyte Esterase Mod (Negative) 08/06/16 11:20 Urine WBC (Auto) 28.0 /HPF (0.0-6.0) H 08/06/16 11:20 Urine RBC (Auto) 15.0 /HPF (0.0-6.0) 08/06/16 11:20 U Epithel Cells (Auto) 1.0 /HPF (0-13.0) 08/06/16 11:20 Urine Bacteria (Auto) 2+ /HPF (Negative) 08/06/16 11:20 Amorphous Crystals Few 08/06/16 11:20 Urine Mucus Few /HPF 08/06/16 11:20 Urine Creatinine 60.1 mg/dL (0.1-20.0) H 08/06/16 15:44 Urine Sodium 45 mEq/L 08/06/16 15:44 Proteinase 3 (PR3) Ab <1.0 AI (<1.0) 08/06/16 15:10 Myeloperoxidase Ab <1.0 AI (<1.0) 08/06/16 15:10 Complement C3 35 mg/dL (90-180) L 08/06/16 15:10 Complement C4 8 mg/dL (16-47) L 08/06/16 15:10 Hepatitis A IgM Ab Non-reactive (NonReactive) 08/06/16 15:10 Hep Bs Antigen Non-reactive (Negative) 08/06/16 15:10 Hep B Core IgM Ab Non-reactive (NonReactive) 08/06/16 15:10 Hepatitis C Antibody Non-reactive (NonReactive) 08/06/16 15:10
--- NOTE | 2016-08-12 16:07 | Progress Note ---
Assessment and Plan ssessment and Plan Acute on chronic respiratory failure. Suspected chronic hypercapnic respiratory failure secondary to obesity hypoventilation syndrome versus COPD Hypokalemia/hyperglycemia. Resolved Bradycardia. Inactive Hypotension. Resolved off pressors CHF. Cardiology following Pulmonary hypertension. Sepsis from urinary source A. defibrillation Pulmonary embolism for history at [facility] Spontaneous breathing trial as tolerated. Proceed with extubation as tolerated If not tolerated, will recommend start tracheotomy discussion with patient's family Gentle diuretics 31 minutes spent in [id number] evaluation and coordination of care Subjective Date of service: 08/12/16 Principal diagnosis: acute on chronic respiratory failure, congestive heart failure Interval history: Patient remained intubated on mechanical ventilator. No new complaints. Objective Vital Signs - 12hr 08/12/16 08/12/16 08/12/16 04:30 04:37 05:00 Temperature 101.0 F H Pulse Rate 109 H 105 H Pulse Rate [ Anterior Bilateral Throughout] Respiratory 17 20 Rate Respiratory Rate [Anterior Bilateral Throughout] Blood Pressure 125/78 138/82 O2 Sat by Pulse 98 96 Oximetry 08/12/16 08/12/16 08/12/16 05:31 06:00 06:30 Temperature Pulse Rate 129 H 105 H 98 H Pulse Rate [ Anterior Bilateral Throughout] Respiratory 20 20 19 Rate Respiratory Rate [Anterior Bilateral Throughout] Blood Pressure 136/80 120/69 123/76 O2 Sat by Pulse 95 97 96 Oximetry 08/12/16 08/12/16 08/12/16 07:00 07:30 08:00 Temperature 98.6 F Pulse Rate 110 H 102 H 106 H Pulse Rate [ Anterior Bilateral Throughout] Respiratory 20 20 Rate Respiratory Rate [Anterior Bilateral Throughout] Blood Pressure 127/82 130/83 130/83 O2 Sat by Pulse 97 97 95 Oximetry 08/12/16 08/12/16 08/12/16 08:07 08:25 11:38 Temperature Pulse Rate 101 H Pulse Rate [ 105 H 107 H Anterior Bilateral Throughout] Respiratory Rate Respiratory 20 20 Rate [Anterior Bilateral Throughout] Blood Pressure 114/81 O2 Sat by Pulse 96 Oximetry 08/12/16 08/12/16 08/12/16 11:55 13:07 13:16 Temperature 99.1 F Pulse Rate Pulse Rate [ 102 H 63 Anterior Bilateral Throughout] Respiratory Rate Respiratory 20 21 Rate [Anterior Bilateral Throughout] Blood Pressure O2 Sat by Pulse Oximetry Constitutional: alert, other (morbidly obese) ENT: other (orally intubated, critically ill on ventilator) Neck: other (large in cirumference) Effort: normal Ascultation: Bilateral: clear, diminished breath sounds, rhonchi Percussion: Bilateral: not dull Cardiovascular: regular rate and rhythm Gastrointestinal: hypoactive bowel sounds, soft, non-tender Integumentary: other (chronic venous changes on legs) Neurologic: non-focal exam, pupils equal and round, other (RA SS 0) CBC and BMP: 08/11/16 16:02 08/12/16 03:54 ABG, PT/INR, D-dimer: ABG POC ABG pH 7.497 (7.35-7.45) H 08/12/16 06:13 POC ABG pCO2 53.0 (35-45) H 08/12/16 06:13 POC ABG pO2 95 (80-105) 08/12/16 06:13 POC ABG HCO3 41.1 08/12/16 06:13 POC ABG Total CO2 43 08/12/16 06:13 POC ABG O2 Sat 98 08/12/16 06:13 PT/INR, D-dimer PT 18.0 Sec. (12.2-14.9) H 08/03/16 15:06 INR 1.49 (0.87-1.13) H 08/03/16 15:06 D-Dimer 2516.52 ng/mlDDU (0-234) H 08/05/16 13:01 Abnormal lab findings: Abnormal Labs 08/04/16 08/04/16 08/04/16 09:41 12:25 17:02 WBC Hgb Hct MCV MCH MCHC RDW Plt Count Lymph % (Auto) Lymph # Ness # Seg Neutrophils % Seg Neuts % (Manual) Lymphocytes % (Manual) Nucleated RBC % Seg Neutrophils # Seg Neutrophils # Man Lymphocytes # (Manual) D-Dimer POC ABG pH POC ABG pCO2 POC ABG pO2 Sodium Potassium Chloride Carbon Dioxide BUN Creatinine Glucose POC Glucose 158 H 236 H 217 H Lactic Acid Calcium Ionized Calcium Phosphorus Total Bilirubin Direct Bilirubin AST ALT Total Creatine Kinase CK-MB (CK-2) CK-MB (CK-2) Rel Index Troponin T NT-Pro-B Natriuret Pep Albumin Gamma Globulins PEP Interpretation HDL Cholesterol Urine WBC (Auto) Urine Creatinine Complement C3 Complement C4 08/05/16 08/05/16 08/05/16 06:32 08:09 08:17 WBC Hgb Hct MCV MCH MCHC RDW Plt Count Lymph % (Auto) Lymph # Ness # Seg Neutrophils % Seg Neuts % (Manual) Lymphocytes % (Manual) Nucleated RBC % Seg Neutrophils # Seg Neutrophils # Man Lymphocytes # (Manual) D-Dimer POC ABG pH POC ABG pCO2 POC ABG pO2 Sodium Potassium Chloride Carbon Dioxide BUN Creatinine Glucose POC Glucose < 40 L 53 L 185 H Lactic Acid Calcium Ionized Calcium Phosphorus Total Bilirubin Direct Bilirubin AST ALT Total Creatine Kinase CK-MB (CK-2) CK-MB (CK-2) Rel Index Troponin T NT-Pro-B Natriuret Pep Albumin Gamma Globulins PEP Interpretation HDL Cholesterol Urine WBC (Auto) Urine Creatinine Complement C3 Complement C4 08/05/16 08/05/16 08/05/16 08:34 12:15 12:47 WBC Hgb Hct MCV MCH MCHC RDW Plt Count Lymph % (Auto) Lymph # Ness # Seg Neutrophils % Seg Neuts % (Manual) Lymphocytes % (Manual) Nucleated RBC % Seg Neutrophils # Seg Neutrophils # Man Lymphocytes # (Manual) D-Dimer POC ABG pH 7.169 L 7.077 L POC ABG pCO2 28.5 L 54.3 H POC ABG pO2 78 L Sodium Potassium Chloride Carbon Dioxide BUN Creatinine Glucose POC Glucose 128 H Lactic Acid Calcium Ionized Calcium Phosphorus Total Bilirubin Direct Bilirubin AST ALT Total Creatine Kinase CK-MB (CK-2) CK-MB (CK-2) Rel Index Troponin T NT-Pro-B Natriuret Pep Albumin Gamma Globulins PEP Interpretation HDL Cholesterol Urine WBC (Auto) Urine Creatinine Complement C3 Complement C4 08/05/16 08/05/16 08/05/16 13:01 13:01 13:01 WBC Hgb Hct MCV MCH MCHC RDW Plt Count Lymph % (Auto) Lymph # Ness # Seg Neutrophils % Seg Neuts % (Manual) Lymphocytes % (Manual) Nucleated RBC % Seg Neutrophils # Seg Neutrophils # Man Lymphocytes # (Manual) D-Dimer 2516.52 H POC ABG pH POC ABG pCO2 POC ABG pO2 Sodium Potassium Chloride Carbon Dioxide BUN Creatinine Glucose POC Glucose Lactic Acid Calcium Ionized Calcium Phosphorus Total Bilirubin Direct Bilirubin AST ALT Total Creatine Kinase 304 H CK-MB (CK-2) 11.6 H CK-MB (CK-2) Rel Index Troponin T 0.121 H* D NT-Pro-B Natriuret Pep 8307 H Albumin Gamma Globulins PEP Interpretation HDL Cholesterol 21 L Urine WBC (Auto) Urine Creatinine Complement C3 Complement C4 08/05/16 08/05/16 08/05/16 14:44 15:27 16:05 WBC Hgb Hct MCV MCH MCHC RDW Plt Count Lymph % (Auto) Lymph # Ness # Seg Neutrophils % Seg Neuts % (Manual) Lymphocytes % (Manual) Nucleated RBC % Seg Neutrophils # Seg Neutrophils # Man Lymphocytes # (Manual) D-Dimer POC ABG pH 7.020 L POC ABG pCO2 66.3 H POC ABG pO2 Sodium Potassium Chloride Carbon Dioxide BUN Creatinine Glucose POC Glucose Lactic Acid 10.9 H* Calcium Ionized Calcium Phosphorus Total Bilirubin Direct Bilirubin AST ALT Total Creatine Kinase 282 H CK-MB (CK-2) 11.9 H CK-MB (CK-2) Rel Index 4.2 H Troponin T 0.152 H* D NT-Pro-B Natriuret Pep Albumin Gamma Globulins PEP Interpretation HDL Cholesterol Urine WBC (Auto) Urine Creatinine Complement C3 Complement C4 08/05/16 08/05/16 08/05/16 17:01 17:43 22:09 WBC Hgb Hct MCV MCH MCHC RDW Plt Count Lymph % (Auto) Lymph # Ness # Seg Neutrophils % Seg Neuts % (Manual) Lymphocytes % (Manual) Nucleated RBC % Seg Neutrophils # Seg Neutrophils # Man Lymphocytes # (Manual) D-Dimer POC ABG pH 7.119 L POC ABG pCO2 63.2 H POC ABG pO2 51 L Sodium Potassium Chloride Carbon Dioxide BUN Creatinine Glucose POC Glucose 203 H 241 H Lactic Acid Calcium Ionized Calcium Phosphorus Total Bilirubin Direct Bilirubin AST ALT Total Creatine Kinase CK-MB (CK-2) CK-MB (CK-2) Rel Index Troponin T NT-Pro-B Natriuret Pep Albumin Gamma Globulins PEP Interpretation HDL Cholesterol Urine WBC (Auto) Urine Creatinine Complement C3 Complement C4 08/05/16 08/06/16 08/06/16 23:30 05:08 05:55 WBC Hgb Hct MCV MCH MCHC RDW Plt Count Lymph % (Auto) Lymph # Ness # Seg Neutrophils % Seg Neuts % (Manual) Lymphocytes % (Manual) Nucleated RBC % Seg Neutrophils # Seg Neutrophils # Man Lymphocytes # (Manual) D-Dimer POC ABG pH 7.289 L POC ABG pCO2 59.9 H POC ABG pO2 224 H Sodium Potassium Chloride Carbon Dioxide BUN Creatinine Glucose POC Glucose Lactic Acid 6.8 H* 5.3 H* Calcium Ionized Calcium Phosphorus Total Bilirubin Direct Bilirubin AST ALT Total Creatine Kinase CK-MB (CK-2) CK-MB (CK-2) Rel Index Troponin T NT-Pro-B Natriuret Pep Albumin Gamma Globulins PEP Interpretation HDL Cholesterol Urine WBC (Auto) Urine Creatinine Complement C3 Complement C4 08/06/16 08/06/16 08/06/16 06:16 09:05 09:05 WBC 15.1 H Hgb 9.1 L Hct 31.1 L MCV 69 L MCH 20 L MCHC 29 L RDW 20.6 H Plt Count 116 L Lymph % (Auto) Lymph # Ness # Seg Neutrophils % Seg Neuts % (Manual) 95.0 H Lymphocytes % (Manual) 2.0 L Nucleated RBC % 5.0 H Seg Neutrophils # Seg Neutrophils # Man 14.3 H Lymphocytes # (Manual) 0.3 L D-Dimer POC ABG pH POC ABG pCO2 POC ABG pO2 Sodium 136 L Potassium 6.0 H D Chloride 87.5 L Carbon Dioxide BUN 66 H Creatinine 3.9 H D Glucose 319 H POC Glucose 326 H Lactic Acid Calcium 5.5 L* D Ionized Calcium Phosphorus Total Bilirubin 3.2 H Direct Bilirubin AST 4838 H ALT 1620 H Total Creatine Kinase CK-MB (CK-2) CK-MB (CK-2) Rel Index Troponin T NT-Pro-B Natriuret Pep Albumin 2.7 L Gamma Globulins PEP Interpretation HDL Cholesterol Urine WBC (Auto) Urine Creatinine Complement C3 Complement C4 08/06/16 08/06/16 08/06/16 11:20 11:50 11:56 WBC Hgb Hct MCV MCH MCHC RDW Plt Count Lymph % (Auto) Lymph # Ness # Seg Neutrophils % Seg Neuts % (Manual) Lymphocytes % (Manual) Nucleated RBC % Seg Neutrophils # Seg Neutrophils # Man Lymphocytes # (Manual) D-Dimer POC ABG pH POC ABG pCO2 POC ABG pO2 Sodium Potassium Chloride Carbon Dioxide BUN Creatinine Glucose POC Glucose 318 H Lactic Acid Calcium Ionized Calcium 2.7 L* Phosphorus Total Bilirubin Direct Bilirubin AST ALT Total Creatine Kinase CK-MB (CK-2) CK-MB (CK-2) Rel Index Troponin T NT-Pro-B Natriuret Pep Albumin Gamma Globulins PEP Interpretation HDL Cholesterol Urine WBC (Auto) 28.0 H Urine Creatinine Complement C3 Complement C4 08/06/16 08/06/16 08/06/16 13:17 13:17 13:17 WBC Hgb Hct MCV MCH MCHC RDW Plt Count Lymph % (Auto) Lymph # Ness # Seg Neutrophils % Seg Neuts % (Manual) Lymphocytes % (Manual) Nucleated RBC % Seg Neutrophils # Seg Neutrophils # Man Lymphocytes # (Manual) D-Dimer POC ABG pH POC ABG pCO2 POC ABG pO2 Sodium 131 L Potassium 5.8 H Chloride 87.8 L Carbon Dioxide 15 L D BUN 67 H Creatinine 3.8 H Glucose 294 H POC Glucose Lactic Acid 5.3 H* Calcium 5.1 L* Ionized Calcium Phosphorus 9.0 H Total Bilirubin 3.1 H Direct Bilirubin 2.1 H AST 4901 H ALT 1607 H Total Creatine Kinase CK-MB (CK-2) CK-MB (CK-2) Rel Index Troponin T NT-Pro-B Natriuret Pep Albumin 2.7 L Gamma Globulins PEP Interpretation HDL Cholesterol Urine WBC (Auto) Urine Creatinine Complement C3 Complement C4 08/06/16 08/06/16 08/06/16 15:10 15:10 15:10 WBC Hgb Hct MCV MCH MCHC RDW Plt Count Lymph % (Auto) Lymph # Ness # Seg Neutrophils % Seg Neuts % (Manual) Lymphocytes % (Manual) Nucleated RBC % Seg Neutrophils # Seg Neutrophils # Man Lymphocytes # (Manual) D-Dimer POC ABG pH POC ABG pCO2 POC ABG pO2 Sodium Potassium Chloride Carbon Dioxide BUN Creatinine Glucose POC Glucose Lactic Acid Calcium Ionized Calcium 2.8 L* Phosphorus Total Bilirubin Direct Bilirubin AST ALT Total Creatine Kinase CK-MB (CK-2) CK-MB (CK-2) Rel Index Troponin T NT-Pro-B Natriuret Pep Albumin Gamma Globulins PEP Interpretation HDL Cholesterol Urine WBC (Auto) Urine Creatinine Complement C3 35 L Complement C4 8 L 08/06/16 08/06/16 08/06/16 15:10 15:10 15:44 WBC Hgb Hct MCV MCH MCHC RDW Plt Count Lymph % (Auto) Lymph # Ness # Seg Neutrophils % Seg Neuts % (Manual) Lymphocytes % (Manual) Nucleated RBC % Seg Neutrophils # Seg Neutrophils # Man Lymphocytes # (Manual) D-Dimer POC ABG pH POC ABG pCO2 POC ABG pO2 Sodium Potassium Chloride Carbon Dioxide BUN Creatinine Glucose POC Glucose Lactic Acid 4.5 H* Calcium Ionized Calcium Phosphorus Total Bilirubin Direct Bilirubin AST ALT Total Creatine Kinase CK-MB (CK-2) CK-MB (CK-2) Rel Index Troponin T NT-Pro-B Natriuret Pep Albumin 2.6 L Gamma Globulins 2.1 H PEP Interpretation see below H HDL Cholesterol Urine WBC (Auto) Urine Creatinine 60.1 H Complement C3 Complement C4 08/06/16 08/06/16 08/06/16 16:47 22:06 23:00 WBC Hgb Hct MCV MCH MCHC RDW Plt Count Lymph % (Auto) Lymph # Ness # Seg Neutrophils % Seg Neuts % (Manual) Lymphocytes % (Manual) Nucleated RBC % Seg Neutrophils # Seg Neutrophils # Man Lymphocytes # (Manual) D-Dimer POC ABG pH POC ABG pCO2 POC ABG pO2 Sodium Potassium Chloride Carbon Dioxide BUN Creatinine Glucose POC Glucose 282 H 348 H Lactic Acid 3.4 H* Calcium Ionized Calcium Phosphorus Total Bilirubin Direct Bilirubin AST ALT Total Creatine Kinase CK-MB (CK-2) CK-MB (CK-2) Rel Index Troponin T NT-Pro-B Natriuret Pep Albumin Gamma Globulins PEP Interpretation HDL Cholesterol Urine WBC (Auto) Urine Creatinine Complement C3 Complement C4 08/07/16 08/07/16 08/07/16 03:30 04:13 07:46 WBC Hgb Hct MCV MCH MCHC RDW Plt Count Lymph % (Auto) Lymph # Ness # Seg Neutrophils % Seg Neuts % (Manual) Lymphocytes % (Manual) Nucleated RBC % Seg Neutrophils # Seg Neutrophils # Man Lymphocytes # (Manual) D-Dimer POC ABG pH 7.479 H POC ABG pCO2 49.1 H POC ABG pO2 127 H Sodium Potassium Chloride Carbon Dioxide BUN Creatinine Glucose POC Glucose 316 H Lactic Acid 2.7 H* Calcium Ionized Calcium Phosphorus Total Bilirubin Direct Bilirubin AST ALT Total Creatine Kinase CK-MB (CK-2) CK-MB (CK-2) Rel Index Troponin T NT-Pro-B Natriuret Pep Albumin Gamma Globulins PEP Interpretation HDL Cholesterol Urine WBC (Auto) Urine Creatinine Complement C3 Complement C4 08/07/16 08/07/16 08/07/16 11:23 16:21 23:31 WBC Hgb Hct MCV MCH MCHC RDW Plt Count Lymph % (Auto) Lymph # Ness # Seg Neutrophils % Seg Neuts % (Manual) Lymphocytes % (Manual) Nucleated RBC % Seg Neutrophils # Seg Neutrophils # Man Lymphocytes # (Manual) D-Dimer POC ABG pH POC ABG pCO2 POC ABG pO2 Sodium Potassium Chloride Carbon Dioxide BUN Creatinine Glucose POC Glucose 321 H 287 H 285 H Lactic Acid Calcium Ionized Calcium Phosphorus Total Bilirubin Direct Bilirubin AST ALT Total Creatine Kinase CK-MB (CK-2) CK-MB (CK-2) Rel Index Troponin T NT-Pro-B Natriuret Pep Albumin Gamma Globulins PEP Interpretation HDL Cholesterol Urine WBC (Auto) Urine Creatinine Complement C3 Complement C4 08/08/16 08/08/16 08/08/16 05:26 06:42 07:50 WBC 11.3 H Hgb 8.7 L Hct 28.8 L MCV 66 L D MCH 20 L MCHC 30 L RDW 20.8 H Plt Count 89 L Lymph % (Auto) Lymph # Ness # Seg Neutrophils % Seg Neuts % (Manual) 90.0 H Lymphocytes % (Manual) 1.0 L Nucleated RBC % 2.0 H Seg Neutrophils # Seg Neutrophils # Man 10.2 H Lymphocytes # (Manual) 0.1 L D-Dimer POC ABG pH 7.555 H POC ABG pCO2 45.6 H POC ABG pO2 Sodium Potassium Chloride Carbon Dioxide BUN Creatinine Glucose POC Glucose 268 H Lactic Acid Calcium Ionized Calcium Phosphorus Total Bilirubin Direct Bilirubin AST ALT Total Creatine Kinase CK-MB (CK-2) CK-MB (CK-2) Rel Index Troponin T NT-Pro-B Natriuret Pep Albumin Gamma Globulins PEP Interpretation HDL Cholesterol Urine WBC (Auto) Urine Creatinine Complement C3 Complement C4 08/08/16 08/08/16 08/08/16 07:50 07:50 11:04 WBC Hgb Hct MCV MCH MCHC RDW Plt Count Lymph % (Auto) Lymph # Ness # Seg Neutrophils % Seg Neuts % (Manual) Lymphocytes % (Manual) Nucleated RBC % Seg Neutrophils # Seg Neutrophils # Man Lymphocytes # (Manual) D-Dimer POC ABG pH 7.461 H POC ABG pCO2 58.5 H POC ABG pO2 72 L Sodium Potassium 3.3 L D Chloride 93.1 L Carbon Dioxide 38 H D BUN 52 H Creatinine 2.6 H Glucose 268 H POC Glucose 265 H Lactic Acid Calcium 6.5 L D Ionized Calcium Phosphorus Total Bilirubin Direct Bilirubin AST ALT Total Creatine Kinase CK-MB (CK-2) CK-MB (CK-2) Rel Index Troponin T NT-Pro-B Natriuret Pep Albumin Gamma Globulins PEP Interpretation HDL Cholesterol Urine WBC (Auto) Urine Creatinine Complement C3 Complement C4 08/08/16 08/08/16 08/08/16 11:55 16:19 23:23 WBC Hgb Hct MCV MCH MCHC RDW Plt Count Lymph % (Auto) Lymph # Ness # Seg Neutrophils % Seg Neuts % (Manual) Lymphocytes % (Manual) Nucleated RBC % Seg Neutrophils # Seg Neutrophils # Man Lymphocytes # (Manual) D-Dimer POC ABG pH POC ABG pCO2 POC ABG pO2 Sodium Potassium Chloride Carbon Dioxide BUN Creatinine Glucose POC Glucose 237 H 209 H 246 H Lactic Acid Calcium Ionized Calcium Phosphorus Total Bilirubin Direct Bilirubin AST ALT Total Creatine Kinase CK-MB (CK-2) CK-MB (CK-2) Rel Index Troponin T NT-Pro-B Natriuret Pep Albumin Gamma Globulins PEP Interpretation HDL Cholesterol Urine WBC (Auto) Urine Creatinine Complement C3 Complement C4 08/09/16 08/09/16 08/09/16 05:51 06:00 06:00 WBC 12.0 H Hgb 8.4 L Hct 28.3 L MCV 68 L MCH 20 L MCHC 30 L RDW 21.2 H Plt Count 79 L Lymph % (Auto) 3.5 L Lymph # 0.4 L Ness # Seg Neutrophils % 89.9 H Seg Neuts % (Manual) Lymphocytes % (Manual) Nucleated RBC % Seg Neutrophils # 10.8 H Seg Neutrophils # Man Lymphocytes # (Manual) D-Dimer POC ABG pH 7.479 H POC ABG pCO2 67.7 H POC ABG pO2 Sodium Potassium 2.5 L* D Chloride 86.3 L Carbon Dioxide 51 H* D BUN 38 H Creatinine Glucose 695 H* POC Glucose Lactic Acid Calcium 6.3 L Ionized Calcium Phosphorus Total Bilirubin Direct Bilirubin AST ALT Total Creatine Kinase CK-MB (CK-2) CK-MB (CK-2) Rel Index Troponin T NT-Pro-B Natriuret Pep Albumin Gamma Globulins PEP Interpretation HDL Cholesterol Urine WBC (Auto) Urine Creatinine Complement C3 Complement C4 08/09/16 08/09/16 08/09/16 07:47 08:45 09:51 WBC Hgb Hct MCV MCH MCHC RDW Plt Count Lymph % (Auto) Lymph # Ness # Seg Neutrophils % Seg Neuts % (Manual) Lymphocytes % (Manual) Nucleated RBC % Seg Neutrophils # Seg Neutrophils # Man Lymphocytes # (Manual) D-Dimer POC ABG pH 7.458 H POC ABG pCO2 68.7 H POC ABG pO2 65 L Sodium Potassium Chloride 92.9 L Carbon Dioxide 40 H D BUN 42 H Creatinine 1.7 H Glucose 205 H POC Glucose 189 H Lactic Acid Calcium 7.7 L D Ionized Calcium Phosphorus Total Bilirubin Direct Bilirubin AST ALT Total Creatine Kinase CK-MB (CK-2) CK-MB (CK-2) Rel Index Troponin T NT-Pro-B Natriuret Pep Albumin Gamma Globulins PEP Interpretation HDL Cholesterol Urine WBC (Auto) Urine Creatinine Complement C3 Complement C4 08/09/16 08/09/16 08/09/16 11:55 13:35 16:05 WBC Hgb Hct MCV MCH MCHC RDW Plt Count Lymph % (Auto) Lymph # Ness # Seg Neutrophils % Seg Neuts % (Manual) Lymphocytes % (Manual) Nucleated RBC % Seg Neutrophils # Seg Neutrophils # Man Lymphocytes # (Manual) D-Dimer POC ABG pH POC ABG pCO2 POC ABG pO2 Sodium 148 H Potassium 2.9 L* D Chloride 96.4 L Carbon Dioxide 43 H* BUN 43 H Creatinine 1.6 H Glucose 205 H POC Glucose 222 H 204 H Lactic Acid Calcium 7.9 L Ionized Calcium Phosphorus Total Bilirubin Direct Bilirubin AST ALT Total Creatine Kinase CK-MB (CK-2) CK-MB (CK-2) Rel Index Troponin T NT-Pro-B Natriuret Pep Albumin Gamma Globulins PEP Interpretation HDL Cholesterol Urine WBC (Auto) Urine Creatinine Complement C3 Complement C4 08/09/16 08/10/16 08/10/16 22:43 05:24 05:25 WBC 13.2 H Hgb 9.4 L Hct 32.5 L MCV 68 L MCH 20 L MCHC 29 L RDW 21.1 H Plt Count 72 L Lymph % (Auto) 4.3 L Lymph # 0.6 L Ness # 1.0 H Seg Neutrophils % 88.5 H Seg Neuts % (Manual) Lymphocytes % (Manual) Nucleated RBC % Seg Neutrophils # 11.7 H Seg Neutrophils # Man Lymphocytes # (Manual) D-Dimer POC ABG pH 7.483 H POC ABG pCO2 69.0 H POC ABG pO2 Sodium Potassium Chloride Carbon Dioxide BUN Creatinine Glucose POC Glucose 207 H Lactic Acid Calcium Ionized Calcium Phosphorus Total Bilirubin Direct Bilirubin AST ALT Total Creatine Kinase CK-MB (CK-2) CK-MB (CK-2) Rel Index Troponin T NT-Pro-B Natriuret Pep Albumin Gamma Globulins PEP Interpretation HDL Cholesterol Urine WBC (Auto) Urine Creatinine Complement C3 Complement C4 08/10/16 08/10/16 08/10/16 07:31 09:04 11:22 WBC Hgb Hct MCV MCH MCHC RDW Plt Count Lymph % (Auto) Lymph # Ness # Seg Neutrophils % Seg Neuts % (Manual) Lymphocytes % (Manual) Nucleated RBC % Seg Neutrophils # Seg Neutrophils # Man Lymphocytes # (Manual) D-Dimer POC ABG pH POC ABG pCO2 POC ABG pO2 Sodium 147 H Potassium 3.4 L Chloride 96.8 L Carbon Dioxide 42 H* BUN 38 H Creatinine Glucose 144 H POC Glucose 165 H 137 H Lactic Acid Calcium 8.3 L Ionized Calcium Phosphorus Total Bilirubin Direct Bilirubin AST ALT Total Creatine Kinase CK-MB (CK-2) CK-MB (CK-2) Rel Index Troponin T NT-Pro-B Natriuret Pep Albumin Gamma Globulins PEP Interpretation HDL Cholesterol Urine WBC (Auto) Urine Creatinine Complement C3 Complement C4 08/10/16 08/10/16 08/11/16 15:55 23:00 05:05 WBC Hgb Hct MCV MCH MCHC RDW Plt Count Lymph % (Auto) Lymph # Ness # Seg Neutrophils % Seg Neuts % (Manual) Lymphocytes % (Manual) Nucleated RBC % Seg Neutrophils # Seg Neutrophils # Man Lymphocytes # (Manual) D-Dimer POC ABG pH 7.499 H POC ABG pCO2 56.4 H POC ABG pO2 Sodium Potassium Chloride Carbon Dioxide BUN Creatinine Glucose POC Glucose 110 H 201 H Lactic Acid Calcium Ionized Calcium Phosphorus Total Bilirubin Direct Bilirubin AST ALT Total Creatine Kinase CK-MB (CK-2) CK-MB (CK-2) Rel Index Troponin T NT-Pro-B Natriuret Pep Albumin Gamma Globulins PEP Interpretation HDL Cholesterol Urine WBC (Auto) Urine Creatinine Complement C3 Complement C4 08/11/16 08/11/16 08/11/16 07:24 11:58 15:24 WBC Hgb Hct MCV MCH MCHC RDW Plt Count Lymph % (Auto) Lymph # Ness # Seg Neutrophils % Seg Neuts % (Manual) Lymphocytes % (Manual) Nucleated RBC % Seg Neutrophils # Seg Neutrophils # Man Lymphocytes # (Manual) D-Dimer POC ABG pH POC ABG pCO2 POC ABG pO2 Sodium Potassium Chloride Carbon Dioxide BUN Creatinine Glucose POC Glucose 109 H 114 H 106 H Lactic Acid Calcium Ionized Calcium Phosphorus Total Bilirubin Direct Bilirubin AST ALT Total Creatine Kinase CK-MB (CK-2) CK-MB (CK-2) Rel Index Troponin T NT-Pro-B Natriuret Pep Albumin Gamma Globulins PEP Interpretation HDL Cholesterol Urine WBC (Auto) Urine Creatinine Complement C3 Complement C4 08/11/16 08/11/16 08/11/16 16:02 16:02 22:10 WBC 13.4 H Hgb 9.8 L Hct 34.7 L MCV 69 L MCH 20 L MCHC 28 L RDW 21.5 H Plt Count 59 L Lymph % (Auto) 11.8 L Lymph # Ness # 0.9 H Seg Neutrophils % 81.8 H Seg Neuts % (Manual) Lymphocytes % (Manual) Nucleated RBC % Seg Neutrophils # 11.0 H Seg Neutrophils # Man Lymphocytes # (Manual) D-Dimer POC ABG pH POC ABG pCO2 POC ABG pO2 Sodium 153 H Potassium 2.6 L* D Chloride Carbon Dioxide 40 H BUN 40 H Creatinine Glucose POC Glucose 150 H Lactic Acid Calcium 8.3 L Ionized Calcium Phosphorus Total Bilirubin Direct Bilirubin AST ALT Total Creatine Kinase CK-MB (CK-2) CK-MB (CK-2) Rel Index Troponin T NT-Pro-B Natriuret Pep Albumin Gamma Globulins PEP Interpretation HDL Cholesterol Urine WBC (Auto) Urine Creatinine Complement C3 Complement C4 08/12/16 08/12/16 08/12/16 03:54 06:13 07:51 WBC Hgb Hct MCV MCH MCHC RDW Plt Count Lymph % (Auto) Lymph # Ness # Seg Neutrophils % Seg Neuts % (Manual) Lymphocytes % (Manual) Nucleated RBC % Seg Neutrophils # Seg Neutrophils # Man Lymphocytes # (Manual) D-Dimer POC ABG pH 7.497 H POC ABG pCO2 53.0 H POC ABG pO2 Sodium 157 H Potassium 3.0 L Chloride 108.8 H Carbon Dioxide 38 H BUN 42 H Creatinine Glucose 157 H POC Glucose 154 H Lactic Acid Calcium 8.3 L Ionized Calcium Phosphorus Total Bilirubin Direct Bilirubin AST ALT Total Creatine Kinase CK-MB (CK-2) CK-MB (CK-2) Rel Index Troponin T NT-Pro-B Natriuret Pep Albumin Gamma Globulins PEP Interpretation HDL Cholesterol Urine WBC (Auto) Urine Creatinine Complement C3 Complement C4 08/12/16 11:29 WBC Hgb Hct MCV MCH MCHC RDW Plt Count Lymph % (Auto) Lymph # Ness # Seg Neutrophils % Seg Neuts % (Manual) Lymphocytes % (Manual) Nucleated RBC % Seg Neutrophils # Seg Neutrophils # Man Lymphocytes # (Manual) D-Dimer POC ABG pH POC ABG pCO2 POC ABG pO2 Sodium Potassium Chloride Carbon Dioxide BUN Creatinine Glucose POC Glucose 148 H Lactic Acid Calcium Ionized Calcium Phosphorus Total Bilirubin Direct Bilirubin AST ALT Total Creatine Kinase CK-MB (CK-2) CK-MB (CK-2) Rel Index Troponin T NT-Pro-B Natriuret Pep Albumin Gamma Globulins PEP Interpretation HDL Cholesterol Urine WBC (Auto) Urine Creatinine Complement C3 Complement C4
[2016-08-12] MEDS: D5W 1,000 ML IV SCH (18:30)
[2016-08-12] MEDS: LEVAQUIN 750MG/150ML 750 MG/150 ML BAG IV SCH (22:25)
[2016-08-12] MEDS: LEVEMIR SUB-Q SCH (22:28)
[2016-08-13] MEDS: DUONEB 0.5 MG-3 MG/3 ML SOLN IH SCH ×4 (01:32→19:25)
[2016-08-13] MEDS: fentaNYL DRIP Premix 2,000 MCG/100 ML BAG IV SCH ×4 (04:10→20:01)
[2016-08-13] MEDS: ZOSYN/NS 4.5GM/100ML 4.5 GM/100 ML VIAL IV SCH ×3 (05:46→22:27)
[2016-08-13 05:57] LABS: Basophils % (Auto) 0.2 % (0.0-1.8); Mean Corpuscular HGB Conc 28 % (32-34); Red Blood Count 5.05 M/mm3 (3.65-5.03); White Blood Count 10.6 K/mm3 (4.5-11.0)
[2016-08-13 06:11] LABS: Hematocrit 34.9 % (35.5-45.6); Hemoglobin 9.9 gm/dl (11.8-15.2); Mean Corpuscular Hemoglobin 20 pg (28-32); Mean Corpuscular Volume 69 fl (84-94); Platelet Count 65 K/mm3 (140-440); Red Cell Distribution Width 22.7 % (13.2-15.2)
[2016-08-13 06:21] LABS: ISTAT Base Excess 18; ISTAT HCO3 41.4; ISTAT PCO2 52.9 (35-45); ISTAT PH 7.502 (7.35-7.45); ISTAT PO2 82 (80-105); ISTAT SO2 97; ISTAT TCO2 43
[2016-08-13 06:22] LABS: Anion Gap 11 mmol/L; Blood Urea Nitrogen 44 mg/dL (9-20); Calcium 8.1 mg/dL (8.4-10.2); Carbon Dioxide 40 mmol/L (22-30); Chloride 109.8 mmol/L (98-107); Glucose 192 mg/dL (75-100); Sodium 158 mmol/L (137-145)
[2016-08-13 06:50] LABS: Potassium 2.5 mmol/L (3.6-5.0)
[2016-08-13] MEDS: KCL 20MEQ/100ML 20 MEQ/100 ML BAG IV SCH ×8 (08:55→23:41)
[2016-08-13] MEDS ORDERED: KCL 20MEQ/100ML 20 MEQ/100 ML BAG IV SCH (09:00)
[2016-08-13] MEDS: NOVOLOG SUB-Q SCH ×4 (10:34→22:32)
[2016-08-13] MEDS: D5W 1,000 ML IV SCH (10:35)
[2016-08-13] MEDS: LOVENOX SUB-Q SCH ×2 (11:01→22:32)
--- NOTE | 2016-08-13 11:18 | Progress Note ---
Assessment and Plan Impression * Acute kidney injury secondary to prerenal azotemia vs ATN - resolved * Acute hypoxic respiratory failure * Sepsis * Metabolic alkalosis * Hypokalemia * Edema Plan: * His serum sodium seems to be climbing . Suspect a prerenal component. Continue intravenous dextrose. His urine is also looking quite concentrated. Shall check a urine osmolality * Patient is s/p Diamox x 2 doses . His metabolic alkalosis is most likely secondary to diuretics. * His potassium is low as well. Shall replace that first. He may need additional doses of Diamox after correction of his hyperkalemia * [place] [facility] [place] Abx per primary team * Dose medications for renal function * Avoid nephrotoxins Subjective Date of service: 08/13/16 Principal diagnosis: acute on chronic respiratory failure, congestive heart failure Interval history: Patient remains on the ventilator. Currently on 45% FiO2. Objective - Vital Signs Vital signs: Vital Signs - 12hr 08/12/16 08/13/16 08/13/16 23:31 00:00 00:31 Temperature 97.9 F Pulse Rate 106 H 97 H 105 H Pulse Rate [ Anterior Bilateral Throughout] Pulse Rate [ Anterior Right Throughout] Pulse Rate [ 94 H From Monitor] Respiratory 20 20 19 Rate Respiratory Rate [Anterior Bilateral Throughout] Respiratory Rate [Anterior Right Throughout] Blood Pressure 142/88 146/96 136/88 O2 Sat by Pulse 95 95 95 Oximetry 08/13/16 08/13/16 08/13/16 01:00 01:30 01:33 Temperature Pulse Rate 93 H 88 Pulse Rate [ 93 H Anterior Bilateral Throughout] Pulse Rate [ Anterior Right Throughout] Pulse Rate [ From Monitor] Respiratory 20 20 Rate Respiratory 20 Rate [Anterior Bilateral Throughout] Respiratory Rate [Anterior Right Throughout] Blood Pressure 138/88 141/93 O2 Sat by Pulse 96 99 Oximetry 08/13/16 08/13/16 08/13/16 01:54 02:00 02:30 Temperature Pulse Rate 103 H 98 H Pulse Rate [ 91 H Anterior Bilateral Throughout] Pulse Rate [ Anterior Right Throughout] Pulse Rate [ From Monitor] Respiratory 19 20 Rate Respiratory 20 Rate [Anterior Bilateral Throughout] Respiratory Rate [Anterior Right Throughout] Blood Pressure 137/89 144/87 O2 Sat by Pulse 91 92 Oximetry 08/13/16 08/13/16 08/13/16 03:00 03:30 04:00 Temperature 98.4 F Pulse Rate 93 H 93 H 96 H Pulse Rate [ Anterior Bilateral Throughout] Pulse Rate [ Anterior Right Throughout] Pulse Rate [ 100 H From Monitor] Respiratory 20 20 20 Rate Respiratory Rate [Anterior Bilateral Throughout] Respiratory Rate [Anterior Right Throughout] Blood Pressure 134/85 135/88 126/84 O2 Sat by Pulse 93 93 96 Oximetry 08/13/16 08/13/16 08/13/16 04:09 04:30 05:00 Temperature Pulse Rate 101 H 98 H 95 H Pulse Rate [ Anterior Bilateral Throughout] Pulse Rate [ Anterior Right Throughout] Pulse Rate [ From Monitor] Respiratory 20 20 Rate Respiratory Rate [Anterior Bilateral Throughout] Respiratory Rate [Anterior Right Throughout] Blood Pressure 126/84 133/87 135/84 O2 Sat by Pulse 97 98 98 Oximetry 08/13/16 08/13/16 08/13/16 05:30 06:00 06:30 Temperature Pulse Rate 98 H 94 H 93 H Pulse Rate [ Anterior Bilateral Throughout] Pulse Rate [ Anterior Right Throughout] Pulse Rate [ From Monitor] Respiratory 20 20 20 Rate Respiratory Rate [Anterior Bilateral Throughout] Respiratory Rate [Anterior Right Throughout] Blood Pressure 131/87 133/90 132/82 O2 Sat by Pulse 96 95 96 Oximetry 08/13/16 08/13/16 08/13/16 07:00 07:30 08:00 Temperature 99.1 F Pulse Rate 89 97 H 93 H Pulse Rate [ Anterior Bilateral Throughout] Pulse Rate [ Anterior Right Throughout] Pulse Rate [ From Monitor] Respiratory 20 21 22 Rate Respiratory Rate [Anterior Bilateral Throughout] Respiratory Rate [Anterior Right Throughout] Blood Pressure 130/83 138/89 137/86 O2 Sat by Pulse 95 96 96 Oximetry 08/13/16 08/13/16 08/13/16 08:30 08:32 08:35 Temperature Pulse Rate 89 94 H Pulse Rate [ Anterior Bilateral Throughout] Pulse Rate [ 99 H Anterior Right Throughout] Pulse Rate [ From Monitor] Respiratory 18 Rate Respiratory Rate [Anterior Bilateral Throughout] Respiratory 18 Rate [Anterior Right Throughout] Blood Pressure 144/88 144/88 O2 Sat by Pulse 95 45 L Oximetry 08/13/16 08/13/16 08/13/16 08:45 09:00 09:30 Temperature Pulse Rate 104 H 102 H Pulse Rate [ Anterior Bilateral Throughout] Pulse Rate [ 99 H Anterior Right Throughout] Pulse Rate [ From Monitor] Respiratory 18 18 Rate Respiratory Rate [Anterior Bilateral Throughout] Respiratory 18 Rate [Anterior Right Throughout] Blood Pressure 140/81 130/80 O2 Sat by Pulse 98 94 Oximetry 08/13/16 08/13/16 08/13/16 10:00 10:30 11:00 Temperature Pulse Rate 111 H 135 H 110 H Pulse Rate [ Anterior Bilateral Throughout] Pulse Rate [ Anterior Right Throughout] Pulse Rate [ From Monitor] Respiratory 18 18 19 Rate Respiratory Rate [Anterior Bilateral Throughout] Respiratory Rate [Anterior Right Throughout] Blood Pressure 120/73 118/60 114/76 O2 Sat by Pulse 95 96 98 Oximetry 08/13/16 11:08 Temperature Pulse Rate 105 H Pulse Rate [ Anterior Bilateral Throughout] Pulse Rate [ Anterior Right Throughout] Pulse Rate [ From Monitor] Respiratory Rate Respiratory Rate [Anterior Bilateral Throughout] Respiratory Rate [Anterior Right Throughout] Blood Pressure O2 Sat by Pulse Oximetry - General Appearance General appearance: well-developed, well-nourished, appears stated age, intubated EENT: PERRL, mucous membranes moist Neck: no JVD, no thyromegaly, no carotid bruit, supple Respiratory: Present: Clear to Ascultation Cardiology: regular, normal heart rate, S1S2, no murmurs Gastrointestinal: normal, normoactive bowel sounds Integumentary: no rash, other (no edema) - Lab 08/13/16 05:00 08/13/16 05:00 Most recent lab results Calcium 8.1 mg/dL (8.4-10.2) L 08/13/16 05:00 Phosphorus 9.0 mg/dL (2.5-4.5) H 08/06/16 13:17 Magnesium 2.0 mg/dL (1.7-2.3) 08/06/16 13:17 Urine Creatinine 60.1 mg/dL (0.1-20.0) H 08/06/16 15:44 Urine Sodium 45 mEq/L 08/06/16 15:44
--- NOTE | 2016-08-13 12:44 | Progress Note ---
Assessment and Plan Altered mental status Vasodilatory shock and lactic acidosis Acute Respiratory failure intubated on the vent Hypokalemia Congestive heart failure, Acute on chronic diastolic LVEF 45-50% with evidence of a dilated RV/RA and severe pulmonary hypertension COPD on home oxygen therapy Obstructive sleep apnea Atrial fibrillation Patient was supposed to be on xarelto as outpatient but he is non-compliant History of bilateral pulmonary embolism by CT at [place] Type II DM Systemic Hypertension Microcytic anemia, chronic per records Recommendations: Continue current therapy and attempts at weaning Supportive cardiac management. Subjective Date of service: 08/13/16 Principal diagnosis: acute on chronic respiratory failure, congestive heart failure Interval history: No acute events. Objective Vital Signs Temp Pulse Pulse Pulse Pulse Resp Resp 08/13/16 12:08 101 H 08/13/16 12:00 99.4 F 08/13/16 11:08 105 H 08/13/16 11:00 110 H 19 08/13/16 10:30 135 H 18 08/13/16 10:00 111 H 18 08/13/16 09:30 102 H 18 08/13/16 09:00 104 H 18 08/13/16 08:45 99 H 08/13/16 08:35 99 H 08/13/16 08:32 94 H 08/13/16 08:30 89 18 08/13/16 08:00 99.1 F 93 H 22 08/13/16 07:30 97 H 21 08/13/16 07:00 89 20 08/13/16 06:30 93 H 20 08/13/16 06:00 94 H 20 08/13/16 05:30 98 H 20 08/13/16 05:00 95 H 20 08/13/16 04:30 98 H 20 08/13/16 04:09 101 H 08/13/16 04:00 98.4 F 96 H 100 H 20 08/13/16 03:30 93 H 20 08/13/16 03:00 93 H 20 08/13/16 02:30 98 H 20 08/13/16 02:00 103 H 19 08/13/16 01:54 91 H 20 08/13/16 01:33 93 H 20 08/13/16 01:30 88 20 08/13/16 01:00 93 H 20 08/13/16 00:31 105 H 19 08/13/16 00:00 97.9 F 97 H 94 H 20 08/12/16 23:31 106 H 20 08/12/16 23:00 103 H 20 08/12/16 22:47 126 H 20 08/12/16 22:31 99 H 20 08/12/16 22:08 104 H 20 08/12/16 22:00 107 H 22 08/12/16 21:30 98 H 20 08/12/16 21:00 122 H 19 08/12/16 20:30 97 H 20 08/12/16 20:16 96 H 20 08/12/16 20:04 96 H 20 08/12/16 20:02 96 H 08/12/16 20:01 103 H 20 08/12/16 20:00 98.9 F 102 H 20 08/12/16 19:30 99 H 20 08/12/16 19:00 103 H 19 08/12/16 18:30 96 H 20 08/12/16 18:00 107 H 21 08/12/16 17:30 94 H 19 08/12/16 17:00 104 H 19 08/12/16 16:45 94 H 08/12/16 16:30 99 H 20 08/12/16 16:00 99.0 F 99 H 20 08/12/16 15:30 97 H 20 08/12/16 15:00 96 H 20 08/12/16 14:30 97 H 20 08/12/16 14:00 98 H 20 08/12/16 13:30 08/12/16 13:16 63 21 08/12/16 13:07 102 H 20 08/12/16 13:01 97 H 18 Resp BP Pulse Ox 08/13/16 12:08 122/80 97 08/13/16 12:00 08/13/16 11:08 08/13/16 11:00 114/76 98 08/13/16 10:30 118/60 96 08/13/16 10:00 120/73 95 08/13/16 09:30 130/80 94 08/13/16 09:00 140/81 98 08/13/16 08:45 18 08/13/16 08:35 18 08/13/16 08:32 144/88 45 L 08/13/16 08:30 144/88 95 08/13/16 08:00 137/86 96 08/13/16 07:30 138/89 96 08/13/16 07:00 130/83 95 08/13/16 06:30 132/82 96 08/13/16 06:00 133/90 95 08/13/16 05:30 131/87 96 08/13/16 05:00 135/84 98 08/13/16 04:30 133/87 98 08/13/16 04:09 126/84 97 08/13/16 04:00 126/84 96 08/13/16 03:30 135/88 93 08/13/16 03:00 134/85 93 08/13/16 02:30 144/87 92 08/13/16 02:00 137/89 91 08/13/16 01:54 08/13/16 01:33 08/13/16 01:30 141/93 99 08/13/16 01:00 138/88 96 08/13/16 00:31 136/88 95 08/13/16 00:00 146/96 95 08/12/16 23:31 142/88 95 08/12/16 23:00 140/90 95 08/12/16 22:47 136/89 08/12/16 22:31 136/89 95 08/12/16 22:08 131/89 96 08/12/16 22:00 131/89 96 08/12/16 21:30 135/91 94 08/12/16 21:00 124/94 95 08/12/16 20:30 142/88 94 08/12/16 20:16 08/12/16 20:04 08/12/16 20:02 137/89 94 08/12/16 20:01 147/80 96 08/12/16 20:00 96 08/12/16 19:30 137/89 95 08/12/16 19:00 138/90 96 08/12/16 18:30 130/90 95 08/12/16 18:00 138/90 96 08/12/16 17:30 127/88 95 08/12/16 17:00 136/91 96 08/12/16 16:45 126/89 93 08/12/16 16:30 126/89 93 08/12/16 16:00 135/82 94 08/12/16 15:30 133/90 93 08/12/16 15:00 134/87 94 08/12/16 14:30 131/87 94 08/12/16 14:00 117/89 94 08/12/16 13:30 132/93 92 08/12/16 13:16 08/12/16 13:07 08/12/16 13:01 122/89 94 - Physical Examination General: Other (intubated on the vent) HEENT: Positive: PERRL Neck: Positive: neck supple Cardiac: Positive: irregularly irregular Lungs: Positive: Rhonchi Abdomen: Positive: Soft Extremities: Present: +1 Edema - Labs and Meds CBC 08/13/16 Range/Units 05:00 WBC 10.6 (4.5-11.0) K/mm3 RBC 5.05 H (3.65-5.03) M/mm3 Hgb 9.9 L (11.8-15.2) gm/dl Hct 34.9 L (35.5-45.6) % Plt Count 65 L (140-440) K/mm3 Lymph # 0.8 L (1.2-5.4) K/mm3 [place] # 0.6 (0.0-0.8) K/mm3 Eos # 0.0 (0.0-0.4) K/mm3 Baso # 0.0 (0.0-0.1) K/mm3 Comprehensive Metabolic Panel 08/13/16 Range/Units 05:00 Sodium 158 H (137-145) mmol/L Potassium 2.5 L* (3.6-5.0) mmol/L Chloride 109.8 H (98-107) mmol/L Carbon Dioxide 40 H (22-30) mmol/L BUN 44 H (9-20) mg/dL Creatinine 1.1 (0.8-1.5) mg/dL Glucose 192 H (75-100) mg/dL Calcium 8.1 L (8.4-10.2) mg/dL
--- NOTE | 2016-08-13 13:06 | Progress Note ---
Assessment and Plan ssessment and Plan Acute on chronic respiratory failure. Suspected chronic hypercapnic respiratory failure secondary to obesity hypoventilation syndrome versus COPD Hypokalemia/hyperglycemia. Resolved Bradycardia. Inactive Hypotension. Resolved off pressors CHF. Cardiology following Pulmonary hypertension. Sepsis from urinary source A. defibrillation Pulmonary embolism for history at [facility] Spontaneous breathing trial as tolerated. Proceed with extubation as tolerated although patient is not quite there yet If not tolerated, will recommend tracheotomy discussion with patient's family Gentle diuretics 31 minutes spent in [id number] evaluation and coordination of care Subjective Date of service: 08/13/16 Principal diagnosis: acute on chronic respiratory failure, congestive heart failure Interval history: Patient remained intubated on mechanical ventilator. No new complaints. Objective Vital Signs - 12hr 08/13/16 08/13/16 08/13/16 01:30 01:33 01:54 Temperature Pulse Rate 88 Pulse Rate [ 93 H 91 H Anterior Bilateral Throughout] Pulse Rate [ Anterior Right Throughout] Pulse Rate [ From Monitor] Respiratory 20 Rate Respiratory 20 20 Rate [Anterior Bilateral Throughout] Respiratory Rate [Anterior Right Throughout] Blood Pressure 141/93 O2 Sat by Pulse 99 Oximetry 08/13/16 08/13/16 08/13/16 02:00 02:30 03:00 Temperature Pulse Rate 103 H 98 H 93 H Pulse Rate [ Anterior Bilateral Throughout] Pulse Rate [ Anterior Right Throughout] Pulse Rate [ From Monitor] Respiratory 19 20 20 Rate Respiratory Rate [Anterior Bilateral Throughout] Respiratory Rate [Anterior Right Throughout] Blood Pressure 137/89 144/87 134/85 O2 Sat by Pulse 91 92 93 Oximetry 08/13/16 08/13/16 08/13/16 03:30 04:00 04:09 Temperature 98.4 F Pulse Rate 93 H 96 H 101 H Pulse Rate [ Anterior Bilateral Throughout] Pulse Rate [ Anterior Right Throughout] Pulse Rate [ 100 H From Monitor] Respiratory 20 20 Rate Respiratory Rate [Anterior Bilateral Throughout] Respiratory Rate [Anterior Right Throughout] Blood Pressure 135/88 126/84 126/84 O2 Sat by Pulse 93 96 97 Oximetry 08/13/16 08/13/16 08/13/16 04:30 05:00 05:30 Temperature Pulse Rate 98 H 95 H 98 H Pulse Rate [ Anterior Bilateral Throughout] Pulse Rate [ Anterior Right Throughout] Pulse Rate [ From Monitor] Respiratory 20 20 20 Rate Respiratory Rate [Anterior Bilateral Throughout] Respiratory Rate [Anterior Right Throughout] Blood Pressure 133/87 135/84 131/87 O2 Sat by Pulse 98 98 96 Oximetry 08/13/16 08/13/16 08/13/16 06:00 06:30 07:00 Temperature Pulse Rate 94 H 93 H 89 Pulse Rate [ Anterior Bilateral Throughout] Pulse Rate [ Anterior Right Throughout] Pulse Rate [ From Monitor] Respiratory 20 20 20 Rate Respiratory Rate [Anterior Bilateral Throughout] Respiratory Rate [Anterior Right Throughout] Blood Pressure 133/90 132/82 130/83 O2 Sat by Pulse 95 96 95 Oximetry 08/13/16 08/13/16 08/13/16 07:30 08:00 08:30 Temperature 99.1 F Pulse Rate 97 H 93 H 89 Pulse Rate [ Anterior Bilateral Throughout] Pulse Rate [ Anterior Right Throughout] Pulse Rate [ From Monitor] Respiratory 21 22 18 Rate Respiratory Rate [Anterior Bilateral Throughout] Respiratory Rate [Anterior Right Throughout] Blood Pressure 138/89 137/86 144/88 O2 Sat by Pulse 96 96 95 Oximetry 08/13/16 08/13/16 08/13/16 08:32 08:35 08:45 Temperature Pulse Rate 94 H Pulse Rate [ Anterior Bilateral Throughout] Pulse Rate [ 99 H 99 H Anterior Right Throughout] Pulse Rate [ From Monitor] Respiratory Rate Respiratory Rate [Anterior Bilateral Throughout] Respiratory 18 18 Rate [Anterior Right Throughout] Blood Pressure 144/88 O2 Sat by Pulse 45 L Oximetry 08/13/16 08/13/16 08/13/16 09:00 09:30 10:00 Temperature Pulse Rate 104 H 102 H 111 H Pulse Rate [ Anterior Bilateral Throughout] Pulse Rate [ Anterior Right Throughout] Pulse Rate [ From Monitor] Respiratory 18 18 18 Rate Respiratory Rate [Anterior Bilateral Throughout] Respiratory Rate [Anterior Right Throughout] Blood Pressure 140/81 130/80 120/73 O2 Sat by Pulse 98 94 95 Oximetry 08/13/16 08/13/16 08/13/16 10:30 11:00 11:08 Temperature Pulse Rate 135 H 110 H 105 H Pulse Rate [ Anterior Bilateral Throughout] Pulse Rate [ Anterior Right Throughout] Pulse Rate [ From Monitor] Respiratory 18 19 Rate Respiratory Rate [Anterior Bilateral Throughout] Respiratory Rate [Anterior Right Throughout] Blood Pressure 118/60 114/76 O2 Sat by Pulse 96 98 Oximetry 08/13/16 08/13/16 12:00 12:08 Temperature 99.4 F Pulse Rate 101 H Pulse Rate [ Anterior Bilateral Throughout] Pulse Rate [ Anterior Right Throughout] Pulse Rate [ From Monitor] Respiratory Rate Respiratory Rate [Anterior Bilateral Throughout] Respiratory Rate [Anterior Right Throughout] Blood Pressure 122/80 O2 Sat by Pulse 97 Oximetry Constitutional: alert, other (morbidly obese) ENT: other (orally intubated, critically ill on ventilator) Neck: other (large in cirumference) Effort: normal Ascultation: Bilateral: clear, diminished breath sounds, rhonchi Percussion: Bilateral: not dull Cardiovascular: regular rate and rhythm Gastrointestinal: hypoactive bowel sounds, soft, non-tender Integumentary: other (chronic venous changes on legs) Neurologic: non-focal exam, pupils equal and round, other (RA SS 0) CBC and BMP: 08/13/16 05:00 08/13/16 05:00 ABG, PT/INR, D-dimer: ABG POC ABG pH 7.502 (7.35-7.45) H 08/13/16 04:45 POC ABG pCO2 52.9 (35-45) H 08/13/16 04:45 POC ABG pO2 82 (80-105) 08/13/16 04:45 POC ABG HCO3 41.4 08/13/16 04:45 POC ABG Total CO2 43 08/13/16 04:45 POC ABG O2 Sat 97 08/13/16 04:45 PT/INR, D-dimer PT 18.0 Sec. (12.2-14.9) H 08/03/16 15:06 INR 1.49 (0.87-1.13) H 08/03/16 15:06 D-Dimer 2516.52 ng/mlDDU (0-234) H 08/05/16 13:01 Abnormal lab findings: Abnormal Labs 08/04/16 08/04/16 08/04/16 09:41 12:25 17:02 WBC RBC Hgb Hct MCV MCH MCHC RDW Plt Count Lymph % (Auto) Lymph # [place] # Seg Neutrophils % Seg Neuts % (Manual) Lymphocytes % (Manual) Nucleated RBC % Seg Neutrophils # Seg Neutrophils # Man Lymphocytes # (Manual) D-Dimer POC ABG pH POC ABG pCO2 POC ABG pO2 Sodium Potassium Chloride Carbon Dioxide BUN Creatinine Glucose POC Glucose 158 H 236 H 217 H Lactic Acid Calcium Ionized Calcium Phosphorus Total Bilirubin Direct Bilirubin AST ALT Total Creatine Kinase CK-MB (CK-2) CK-MB (CK-2) Rel Index Troponin T NT-Pro-B Natriuret Pep Albumin Gamma Globulins PEP Interpretation HDL Cholesterol Urine WBC (Auto) Urine Creatinine Complement C3 Complement C4 08/05/16 08/05/16 08/05/16 06:32 08:09 08:17 WBC RBC Hgb Hct MCV MCH MCHC RDW Plt Count Lymph % (Auto) Lymph # [place] # Seg Neutrophils % Seg Neuts % (Manual) Lymphocytes % (Manual) Nucleated RBC % Seg Neutrophils # Seg Neutrophils # Man Lymphocytes # (Manual) D-Dimer POC ABG pH POC ABG pCO2 POC ABG pO2 Sodium Potassium Chloride Carbon Dioxide BUN Creatinine Glucose POC Glucose < 40 L 53 L 185 H Lactic Acid Calcium Ionized Calcium Phosphorus Total Bilirubin Direct Bilirubin AST ALT Total Creatine Kinase CK-MB (CK-2) CK-MB (CK-2) Rel Index Troponin T NT-Pro-B Natriuret Pep Albumin Gamma Globulins PEP Interpretation HDL Cholesterol Urine WBC (Auto) Urine Creatinine Complement C3 Complement C4 08/05/16 08/05/16 08/05/16 08:34 12:15 12:47 WBC RBC Hgb Hct MCV MCH MCHC RDW Plt Count Lymph % (Auto) Lymph # [place] # Seg Neutrophils % Seg Neuts % (Manual) Lymphocytes % (Manual) Nucleated RBC % Seg Neutrophils # Seg Neutrophils # Man Lymphocytes # (Manual) D-Dimer POC ABG pH 7.169 L 7.077 L POC ABG pCO2 28.5 L 54.3 H POC ABG pO2 78 L Sodium Potassium Chloride Carbon Dioxide BUN Creatinine Glucose POC Glucose 128 H Lactic Acid Calcium Ionized Calcium Phosphorus Total Bilirubin Direct Bilirubin AST ALT Total Creatine Kinase CK-MB (CK-2) CK-MB (CK-2) Rel Index Troponin T NT-Pro-B Natriuret Pep Albumin Gamma Globulins PEP Interpretation HDL Cholesterol Urine WBC (Auto) Urine Creatinine Complement C3 Complement C4 08/05/16 08/05/16 08/05/16 13:01 13:01 13:01 WBC RBC Hgb Hct MCV MCH MCHC RDW Plt Count Lymph % (Auto) Lymph # [place] # Seg Neutrophils % Seg Neuts % (Manual) Lymphocytes % (Manual) Nucleated RBC % Seg Neutrophils # Seg Neutrophils # Man Lymphocytes # (Manual) D-Dimer 2516.52 H POC ABG pH POC ABG pCO2 POC ABG pO2 Sodium Potassium Chloride Carbon Dioxide BUN Creatinine Glucose POC Glucose Lactic Acid Calcium Ionized Calcium Phosphorus Total Bilirubin Direct Bilirubin AST ALT Total Creatine Kinase 304 H CK-MB (CK-2) 11.6 H CK-MB (CK-2) Rel Index Troponin T 0.121 H* D NT-Pro-B Natriuret Pep 8307 H Albumin Gamma Globulins PEP Interpretation HDL Cholesterol 21 L Urine WBC (Auto) Urine Creatinine Complement C3 Complement C4 08/05/16 08/05/16 08/05/16 14:44 15:27 16:05 WBC RBC Hgb Hct MCV MCH MCHC RDW Plt Count Lymph % (Auto) Lymph # [place] # Seg Neutrophils % Seg Neuts % (Manual) Lymphocytes % (Manual) Nucleated RBC % Seg Neutrophils # Seg Neutrophils # Man Lymphocytes # (Manual) D-Dimer POC ABG pH 7.020 L POC ABG pCO2 66.3 H POC ABG pO2 Sodium Potassium Chloride Carbon Dioxide BUN Creatinine Glucose POC Glucose Lactic Acid 10.9 H* Calcium Ionized Calcium Phosphorus Total Bilirubin Direct Bilirubin AST ALT Total Creatine Kinase 282 H CK-MB (CK-2) 11.9 H CK-MB (CK-2) Rel Index 4.2 H Troponin T 0.152 H* D NT-Pro-B Natriuret Pep Albumin Gamma Globulins PEP Interpretation HDL Cholesterol Urine WBC (Auto) Urine Creatinine Complement C3 Complement C4 08/05/16 08/05/16 08/05/16 17:01 17:43 22:09 WBC RBC Hgb Hct MCV MCH MCHC RDW Plt Count Lymph % (Auto) Lymph # [place] # Seg Neutrophils % Seg Neuts % (Manual) Lymphocytes % (Manual) Nucleated RBC % Seg Neutrophils # Seg Neutrophils # Man Lymphocytes # (Manual) D-Dimer POC ABG pH 7.119 L POC ABG pCO2 63.2 H POC ABG pO2 51 L Sodium Potassium Chloride Carbon Dioxide BUN Creatinine Glucose POC Glucose 203 H 241 H Lactic Acid Calcium Ionized Calcium Phosphorus Total Bilirubin Direct Bilirubin AST ALT Total Creatine Kinase CK-MB (CK-2) CK-MB (CK-2) Rel Index Troponin T NT-Pro-B Natriuret Pep Albumin Gamma Globulins PEP Interpretation HDL Cholesterol Urine WBC (Auto) Urine Creatinine Complement C3 Complement C4 08/05/16 08/06/16 08/06/16 23:30 05:08 05:55 WBC RBC Hgb Hct MCV MCH MCHC RDW Plt Count Lymph % (Auto) Lymph # [place] # Seg Neutrophils % Seg Neuts % (Manual) Lymphocytes % (Manual) Nucleated RBC % Seg Neutrophils # Seg Neutrophils # Man Lymphocytes # (Manual) D-Dimer POC ABG pH 7.289 L POC ABG pCO2 59.9 H POC ABG pO2 224 H Sodium Potassium Chloride Carbon Dioxide BUN Creatinine Glucose POC Glucose Lactic Acid 6.8 H* 5.3 H* Calcium Ionized Calcium Phosphorus Total Bilirubin Direct Bilirubin AST ALT Total Creatine Kinase CK-MB (CK-2) CK-MB (CK-2) Rel Index Troponin T NT-Pro-B Natriuret Pep Albumin Gamma Globulins PEP Interpretation HDL Cholesterol Urine WBC (Auto) Urine Creatinine Complement C3 Complement C4 08/06/16 08/06/16 08/06/16 06:16 09:05 09:05 WBC 15.1 H RBC Hgb 9.1 L Hct 31.1 L MCV 69 L MCH 20 L MCHC 29 L RDW 20.6 H Plt Count 116 L Lymph % (Auto) Lymph # [place] # Seg Neutrophils % Seg Neuts % (Manual) 95.0 H Lymphocytes % (Manual) 2.0 L Nucleated RBC % 5.0 H Seg Neutrophils # Seg Neutrophils # Man 14.3 H Lymphocytes # (Manual) 0.3 L D-Dimer POC ABG pH POC ABG pCO2 POC ABG pO2 Sodium 136 L Potassium 6.0 H D Chloride 87.5 L Carbon Dioxide BUN 66 H Creatinine 3.9 H D Glucose 319 H POC Glucose 326 H Lactic Acid Calcium 5.5 L* D Ionized Calcium Phosphorus Total Bilirubin 3.2 H Direct Bilirubin AST 4838 H ALT 1620 H Total Creatine Kinase CK-MB (CK-2) CK-MB (CK-2) Rel Index Troponin T NT-Pro-B Natriuret Pep Albumin 2.7 L Gamma Globulins PEP Interpretation HDL Cholesterol Urine WBC (Auto) Urine Creatinine Complement C3 Complement C4 08/06/16 08/06/16 08/06/16 11:20 11:50 11:56 WBC RBC Hgb Hct MCV MCH MCHC RDW Plt Count Lymph % (Auto) Lymph # [place] # Seg Neutrophils % Seg Neuts % (Manual) Lymphocytes % (Manual) Nucleated RBC % Seg Neutrophils # Seg Neutrophils # Man Lymphocytes # (Manual) D-Dimer POC ABG pH POC ABG pCO2 POC ABG pO2 Sodium Potassium Chloride Carbon Dioxide BUN Creatinine Glucose POC Glucose 318 H Lactic Acid Calcium Ionized Calcium 2.7 L* Phosphorus Total Bilirubin Direct Bilirubin AST ALT Total Creatine Kinase CK-MB (CK-2) CK-MB (CK-2) Rel Index Troponin T NT-Pro-B Natriuret Pep Albumin Gamma Globulins PEP Interpretation HDL Cholesterol Urine WBC (Auto) 28.0 H Urine Creatinine Complement C3 Complement C4 08/06/16 08/06/16 08/06/16 13:17 13:17 13:17 WBC RBC Hgb Hct MCV MCH MCHC RDW Plt Count Lymph % (Auto) Lymph # [place] # Seg Neutrophils % Seg Neuts % (Manual) Lymphocytes % (Manual) Nucleated RBC % Seg Neutrophils # Seg Neutrophils # Man Lymphocytes # (Manual) D-Dimer POC ABG pH POC ABG pCO2 POC ABG pO2 Sodium 131 L Potassium 5.8 H Chloride 87.8 L Carbon Dioxide 15 L D BUN 67 H Creatinine 3.8 H Glucose 294 H POC Glucose Lactic Acid 5.3 H* Calcium 5.1 L* Ionized Calcium Phosphorus 9.0 H Total Bilirubin 3.1 H Direct Bilirubin 2.1 H AST 4901 H ALT 1607 H Total Creatine Kinase CK-MB (CK-2) CK-MB (CK-2) Rel Index Troponin T NT-Pro-B Natriuret Pep Albumin 2.7 L Gamma Globulins PEP Interpretation HDL Cholesterol Urine WBC (Auto) Urine Creatinine Complement C3 Complement C4 08/06/16 08/06/16 08/06/16 15:10 15:10 15:10 WBC RBC Hgb Hct MCV MCH MCHC RDW Plt Count Lymph % (Auto) Lymph # [place] # Seg Neutrophils % Seg Neuts % (Manual) Lymphocytes % (Manual) Nucleated RBC % Seg Neutrophils # Seg Neutrophils # Man Lymphocytes # (Manual) D-Dimer POC ABG pH POC ABG pCO2 POC ABG pO2 Sodium Potassium Chloride Carbon Dioxide BUN Creatinine Glucose POC Glucose Lactic Acid Calcium Ionized Calcium 2.8 L* Phosphorus Total Bilirubin Direct Bilirubin AST ALT Total Creatine Kinase CK-MB (CK-2) CK-MB (CK-2) Rel Index Troponin T NT-Pro-B Natriuret Pep Albumin Gamma Globulins PEP Interpretation HDL Cholesterol Urine WBC (Auto) Urine Creatinine Complement C3 35 L Complement C4 8 L 08/06/16 08/06/16 08/06/16 15:10 15:10 15:44 WBC RBC Hgb Hct MCV MCH MCHC RDW Plt Count Lymph % (Auto) Lymph # [place] # Seg Neutrophils % Seg Neuts % (Manual) Lymphocytes % (Manual) Nucleated RBC % Seg Neutrophils # Seg Neutrophils # Man Lymphocytes # (Manual) D-Dimer POC ABG pH POC ABG pCO2 POC ABG pO2 Sodium Potassium Chloride Carbon Dioxide BUN Creatinine Glucose POC Glucose Lactic Acid 4.5 H* Calcium Ionized Calcium Phosphorus Total Bilirubin Direct Bilirubin AST ALT Total Creatine Kinase CK-MB (CK-2) CK-MB (CK-2) Rel Index Troponin T NT-Pro-B Natriuret Pep Albumin 2.6 L Gamma Globulins 2.1 H PEP Interpretation see below H HDL Cholesterol Urine WBC (Auto) Urine Creatinine 60.1 H Complement C3 Complement C4 08/06/16 08/06/16 08/06/16 16:47 22:06 23:00 WBC RBC Hgb Hct MCV MCH MCHC RDW Plt Count Lymph % (Auto) Lymph # [place] # Seg Neutrophils % Seg Neuts % (Manual) Lymphocytes % (Manual) Nucleated RBC % Seg Neutrophils # Seg Neutrophils # Man Lymphocytes # (Manual) D-Dimer POC ABG pH POC ABG pCO2 POC ABG pO2 Sodium Potassium Chloride Carbon Dioxide BUN Creatinine Glucose POC Glucose 282 H 348 H Lactic Acid 3.4 H* Calcium Ionized Calcium Phosphorus Total Bilirubin Direct Bilirubin AST ALT Total Creatine Kinase CK-MB (CK-2) CK-MB (CK-2) Rel Index Troponin T NT-Pro-B Natriuret Pep Albumin Gamma Globulins PEP Interpretation HDL Cholesterol Urine WBC (Auto) Urine Creatinine Complement C3 Complement C4 08/07/16 08/07/16 08/07/16 03:30 04:13 07:46 WBC RBC Hgb Hct MCV MCH MCHC RDW Plt Count Lymph % (Auto) Lymph # [place] # Seg Neutrophils % Seg Neuts % (Manual) Lymphocytes % (Manual) Nucleated RBC % Seg Neutrophils # Seg Neutrophils # Man Lymphocytes # (Manual) D-Dimer POC ABG pH 7.479 H POC ABG pCO2 49.1 H POC ABG pO2 127 H Sodium Potassium Chloride Carbon Dioxide BUN Creatinine Glucose POC Glucose 316 H Lactic Acid 2.7 H* Calcium Ionized Calcium Phosphorus Total Bilirubin Direct Bilirubin AST ALT Total Creatine Kinase CK-MB (CK-2) CK-MB (CK-2) Rel Index Troponin T NT-Pro-B Natriuret Pep Albumin Gamma Globulins PEP Interpretation HDL Cholesterol Urine WBC (Auto) Urine Creatinine Complement C3 Complement C4 08/07/16 08/07/16 08/07/16 11:23 16:21 23:31 WBC RBC Hgb Hct MCV MCH MCHC RDW Plt Count Lymph % (Auto) Lymph # [place] # Seg Neutrophils % Seg Neuts % (Manual) Lymphocytes % (Manual) Nucleated RBC % Seg Neutrophils # Seg Neutrophils # Man Lymphocytes # (Manual) D-Dimer POC ABG pH POC ABG pCO2 POC ABG pO2 Sodium Potassium Chloride Carbon Dioxide BUN Creatinine Glucose POC Glucose 321 H 287 H 285 H Lactic Acid Calcium Ionized Calcium Phosphorus Total Bilirubin Direct Bilirubin AST ALT Total Creatine Kinase CK-MB (CK-2) CK-MB (CK-2) Rel Index Troponin T NT-Pro-B Natriuret Pep Albumin Gamma Globulins PEP Interpretation HDL Cholesterol Urine WBC (Auto) Urine Creatinine Complement C3 Complement C4 08/08/16 08/08/16 08/08/16 05:26 06:42 07:50 WBC 11.3 H RBC Hgb 8.7 L Hct 28.8 L MCV 66 L D MCH 20 L MCHC 30 L RDW 20.8 H Plt Count 89 L Lymph % (Auto) Lymph # [place] # Seg Neutrophils % Seg Neuts % (Manual) 90.0 H Lymphocytes % (Manual) 1.0 L Nucleated RBC % 2.0 H Seg Neutrophils # Seg Neutrophils # Man 10.2 H Lymphocytes # (Manual) 0.1 L D-Dimer POC ABG pH 7.555 H POC ABG pCO2 45.6 H POC ABG pO2 Sodium Potassium Chloride Carbon Dioxide BUN Creatinine Glucose POC Glucose 268 H Lactic Acid Calcium Ionized Calcium Phosphorus Total Bilirubin Direct Bilirubin AST ALT Total Creatine Kinase CK-MB (CK-2) CK-MB (CK-2) Rel Index Troponin T NT-Pro-B Natriuret Pep Albumin Gamma Globulins PEP Interpretation HDL Cholesterol Urine WBC (Auto) Urine Creatinine Complement C3 Complement C4 08/08/16 08/08/16 08/08/16 07:50 07:50 11:04 WBC RBC Hgb Hct MCV MCH MCHC RDW Plt Count Lymph % (Auto) Lymph # [place] # Seg Neutrophils % Seg Neuts % (Manual) Lymphocytes % (Manual) Nucleated RBC % Seg Neutrophils # Seg Neutrophils # Man Lymphocytes # (Manual) D-Dimer POC ABG pH 7.461 H POC ABG pCO2 58.5 H POC ABG pO2 72 L Sodium Potassium 3.3 L D Chloride 93.1 L Carbon Dioxide 38 H D BUN 52 H Creatinine 2.6 H Glucose 268 H POC Glucose 265 H Lactic Acid Calcium 6.5 L D Ionized Calcium Phosphorus Total Bilirubin Direct Bilirubin AST ALT Total Creatine Kinase CK-MB (CK-2) CK-MB (CK-2) Rel Index Troponin T NT-Pro-B Natriuret Pep Albumin Gamma Globulins PEP Interpretation HDL Cholesterol Urine WBC (Auto) Urine Creatinine Complement C3 Complement C4 08/08/16 08/08/16 08/08/16 11:55 16:19 23:23 WBC RBC Hgb Hct MCV MCH MCHC RDW Plt Count Lymph % (Auto) Lymph # [place] # Seg Neutrophils % Seg Neuts % (Manual) Lymphocytes % (Manual) Nucleated RBC % Seg Neutrophils # Seg Neutrophils # Man Lymphocytes # (Manual) D-Dimer POC ABG pH POC ABG pCO2 POC ABG pO2 Sodium Potassium Chloride Carbon Dioxide BUN Creatinine Glucose POC Glucose 237 H 209 H 246 H Lactic Acid Calcium Ionized Calcium Phosphorus Total Bilirubin Direct Bilirubin AST ALT Total Creatine Kinase CK-MB (CK-2) CK-MB (CK-2) Rel Index Troponin T NT-Pro-B Natriuret Pep Albumin Gamma Globulins PEP Interpretation HDL Cholesterol Urine WBC (Auto) Urine Creatinine Complement C3 Complement C4 08/09/16 08/09/16 08/09/16 05:51 06:00 06:00 WBC 12.0 H RBC Hgb 8.4 L Hct 28.3 L MCV 68 L MCH 20 L MCHC 30 L RDW 21.2 H Plt Count 79 L Lymph % (Auto) 3.5 L Lymph # 0.4 L Hart # Seg Neutrophils % 89.9 H Seg Neuts % (Manual) Lymphocytes % (Manual) Nucleated RBC % Seg Neutrophils # 10.8 H Seg Neutrophils # Man Lymphocytes # (Manual) D-Dimer POC ABG pH 7.479 H POC ABG pCO2 67.7 H POC ABG pO2 Sodium Potassium 2.5 L* D Chloride 86.3 L Carbon Dioxide 51 H* D BUN 38 H Creatinine Glucose 695 H* POC Glucose Lactic Acid Calcium 6.3 L Ionized Calcium Phosphorus Total Bilirubin Direct Bilirubin AST ALT Total Creatine Kinase CK-MB (CK-2) CK-MB (CK-2) Rel Index Troponin T NT-Pro-B Natriuret Pep Albumin Gamma Globulins PEP Interpretation HDL Cholesterol Urine WBC (Auto) Urine Creatinine Complement C3 Complement C4 08/09/16 08/09/16 08/09/16 07:47 08:45 09:51 WBC RBC Hgb Hct MCV MCH MCHC RDW Plt Count Lymph % (Auto) Lymph # [place] # Seg Neutrophils % Seg Neuts % (Manual) Lymphocytes % (Manual) Nucleated RBC % Seg Neutrophils # Seg Neutrophils # Man Lymphocytes # (Manual) D-Dimer POC ABG pH 7.458 H POC ABG pCO2 68.7 H POC ABG pO2 65 L Sodium Potassium Chloride 92.9 L Carbon Dioxide 40 H D BUN 42 H Creatinine 1.7 H Glucose 205 H POC Glucose 189 H Lactic Acid Calcium 7.7 L D Ionized Calcium Phosphorus Total Bilirubin Direct Bilirubin AST ALT Total Creatine Kinase CK-MB (CK-2) CK-MB (CK-2) Rel Index Troponin T NT-Pro-B Natriuret Pep Albumin Gamma Globulins PEP Interpretation HDL Cholesterol Urine WBC (Auto) Urine Creatinine Complement C3 Complement C4 08/09/16 08/09/16 08/09/16 11:55 13:35 16:05 WBC RBC Hgb Hct MCV MCH MCHC RDW Plt Count Lymph % (Auto) Lymph # [place] # Seg Neutrophils % Seg Neuts % (Manual) Lymphocytes % (Manual) Nucleated RBC % Seg Neutrophils # Seg Neutrophils # Man Lymphocytes # (Manual) D-Dimer POC ABG pH POC ABG pCO2 POC ABG pO2 Sodium 148 H Potassium 2.9 L* D Chloride 96.4 L Carbon Dioxide 43 H* BUN 43 H Creatinine 1.6 H Glucose 205 H POC Glucose 222 H 204 H Lactic Acid Calcium 7.9 L Ionized Calcium Phosphorus Total Bilirubin Direct Bilirubin AST ALT Total Creatine Kinase CK-MB (CK-2) CK-MB (CK-2) Rel Index Troponin T NT-Pro-B Natriuret Pep Albumin Gamma Globulins PEP Interpretation HDL Cholesterol Urine WBC (Auto) Urine Creatinine Complement C3 Complement C4 08/09/16 08/10/16 08/10/16 22:43 05:24 05:25 WBC 13.2 H RBC Hgb 9.4 L Hct 32.5 L MCV 68 L MCH 20 L MCHC 29 L RDW 21.1 H Plt Count 72 L Lymph % (Auto) 4.3 L Lymph # 0.6 L Hart # 1.0 H Seg Neutrophils % 88.5 H Seg Neuts % (Manual) Lymphocytes % (Manual) Nucleated RBC % Seg Neutrophils # 11.7 H Seg Neutrophils # Man Lymphocytes # (Manual) D-Dimer POC ABG pH 7.483 H POC ABG pCO2 69.0 H POC ABG pO2 Sodium Potassium Chloride Carbon Dioxide BUN Creatinine Glucose POC Glucose 207 H Lactic Acid Calcium Ionized Calcium Phosphorus Total Bilirubin Direct Bilirubin AST ALT Total Creatine Kinase CK-MB (CK-2) CK-MB (CK-2) Rel Index Troponin T NT-Pro-B Natriuret Pep Albumin Gamma Globulins PEP Interpretation HDL Cholesterol Urine WBC (Auto) Urine Creatinine Complement C3 Complement C4 08/10/16 08/10/16 08/10/16 07:31 09:04 11:22 WBC RBC Hgb Hct MCV MCH MCHC RDW Plt Count Lymph % (Auto) Lymph # [place] # Seg Neutrophils % Seg Neuts % (Manual) Lymphocytes % (Manual) Nucleated RBC % Seg Neutrophils # Seg Neutrophils # Man Lymphocytes # (Manual) D-Dimer POC ABG pH POC ABG pCO2 POC ABG pO2 Sodium 147 H Potassium 3.4 L Chloride 96.8 L Carbon Dioxide 42 H* BUN 38 H Creatinine Glucose 144 H POC Glucose 165 H 137 H Lactic Acid Calcium 8.3 L Ionized Calcium Phosphorus Total Bilirubin Direct Bilirubin AST ALT Total Creatine Kinase CK-MB (CK-2) CK-MB (CK-2) Rel Index Troponin T NT-Pro-B Natriuret Pep Albumin Gamma Globulins PEP Interpretation HDL Cholesterol Urine WBC (Auto) Urine Creatinine Complement C3 Complement C4 08/10/16 08/10/16 08/11/16 15:55 23:00 05:05 WBC RBC Hgb Hct MCV MCH MCHC RDW Plt Count Lymph % (Auto) Lymph # [place] # Seg Neutrophils % Seg Neuts % (Manual) Lymphocytes % (Manual) Nucleated RBC % Seg Neutrophils # Seg Neutrophils # Man Lymphocytes # (Manual) D-Dimer POC ABG pH 7.499 H POC ABG pCO2 56.4 H POC ABG pO2 Sodium Potassium Chloride Carbon Dioxide BUN Creatinine Glucose POC Glucose 110 H 201 H Lactic Acid Calcium Ionized Calcium Phosphorus Total Bilirubin Direct Bilirubin AST ALT Total Creatine Kinase CK-MB (CK-2) CK-MB (CK-2) Rel Index Troponin T NT-Pro-B Natriuret Pep Albumin Gamma Globulins PEP Interpretation HDL Cholesterol Urine WBC (Auto) Urine Creatinine Complement C3 Complement C4 08/11/16 08/11/16 08/11/16 07:24 11:58 15:24 WBC RBC Hgb Hct MCV MCH MCHC RDW Plt Count Lymph % (Auto) Lymph # [place] # Seg Neutrophils % Seg Neuts % (Manual) Lymphocytes % (Manual) Nucleated RBC % Seg Neutrophils # Seg Neutrophils # Man Lymphocytes # (Manual) D-Dimer POC ABG pH POC ABG pCO2 POC ABG pO2 Sodium Potassium Chloride Carbon Dioxide BUN Creatinine Glucose POC Glucose 109 H 114 H 106 H Lactic Acid Calcium Ionized Calcium Phosphorus Total Bilirubin Direct Bilirubin AST ALT Total Creatine Kinase CK-MB (CK-2) CK-MB (CK-2) Rel Index Troponin T NT-Pro-B Natriuret Pep Albumin Gamma Globulins PEP Interpretation HDL Cholesterol Urine WBC (Auto) Urine Creatinine Complement C3 Complement C4 08/11/16 08/11/16 08/11/16 16:02 16:02 22:10 WBC 13.4 H RBC Hgb 9.8 L Hct 34.7 L MCV 69 L MCH 20 L MCHC 28 L RDW 21.5 H Plt Count 59 L Lymph % (Auto) 11.8 L Lymph # Hart # 0.9 H Seg Neutrophils % 81.8 H Seg Neuts % (Manual) Lymphocytes % (Manual) Nucleated RBC % Seg Neutrophils # 11.0 H Seg Neutrophils # Man Lymphocytes # (Manual) D-Dimer POC ABG pH POC ABG pCO2 POC ABG pO2 Sodium 153 H Potassium 2.6 L* D Chloride Carbon Dioxide 40 H BUN 40 H Creatinine Glucose POC Glucose 150 H Lactic Acid Calcium 8.3 L Ionized Calcium Phosphorus Total Bilirubin Direct Bilirubin AST ALT Total Creatine Kinase CK-MB (CK-2) CK-MB (CK-2) Rel Index Troponin T NT-Pro-B Natriuret Pep Albumin Gamma Globulins PEP Interpretation HDL Cholesterol Urine WBC (Auto) Urine Creatinine Complement C3 Complement C4 08/12/16 08/12/16 08/12/16 03:54 06:13 07:51 WBC RBC Hgb Hct MCV MCH MCHC RDW Plt Count Lymph % (Auto) Lymph # Hart # Seg Neutrophils % Seg Neuts % (Manual) Lymphocytes % (Manual) Nucleated RBC % Seg Neutrophils # Seg Neutrophils # Man Lymphocytes # (Manual) D-Dimer POC ABG pH 7.497 H POC ABG pCO2 53.0 H POC ABG pO2 Sodium 157 H Potassium 3.0 L Chloride 108.8 H Carbon Dioxide 38 H BUN 42 H Creatinine Glucose 157 H POC Glucose 154 H Lactic Acid Calcium 8.3 L Ionized Calcium Phosphorus Total Bilirubin Direct Bilirubin AST ALT Total Creatine Kinase CK-MB (CK-2) CK-MB (CK-2) Rel Index Troponin T NT-Pro-B Natriuret Pep Albumin Gamma Globulins PEP Interpretation HDL Cholesterol Urine WBC (Auto) Urine Creatinine Complement C3 Complement C4 08/12/16 08/12/16 08/12/16 11:29 16:04 22:16 WBC RBC Hgb Hct MCV MCH MCHC RDW Plt Count Lymph % (Auto) Lymph # Hart # Seg Neutrophils % Seg Neuts % (Manual) Lymphocytes % (Manual) Nucleated RBC % Seg Neutrophils # Seg Neutrophils # Man Lymphocytes # (Manual) D-Dimer POC ABG pH POC ABG pCO2 POC ABG pO2 Sodium Potassium Chloride Carbon Dioxide BUN Creatinine Glucose POC Glucose 148 H 152 H 178 H Lactic Acid Calcium Ionized Calcium Phosphorus Total Bilirubin Direct Bilirubin AST ALT Total Creatine Kinase CK-MB (CK-2) CK-MB (CK-2) Rel Index Troponin T NT-Pro-B Natriuret Pep Albumin Gamma Globulins PEP Interpretation HDL Cholesterol Urine WBC (Auto) Urine Creatinine Complement C3 Complement C4 08/13/16 08/13/16 08/13/16 04:45 05:00 05:00 WBC RBC 5.05 H Hgb 9.9 L Hct 34.9 L MCV 69 L MCH 20 L MCHC 28 L RDW 22.7 H Plt Count 65 L Lymph % (Auto) 7.2 L Lymph # 0.8 L Hart # Seg Neutrophils % 87.2 H Seg Neuts % (Manual) Lymphocytes % (Manual) Nucleated RBC % Seg Neutrophils # 9.3 H Seg Neutrophils # Man Lymphocytes # (Manual) D-Dimer POC ABG pH 7.502 H POC ABG pCO2 52.9 H POC ABG pO2 Sodium 158 H Potassium 2.5 L* Chloride 109.8 H Carbon Dioxide 40 H BUN 44 H Creatinine Glucose 192 H POC Glucose Lactic Acid Calcium 8.1 L Ionized Calcium Phosphorus Total Bilirubin Direct Bilirubin AST ALT Total Creatine Kinase CK-MB (CK-2) CK-MB (CK-2) Rel Index Troponin T NT-Pro-B Natriuret Pep Albumin Gamma Globulins PEP Interpretation HDL Cholesterol Urine WBC (Auto) Urine Creatinine Complement C3 Complement C4 08/13/16 08/13/16 07:52 11:51 WBC RBC Hgb Hct MCV MCH MCHC RDW Plt Count Lymph % (Auto) Lymph # Hart # Seg Neutrophils % Seg Neuts % (Manual) Lymphocytes % (Manual) Nucleated RBC % Seg Neutrophils # Seg Neutrophils # Man Lymphocytes # (Manual) D-Dimer POC ABG pH POC ABG pCO2 POC ABG pO2 Sodium Potassium Chloride Carbon Dioxide BUN Creatinine Glucose POC Glucose 203 H 216 H Lactic Acid Calcium Ionized Calcium Phosphorus Total Bilirubin Direct Bilirubin AST ALT Total Creatine Kinase CK-MB (CK-2) CK-MB (CK-2) Rel Index Troponin T NT-Pro-B Natriuret Pep Albumin Gamma Globulins PEP Interpretation HDL Cholesterol Urine WBC (Auto) Urine Creatinine Complement C3 Complement C4
--- NOTE | 2016-08-13 13:35 | Progress Note ---
Assessment and Plan - Patient Problems (1) Acute CHF Current Visit: Yes Status: Acute Qualifiers: Congestive heart failure type: systolic Qualified Code(s): I50.21 - Acute systolic (congestive) heart failure Plan to address problem: Patient is not on Lasix and beta blockers because of his low BP due to vasodilatory shock (2) Acute respiratory failure Current Visit: Yes Status: Acute Qualifiers: Respiratory failure complication: R Plan to address problem: Intubated and mechanically ventilated Pulmonary is on board Failed Weaning trial Consider trach Patient is on antibiotics (3) Anemia Current Visit: Yes Status: Acute Qualifiers: Anemia type: A Iron deficiency anemia type: I Vitamin B12 deficiency anemia type: V Folate deficiency anemia type: F Bone marrow failure anemia type: B Hemolytic anemia type: H Other causes of anemia: O Plan to address problem: We'll follow closely, she doesn't need transfusion now (4) Atrial fibrillation with RVR Current Visit: Yes Status: Acute (5) COPD (chronic obstructive pulmonary disease) Current Visit: Yes Status: Acute Qualifiers: COPD type: C Chronic bronchitis type: C Emphysema type: E Plan to address problem: As stated above (6) Diabetes Current Visit: Yes Status: Acute Qualifiers: Diabetes mellitus type: D Diabetes mellitus complication status: D Diabetes mellitus complication detail: D Diabetic retinopathy severity: D Proliferative retinopathy type: P Diabetes mellitus macular edema: D Diabetes mellitus correction insulin use: D Laterality: L Chronic kidney disease stage: C Plan to address problem: sliding scale insulin (7) History of pulmonary embolus (PE) Current Visit: Yes Status: Acute Plan to address problem: Patient does history of bilateral PE at [place] Patient was on Lovenox and we discontinued today because of his platelet count dropped down to 60 (8) Thrombocytopenia Current Visit: Yes Status: Acute Plan to address problem: We will follow closely History Interval history: Patient is on mechanical ventilation, no significant change. Hospitalist Physical - Physical exam Narrative exam: In cardiopulmonary distress. The patient appeared well nourished and normally developed. Vital signs as documented. Head exam is unremarkable. No scleral icterus . Neck is without jugular venous distension, thyromegaly, or carotid bruits. Lungs are clear to auscultation. Cardiac exam reveals regular rate and Rhythm. First and second heart sounds normal. No murmurs, rubs or gallops. Abdominal exam reveals normal bowel sounds, no masses, no organomegaly and no aortic enlargement. Extremities are edematous. [employer]: sedated. - Constitutional Vitals: Temp Pulse Resp BP Pulse Ox 99.4 F 101 H 19 122/80 97 08/13/16 12:00 08/13/16 12:08 08/13/16 11:00 08/13/16 12:08 08/13/16 12:08 General appearance: Present: no acute distress, obese Results - Labs CBC & Chem 7: 08/13/16 05:00 08/13/16 05:00 Labs: Laboratory Last Values WBC 10.6 K/mm3 (4.5-11.0) 08/13/16 05:00 RBC 5.05 M/mm3 (3.65-5.03) H 08/13/16 05:00 Hgb 9.9 gm/dl (11.8-15.2) L 08/13/16 05:00 Hct 34.9 % (35.5-45.6) L 08/13/16 05:00 MCV 69 fl (84-94) L 08/13/16 05:00 MCH 20 pg (28-32) L 08/13/16 05:00 MCHC 28 % (32-34) L 08/13/16 05:00 RDW 22.7 % (13.2-15.2) H 08/13/16 05:00 Plt Count 65 K/mm3 (140-440) L 08/13/16 05:00 Lymph % (Auto) 7.2 % (13.4-35.0) L 08/13/16 05:00 Allen % (Auto) 5.4 % (0.0-7.3) 08/13/16 05:00 Eos % (Auto) 0.0 % (0.0-4.3) 08/13/16 05:00 Baso % (Auto) 0.2 % (0.0-1.8) 08/13/16 05:00 Lymph # 0.8 K/mm3 (1.2-5.4) L 08/13/16 05:00 Allen # 0.6 K/mm3 (0.0-0.8) 08/13/16 05:00 Eos # 0.0 K/mm3 (0.0-0.4) 08/13/16 05:00 Baso # 0.0 K/mm3 (0.0-0.1) 08/13/16 05:00 Add Manual Diff Complete 08/08/16 07:50 Total Counted 100 08/08/16 07:50 Seg Neutrophils % 87.2 % (40.0-70.0) H 08/13/16 05:00 Seg Neuts % (Manual) 90.0 % (40.0-70.0) H 08/08/16 07:50 Band Neutrophils % 6.0 % 08/08/16 07:50 Lymphocytes % (Manual) 1.0 % (13.4-35.0) L 08/08/16 07:50 Reactive Lymphs % (Man) 0 % 08/08/16 07:50 Monocytes % (Manual) 3.0 % (0.0-7.3) 08/08/16 07:50 Eosinophils % (Manual) 0 % (0.0-4.3) 08/08/16 07:50 Basophils % (Manual) 0 % (0.0-1.8) 08/08/16 07:50 Metamyelocytes % 0 % 08/08/16 07:50 Myelocytes % 0 % 08/08/16 07:50 Promyelocytes % 0 % 08/08/16 07:50 Blast Cells % 0 % 08/08/16 07:50 Nucleated RBC % 2.0 % (0.0-0.9) H 08/08/16 07:50 Seg Neutrophils # 9.3 K/mm3 (1.8-7.7) H 08/13/16 05:00 Seg Neutrophils # Man 10.2 K/mm3 (1.8-7.7) H 08/08/16 07:50 Band Neutrophils # 0.7 K/mm3 08/08/16 07:50 Lymphocytes # (Manual) 0.1 K/mm3 (1.2-5.4) L 08/08/16 07:50 Abs React Lymphs (Man) 0.0 K/mm3 08/08/16 07:50 Monocytes # (Manual) 0.3 K/mm3 (0.0-0.8) 08/08/16 07:50 Eosinophils # (Manual) 0.0 K/mm3 (0.0-0.4) 08/08/16 07:50 Basophils # (Manual) 0.0 K/mm3 (0.0-0.1) 08/08/16 07:50 Metamyelocytes # 0.0 K/mm3 08/08/16 07:50 Myelocytes # 0.0 K/mm3 08/08/16 07:50 Promyelocytes # 0.0 K/mm3 08/08/16 07:50 Blast Cells # 0.0 K/mm3 08/08/16 07:50 WBC Morphology Not Reportable 08/08/16 07:50 Hypersegmented Neuts Not Reportable 08/08/16 07:50 Hyposegmented Neuts Not Reportable 08/08/16 07:50 Hypogranular Neuts Not Reportable 08/08/16 07:50 Smudge Cells Not Reportable 08/08/16 07:50 Toxic Granulation Not Reportable 08/08/16 07:50 Toxic Vacuolation Not Reportable 08/08/16 07:50 Dohle Bodies Not Reportable 08/08/16 07:50 Pelger-Huet Anomaly Not Reportable 08/08/16 07:50 Scott Rods Not Reportable 08/08/16 07:50 Platelet Estimate Appears decreased 08/08/16 07:50 Clumped Platelets Not Reportable 08/08/16 07:50 Plt Clumps, EDTA Not Reportable 08/08/16 07:50 Large Platelets Not Reportable 08/08/16 07:50 Giant Platelets Not Reportable 08/08/16 07:50 Platelet Satelliting Not Reportable 08/08/16 07:50 Plt Morphology Comment Not Reportable 08/08/16 07:50 RBC Morphology Not Reportable 08/08/16 07:50 Dimorphic RBCs Not Reportable 08/08/16 07:50 Polychromasia Few 08/08/16 07:50 Hypochromasia 1+ 08/08/16 07:50 Poikilocytosis Not Reportable 08/08/16 07:50 Anisocytosis 1+ 08/08/16 07:50 Microcytosis 1+ 08/08/16 07:50 Macrocytosis Not Reportable 08/08/16 07:50 Spherocytes Not Reportable 08/08/16 07:50 Pappenheimer Bodies Not Reportable 08/08/16 07:50 Sickle Cells Not Reportable 08/08/16 07:50 Target Cells Not Reportable 08/08/16 07:50 Tear Drop Cells Not Reportable 08/08/16 07:50 Ovalocytes Not Reportable 08/08/16 07:50 Helmet Cells Not Reportable 08/08/16 07:50 [place] Bodies Not Reportable 08/08/16 07:50 Aromas Rings Not Reportable 08/08/16 07:50 Juan F Cells Not Reportable 08/08/16 07:50 Bite Cells Not Reportable 08/08/16 07:50 Crenated Cell Not Reportable 08/08/16 07:50 Elliptocytes 1+ 08/08/16 07:50 Acanthocytes (Spur) Not Reportable 08/08/16 07:50 Rouleaux Not Reportable 08/08/16 07:50 Hemoglobin C Crystals Not Reportable 08/08/16 07:50 Schistocytes Not Reportable 08/08/16 07:50 Malaria parasites Not Reportable 08/08/16 07:50 Jun Bodies Not Reportable 08/08/16 07:50 Hem Pathologist Commnt No 08/08/16 07:50 PT 18.0 Sec. (12.2-14.9) H 08/03/16 15:06 INR 1.49 (0.87-1.13) H 08/03/16 15:06 APTT 28.8 Sec. (24.2-36.6) 08/03/16 15:06 D-Dimer 2516.52 ng/mlDDU (0-234) H 08/05/16 13:01 POC ABG pH 7.502 (7.35-7.45) H 08/13/16 04:45 POC ABG pCO2 52.9 (35-45) H 08/13/16 04:45 POC ABG pO2 82 (80-105) 08/13/16 04:45 POC ABG HCO3 41.4 08/13/16 04:45 POC ABG Total CO2 43 08/13/16 04:45 POC ABG O2 Sat 97 08/13/16 04:45 POC ABG Base Excess 18 08/13/16 04:45 FiO2 45 % 08/13/16 04:45 Sodium 158 mmol/L (137-145) H 08/13/16 05:00 Potassium 2.5 mmol/L (3.6-5.0) L* 08/13/16 05:00 Chloride 109.8 mmol/L (98-107) H 08/13/16 05:00 Carbon Dioxide 40 mmol/L (22-30) H 08/13/16 05:00 Anion Gap 11 mmol/L 08/13/16 05:00 BUN 44 mg/dL (9-20) H 08/13/16 05:00 Creatinine 1.1 mg/dL (0.8-1.5) 08/13/16 05:00 Estimated GFR > 60 ml/min 08/13/16 05:00 BUN/Creatinine Ratio 40.00 % 08/13/16 05:00 Glucose 192 mg/dL (75-100) H 08/13/16 05:00 POC Glucose 216 (70-105) H 08/13/16 11:51 Lactic Acid 2.7 mmol/L (0.7-2.0) H* 08/07/16 03:30 Calcium 8.1 mg/dL (8.4-10.2) L 08/13/16 05:00 Ionized Calcium 2.8 mg/dL (4.8-5.6) L* 08/06/16 15:10 Phosphorus 9.0 mg/dL (2.5-4.5) H 08/06/16 13:17 Magnesium 2.0 mg/dL (1.7-2.3) 08/06/16 13:17 Total Bilirubin 3.1 mg/dL (0.1-1.2) H 08/06/16 13:17 Direct Bilirubin 2.1 mg/dL (0-0.2) H 08/06/16 13:17 Indirect Bilirubin 1.0 mg/dL 08/06/16 13:17 AST 4901 units/L (5-40) H 08/06/16 13:17 ALT 1607 units/L (7-56) H 08/06/16 13:17 Alkaline Phosphatase 111 units/L (35-129) 08/06/16 13:17 Ammonia 61.0 umol/L (25-60) H 08/03/16 15:06 Total Creatine Kinase 282 units/L (55-170) H 08/05/16 15:27 CK-MB (CK-2) 11.9 ng/mL (0.0-4.0) H 08/05/16 15:27 CK-MB (CK-2) Rel Index 4.2 (0-4) H 08/05/16 15:27 Troponin T 0.152 ng/mL (0.00-0.029) H* D 08/05/16 15:27 NT-Pro-B Natriuret Pep 8307 pg/mL (0-900) H 08/05/16 13:01 Serum Total Protein 6.3 g/dL (6.1-8.1) 08/06/16 15:10 Total Protein 6.6 g/dL (6.3-8.2) 08/06/16 13:17 Albumin 2.6 g/dL (3.8-4.8) L 08/06/16 15:10 Albumin/Globulin Ratio 0.7 % 08/06/16 13:17 Taygm-8-Vsrktxndh 0.3 g/dL (0.2-0.3) 08/06/16 15:10 Kkxac-3-Rivlxztaf 0.6 g/dL (0.5-0.9) 08/06/16 15:10 Beta Globulins 0.4 g/dL (0.2-0.5) 08/06/16 15:10 Gamma Globulins 2.1 g/dL (0.8-1.7) H 08/06/16 15:10 Abnorm Protein Band 1 see below 08/06/16 15:10 PEP Interpretation see below H 08/06/16 15:10 Triglycerides 31 mg/dL (2-149) 08/05/16 13:01 Cholesterol 86 mg/dL (50-199) 08/05/16 13:01 LDL Cholesterol Direct 59 mg/dL (50-130) 08/05/16 13:01 HDL Cholesterol 21 mg/dL (40-59) L 08/05/16 13:01 Cholesterol/HDL Ratio 4.09 % 08/05/16 13:01 Urine Color [place] (Yellow) 08/06/16 11:20 Urine Turbidity Cloudy (Clear) 08/06/16 11:20 Urine pH 5.0 (5.0-7.0) 08/06/16 11:20 Ur Specific [place] 1.014 (1.003-1.030) 08/06/16 11:20 Urine Protein 30 mg/dl mg/dL (Negative) 08/06/16 11:20 Urine Glucose (UA) 50 mg/dL (Negative) 08/06/16 11:20 Urine Ketones Neg mg/dL (Negative) 08/06/16 11:20 Urine Blood Mod (Negative) 08/06/16 11:20 Urine Nitrite Neg (Negative) 08/06/16 11:20 Urine Bilirubin Neg (Negative) 08/06/16 11:20 Urine Urobilinogen < 2.0 mg/dL (<2.0) 08/06/16 11:20 Ur Leukocyte Esterase Mod (Negative) 08/06/16 11:20 Urine WBC (Auto) 28.0 /HPF (0.0-6.0) H 08/06/16 11:20 Urine RBC (Auto) 15.0 /HPF (0.0-6.0) 08/06/16 11:20 U Epithel Cells (Auto) 1.0 /HPF (0-13.0) 08/06/16 11:20 Urine Bacteria (Auto) 2+ /HPF (Negative) 08/06/16 11:20 Amorphous Crystals Few 08/06/16 11:20 Urine Mucus Few /HPF 08/06/16 11:20 Urine Creatinine 60.1 mg/dL (0.1-20.0) H 08/06/16 15:44 Urine Sodium 45 mEq/L 08/06/16 15:44 Proteinase 3 (PR3) Ab <1.0 AI (<1.0) 08/06/16 15:10 Myeloperoxidase Ab <1.0 AI (<1.0) 08/06/16 15:10 Complement C3 35 mg/dL (90-180) L 08/06/16 15:10 Complement C4 8 mg/dL (16-47) L 08/06/16 15:10 Hepatitis A IgM Ab Non-reactive (NonReactive) 08/06/16 15:10 Hep Bs Antigen Non-reactive (Negative) 08/06/16 15:10 Hep B Core IgM Ab Non-reactive (NonReactive) 08/06/16 15:10 Hepatitis C Antibody Non-reactive (NonReactive) 08/06/16 15:10 Hypokalemia 2.5
[2016-08-13] MEDS ORDERED: MAGNESIUM SULFATE 2GM/50ML 2 GM/50 ML BAG IV ONE (19:03)
[2016-08-13] MEDS: LEVEMIR SUB-Q SCH (22:27)
[2016-08-13] MEDS: LEVAQUIN 750MG/150ML 750 MG/150 ML BAG IV SCH (23:42)
[2016-08-14] MEDS: fentaNYL DRIP Premix 2,000 MCG/100 ML BAG IV SCH ×6 (00:47→22:45)
[2016-08-14] MEDS: DUONEB 0.5 MG-3 MG/3 ML SOLN IH SCH ×4 (01:41→20:20)
[2016-08-14 04:41] LABS: ISTAT Base Excess 17; ISTAT HCO3 40.8; ISTAT PCO2 56.4 (35-45); ISTAT PH 7.467 (7.35-7.45); ISTAT PO2 70 (80-105); ISTAT SO2 94; ISTAT TCO2 42
[2016-08-14] MEDS: D5W 1,000 ML IV SCH ×2 (05:07→17:19)
[2016-08-14] MEDS: ZOSYN/NS 4.5GM/100ML 4.5 GM/100 ML VIAL IV SCH (05:07)
[2016-08-14 06:48] LABS: Hematocrit 29.2 % (35.5-45.6); Hemoglobin 8.3 gm/dl (11.8-15.2)
[2016-08-14 07:29] LABS: Potassium TNR mmol/L (3.6-5.0); Sodium TNR mmol/L (137-145)
[2016-08-14 07:31] LABS: Anion Gap TNR mmol/L; BUN/Creatinine Ratio TNR; Blood Urea Nitrogen TNR mg/dL (9-20); Calcium TNR mg/dL (8.4-10.2); Carbon Dioxide TNR mmol/L (22-30); Chloride TNR mmol/L (98-107); Glucose TNR mg/dL (75-100)
[2016-08-14 08:29] LABS: Anion Gap 9 mmol/L; Blood Urea Nitrogen 42 mg/dL (9-20); Calcium 8.2 mg/dL (8.4-10.2); Carbon Dioxide 40 mmol/L (22-30); Chloride 113.9 mmol/L (98-107); Glucose 156 mg/dL (75-100); Potassium 3.2 mmol/L (3.6-5.0); Sodium 160 mmol/L (137-145)
--- NOTE | 2016-08-14 08:42 | Progress Note ---
Assessment and Plan Impression * Acute kidney injury secondary to prerenal azotemia vs ATN - resolved * Acute hypoxic respiratory failure * Sepsis * Metabolic alkalosis * Hypokalemia * Edema Plan: * His serum sodium remains elevated. His urine osmolality consistent with dehydration. Continue intravenous dextrose. Shall increase the rate of his IV fluid * His serum creatinine noted to be higher as well. May be due to dehydration also * Patient is s/p Diamox x 2 doses . His metabolic alkalosis is most likely secondary to diuretics. * His potassium is low but better. Shall replace * Vent management per [facility] * Abx per primary team * Dose medications for renal function * Avoid nephrotoxins Subjective Date of service: 08/14/16 Principal diagnosis: acute on chronic respiratory failure, congestive heart failure Interval history: Patient remains in the intensive care unit. Currently on the ventilator on 45% FiO2. Patient opens his eyes Objective - Vital Signs Vital signs: Vital Signs - 12hr 08/13/16 08/13/16 08/13/16 21:00 21:30 21:36 Temperature Pulse Rate 103 H 118 H 104 H Pulse Rate [ Anterior Bilateral Throughout] Pulse Rate [ From Monitor] Respiratory 18 18 18 Rate Respiratory Rate [Anterior Bilateral Throughout] Blood Pressure 113/70 109/72 113/70 O2 Sat by Pulse 96 95 96 Oximetry 08/13/16 08/13/16 08/13/16 22:00 22:30 23:00 Temperature Pulse Rate 106 H 105 H 108 H Pulse Rate [ Anterior Bilateral Throughout] Pulse Rate [ From Monitor] Respiratory 18 18 18 Rate Respiratory Rate [Anterior Bilateral Throughout] Blood Pressure 100/68 107/77 110/68 O2 Sat by Pulse 95 96 96 Oximetry 08/13/16 08/13/16 08/14/16 23:30 23:49 00:00 Temperature 98.7 F Pulse Rate 102 H 96 H 102 H Pulse Rate [ Anterior Bilateral Throughout] Pulse Rate [ 89 From Monitor] Respiratory 18 20 Rate Respiratory Rate [Anterior Bilateral Throughout] Blood Pressure 115/75 115/75 110/67 O2 Sat by Pulse 96 99 Oximetry 08/14/16 08/14/16 08/14/16 00:30 01:00 01:30 Temperature Pulse Rate 98 H 97 H 93 H Pulse Rate [ Anterior Bilateral Throughout] Pulse Rate [ From Monitor] Respiratory 18 18 20 Rate Respiratory Rate [Anterior Bilateral Throughout] Blood Pressure 111/73 115/74 109/77 O2 Sat by Pulse 97 97 97 Oximetry 08/14/16 08/14/16 08/14/16 01:42 01:54 02:00 Temperature Pulse Rate 101 H Pulse Rate [ 95 H 98 H Anterior Bilateral Throughout] Pulse Rate [ From Monitor] Respiratory 18 Rate Respiratory 18 118 H Rate [Anterior Bilateral Throughout] Blood Pressure 112/79 O2 Sat by Pulse 96 Oximetry 08/14/16 08/14/16 08/14/16 02:30 03:00 03:30 Temperature Pulse Rate 103 H 103 H 101 H Pulse Rate [ Anterior Bilateral Throughout] Pulse Rate [ From Monitor] Respiratory 19 18 18 Rate Respiratory Rate [Anterior Bilateral Throughout] Blood Pressure 114/66 120/74 106/75 O2 Sat by Pulse 96 95 94 Oximetry 08/14/16 08/14/16 08/14/16 04:00 04:30 05:00 Temperature 98.3 F Pulse Rate 90 93 H 98 H Pulse Rate [ Anterior Bilateral Throughout] Pulse Rate [ 96 H From Monitor] Respiratory 18 18 18 Rate Respiratory Rate [Anterior Bilateral Throughout] Blood Pressure 121/73 123/81 121/79 O2 Sat by Pulse 97 96 97 Oximetry 08/14/16 08/14/16 08/14/16 05:30 06:00 06:30 Temperature Pulse Rate 101 H 93 H 88 Pulse Rate [ Anterior Bilateral Throughout] Pulse Rate [ From Monitor] Respiratory 18 18 18 Rate Respiratory Rate [Anterior Bilateral Throughout] Blood Pressure 111/79 122/77 123/81 O2 Sat by Pulse 96 96 96 Oximetry 08/14/16 08/14/16 08/14/16 07:00 07:20 07:24 Temperature Pulse Rate 92 H 96 H Pulse Rate [ 95 H Anterior Bilateral Throughout] Pulse Rate [ From Monitor] Respiratory 18 Rate Respiratory 18 Rate [Anterior Bilateral Throughout] Blood Pressure 124/80 124/80 O2 Sat by Pulse 96 96 Oximetry 08/14/16 08/14/16 07:30 08:00 Temperature 99.7 F H Pulse Rate 97 H 99 H Pulse Rate [ Anterior Bilateral Throughout] Pulse Rate [ From Monitor] Respiratory 18 18 Rate Respiratory Rate [Anterior Bilateral Throughout] Blood Pressure 126/81 123/83 O2 Sat by Pulse 98 98 Oximetry - General Appearance General appearance: well-developed, well-nourished, intubated EENT: PERRL, mucous membranes moist Neck: no JVD, no thyromegaly, no carotid bruit, supple Respiratory: Present: Ronchi (bilateral scattered rhonchi) Cardiology: regular, normal heart rate, S1S2, no murmurs Gastrointestinal: normal, normoactive bowel sounds Integumentary: other (no edema) - Lab 08/14/16 05:55 08/14/16 07:50 Most recent lab results Calcium 8.2 mg/dL (8.4-10.2) L 08/14/16 07:50 Phosphorus 9.0 mg/dL (2.5-4.5) H 08/06/16 13:17 Magnesium 2.0 mg/dL (1.7-2.3) 08/13/16 19:05 Urine Creatinine 60.1 mg/dL (0.1-20.0) H 08/06/16 15:44 Urine Sodium 45 mEq/L 08/06/16 15:44
[2016-08-14] MEDS: NOVOLOG SUB-Q SCH ×3 (08:53→17:09)
[2016-08-14] MEDS: LOVENOX SUB-Q SCH (09:13)
[2016-08-14] MEDS: KCL 10MEQ/100ML 10 MEQ/100 ML BAG IV SCH ×2 (09:13→10:17)
--- NOTE | 2016-08-14 10:10 | Progress Note ---
Assessment and Plan 66 y/o male with acute respiratory failure, secondary to bradycardia and hypotension with severe metabolic acidosis secondary to lactic acidosis possibly from sepsis from urinary source vs ischemia of gut vs inability to clear in the face or potential renal and or liver disease, now intubated and sedated, failing weaning trials with poor mental state and hypernatremia. 1. Electrolytes-elevated Na likely from insensible losses from ventilator. Na at high levels. Will add D5W drip. Know that renal is following. If they prefer a different compound that is fine as well. 2. Attempt PSV trials 3. Discuss plan on rounds today. CCT 31 minutes. Subjective Date of service: 08/14/16 Principal diagnosis: acute on chronic respiratory failure, congestive heart failure Interval history: Eyes open but does not follow commands. No family at bedside. Remains on Vent and sedation. Currently on Fent 4. Very agitated with minimal stimulation but nothing purposeful. Objective Vital Signs - 12hr 08/13/16 08/13/16 08/13/16 22:30 23:00 23:30 Temperature Pulse Rate 105 H 108 H 102 H Pulse Rate [ Anterior Bilateral Throughout] Pulse Rate [ From Monitor] Respiratory 18 18 18 Rate Respiratory Rate [Anterior Bilateral Throughout] Blood Pressure 107/77 110/68 115/75 O2 Sat by Pulse 96 96 96 Oximetry 08/13/16 08/14/16 08/14/16 23:49 00:00 00:30 Temperature 98.7 F Pulse Rate 96 H 102 H 98 H Pulse Rate [ Anterior Bilateral Throughout] Pulse Rate [ 89 From Monitor] Respiratory 20 18 Rate Respiratory Rate [Anterior Bilateral Throughout] Blood Pressure 115/75 110/67 111/73 O2 Sat by Pulse 99 97 Oximetry 08/14/16 08/14/16 08/14/16 01:00 01:30 01:42 Temperature Pulse Rate 97 H 93 H Pulse Rate [ 95 H Anterior Bilateral Throughout] Pulse Rate [ From Monitor] Respiratory 18 20 Rate Respiratory 18 Rate [Anterior Bilateral Throughout] Blood Pressure 115/74 109/77 O2 Sat by Pulse 97 97 Oximetry 08/14/16 08/14/16 08/14/16 01:54 02:00 02:30 Temperature Pulse Rate 101 H 103 H Pulse Rate [ 98 H Anterior Bilateral Throughout] Pulse Rate [ From Monitor] Respiratory 18 19 Rate Respiratory 118 H Rate [Anterior Bilateral Throughout] Blood Pressure 112/79 114/66 O2 Sat by Pulse 96 96 Oximetry 08/14/16 08/14/16 08/14/16 03:00 03:30 04:00 Temperature 98.3 F Pulse Rate 103 H 101 H 90 Pulse Rate [ Anterior Bilateral Throughout] Pulse Rate [ 96 H From Monitor] Respiratory 18 18 18 Rate Respiratory Rate [Anterior Bilateral Throughout] Blood Pressure 120/74 106/75 121/73 O2 Sat by Pulse 95 94 97 Oximetry 08/14/16 08/14/16 08/14/16 04:30 05:00 05:30 Temperature Pulse Rate 93 H 98 H 101 H Pulse Rate [ Anterior Bilateral Throughout] Pulse Rate [ From Monitor] Respiratory 18 18 18 Rate Respiratory Rate [Anterior Bilateral Throughout] Blood Pressure 123/81 121/79 111/79 O2 Sat by Pulse 96 97 96 Oximetry 08/14/16 08/14/16 08/14/16 06:00 06:30 07:00 Temperature Pulse Rate 93 H 88 92 H Pulse Rate [ Anterior Bilateral Throughout] Pulse Rate [ From Monitor] Respiratory 18 18 18 Rate Respiratory Rate [Anterior Bilateral Throughout] Blood Pressure 122/77 123/81 124/80 O2 Sat by Pulse 96 96 96 Oximetry 08/14/16 08/14/16 08/14/16 07:20 07:24 07:30 Temperature Pulse Rate 96 H 97 H Pulse Rate [ 95 H Anterior Bilateral Throughout] Pulse Rate [ From Monitor] Respiratory 18 Rate Respiratory 18 Rate [Anterior Bilateral Throughout] Blood Pressure 124/80 126/81 O2 Sat by Pulse 96 98 Oximetry 08/14/16 08/14/16 08/14/16 08:00 08:30 09:00 Temperature 99.7 F H Pulse Rate 99 H 102 H 93 H Pulse Rate [ Anterior Bilateral Throughout] Pulse Rate [ From Monitor] Respiratory 18 18 18 Rate Respiratory Rate [Anterior Bilateral Throughout] Blood Pressure 123/83 130/87 125/81 O2 Sat by Pulse 98 98 98 Oximetry 08/14/16 09:30 Temperature Pulse Rate 100 H Pulse Rate [ Anterior Bilateral Throughout] Pulse Rate [ From Monitor] Respiratory 18 Rate Respiratory Rate [Anterior Bilateral Throughout] Blood Pressure 122/87 O2 Sat by Pulse 99 Oximetry Constitutional: other (eyes open but no purposeful movements. No family at bedside. Very agitated with minimal stimulation) Eyes: icteric ENT: other (orally intubated, very poor dentition) Neck: other (large in cirumference) Effort: normal Ascultation: Bilateral: diminished breath sounds Percussion: Bilateral: not dull Cardiovascular: regular rate and rhythm Gastrointestinal: hypoactive bowel sounds, soft, non-tender Integumentary: other (chronic venous changes on legs) Neurologic: unable to assess CBC and BMP: 08/14/16 05:55 08/14/16 07:50 ABG, PT/INR, D-dimer: ABG POC ABG pH 7.467 (7.35-7.45) H 08/14/16 04:22 POC ABG pCO2 56.4 (35-45) H 08/14/16 04:22 POC ABG pO2 70 (80-105) L 08/14/16 04:22 POC ABG HCO3 40.8 08/14/16 04:22 POC ABG Total CO2 42 08/14/16 04:22 POC ABG O2 Sat 94 08/14/16 04:22 PT/INR, D-dimer PT 18.0 Sec. (12.2-14.9) H 08/03/16 15:06 INR 1.49 (0.87-1.13) H 08/03/16 15:06 D-Dimer 2516.52 ng/mlDDU (0-234) H 08/05/16 13:01 Abnormal lab findings: Abnormal Labs 08/04/16 08/04/16 08/04/16 09:41 12:25 17:02 WBC RBC Hgb Hct MCV MCH MCHC RDW Plt Count Lymph % (Auto) Lymph # [place] # Seg Neutrophils % Seg Neuts % (Manual) Lymphocytes % (Manual) Nucleated RBC % Seg Neutrophils # Seg Neutrophils # Man Lymphocytes # (Manual) D-Dimer POC ABG pH POC ABG pCO2 POC ABG pO2 Sodium Potassium Chloride Carbon Dioxide BUN Creatinine Glucose POC Glucose 158 H 236 H 217 H Lactic Acid Calcium Ionized Calcium Phosphorus Total Bilirubin Direct Bilirubin AST ALT Total Creatine Kinase CK-MB (CK-2) CK-MB (CK-2) Rel Index Troponin T NT-Pro-B Natriuret Pep Albumin Gamma Globulins PEP Interpretation HDL Cholesterol Urine WBC (Auto) Urine Creatinine Complement C3 Complement C4 08/05/16 08/05/16 08/05/16 06:32 08:09 08:17 WBC RBC Hgb Hct MCV MCH MCHC RDW Plt Count Lymph % (Auto) Lymph # [place] # Seg Neutrophils % Seg Neuts % (Manual) Lymphocytes % (Manual) Nucleated RBC % Seg Neutrophils # Seg Neutrophils # Man Lymphocytes # (Manual) D-Dimer POC ABG pH POC ABG pCO2 POC ABG pO2 Sodium Potassium Chloride Carbon Dioxide BUN Creatinine Glucose POC Glucose < 40 L 53 L 185 H Lactic Acid Calcium Ionized Calcium Phosphorus Total Bilirubin Direct Bilirubin AST ALT Total Creatine Kinase CK-MB (CK-2) CK-MB (CK-2) Rel Index Troponin T NT-Pro-B Natriuret Pep Albumin Gamma Globulins PEP Interpretation HDL Cholesterol Urine WBC (Auto) Urine Creatinine Complement C3 Complement C4 08/05/16 08/05/16 08/05/16 08:34 12:15 12:47 WBC RBC Hgb Hct MCV MCH MCHC RDW Plt Count Lymph % (Auto) Lymph # [place] # Seg Neutrophils % Seg Neuts % (Manual) Lymphocytes % (Manual) Nucleated RBC % Seg Neutrophils # Seg Neutrophils # Man Lymphocytes # (Manual) D-Dimer POC ABG pH 7.169 L 7.077 L POC ABG pCO2 28.5 L 54.3 H POC ABG pO2 78 L Sodium Potassium Chloride Carbon Dioxide BUN Creatinine Glucose POC Glucose 128 H Lactic Acid Calcium Ionized Calcium Phosphorus Total Bilirubin Direct Bilirubin AST ALT Total Creatine Kinase CK-MB (CK-2) CK-MB (CK-2) Rel Index Troponin T NT-Pro-B Natriuret Pep Albumin Gamma Globulins PEP Interpretation HDL Cholesterol Urine WBC (Auto) Urine Creatinine Complement C3 Complement C4 08/05/16 08/05/16 08/05/16 13:01 13:01 13:01 WBC RBC Hgb Hct MCV MCH MCHC RDW Plt Count Lymph % (Auto) Lymph # [place] # Seg Neutrophils % Seg Neuts % (Manual) Lymphocytes % (Manual) Nucleated RBC % Seg Neutrophils # Seg Neutrophils # Man Lymphocytes # (Manual) D-Dimer 2516.52 H POC ABG pH POC ABG pCO2 POC ABG pO2 Sodium Potassium Chloride Carbon Dioxide BUN Creatinine Glucose POC Glucose Lactic Acid Calcium Ionized Calcium Phosphorus Total Bilirubin Direct Bilirubin AST ALT Total Creatine Kinase 304 H CK-MB (CK-2) 11.6 H CK-MB (CK-2) Rel Index Troponin T 0.121 H* D NT-Pro-B Natriuret Pep 8307 H Albumin Gamma Globulins PEP Interpretation HDL Cholesterol 21 L Urine WBC (Auto) Urine Creatinine Complement C3 Complement C4 08/05/16 08/05/16 08/05/16 14:44 15:27 16:05 WBC RBC Hgb Hct MCV MCH MCHC RDW Plt Count Lymph % (Auto) Lymph # [place] # Seg Neutrophils % Seg Neuts % (Manual) Lymphocytes % (Manual) Nucleated RBC % Seg Neutrophils # Seg Neutrophils # Man Lymphocytes # (Manual) D-Dimer POC ABG pH 7.020 L POC ABG pCO2 66.3 H POC ABG pO2 Sodium Potassium Chloride Carbon Dioxide BUN Creatinine Glucose POC Glucose Lactic Acid 10.9 H* Calcium Ionized Calcium Phosphorus Total Bilirubin Direct Bilirubin AST ALT Total Creatine Kinase 282 H CK-MB (CK-2) 11.9 H CK-MB (CK-2) Rel Index 4.2 H Troponin T 0.152 H* D NT-Pro-B Natriuret Pep Albumin Gamma Globulins PEP Interpretation HDL Cholesterol Urine WBC (Auto) Urine Creatinine Complement C3 Complement C4 08/05/16 08/05/16 08/05/16 17:01 17:43 22:09 WBC RBC Hgb Hct MCV MCH MCHC RDW Plt Count Lymph % (Auto) Lymph # [place] # Seg Neutrophils % Seg Neuts % (Manual) Lymphocytes % (Manual) Nucleated RBC % Seg Neutrophils # Seg Neutrophils # Man Lymphocytes # (Manual) D-Dimer POC ABG pH 7.119 L POC ABG pCO2 63.2 H POC ABG pO2 51 L Sodium Potassium Chloride Carbon Dioxide BUN Creatinine Glucose POC Glucose 203 H 241 H Lactic Acid Calcium Ionized Calcium Phosphorus Total Bilirubin Direct Bilirubin AST ALT Total Creatine Kinase CK-MB (CK-2) CK-MB (CK-2) Rel Index Troponin T NT-Pro-B Natriuret Pep Albumin Gamma Globulins PEP Interpretation HDL Cholesterol Urine WBC (Auto) Urine Creatinine Complement C3 Complement C4 08/05/16 08/06/16 08/06/16 23:30 05:08 05:55 WBC RBC Hgb Hct MCV MCH MCHC RDW Plt Count Lymph % (Auto) Lymph # [place] # Seg Neutrophils % Seg Neuts % (Manual) Lymphocytes % (Manual) Nucleated RBC % Seg Neutrophils # Seg Neutrophils # Man Lymphocytes # (Manual) D-Dimer POC ABG pH 7.289 L POC ABG pCO2 59.9 H POC ABG pO2 224 H Sodium Potassium Chloride Carbon Dioxide BUN Creatinine Glucose POC Glucose Lactic Acid 6.8 H* 5.3 H* Calcium Ionized Calcium Phosphorus Total Bilirubin Direct Bilirubin AST ALT Total Creatine Kinase CK-MB (CK-2) CK-MB (CK-2) Rel Index Troponin T NT-Pro-B Natriuret Pep Albumin Gamma Globulins PEP Interpretation HDL Cholesterol Urine WBC (Auto) Urine Creatinine Complement C3 Complement C4 08/06/16 08/06/16 08/06/16 06:16 09:05 09:05 WBC 15.1 H RBC Hgb 9.1 L Hct 31.1 L MCV 69 L MCH 20 L MCHC 29 L RDW 20.6 H Plt Count 116 L Lymph % (Auto) Lymph # [place] # Seg Neutrophils % Seg Neuts % (Manual) 95.0 H Lymphocytes % (Manual) 2.0 L Nucleated RBC % 5.0 H Seg Neutrophils # Seg Neutrophils # Man 14.3 H Lymphocytes # (Manual) 0.3 L D-Dimer POC ABG pH POC ABG pCO2 POC ABG pO2 Sodium 136 L Potassium 6.0 H D Chloride 87.5 L Carbon Dioxide BUN 66 H Creatinine 3.9 H D Glucose 319 H POC Glucose 326 H Lactic Acid Calcium 5.5 L* D Ionized Calcium Phosphorus Total Bilirubin 3.2 H Direct Bilirubin AST 4838 H ALT 1620 H Total Creatine Kinase CK-MB (CK-2) CK-MB (CK-2) Rel Index Troponin T NT-Pro-B Natriuret Pep Albumin 2.7 L Gamma Globulins PEP Interpretation HDL Cholesterol Urine WBC (Auto) Urine Creatinine Complement C3 Complement C4 08/06/16 08/06/16 08/06/16 11:20 11:50 11:56 WBC RBC Hgb Hct MCV MCH MCHC RDW Plt Count Lymph % (Auto) Lymph # [place] # Seg Neutrophils % Seg Neuts % (Manual) Lymphocytes % (Manual) Nucleated RBC % Seg Neutrophils # Seg Neutrophils # Man Lymphocytes # (Manual) D-Dimer POC ABG pH POC ABG pCO2 POC ABG pO2 Sodium Potassium Chloride Carbon Dioxide BUN Creatinine Glucose POC Glucose 318 H Lactic Acid Calcium Ionized Calcium 2.7 L* Phosphorus Total Bilirubin Direct Bilirubin AST ALT Total Creatine Kinase CK-MB (CK-2) CK-MB (CK-2) Rel Index Troponin T NT-Pro-B Natriuret Pep Albumin Gamma Globulins PEP Interpretation HDL Cholesterol Urine WBC (Auto) 28.0 H Urine Creatinine Complement C3 Complement C4 08/06/16 08/06/16 08/06/16 13:17 13:17 13:17 WBC RBC Hgb Hct MCV MCH MCHC RDW Plt Count Lymph % (Auto) Lymph # [place] # Seg Neutrophils % Seg Neuts % (Manual) Lymphocytes % (Manual) Nucleated RBC % Seg Neutrophils # Seg Neutrophils # Man Lymphocytes # (Manual) D-Dimer POC ABG pH POC ABG pCO2 POC ABG pO2 Sodium 131 L Potassium 5.8 H Chloride 87.8 L Carbon Dioxide 15 L D BUN 67 H Creatinine 3.8 H Glucose 294 H POC Glucose Lactic Acid 5.3 H* Calcium 5.1 L* Ionized Calcium Phosphorus 9.0 H Total Bilirubin 3.1 H Direct Bilirubin 2.1 H AST 4901 H ALT 1607 H Total Creatine Kinase CK-MB (CK-2) CK-MB (CK-2) Rel Index Troponin T NT-Pro-B Natriuret Pep Albumin 2.7 L Gamma Globulins PEP Interpretation HDL Cholesterol Urine WBC (Auto) Urine Creatinine Complement C3 Complement C4 08/06/16 08/06/16 08/06/16 15:10 15:10 15:10 WBC RBC Hgb Hct MCV MCH MCHC RDW Plt Count Lymph % (Auto) Lymph # [place] # Seg Neutrophils % Seg Neuts % (Manual) Lymphocytes % (Manual) Nucleated RBC % Seg Neutrophils # Seg Neutrophils # Man Lymphocytes # (Manual) D-Dimer POC ABG pH POC ABG pCO2 POC ABG pO2 Sodium Potassium Chloride Carbon Dioxide BUN Creatinine Glucose POC Glucose Lactic Acid Calcium Ionized Calcium 2.8 L* Phosphorus Total Bilirubin Direct Bilirubin AST ALT Total Creatine Kinase CK-MB (CK-2) CK-MB (CK-2) Rel Index Troponin T NT-Pro-B Natriuret Pep Albumin Gamma Globulins PEP Interpretation HDL Cholesterol Urine WBC (Auto) Urine Creatinine Complement C3 35 L Complement C4 8 L 08/06/16 08/06/16 08/06/16 15:10 15:10 15:44 WBC RBC Hgb Hct MCV MCH MCHC RDW Plt Count Lymph % (Auto) Lymph # [place] # Seg Neutrophils % Seg Neuts % (Manual) Lymphocytes % (Manual) Nucleated RBC % Seg Neutrophils # Seg Neutrophils # Man Lymphocytes # (Manual) D-Dimer POC ABG pH POC ABG pCO2 POC ABG pO2 Sodium Potassium Chloride Carbon Dioxide BUN Creatinine Glucose POC Glucose Lactic Acid 4.5 H* Calcium Ionized Calcium Phosphorus Total Bilirubin Direct Bilirubin AST ALT Total Creatine Kinase CK-MB (CK-2) CK-MB (CK-2) Rel Index Troponin T NT-Pro-B Natriuret Pep Albumin 2.6 L Gamma Globulins 2.1 H PEP Interpretation see below H HDL Cholesterol Urine WBC (Auto) Urine Creatinine 60.1 H Complement C3 Complement C4 08/06/16 08/06/16 08/06/16 16:47 22:06 23:00 WBC RBC Hgb Hct MCV MCH MCHC RDW Plt Count Lymph % (Auto) Lymph # [place] # Seg Neutrophils % Seg Neuts % (Manual) Lymphocytes % (Manual) Nucleated RBC % Seg Neutrophils # Seg Neutrophils # Man Lymphocytes # (Manual) D-Dimer POC ABG pH POC ABG pCO2 POC ABG pO2 Sodium Potassium Chloride Carbon Dioxide BUN Creatinine Glucose POC Glucose 282 H 348 H Lactic Acid 3.4 H* Calcium Ionized Calcium Phosphorus Total Bilirubin Direct Bilirubin AST ALT Total Creatine Kinase CK-MB (CK-2) CK-MB (CK-2) Rel Index Troponin T NT-Pro-B Natriuret Pep Albumin Gamma Globulins PEP Interpretation HDL Cholesterol Urine WBC (Auto) Urine Creatinine Complement C3 Complement C4 08/07/16 08/07/16 08/07/16 03:30 04:13 07:46 WBC RBC Hgb Hct MCV MCH MCHC RDW Plt Count Lymph % (Auto) Lymph # [place] # Seg Neutrophils % Seg Neuts % (Manual) Lymphocytes % (Manual) Nucleated RBC % Seg Neutrophils # Seg Neutrophils # Man Lymphocytes # (Manual) D-Dimer POC ABG pH 7.479 H POC ABG pCO2 49.1 H POC ABG pO2 127 H Sodium Potassium Chloride Carbon Dioxide BUN Creatinine Glucose POC Glucose 316 H Lactic Acid 2.7 H* Calcium Ionized Calcium Phosphorus Total Bilirubin Direct Bilirubin AST ALT Total Creatine Kinase CK-MB (CK-2) CK-MB (CK-2) Rel Index Troponin T NT-Pro-B Natriuret Pep Albumin Gamma Globulins PEP Interpretation HDL Cholesterol Urine WBC (Auto) Urine Creatinine Complement C3 Complement C4 08/07/16 08/07/16 08/07/16 11:23 16:21 23:31 WBC RBC Hgb Hct MCV MCH MCHC RDW Plt Count Lymph % (Auto) Lymph # [place] # Seg Neutrophils % Seg Neuts % (Manual) Lymphocytes % (Manual) Nucleated RBC % Seg Neutrophils # Seg Neutrophils # Man Lymphocytes # (Manual) D-Dimer POC ABG pH POC ABG pCO2 POC ABG pO2 Sodium Potassium Chloride Carbon Dioxide BUN Creatinine Glucose POC Glucose 321 H 287 H 285 H Lactic Acid Calcium Ionized Calcium Phosphorus Total Bilirubin Direct Bilirubin AST ALT Total Creatine Kinase CK-MB (CK-2) CK-MB (CK-2) Rel Index Troponin T NT-Pro-B Natriuret Pep Albumin Gamma Globulins PEP Interpretation HDL Cholesterol Urine WBC (Auto) Urine Creatinine Complement C3 Complement C4 08/08/16 08/08/16 08/08/16 05:26 06:42 07:50 WBC 11.3 H RBC Hgb 8.7 L Hct 28.8 L MCV 66 L D MCH 20 L MCHC 30 L RDW 20.8 H Plt Count 89 L Lymph % (Auto) Lymph # [place] # Seg Neutrophils % Seg Neuts % (Manual) 90.0 H Lymphocytes % (Manual) 1.0 L Nucleated RBC % 2.0 H Seg Neutrophils # Seg Neutrophils # Man 10.2 H Lymphocytes # (Manual) 0.1 L D-Dimer POC ABG pH 7.555 H POC ABG pCO2 45.6 H POC ABG pO2 Sodium Potassium Chloride Carbon Dioxide BUN Creatinine Glucose POC Glucose 268 H Lactic Acid Calcium Ionized Calcium Phosphorus Total Bilirubin Direct Bilirubin AST ALT Total Creatine Kinase CK-MB (CK-2) CK-MB (CK-2) Rel Index Troponin T NT-Pro-B Natriuret Pep Albumin Gamma Globulins PEP Interpretation HDL Cholesterol Urine WBC (Auto) Urine Creatinine Complement C3 Complement C4 08/08/16 08/08/16 08/08/16 07:50 07:50 11:04 WBC RBC Hgb Hct MCV MCH MCHC RDW Plt Count Lymph % (Auto) Lymph # [place] # Seg Neutrophils % Seg Neuts % (Manual) Lymphocytes % (Manual) Nucleated RBC % Seg Neutrophils # Seg Neutrophils # Man Lymphocytes # (Manual) D-Dimer POC ABG pH 7.461 H POC ABG pCO2 58.5 H POC ABG pO2 72 L Sodium Potassium 3.3 L D Chloride 93.1 L Carbon Dioxide 38 H D BUN 52 H Creatinine 2.6 H Glucose 268 H POC Glucose 265 H Lactic Acid Calcium 6.5 L D Ionized Calcium Phosphorus Total Bilirubin Direct Bilirubin AST ALT Total Creatine Kinase CK-MB (CK-2) CK-MB (CK-2) Rel Index Troponin T NT-Pro-B Natriuret Pep Albumin Gamma Globulins PEP Interpretation HDL Cholesterol Urine WBC (Auto) Urine Creatinine Complement C3 Complement C4 08/08/16 08/08/16 08/08/16 11:55 16:19 23:23 WBC RBC Hgb Hct MCV MCH MCHC RDW Plt Count Lymph % (Auto) Lymph # [place] # Seg Neutrophils % Seg Neuts % (Manual) Lymphocytes % (Manual) Nucleated RBC % Seg Neutrophils # Seg Neutrophils # Man Lymphocytes # (Manual) D-Dimer POC ABG pH POC ABG pCO2 POC ABG pO2 Sodium Potassium Chloride Carbon Dioxide BUN Creatinine Glucose POC Glucose 237 H 209 H 246 H Lactic Acid Calcium Ionized Calcium Phosphorus Total Bilirubin Direct Bilirubin AST ALT Total Creatine Kinase CK-MB (CK-2) CK-MB (CK-2) Rel Index Troponin T NT-Pro-B Natriuret Pep Albumin Gamma Globulins PEP Interpretation HDL Cholesterol Urine WBC (Auto) Urine Creatinine Complement C3 Complement C4 08/09/16 08/09/16 08/09/16 05:51 06:00 06:00 WBC 12.0 H RBC Hgb 8.4 L Hct 28.3 L MCV 68 L MCH 20 L MCHC 30 L RDW 21.2 H Plt Count 79 L Lymph % (Auto) 3.5 L Lymph # 0.4 L [place] # Seg Neutrophils % 89.9 H Seg Neuts % (Manual) Lymphocytes % (Manual) Nucleated RBC % Seg Neutrophils # 10.8 H Seg Neutrophils # Man Lymphocytes # (Manual) D-Dimer POC ABG pH 7.479 H POC ABG pCO2 67.7 H POC ABG pO2 Sodium Potassium 2.5 L* D Chloride 86.3 L Carbon Dioxide 51 H* D BUN 38 H Creatinine Glucose 695 H* POC Glucose Lactic Acid Calcium 6.3 L Ionized Calcium Phosphorus Total Bilirubin Direct Bilirubin AST ALT Total Creatine Kinase CK-MB (CK-2) CK-MB (CK-2) Rel Index Troponin T NT-Pro-B Natriuret Pep Albumin Gamma Globulins PEP Interpretation HDL Cholesterol Urine WBC (Auto) Urine Creatinine Complement C3 Complement C4 08/09/16 08/09/16 08/09/16 07:47 08:45 09:51 WBC RBC Hgb Hct MCV MCH MCHC RDW Plt Count Lymph % (Auto) Lymph # [place] # Seg Neutrophils % Seg Neuts % (Manual) Lymphocytes % (Manual) Nucleated RBC % Seg Neutrophils # Seg Neutrophils # Man Lymphocytes # (Manual) D-Dimer POC ABG pH 7.458 H POC ABG pCO2 68.7 H POC ABG pO2 65 L Sodium Potassium Chloride 92.9 L Carbon Dioxide 40 H D BUN 42 H Creatinine 1.7 H Glucose 205 H POC Glucose 189 H Lactic Acid Calcium 7.7 L D Ionized Calcium Phosphorus Total Bilirubin Direct Bilirubin AST ALT Total Creatine Kinase CK-MB (CK-2) CK-MB (CK-2) Rel Index Troponin T NT-Pro-B Natriuret Pep Albumin Gamma Globulins PEP Interpretation HDL Cholesterol Urine WBC (Auto) Urine Creatinine Complement C3 Complement C4 08/09/16 08/09/16 08/09/16 11:55 13:35 16:05 WBC RBC Hgb Hct MCV MCH MCHC RDW Plt Count Lymph % (Auto) Lymph # [place] # Seg Neutrophils % Seg Neuts % (Manual) Lymphocytes % (Manual) Nucleated RBC % Seg Neutrophils # Seg Neutrophils # Man Lymphocytes # (Manual) D-Dimer POC ABG pH POC ABG pCO2 POC ABG pO2 Sodium 148 H Potassium 2.9 L* D Chloride 96.4 L Carbon Dioxide 43 H* BUN 43 H Creatinine 1.6 H Glucose 205 H POC Glucose 222 H 204 H Lactic Acid Calcium 7.9 L Ionized Calcium Phosphorus Total Bilirubin Direct Bilirubin AST ALT Total Creatine Kinase CK-MB (CK-2) CK-MB (CK-2) Rel Index Troponin T NT-Pro-B Natriuret Pep Albumin Gamma Globulins PEP Interpretation HDL Cholesterol Urine WBC (Auto) Urine Creatinine Complement C3 Complement C4 08/09/16 08/10/16 08/10/16 22:43 05:24 05:25 WBC 13.2 H RBC Hgb 9.4 L Hct 32.5 L MCV 68 L MCH 20 L MCHC 29 L RDW 21.1 H Plt Count 72 L Lymph % (Auto) 4.3 L Lymph # 0.6 L [place] # 1.0 H Seg Neutrophils % 88.5 H Seg Neuts % (Manual) Lymphocytes % (Manual) Nucleated RBC % Seg Neutrophils # 11.7 H Seg Neutrophils # Man Lymphocytes # (Manual) D-Dimer POC ABG pH 7.483 H POC ABG pCO2 69.0 H POC ABG pO2 Sodium Potassium Chloride Carbon Dioxide BUN Creatinine Glucose POC Glucose 207 H Lactic Acid Calcium Ionized Calcium Phosphorus Total Bilirubin Direct Bilirubin AST ALT Total Creatine Kinase CK-MB (CK-2) CK-MB (CK-2) Rel Index Troponin T NT-Pro-B Natriuret Pep Albumin Gamma Globulins PEP Interpretation HDL Cholesterol Urine WBC (Auto) Urine Creatinine Complement C3 Complement C4 08/10/16 08/10/16 08/10/16 07:31 09:04 11:22 WBC RBC Hgb Hct MCV MCH MCHC RDW Plt Count Lymph % (Auto) Lymph # [place] # Seg Neutrophils % Seg Neuts % (Manual) Lymphocytes % (Manual) Nucleated RBC % Seg Neutrophils # Seg Neutrophils # Man Lymphocytes # (Manual) D-Dimer POC ABG pH POC ABG pCO2 POC ABG pO2 Sodium 147 H Potassium 3.4 L Chloride 96.8 L Carbon Dioxide 42 H* BUN 38 H Creatinine Glucose 144 H POC Glucose 165 H 137 H Lactic Acid Calcium 8.3 L Ionized Calcium Phosphorus Total Bilirubin Direct Bilirubin AST ALT Total Creatine Kinase CK-MB (CK-2) CK-MB (CK-2) Rel Index Troponin T NT-Pro-B Natriuret Pep Albumin Gamma Globulins PEP Interpretation HDL Cholesterol Urine WBC (Auto) Urine Creatinine Complement C3 Complement C4 08/10/16 08/10/16 08/11/16 15:55 23:00 05:05 WBC RBC Hgb Hct MCV MCH MCHC RDW Plt Count Lymph % (Auto) Lymph # [place] # Seg Neutrophils % Seg Neuts % (Manual) Lymphocytes % (Manual) Nucleated RBC % Seg Neutrophils # Seg Neutrophils # Man Lymphocytes # (Manual) D-Dimer POC ABG pH 7.499 H POC ABG pCO2 56.4 H POC ABG pO2 Sodium Potassium Chloride Carbon Dioxide BUN Creatinine Glucose POC Glucose 110 H 201 H Lactic Acid Calcium Ionized Calcium Phosphorus Total Bilirubin Direct Bilirubin AST ALT Total Creatine Kinase CK-MB (CK-2) CK-MB (CK-2) Rel Index Troponin T NT-Pro-B Natriuret Pep Albumin Gamma Globulins PEP Interpretation HDL Cholesterol Urine WBC (Auto) Urine Creatinine Complement C3 Complement C4 08/11/16 08/11/16 08/11/16 07:24 11:58 15:24 WBC RBC Hgb Hct MCV MCH MCHC RDW Plt Count Lymph % (Auto) Lymph # [place] # Seg Neutrophils % Seg Neuts % (Manual) Lymphocytes % (Manual) Nucleated RBC % Seg Neutrophils # Seg Neutrophils # Man Lymphocytes # (Manual) D-Dimer POC ABG pH POC ABG pCO2 POC ABG pO2 Sodium Potassium Chloride Carbon Dioxide BUN Creatinine Glucose POC Glucose 109 H 114 H 106 H Lactic Acid Calcium Ionized Calcium Phosphorus Total Bilirubin Direct Bilirubin AST ALT Total Creatine Kinase CK-MB (CK-2) CK-MB (CK-2) Rel Index Troponin T NT-Pro-B Natriuret Pep Albumin Gamma Globulins PEP Interpretation HDL Cholesterol Urine WBC (Auto) Urine Creatinine Complement C3 Complement C4 08/11/16 08/11/16 08/11/16 16:02 16:02 22:10 WBC 13.4 H RBC Hgb 9.8 L Hct 34.7 L MCV 69 L MCH 20 L MCHC 28 L RDW 21.5 H Plt Count 59 L Lymph % (Auto) 11.8 L Lymph # [place] # 0.9 H Seg Neutrophils % 81.8 H Seg Neuts % (Manual) Lymphocytes % (Manual) Nucleated RBC % Seg Neutrophils # 11.0 H Seg Neutrophils # Man Lymphocytes # (Manual) D-Dimer POC ABG pH POC ABG pCO2 POC ABG pO2 Sodium 153 H Potassium 2.6 L* D Chloride Carbon Dioxide 40 H BUN 40 H Creatinine Glucose POC Glucose 150 H Lactic Acid Calcium 8.3 L Ionized Calcium Phosphorus Total Bilirubin Direct Bilirubin AST ALT Total Creatine Kinase CK-MB (CK-2) CK-MB (CK-2) Rel Index Troponin T NT-Pro-B Natriuret Pep Albumin Gamma Globulins PEP Interpretation HDL Cholesterol Urine WBC (Auto) Urine Creatinine Complement C3 Complement C4 08/12/16 08/12/16 08/12/16 03:54 06:13 07:51 WBC RBC Hgb Hct MCV MCH MCHC RDW Plt Count Lymph % (Auto) Lymph # [place] # Seg Neutrophils % Seg Neuts % (Manual) Lymphocytes % (Manual) Nucleated RBC % Seg Neutrophils # Seg Neutrophils # Man Lymphocytes # (Manual) D-Dimer POC ABG pH 7.497 H POC ABG pCO2 53.0 H POC ABG pO2 Sodium 157 H Potassium 3.0 L Chloride 108.8 H Carbon Dioxide 38 H BUN 42 H Creatinine Glucose 157 H POC Glucose 154 H Lactic Acid Calcium 8.3 L Ionized Calcium Phosphorus Total Bilirubin Direct Bilirubin AST ALT Total Creatine Kinase CK-MB (CK-2) CK-MB (CK-2) Rel Index Troponin T NT-Pro-B Natriuret Pep Albumin Gamma Globulins PEP Interpretation HDL Cholesterol Urine WBC (Auto) Urine Creatinine Complement C3 Complement C4 08/12/16 08/12/16 08/12/16 11:29 16:04 22:16 WBC RBC Hgb Hct MCV MCH MCHC RDW Plt Count Lymph % (Auto) Lymph # [place] # Seg Neutrophils % Seg Neuts % (Manual) Lymphocytes % (Manual) Nucleated RBC % Seg Neutrophils # Seg Neutrophils # Man Lymphocytes # (Manual) D-Dimer POC ABG pH POC ABG pCO2 POC ABG pO2 Sodium Potassium Chloride Carbon Dioxide BUN Creatinine Glucose POC Glucose 148 H 152 H 178 H Lactic Acid Calcium Ionized Calcium Phosphorus Total Bilirubin Direct Bilirubin AST ALT Total Creatine Kinase CK-MB (CK-2) CK-MB (CK-2) Rel Index Troponin T NT-Pro-B Natriuret Pep Albumin Gamma Globulins PEP Interpretation HDL Cholesterol Urine WBC (Auto) Urine Creatinine Complement C3 Complement C4 08/13/16 08/13/16 08/13/16 04:45 05:00 05:00 WBC RBC 5.05 H Hgb 9.9 L Hct 34.9 L MCV 69 L MCH 20 L MCHC 28 L RDW 22.7 H Plt Count 65 L Lymph % (Auto) 7.2 L Lymph # 0.8 L [place] # Seg Neutrophils % 87.2 H Seg Neuts % (Manual) Lymphocytes % (Manual) Nucleated RBC % Seg Neutrophils # 9.3 H Seg Neutrophils # Man Lymphocytes # (Manual) D-Dimer POC ABG pH 7.502 H POC ABG pCO2 52.9 H POC ABG pO2 Sodium 158 H Potassium 2.5 L* Chloride 109.8 H Carbon Dioxide 40 H BUN 44 H Creatinine Glucose 192 H POC Glucose Lactic Acid Calcium 8.1 L Ionized Calcium Phosphorus Total Bilirubin Direct Bilirubin AST ALT Total Creatine Kinase CK-MB (CK-2) CK-MB (CK-2) Rel Index Troponin T NT-Pro-B Natriuret Pep Albumin Gamma Globulins PEP Interpretation HDL Cholesterol Urine WBC (Auto) Urine Creatinine Complement C3 Complement C4 08/13/16 08/13/16 08/13/16 07:52 11:51 16:00 WBC RBC Hgb Hct MCV MCH MCHC RDW Plt Count Lymph % (Auto) Lymph # [place] # Seg Neutrophils % Seg Neuts % (Manual) Lymphocytes % (Manual) Nucleated RBC % Seg Neutrophils # Seg Neutrophils # Man Lymphocytes # (Manual) D-Dimer POC ABG pH POC ABG pCO2 POC ABG pO2 Sodium Potassium 2.8 L* Chloride Carbon Dioxide BUN Creatinine Glucose POC Glucose 203 H 216 H Lactic Acid Calcium Ionized Calcium Phosphorus Total Bilirubin Direct Bilirubin AST ALT Total Creatine Kinase CK-MB (CK-2) CK-MB (CK-2) Rel Index Troponin T NT-Pro-B Natriuret Pep Albumin Gamma Globulins PEP Interpretation HDL Cholesterol Urine WBC (Auto) Urine Creatinine Complement C3 Complement C4 08/13/16 08/13/16 08/14/16 16:02 22:15 04:22 WBC RBC Hgb Hct MCV MCH MCHC RDW Plt Count Lymph % (Auto) Lymph # [place] # Seg Neutrophils % Seg Neuts % (Manual) Lymphocytes % (Manual) Nucleated RBC % Seg Neutrophils # Seg Neutrophils # Man Lymphocytes # (Manual) D-Dimer POC ABG pH 7.467 H POC ABG pCO2 56.4 H POC ABG pO2 70 L Sodium Potassium Chloride Carbon Dioxide BUN Creatinine Glucose POC Glucose 239 H 203 H Lactic Acid Calcium Ionized Calcium Phosphorus Total Bilirubin Direct Bilirubin AST ALT Total Creatine Kinase CK-MB (CK-2) CK-MB (CK-2) Rel Index Troponin T NT-Pro-B Natriuret Pep Albumin Gamma Globulins PEP Interpretation HDL Cholesterol Urine WBC (Auto) Urine Creatinine Complement C3 Complement C4 08/14/16 08/14/16 05:55 07:50 WBC RBC Hgb 8.3 L Hct 29.2 L MCV MCH MCHC RDW Plt Count Lymph % (Auto) Lymph # [place] # Seg Neutrophils % Seg Neuts % (Manual) Lymphocytes % (Manual) Nucleated RBC % Seg Neutrophils # Seg Neutrophils # Man Lymphocytes # (Manual) D-Dimer POC ABG pH POC ABG pCO2 POC ABG pO2 Sodium 160 H Potassium 3.2 L Chloride 113.9 H Carbon Dioxide 40 H BUN 42 H Creatinine Glucose 156 H POC Glucose Lactic Acid Calcium 8.2 L Ionized Calcium Phosphorus Total Bilirubin Direct Bilirubin AST ALT Total Creatine Kinase CK-MB (CK-2) CK-MB (CK-2) Rel Index Troponin T NT-Pro-B Natriuret Pep Albumin Gamma Globulins PEP Interpretation HDL Cholesterol Urine WBC (Auto) Urine Creatinine Complement C3 Complement C4
--- NOTE | 2016-08-14 15:04 | Progress Note ---
Assessment and Plan - Patient Problems (1) Acute CHF Current Visit: Yes Status: Acute Qualifiers: Congestive heart failure type: systolic Qualified Code(s): I50.21 - Acute systolic (congestive) heart failure Plan to address problem: Patient is not on Lasix and beta blockers because of his low BP due to vasodilatory shock (2) Acute respiratory failure Current Visit: Yes Status: Acute Qualifiers: Respiratory failure complication: R (3) Anemia Current Visit: Yes Status: Acute Qualifiers: Anemia type: A Iron deficiency anemia type: I Vitamin B12 deficiency anemia type: V Folate deficiency anemia type: F Bone marrow failure anemia type: B Hemolytic anemia type: H Other causes of anemia: O Plan to address problem: We'll follow closely, she doesn't need transfusion now (4) Atrial fibrillation with RVR Current Visit: Yes Status: Acute (5) COPD (chronic obstructive pulmonary disease) Current Visit: Yes Status: Acute Qualifiers: COPD type: C Chronic bronchitis type: C Emphysema type: E Plan to address problem: As stated above (6) Diabetes Current Visit: Yes Status: Acute Qualifiers: Diabetes mellitus type: D Diabetes mellitus complication status: D Diabetes mellitus complication detail: D Diabetic retinopathy severity: D Proliferative retinopathy type: P Diabetes mellitus macular edema: D Diabetes mellitus intermediate insulin use: D Laterality: L Chronic kidney disease stage: C Plan to address problem: sliding scale insulin (7) History of pulmonary embolus (PE) Current Visit: Yes Status: Acute Plan to address problem: Patient does history of bilateral PE at [place] Patient was on Lovenox and we discontinued today because of his platelet count dropped down to 60 (8) Thrombocytopenia Current Visit: Yes Status: Acute Plan to address problem: We will follow closely History Interval history: Patient is on mechanical ventilation, no significant change. Hospitalist Physical - Physical exam Narrative exam: In cardiopulmonary distress. The patient appeared well nourished and normally developed. Vital signs as documented. Head exam is unremarkable. No scleral icterus . Neck is without jugular venous distension, thyromegaly, or carotid bruits. Lungs are clear to auscultation. Cardiac exam reveals regular rate and Rhythm. First and second heart sounds normal. No murmurs, rubs or gallops. Abdominal exam reveals normal bowel sounds, no masses, no organomegaly and no aortic enlargement. Extremities are edematous. 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 - Constitutional Vitals: Temp Pulse Resp BP Pulse Ox 98.7 F 95 H 18 120/81 97 08/14/16 12:00 08/14/16 15:00 08/14/16 15:00 08/14/16 14:57 08/14/16 14:57 General appearance: Present: no acute distress, obese Results - Labs CBC & Chem 7: 08/14/16 05:55 08/14/16 07:50 Labs: Laboratory Last Values WBC 10.6 K/mm3 (4.5-11.0) 08/13/16 05:00 RBC 5.05 M/mm3 (3.65-5.03) H 08/13/16 05:00 Hgb 8.3 gm/dl (11.8-15.2) L 08/14/16 05:55 Hct 29.2 % (35.5-45.6) L 08/14/16 05:55 MCV 69 fl (84-94) L 08/13/16 05:00 MCH 20 pg (28-32) L 08/13/16 05:00 MCHC 28 % (32-34) L 08/13/16 05:00 RDW 22.7 % (13.2-15.2) H 08/13/16 05:00 Plt Count 65 K/mm3 (140-440) L 08/13/16 05:00 Lymph % (Auto) 7.2 % (13.4-35.0) L 08/13/16 05:00 [place] % (Auto) 5.4 % (0.0-7.3) 08/13/16 05:00 Eos % (Auto) 0.0 % (0.0-4.3) 08/13/16 05:00 Baso % (Auto) 0.2 % (0.0-1.8) 08/13/16 05:00 Lymph # 0.8 K/mm3 (1.2-5.4) L 08/13/16 05:00 [place] # 0.6 K/mm3 (0.0-0.8) 08/13/16 05:00 Eos # 0.0 K/mm3 (0.0-0.4) 08/13/16 05:00 Baso # 0.0 K/mm3 (0.0-0.1) 08/13/16 05:00 Add Manual Diff Complete 08/08/16 07:50 Total Counted 100 08/08/16 07:50 Seg Neutrophils % 87.2 % (40.0-70.0) H 08/13/16 05:00 Seg Neuts % (Manual) 90.0 % (40.0-70.0) H 08/08/16 07:50 Band Neutrophils % 6.0 % 08/08/16 07:50 Lymphocytes % (Manual) 1.0 % (13.4-35.0) L 08/08/16 07:50 Reactive Lymphs % (Man) 0 % 08/08/16 07:50 Monocytes % (Manual) 3.0 % (0.0-7.3) 08/08/16 07:50 Eosinophils % (Manual) 0 % (0.0-4.3) 08/08/16 07:50 Basophils % (Manual) 0 % (0.0-1.8) 08/08/16 07:50 Metamyelocytes % 0 % 08/08/16 07:50 Myelocytes % 0 % 08/08/16 07:50 Promyelocytes % 0 % 08/08/16 07:50 Blast Cells % 0 % 08/08/16 07:50 Nucleated RBC % 2.0 % (0.0-0.9) H 08/08/16 07:50 Seg Neutrophils # 9.3 K/mm3 (1.8-7.7) H 08/13/16 05:00 Seg Neutrophils # Man 10.2 K/mm3 (1.8-7.7) H 08/08/16 07:50 Band Neutrophils # 0.7 K/mm3 08/08/16 07:50 Lymphocytes # (Manual) 0.1 K/mm3 (1.2-5.4) L 08/08/16 07:50 Abs React Lymphs (Man) 0.0 K/mm3 08/08/16 07:50 Monocytes # (Manual) 0.3 K/mm3 (0.0-0.8) 08/08/16 07:50 Eosinophils # (Manual) 0.0 K/mm3 (0.0-0.4) 08/08/16 07:50 Basophils # (Manual) 0.0 K/mm3 (0.0-0.1) 08/08/16 07:50 Metamyelocytes # 0.0 K/mm3 08/08/16 07:50 Myelocytes # 0.0 K/mm3 08/08/16 07:50 Promyelocytes # 0.0 K/mm3 08/08/16 07:50 Blast Cells # 0.0 K/mm3 08/08/16 07:50 WBC Morphology Not Reportable 08/08/16 07:50 Hypersegmented Neuts Not Reportable 08/08/16 07:50 Hyposegmented Neuts Not Reportable 08/08/16 07:50 Hypogranular Neuts Not Reportable 08/08/16 07:50 Smudge Cells Not Reportable 08/08/16 07:50 Toxic Granulation Not Reportable 08/08/16 07:50 Toxic Vacuolation Not Reportable 08/08/16 07:50 Dohle Bodies Not Reportable 08/08/16 07:50 Pelger-Huet Anomaly Not Reportable 08/08/16 07:50 Scott Rods Not Reportable 08/08/16 07:50 Platelet Estimate Appears decreased 08/08/16 07:50 Clumped Platelets Not Reportable 08/08/16 07:50 Plt Clumps, EDTA Not Reportable 08/08/16 07:50 Large Platelets Not Reportable 08/08/16 07:50 Giant Platelets Not Reportable 08/08/16 07:50 Platelet Satelliting Not Reportable 08/08/16 07:50 Plt Morphology Comment Not Reportable 08/08/16 07:50 RBC Morphology Not Reportable 08/08/16 07:50 Dimorphic RBCs Not Reportable 08/08/16 07:50 Polychromasia Few 08/08/16 07:50 Hypochromasia 1+ 08/08/16 07:50 Poikilocytosis Not Reportable 08/08/16 07:50 Anisocytosis 1+ 08/08/16 07:50 Microcytosis 1+ 08/08/16 07:50 Macrocytosis Not Reportable 08/08/16 07:50 Spherocytes Not Reportable 08/08/16 07:50 Pappenheimer Bodies Not Reportable 08/08/16 07:50 Sickle Cells Not Reportable 08/08/16 07:50 Target Cells Not Reportable 08/08/16 07:50 Tear Drop Cells Not Reportable 08/08/16 07:50 Ovalocytes Not Reportable 08/08/16 07:50 Helmet Cells Not Reportable 08/08/16 07:50 F[place] Bodies Not Reportable 08/08/16 07:50 [place] Rings Not Reportable 08/08/16 07:50 Juan F Cells Not Reportable 08/08/16 07:50 Bite Cells Not Reportable 08/08/16 07:50 Crenated Cell Not Reportable 08/08/16 07:50 Elliptocytes 1+ 08/08/16 07:50 Acanthocytes (Spur) Not Reportable 08/08/16 07:50 Rouleaux Not Reportable 08/08/16 07:50 Hemoglobin C Crystals Not Reportable 08/08/16 07:50 Schistocytes Not Reportable 08/08/16 07:50 Malaria parasites Not Reportable 08/08/16 07:50 Jun Bodies Not Reportable 08/08/16 07:50 Hem Pathologist Commnt No 08/08/16 07:50 PT 18.0 Sec. (12.2-14.9) H 08/03/16 15:06 INR 1.49 (0.87-1.13) H 08/03/16 15:06 APTT 28.8 Sec. (24.2-36.6) 08/03/16 15:06 D-Dimer 2516.52 ng/mlDDU (0-234) H 08/05/16 13:01 POC ABG pH 7.467 (7.35-7.45) H 08/14/16 04:22 POC ABG pCO2 56.4 (35-45) H 08/14/16 04:22 POC ABG pO2 70 (80-105) L 08/14/16 04:22 POC ABG HCO3 40.8 08/14/16 04:22 POC ABG Total CO2 42 08/14/16 04:22 POC ABG O2 Sat 94 08/14/16 04:22 POC ABG Base Excess 17 08/14/16 04:22 FiO2 45 % 08/14/16 04:22 Sodium 160 mmol/L (137-145) H 08/14/16 07:50 Potassium 3.2 mmol/L (3.6-5.0) L 08/14/16 07:50 Chloride 113.9 mmol/L (98-107) H 08/14/16 07:50 Carbon Dioxide 40 mmol/L (22-30) H 08/14/16 07:50 Anion Gap 9 mmol/L 08/14/16 07:50 BUN 42 mg/dL (9-20) H 08/14/16 07:50 Creatinine 1.4 mg/dL (0.8-1.5) 08/14/16 07:50 Estimated GFR > 60 ml/min 08/14/16 07:50 BUN/Creatinine Ratio 30.00 % 08/14/16 07:50 Glucose 156 mg/dL (75-100) H 08/14/16 07:50 POC Glucose 154 (70-105) H 08/14/16 11:43 Lactic Acid 2.7 mmol/L (0.7-2.0) H* 08/07/16 03:30 Calcium 8.2 mg/dL (8.4-10.2) L 08/14/16 07:50 Ionized Calcium 2.8 mg/dL (4.8-5.6) L* 08/06/16 15:10 Phosphorus 9.0 mg/dL (2.5-4.5) H 08/06/16 13:17 Magnesium 2.0 mg/dL (1.7-2.3) 08/13/16 19:05 Total Bilirubin 3.1 mg/dL (0.1-1.2) H 08/06/16 13:17 Direct Bilirubin 2.1 mg/dL (0-0.2) H 08/06/16 13:17 Indirect Bilirubin 1.0 mg/dL 08/06/16 13:17 AST 4901 units/L (5-40) H 08/06/16 13:17 ALT 1607 units/L (7-56) H 08/06/16 13:17 Alkaline Phosphatase 111 units/L (35-129) 08/06/16 13:17 Ammonia 61.0 umol/L (25-60) H 08/03/16 15:06 Total Creatine Kinase 282 units/L (55-170) H 08/05/16 15:27 CK-MB (CK-2) 11.9 ng/mL (0.0-4.0) H 08/05/16 15:27 CK-MB (CK-2) Rel Index 4.2 (0-4) H 08/05/16 15:27 Troponin T 0.152 ng/mL (0.00-0.029) H* D 08/05/16 15:27 NT-Pro-B Natriuret Pep 8307 pg/mL (0-900) H 08/05/16 13:01 Serum Total Protein 6.3 g/dL (6.1-8.1) 08/06/16 15:10 Total Protein 6.6 g/dL (6.3-8.2) 08/06/16 13:17 Albumin 2.6 g/dL (3.8-4.8) L 08/06/16 15:10 Albumin/Globulin Ratio 0.7 % 08/06/16 13:17 Ujpzt-3-Ikaspwqby 0.3 g/dL (0.2-0.3) 08/06/16 15:10 Legbx-5-Mtlyqxvem 0.6 g/dL (0.5-0.9) 08/06/16 15:10 Beta Globulins 0.4 g/dL (0.2-0.5) 08/06/16 15:10 Gamma Globulins 2.1 g/dL (0.8-1.7) H 08/06/16 15:10 Abnorm Protein Band 1 see below 08/06/16 15:10 PEP Interpretation see below H 08/06/16 15:10 Triglycerides 31 mg/dL (2-149) 08/05/16 13:01 Cholesterol 86 mg/dL (50-199) 08/05/16 13:01 LDL Cholesterol Direct 59 mg/dL (50-130) 08/05/16 13:01 HDL Cholesterol 21 mg/dL (40-59) L 08/05/16 13:01 Cholesterol/HDL Ratio 4.09 % 08/05/16 13:01 Urine Color Marlin (Yellow) 08/06/16 11:20 Urine Turbidity Cloudy (Clear) 08/06/16 11:20 Urine pH 5.0 (5.0-7.0) 08/06/16 11:20 Ur Specific [place] 1.014 (1.003-1.030) 08/06/16 11:20 Urine Protein 30 mg/dl mg/dL (Negative) 08/06/16 11:20 Urine Glucose (UA) 50 mg/dL (Negative) 08/06/16 11:20 Urine Ketones Neg mg/dL (Negative) 08/06/16 11:20 Urine Blood Mod (Negative) 08/06/16 11:20 Urine Nitrite Neg (Negative) 08/06/16 11:20 Urine Bilirubin Neg (Negative) 08/06/16 11:20 Urine Urobilinogen < 2.0 mg/dL (<2.0) 08/06/16 11:20 Ur Leukocyte Esterase Mod (Negative) 08/06/16 11:20 Urine WBC (Auto) 28.0 /HPF (0.0-6.0) H 08/06/16 11:20 Urine RBC (Auto) 15.0 /HPF (0.0-6.0) 08/06/16 11:20 U Epithel Cells (Auto) 1.0 /HPF (0-13.0) 08/06/16 11:20 Urine Bacteria (Auto) 2+ /HPF (Negative) 08/06/16 11:20 Amorphous Crystals Few 08/06/16 11:20 Urine Mucus Few /HPF 08/06/16 11:20 Urine Osmolality 559 Mosm/kg 08/14/16 04:52 Urine Creatinine 60.1 mg/dL (0.1-20.0) H 08/06/16 15:44 Urine Sodium 45 mEq/L 08/06/16 15:44 Proteinase 3 (PR3) Ab <1.0 AI (<1.0) 08/06/16 15:10 Myeloperoxidase Ab <1.0 AI (<1.0) 08/06/16 15:10 Complement C3 35 mg/dL (90-180) L 08/06/16 15:10 Complement C4 8 mg/dL (16-47) L 08/06/16 15:10 Hepatitis A IgM Ab Non-reactive (NonReactive) 08/06/16 15:10 Hep Bs Antigen Non-reactive (Negative) 08/06/16 15:10 Hep B Core IgM Ab Non-reactive (NonReactive) 08/06/16 15:10 Hepatitis C Antibody Non-reactive (NonReactive) 08/06/16 15:10 - Imaging and Cardiology Imaging and Cardiology: Hypernatremia, Hypokalemia
[2016-08-14] MEDS: KCL 20MEQ/100ML 20 MEQ/100 ML BAG IV SCH ×3 (15:25→17:19)
--- NOTE | 2016-08-14 16:34 | Progress Note ---
Assessment and Plan Altered mental status Vasodilatory shock and lactic acidosis Acute Respiratory failure intubated on the vent Hypokalemia Congestive heart failure, Acute on chronic diastolic LVEF 45-50% with evidence of a dilated RV/RA and severe pulmonary hypertension COPD on home oxygen therapy Obstructive sleep apnea Atrial fibrillation Patient was supposed to be on xarelto as outpatient but he is non-compliant History of bilateral pulmonary embolism by CT at [place] Type II DM Systemic Hypertension Microcytic anemia, chronic per records Poor historian Recommendations: Supportive cardiac management. Subjective Date of service: 08/14/16 Principal diagnosis: acute on chronic respiratory failure, congestive heart failure Interval history: Remains intubated on the vent. Atrial fibrillation rate controlled on telemetry. Objective Vital Signs Temp Pulse Pulse Pulse Pulse Resp Resp 08/14/16 15:13 101 H 18 08/14/16 15:00 91 H 95 H 95 H 18 18 08/14/16 14:57 95 H 08/14/16 14:30 106 H 15 08/14/16 14:00 96 H 16 08/14/16 13:30 97 H 18 08/14/16 13:00 92 H 18 08/14/16 12:30 98 H 19 08/14/16 12:13 96 H 08/14/16 12:00 98.7 F 102 H 18 08/14/16 11:30 102 H 19 08/14/16 11:00 107 H 18 08/14/16 10:30 99 H 19 08/14/16 10:05 08/14/16 10:00 102 H 18 08/14/16 09:30 100 H 18 08/14/16 09:00 93 H 18 08/14/16 08:30 102 H 18 08/14/16 08:00 99.7 F H 99 H 18 08/14/16 07:35 97 H 18 08/14/16 07:30 97 H 18 08/14/16 07:24 95 H 18 08/14/16 07:20 96 H 08/14/16 07:00 92 H 18 08/14/16 06:30 88 18 08/14/16 06:00 93 H 18 08/14/16 05:30 101 H 18 08/14/16 05:00 98 H 18 08/14/16 04:30 93 H 18 08/14/16 04:00 98.3 F 90 96 H 18 08/14/16 03:30 101 H 18 08/14/16 03:00 103 H 18 08/14/16 02:30 103 H 19 08/14/16 02:00 101 H 18 08/14/16 01:54 98 H 118 H 08/14/16 01:42 95 H 18 08/14/16 01:30 93 H 20 08/14/16 01:00 97 H 18 08/14/16 00:30 98 H 18 08/14/16 00:00 98.7 F 102 H 89 20 08/13/16 23:49 96 H 08/13/16 23:30 102 H 18 08/13/16 23:00 108 H 18 08/13/16 22:30 105 H 18 08/13/16 22:00 106 H 18 08/13/16 21:36 104 H 18 08/13/16 21:30 118 H 18 08/13/16 21:00 103 H 18 08/13/16 20:30 127 H 19 08/13/16 20:00 99.0 F 103 H 98 H 18 08/13/16 19:34 101 H 16 08/13/16 19:30 98 H 18 08/13/16 19:28 106 H 08/13/16 19:25 116 H 19 08/13/16 19:00 106 H 15 08/13/16 18:30 108 H 18 08/13/16 18:00 97 H 18 08/13/16 17:30 98 H 18 08/13/16 17:00 98 H 18 08/13/16 16:45 106 H Resp BP Pulse Ox 08/14/16 15:13 08/14/16 15:00 18 120/81 99 08/14/16 14:57 120/81 97 08/14/16 14:30 122/87 97 08/14/16 14:00 122/87 97 08/14/16 13:30 126/78 97 08/14/16 13:00 120/78 97 08/14/16 12:30 114/82 97 08/14/16 12:13 117/80 99 08/14/16 12:00 117/80 99 08/14/16 11:30 125/81 98 08/14/16 11:00 132/86 98 08/14/16 10:30 132/86 98 08/14/16 10:05 100 08/14/16 10:00 131/83 98 08/14/16 09:30 122/87 99 08/14/16 09:00 125/81 98 08/14/16 08:30 130/87 98 08/14/16 08:00 123/83 98 08/14/16 07:35 08/14/16 07:30 126/81 98 08/14/16 07:24 08/14/16 07:20 124/80 96 08/14/16 07:00 124/80 96 08/14/16 06:30 123/81 96 08/14/16 06:00 122/77 96 08/14/16 05:30 111/79 96 08/14/16 05:00 121/79 97 08/14/16 04:30 123/81 96 08/14/16 04:00 121/73 97 08/14/16 03:30 106/75 94 08/14/16 03:00 120/74 95 08/14/16 02:30 114/66 96 08/14/16 02:00 112/79 96 08/14/16 01:54 08/14/16 01:42 08/14/16 01:30 109/77 97 08/14/16 01:00 115/74 97 08/14/16 00:30 111/73 97 08/14/16 00:00 110/67 99 08/13/16 23:49 115/75 08/13/16 23:30 115/75 96 08/13/16 23:00 110/68 96 08/13/16 22:30 107/77 96 08/13/16 22:00 100/68 95 08/13/16 21:36 113/70 96 08/13/16 21:30 109/72 95 08/13/16 21:00 113/70 96 08/13/16 20:30 103/64 99 08/13/16 20:00 104/67 99 08/13/16 19:34 08/13/16 19:30 103/76 99 08/13/16 19:28 109/77 95 08/13/16 19:25 08/13/16 19:00 109/77 95 08/13/16 18:30 108/76 96 08/13/16 18:00 123/79 95 08/13/16 17:30 123/79 97 08/13/16 17:00 123/79 96 08/13/16 16:45 121/73 97 - Physical Examination General: Other (intubated on the vent) Cardiac: Positive: irregularly irregular - Labs and Meds CBC 08/14/16 Range/Units 05:55 Hgb 8.3 L (11.8-15.2) gm/dl Hct 29.2 L (35.5-45.6) % Comprehensive Metabolic Panel 08/13/16 08/14/16 08/14/16 Range/Units 16:00 05:55 07:50 Sodium TNR 160 H Potassium 2.8 L* TNR 3.2 L (3.6-5.0) mmol/L Chloride TNR 113.9 H Carbon Dioxide TNR 40 H BUN TNR 42 H Creatinine TNR 1.4 Glucose TNR 156 H Calcium TNR 8.2 L
[2016-08-14] MEDS: LEVEMIR SUB-Q SCH (22:24)
[2016-08-15] MEDS: NOVOLOG SUB-Q SCH (01:05)
[2016-08-15] MEDS: fentaNYL DRIP Premix 2,000 MCG/100 ML BAG IV SCH ×2 (01:07→03:29)
[2016-08-15] MEDS: DUONEB 0.5 MG-3 MG/3 ML SOLN IH SCH (02:17)
[2016-08-15] MEDS: D5W 1,000 ML IV SCH (03:30)
[2016-08-15 03:41] VITALS: BP 109/58
[2016-08-15] MEDS ORDERED: LEVOPHED DRIP 4 MG/NS 250 ML 4 MG/250 ML BAG IV SCH (04:00)
[2016-08-15] MEDS ORDERED: LEVOPHED DRIP 4 MG/NS 250 ML 4 MG/250 ML BAG IV ONE (04:23)
[2016-08-15] MEDS ORDERED: NARCAN 0.4 MG/1 ML ONE (04:43)
[2016-08-15] MEDS ORDERED: SODIUM BICARBONATE IV ONE (04:55)
[2016-08-15] MEDS ORDERED: ADRENALIN ONE ×4 (04:55→15:19)
[2016-08-15] MEDS ORDERED: NACL 0.9% 1000 ML 1,000 ML IV ONE (05:21)
[2016-08-15] MEDS ORDERED: NARCAN 0.4 MG/1 ML IV PRN (05:23)
--- NOTE | 2016-08-15 05:47 | Event Note ---
Date: 08/15/16 Code michelle called Initial rhythm PEA, ACLS protocol was initiated Patient got 4 rounds of appendectomy, he had ROSC Lasting 10 minutes, the patient coded again He had 3 rounds of epi, there was no ROSC, time of , 49
[2016-08-15 05:58] LABS: ISTAT Base Excess 8; ISTAT HCO3 32.1; ISTAT PH 7.443 (7.35-7.45); ISTAT PO2 71 (80-105); ISTAT SO2 94; ISTAT TCO2 33
--- NOTE | 2016-08-25 17:58 | Discharge Summary ---
PHYSICIAN CONSULT: 1. Cardiology. 2. Nephrology. 3. Pulmonary Critical Care. 4. Neurology. ATTENDING: Mark Rincon M.D. REASON FOR ADMISSION: Vasodilatory shock, lactic acidosis, altered mental status, acute respiratory failure, [id number] diastolic congestive heart failure, COPD exacerbation, obstructive sleep apnea, AFib with RVR, microcytic anemia, and history of pulmonary embolism. SIGNIFICANT FINDINGS: The patient was admitted with altered mental status and acute respiratory failure. He was also in vasodilatory shock with lactic acidosis and he was admitted and he was intubated on mechanical ventilation. He was put on pressors. The patient was on mechanical ventilation and pressors since admission. We tried to wean him off, but he could not and he was treated for the above conditions. He was on IV antibiotics. He was on mechanical ventilation. He was also on pressors. He was also on insulin and we also treated him for COPD. We could not put him on CHF medications because of his low blood pressure. The patient did not show any significant improvement while in his stay and on 08/15/2016, the patient went to PEA that means pulseless electrical activity and the patient was resuscitated successfully and after 10 minutes again, he went to another PEA and he was resuscitated, but the patient did not make it and he around 5:49 a.m. I was not at the service at that time. The note is from chart revision and the was confirmed by Dr. Jennings. PROCEDURES/TREATMENTS RENDERED. He was treated with ACLS for PEA. DISPOSITION[place] [facility] [place] FINAL DIAGNOSES: Cardiac arrest, atrial fibrillation with rapid ventricular rate, diastolic congestive heart failure, acute respiratory failure, chronic obstructive pulmonary disease exacerbation, type 2 diabetes mellitus, all complications pulseless electrical activity. JOB# [id number] NADE[place]/SLY MARROQUIN
== END 2016-08-15 09:27 | DRG 870 ==
LOC: ED 14:28 → 4A 16:43 → CC1 08-05 09:05
PROVIDERS: ADMIT Internal Medicine; ATTEND Internal Medicine
PROC: 5A1955Z Respiratory Ventilation, Greater than 96 Consecutive Hours (ICD-10-PCS; principal; 2016-08-03)
PROC: 0BH17EZ Insertion of Endotracheal Airway into Trachea, Via Natural or Artificial Opening (ICD-10-PCS; 2016-08-03)
PROC: 4A03XJ1 Measurement of Arterial Pulse, Peripheral, External Approach (ICD-10-PCS; 2016-08-03)
DX: A41.9 Sepsis, unspecified organism (principal); J96.01 Acute respiratory failure with hypoxia; I50.43 Acute on chronic combined systolic (congestive) and diastolic (congestive) heart failure; N39.0 Urinary tract infection, site not specified; J44.1 Chronic obstructive pulmonary disease with (acute) exacerbation; E87.2 Acidosis; N17.9 Acute kidney failure, unspecified; E11.9 Type 2 diabetes mellitus without complications; D64.9 Anemia, unspecified; I48.91 Unspecified atrial fibrillation; I11.0 Hypertensive heart disease with heart failure; F17.200 Nicotine dependence, unspecified, uncomplicated; D69.6 Thrombocytopenia, unspecified; G47.33 Obstructive sleep apnea (adult) (pediatric); E88.81 Metabolic syndrome and other insulin resistance; I27.2 Other secondary pulmonary hypertension; E87.6 Hypokalemia
CPT/HCPCS: 31500; 36415; 36600; 70450; 71010; 74000; 76770; 80048; 80053; 80061; 80074; 81001; 82140; 82330; 82550; 82553; 82570; 82803; 82962; 83735; 83880; 83935; 84100; 84132; 84165; 84295; 84300; 84484; 85007; 85014; 85018; 85025; 85379; 85610; 85730; 86021; 86160; 87040; 87086; 87205; 93005; 93010; 93306; 94002; 94003; 94640; 94760; 96374; 99406; J0171; J1120; J1265; J1650; J1720; J1815; J1818; J1940; J1956; J2250; J2310; J2543; J2930; J3010; J3370; J3475; J3480; J7030; J7040; J7070